=== PATIENT | female | born 1940 | race Caucasian/White ===

== ENCOUNTER → 2016-06-30 | Outpatient (CLI) | payer BC ==
[~2016-06-30] MED LIST: ACET-1256 PO; ASPEC81 PO; ATOR-22 PO; ATV5 PO; BROM0.07 OPL; BSP5 PO; CALCTAB13 PO; CARV6.25 PO; FURO20TA PO; HYDR100T12 PO; ISR10 PO; MULT-614 PO; PLN25 PO; PRED1SUS3 OPL; [UNRECOGNIZED DRUG - CODE] PO
[2016-06-30 13:53] LABS: BLOOD UREA NITROGEN 21 mg/dl (7-18); BUN/CREATININE RATIO 17.3 (10-20); CALCIUM 9.2 mg/dl (8.5-10.1); CARBON DIOXIDE 28 mmol/L (21-32); CHLORIDE 103 mmol/L (98-107); GLUCOSE 82 mg/dl (70-99); POTASSIUM 3.7 mmol/L (3.5-5.1); SODIUM 140 mmol/L (136-145)
== END | disposition home or self-care (01) ==
LOC: C.LABBC 10:42
PROVIDERS: ATTEND Internal Medicine Geriatric Medicine
DX: N18.9 Chronic kidney disease, unspecified (principal)

== ENCOUNTER → 2016-07-05 | Outpatient (CLI) | payer BC ==
--- NOTE | 2016-07-05 14:57 | DIAGNOSTIC IMAGING REPORT ---
LUMBAR SPINE 5 VIEWS HISTORY: Pain COMPARISON: 12/01/2011 FINDINGS: There is no fracture. Mild scoliosis. Vertebral body stature is normal. Degenerative disc changes throughout. IMPRESSION: Degenerative change. Scoliosis. No acute compression deformity. Electronically signed by: Moncho Noriega M.D. 07/05/2016 2:56 PM Dictated Date/Time: 07/05/2016 2:55 PM
== END | disposition home or self-care (01) ==
LOC: C.RADBC 14:13
PROVIDERS: ATTEND Internal Medicine Geriatric Medicine
DX: M54.9 Dorsalgia, unspecified (principal); M51.36 Other intervertebral disc degeneration, lumbar region; M41.9 Scoliosis, unspecified

== ENCOUNTER → 2016-10-25 | Outpatient (CLI) | payer BC ==
[2016-10-25 17:06] LABS: BLOOD UREA NITROGEN 22 mg/dl (7-18); BUN/CREATININE RATIO 15.6 (10-20); CALCIUM 9.7 mg/dl (8.5-10.1); CARBON DIOXIDE 32 mmol/L (21-32); CHLORIDE 102 mmol/L (98-107); GLUCOSE 98 mg/dl (70-99); POTASSIUM 3.8 mmol/L (3.5-5.1); SODIUM 141 mmol/L (136-145)
== END | disposition home or self-care (01) ==
LOC: C.LABBC 15:10
PROVIDERS: ATTEND Internal Medicine Geriatric Medicine
DX: I42.0 Dilated cardiomyopathy (principal)

== ENCOUNTER → 2016-10-26 | Outpatient (CLI) | payer BC ==
[2016-10-26 17:07] LABS: URINE APPEARANCE CLEAR (CLEAR); URINE BILIRUBIN NEG (NEG); URINE COLOR YELLOW; URINE EPITHELIAL CELL AUTO 20-30 /lpf (0-5); URINE NITRITE NEG (NEG); URINE PH 6.5 (4.5-7.5); URINE SPECIFIC GRAVITY 1.011 (1.000-1.030); UROBILINOGEN NEG (NEG); ZZUR CULT IF INDIC CLEAN CATCH NO
[2016-10-26 17:10] LABS: MANUAL MICROSCOPIC REQUIRED? NO; REVIEW REQ? NO
[2016-10-26 17:20] LABS: ALT/SGPT 22 U/L (12-78); AST/SGOT 22 U/L (15-37); BLOOD UREA NITROGEN 18 mg/dl (7-18); BUN/CREATININE RATIO 16.1 (10-20); CALCIUM 9.6 mg/dl (8.5-10.1); CARBON DIOXIDE 29 mmol/L (21-32); CHLORIDE 100 mmol/L (98-107); GLUCOSE 82 mg/dl (70-99); POTASSIUM 3.8 mmol/L (3.5-5.1); SODIUM 137 mmol/L (136-145)
[2016-10-26 17:31] LABS: ALB/GLOB RATIO 1.1 (0.9-2); ALKALINE PHOSPHATASE 74 U/L (45-117); CHOLESTEROL 182 mg/dl (0-200); CHOLESTEROL/HDL RATIO 3.7; HDL CHOLESTEROL 49 mg/dl; LDL CHOLESTEROL CALCULATED 103 mg/dl; TRIGLYCERIDES 151 mg/dl (0-150); VERY LOW DENSITY LIPOPROT CALC 30 mg/dl
[2016-10-26 18:22] LABS: HEMATOCRIT 40.4 % (37-47); MEAN CELL VOLUME 87.3 fL (80-100); MEAN CORPUSCULAR HEMOGLOBIN 28.7 pg (25-34); MEAN CORPUSCULAR HGB CONC 32.9 g/dl (32-36); PLATELET COUNT 113 K/uL (130-400); RED BLOOD COUNT 4.63 M/uL (4.2-5.4); WHITE BLOOD COUNT 6.14 K/uL (4.8-10.8)
[2016-10-26 18:23] LABS: BASO ABS # 0.11 K/uL (0-0.2); BASOPHIL % 1.8 %; COMPLETE YES; EOSINOPHIL % 5.4 %; LYMPH ABS # 0.93 K/uL (1.2-3.4); LYMPHOCYTE % 15.2 %; NEUTROPHILS % 53.5 %; PLT ESTIMATE DECREASED; VARIANT LYM ABS # 0.99 K/uL; VARIANT LYMPHOCYTE % 16.1 %
== END | disposition home or self-care (01) ==
LOC: C.LABBC 14:32
PROVIDERS: ATTEND Internal Medicine Geriatric Medicine
DX: M54.9 Dorsalgia, unspecified (principal); I12.9 Hypertensive chronic kidney disease with stage 1 through stage 4 chronic kidney disease, or unspecified chronic kidney disease; N18.9 Chronic kidney disease, unspecified; G47.33 Obstructive sleep apnea (adult) (pediatric); I42.0 Dilated cardiomyopathy; Z86.79 Personal history of other diseases of the circulatory system; E78.5 Hyperlipidemia, unspecified; R53.83 Other fatigue

== ENCOUNTER → 2016-11-24 | Outpatient (CLI) | payer BC ==
[2016-11-24 13:38] LABS: BASO % 0.5 %; BASO ABS # 0.03 K/uL (0-0.2); COMPLETE YES; EOS % 1.9 %; HEMATOCRIT 40.3 % (37-47); IG% 0.2 %; LYMPH % 19.4 %; LYMPH ABS # 1.15 K/uL (1.2-3.4); MEAN CORPUSCULAR HEMOGLOBIN 29.3 pg (25-34); MEAN CORPUSCULAR HGB CONC 33.3 g/dl (32-36); MEAN PLATELET VOLUME 11.4 fL (7.4-10.4); MONO % 8.6 %; NEUT % 69.4 %; PLATELET COUNT 158 K/uL (130-400); RED BLOOD COUNT 4.58 M/uL (4.2-5.4); WHITE BLOOD COUNT 5.93 K/uL (4.8-10.8)
== END | disposition home or self-care (01) ==
LOC: C.LABBC 10:59
PROVIDERS: ATTEND Internal Medicine Geriatric Medicine
DX: D69.6 Thrombocytopenia, unspecified (principal)

== ENCOUNTER → 2017-04-30 | Outpatient (CLI) | payer BC ==
--- NOTE | 2017-05-01 14:26 | MAMMOGRAPHY REPORT ---
BILATERAL DIGITAL SCREENING MAMMOGRAM TOMOSYNTHESIS WITH CAD: 04/30/2017 CLINICAL HISTORY: Routine screening. Patient has no complaints. TECHNIQUE: Breast tomosynthesis in addition to standard 2D mammography was performed. Current study was also evaluated with a Computer Aided Detection (CAD) system. COMPARISON: Comparison is made to exams dated: 04/27/2016 mammogram, 04/21/2015 mammogram, 04/20/2014 mammogram, 04/18/2013 mammogram, 04/24/2012 mammogram, and 04/17/2012 mammogram - [facility]. BREAST COMPOSITION: There are scattered areas of fibroglandular density in both breasts. FINDINGS: The exam is suboptimal due to inability of the patient to adequately position for the MLO v iews, particularly the left MLO views given her pacemaker in place. Within the limitations of the ex am, obvious mass, architectural distortion or cluster of microcalcifications is seen. There are mild vascular calcifications in the breasts. IMPRESSION: ACR BI-RADS CATEGORY 1: NEGATIVE There is no mammographic evidence of malignancy, within the limitations of the exam. A 1 year screeni ng mammogram is recommended. The patient will receive written notification of the results. Approximately 10% of breast cancers are not detected with mammography. A negative mammographic report should not delay biopsy if a clinically suggestive mass is present. Misty Hodges M.D. ay/:04/30/2017 15:29:38 Machine Operator Assistant: Lakshmi CHINCHILLA(Grace)(Shey)([place]), [facility] letter sent: Normal 1/2 BI-RADS Code: ACR BI-RADS Category 1: Negative
== END | disposition home or self-care (01) ==
LOC: C.MAMM 10:25
PROVIDERS: ATTEND Internal Medicine Geriatric Medicine
DX: Z12.31 Encounter for screening mammogram for malignant neoplasm of breast (principal)

== ENCOUNTER → 2017-06-27 | Outpatient (CLI) | payer BC ==
[2017-06-27 17:17] LABS: ALBUMIN 3.5 gm/dl (3.4-5.0); ALT/SGPT 19 U/L (12-78); BLOOD UREA NITROGEN 18 mg/dl (7-18); CALCIUM 10.1 mg/dl (8.5-10.1); CARBON DIOXIDE 32 mmol/L (21-32); GLUCOSE 84 mg/dl (70-99); POTASSIUM 3.7 mmol/L (3.5-5.1); SODIUM 136 mmol/L (136-145)
[2017-06-27 17:20] LABS: ALKALINE PHOSPHATASE 92 U/L (45-117); AST/SGOT 17 U/L (15-37); CHOLESTEROL 136 mg/dl (0-200); LDL CHOLESTEROL CALCULATED 63 mg/dl; TOTAL PROTEIN 7.4 gm/dl (6.4-8.2)
[2017-06-27 17:21] LABS: BASO % 0.7 %; BASO ABS # 0.05 K/uL (0-0.2); EOS % 5.6 %; HEMATOCRIT 40.7 % (37-47); HEMOGLOBIN 13.5 g/dL (12.0-16.0); IG# 0.01 K/uL (0.00-0.02); LYMPH % 21.8 %; LYMPH ABS # 1.56 K/uL (1.2-3.4); MEAN CELL VOLUME 89.6 fL (80-100); MEAN CORPUSCULAR HEMOGLOBIN 29.7 pg (25-34); MEAN CORPUSCULAR HGB CONC 33.2 g/dl (32-36); MEAN PLATELET VOLUME 11.7 fL (7.4-10.4); MONO % 7.1 %; MONO ABS # 0.51 K/uL (0.11-0.59); NEUT % 64.7 %; NEUT ABS # 4.64 K/uL (1.4-6.5); PLATELET COUNT 164 K/uL (130-400); RED CELL DISTRIBUTION WIDTH CV 14.9 % (11.5-14.5); RED CELL DISTRIBUTION WIDTH SD 48.5 fL (36.4-46.3); WHITE BLOOD COUNT 7.17 K/uL (4.8-10.8)
== END | disposition home or self-care (01) ==
LOC: C.LABBC 12:34
PROVIDERS: ATTEND Physician Assistant Medical
DX: N18.9 Chronic kidney disease, unspecified (principal)

== ENCOUNTER 2017-08-30 17:16 | Emergency (ER) | payer BC ==
[~2017-08-30] VITALS: Ht 139.7 cm; Wt 71.4 kg
[2017-08-30 17:25] VITALS: TEMP 36.5; Ht 139.7 cm; Wt 71.4 kg
[2017-08-30] MEDS ORDERED: SODIUM CHLORIDE 0.9% 1000ML 1,000 ML IV STA (17:47)
[2017-08-30 18:23] LABS: BASO % 0.4 %; BASO ABS # 0.03 K/uL (0-0.2); EOS % 3.1 %; EOS ABS # 0.22 K/uL (0-0.5); HEMATOCRIT 38.5 % (37-47); HEMOGLOBIN 13.3 g/dL (12.0-16.0); IG# 0.01 K/uL (0.00-0.02); LYMPH % 24.5 %; LYMPH ABS # 1.72 K/uL (1.2-3.4); MEAN CELL VOLUME 87.7 fL (80-100); MEAN CORPUSCULAR HEMOGLOBIN 30.3 pg (25-34); MEAN CORPUSCULAR HGB CONC 34.5 g/dl (32-36); MEAN PLATELET VOLUME 10.8 fL (7.4-10.4); MONO % 9.1 %; MONO ABS # 0.64 K/uL (0.11-0.59); NEUT % 62.8 %; NEUT ABS # 4.41 K/uL (1.4-6.5); PLATELET COUNT 164 K/uL (130-400); RED CELL DISTRIBUTION WIDTH CV 14.2 % (11.5-14.5); RED CELL DISTRIBUTION WIDTH SD 45.9 fL (36.4-46.3); WHITE BLOOD COUNT 7.03 K/uL (4.8-10.8)
[2017-08-30 18:25] LABS: PTT PATIENT 39.7 SECONDS (21.0-31.0)
--- NOTE | 2017-08-30 18:45 | DIAGNOSTIC IMAGING REPORT ---
CHEST ONE VIEW PORTABLE CLINICAL HISTORY: 76 years-old Female presenting with CHEST PAIN. TECHNIQUE: Portable upright AP view of the chest was obtained. COMPARISON: 08/14/2013. FINDINGS: Left subclavian implanted cardiac defibrillator with leads to the right atrium, right ventricular apex, and coronary sinus. Atherosclerosis of the aortic arch. Cardiac silhouette moderately enlarged, unchanged. Mild hyperinflation of the lungs. Ulnar vascular prominence. No focal opacity. No large effusion or pneumothorax. Degenerative changes of the thoracic spine. Osteopenia may be present. IMPRESSION: 1. Cardiomegaly with suspected volume overload. No lalit pulmonary edema. 2. Hyperinflation without focal infiltrate. Electronically signed by: Eris Roberson M.D. 08/30/2017 6:43 PM Dictated Date/Time: 08/30/2017 6:42 PM
[2017-08-30 18:49] LABS: ALBUMIN 3.5 gm/dl (3.4-5.0); CALCIUM 9.8 mg/dl (8.5-10.1); CREATININE 1.22 mg/dl (0.60-1.20); POTASSIUM 3.4 mmol/L (3.5-5.1)
[2017-08-30 18:52] LABS: TOTAL PROTEIN 7.2 gm/dl (6.4-8.2)
[2017-08-30] MEDS ORDERED: OPTIRAY 320 IV PRN ×2 (19:30)
[2017-08-30] MEDS ORDERED: ACETAMINOPHEN IV 650 MG in EMPTY BAG 0 ML IV ONE (19:30)
[2017-08-30] MEDS ORDERED: SIME1CAP PO (20:05)
[2017-08-30] MEDS ORDERED: POTA20TA13 PO (20:05)
[2017-08-30] MEDS ORDERED: [UNRECOGNIZED DRUG - REMARK] OPB (20:05)
[2017-08-30] MEDS ORDERED: VALS-10 PO (20:05)
[2017-08-30] MEDS ORDERED: CALC-437 PO (20:05)
[2017-08-30] MEDS ORDERED: HYDR100T3 PO (20:05)
[2017-08-30] MEDS ORDERED: ASPI81TA21 PO (20:05)
[2017-08-30] MEDS ORDERED: BSP/10 PO (20:05)
[2017-08-30] MEDS ORDERED: ISS/10 PO (20:05)
[2017-08-30] MEDS ORDERED: JUICE PLUS PO (20:05)
[2017-08-30] MEDS ORDERED: CRG25 PO (20:05)
--- NOTE | 2017-08-30 20:12 | DIAGNOSTIC IMAGING REPORT ---
(CHEST FOR PE) ANGIO WITH CLINICAL HISTORY: 76 years-old Female presenting with ^leg swelling, PÉREZ, elevated ddimer, hx dvt. TECHNIQUE: Multidetector CT angiography of the chest was performed after administration of intravenous contrast. 3-D volumetric and/or maximum intensity projection (MIP) images were subsequently reconstructed for review. IV contrast: 87 mL of Optiray 320. A dose lowering technique was used consistent with the principles of ALARA (as low as reasonably achievable). COMPARISON: Chest x-ray performed earlier the same day. CT DOSE (mGy.cm): The estimated cumulative dose is 309.08 mGy.cm. FINDINGS: Scale And Skip Car Operator topogram: Left subclavian implanted cardiac defibrillator with leads to the right atrium, right ventricular apex, and coronary sinus. Cholecystectomy clips noted. Pulmonary vasculature: The study is adequate for assessment of the pulmonary vascular tree. No filling defect within the pulmonary arteries to suggest embolus. Main pulmonary artery significantly enlarged measuring 4 cm in transverse dimension. No flattening of the interventricular septum. No intracardiac filling defect. No reflux of contrast into the hepatic veins. Remaining chest: On soft tissue windows, subcentimeter nodule noted in the right lobe of the thyroid. No axillary, supraclavicular, hilar, or mediastinal lymphadenopathy. Atherosclerosis of the aorta. Multichamber enlargement of the heart. A prominent pericardial recess likely accounts for apparent abnormal density in the subcarinal region. Prominent pericardial recesses noted elsewhere. Leads to the right atrium, right ventricular apex, and coronary sinus noted. Coronary artery calcification. Small pericardial effusion. No pleural effusion. Upper abdomen normal. On lung windows, bandlike opacities at the lung bases likely atelectasis. Mild bronchial wall thickening may be present predominantly in the lower lobes. Pulmonary arterial size is slightly larger than the adjacent bronchi. However, no significant groundglass opacity or interlobular septal thickening. Central airways patent. On bone windows, degenerative changes of the spine. IMPRESSION: 1. No evidence of pulmonary embolus. No acute intrathoracic pathology. 2. Findings suggest pulmonary hypertension or volume overload. No lalit pulmonary edema. 3. Cardiomegaly. 4. Small pericardial effusion. Electronically signed by: Eris Roberson M.D. 08/30/2017 8:10 PM Dictated Date/Time: 08/30/2017 8:03 PM
--- NOTE | 2017-08-30 20:24 | DIAGNOSTIC IMAGING REPORT ---
L VENOUS DOPP LOWER EXT UNILAT CLINICAL HISTORY: 76 years-old Female presenting with L leg swelling; hx DVT. TECHNIQUE: Real-time grayscale and color and spectral Doppler ultrasound imaging of the veins of the left lower extremity was performed. Compression and augmentation were also utilized. COMPARISON: None. FINDINGS: Left: Common femoral vein: Patent. Exaggerated phasicity with triphasic waveforms could suggest right heart failure or tricuspid regurgitation. Greater saphenous vein: Patent. Deep femoral vein: Patent. Femoral vein: Patent. Popliteal vein: Patent. Calf veins: Limited visualization. Other: None. IMPRESSION: No evidence of deep venous thrombosis. Electronically signed by: Eris Roberson M.D. 08/30/2017 8:23 PM Dictated Date/Time: 08/30/2017 8:20 PM
--- NOTE | 2017-08-30 20:59 | EMERGENCY ROOM VISIT NOTE ---
ED Visit Note First contact with patient: 17:56 This Patient was discussed with the physician school psychologist assistant, Gelacio Robison PA-C. The pertinent historical and physical exam findings were confirmed. I agree with the studies ordered and with the interpretations of these studies. I agree with the disposition and care plan.
[2017-08-30 21:01] VITALS: BP 182/75; PULSE 78; O2SAT 95
--- NOTE | 2017-08-30 21:35 | EMERGENCY ROOM VISIT NOTE ---
ED Visit Note First contact with patient: 17:30 Chief Complaint: Left leg pain and swelling. History of Present Illness: Ms. Quinteros is a 76-year-old white female who ambulates into the ED accompanied by a male friend complaining of left lower leg pain and swelling. Historically patient reports she has a left upper extremity DVT in 2011 after surgery. She is no longer on anti-thrombolytic medication. Patient reports she has been having ongoing left lower leg pain for an unknown amount of time. She reports she was seen by a visiting nurse today who measured the diameter of her lower legs and noted that her left leg was 1 inch larger than the right. It was recommended that she come to the emergency department for evaluation of DVT. Currently patient reports that she has been having waxing and waning right lower quadrant pain for an unknown amount of time. She thinks it has been over at least 2 weeks but is unsure. She describes her pain as an achy sensation. She rates her discomfort 8/10. Her pain starts approximately 5-6 cm inferior to her hip and extends down to the lower leg to just above the lateral malleolus. Intermittently she reports it does radiate down into her foot. Her pain worsens with ambulation and palpation. She reports her pain slightly improves when she is sitting upright on a hard chair. She reports she took 500 mg of acetaminophen prior to arrival at the hospital without relief of her discomfort. While performing a review of systems she reports she is having mild exertional dyspnea. She denies fevers, chills, sweats, skin eruptions, skin color changes, upper respiratory tract symptoms, cough, wheezing, shortness of breath, palpitations, chest pain/discomfort, orthopnea, claudication, cramping, recent surgery/ inactivity/extended travel, abdominal pain, nausea, vomiting, back pain, lower extremity weakness/numbness/tingling Review of Systems: As noted above in history of present illness. All body systems were reviewed and found to be negative as noted above. Past Medical History: As previously noted, left bundle branch block, primary idiopathic dilated cardiac myopathy, systolic heart failure, status post pacemaker/defibrillator implantation. Current Medications: Medications Dose Route/Sig Max Daily Dose Days Date Category Dose Instructions Diovan Hct 320MG/12.5MG (HCTZ/Valsartan) 1 Tab Tab 1 Tab PO DAILY 08/30/17 Reported [Juice Plus] 2 Tab PO BID 08/30/17 Reported [Bausch & Lombs] 1 Drop OPB TID 08/30/17 Reported Potassium Chloride Er (Potassium Chloride Microencaps) 20 Meq Tab 20 Meq PO DAILY 08/30/17 Reported Isordil (Isosorbide Dinitrate) 10 Mg Tab 10 Mg PO TID 08/30/17 Reported PT STATES SHE ONLY TAKES IT BID Hydralazine HCl 100 Mg Tab 100 Mg PO BID 08/30/17 Reported Gas-X Extra Strength (Simethicone) 125 Mg Cap 1 Cap PO PRN 08/30/17 Reported Carvedilol 25 Mg Tab 25 Mg PO BID 08/30/17 Reported Buspirone HCl 10 Mg Tab 10 Mg PO TID 08/30/17 Reported Calcium Carbonate (Calcium Carbonate (Antacid)) 648 Mg Tab 1 Tab PO BID 08/30/17 Reported Ecotrin Or Generic (Aspirin) 81 Mg Tab 81 Mg PO DAILY 08/30/17 Reported Lasix (Furosemide) 20 Mg Tab 20 Mg PO DAILY PRN 04/20/15 Reported Centrum Silver Ultra Wome (Multiple Vitamins W/ Minerals) 1 Tab Tab 1 Tab PO NOON 04/20/15 Reported Felodipine ER (Felodipine) 2.5 Mg Tabcr 2.5 Mg PO QAM 04/20/15 Reported Tylenol (Acetaminophen) 500 Mg Tab 500 Mg PO Q4-6HR PRN 03/13/11 Reported Lipitor (Atorvastatin Calcium) 20 Mg Tab 20 Mg PO HS 03/13/11 Reported Allergies to Medications: Azithromycin, cephalosporins, ciprofloxacin, erythromycin, penicillin, tramadol. Social History: Patient is currently retired; she feels safe in her home environment; she denies tobacco and alcohol use. Physical Examination: Vital Signs: Date Time Temp Pulse Resp B/P (MAP) Pulse Ox O2 Delivery O2 Flow Rate FiO2 08/30/17 19:14 73 20 176/74 96 Room Air 08/30/17 18:09 64 08/30/17 17:25 36.5 66 20 155/74 94 Room Air GENERAL: 76-year-old female in mild distress due to pain, nontoxic-appearing, afebrile and hemodynamically stable. NEUROLOGICAL: Awake, alert and oriented to person, place and time. Answering questions appropriately and following commands. Good hand eye coordination. No focal motor or sensory deficits. SKIN: Warm, dry and pink. No soft tissue eruptions or trauma noted. HEENT: Atraumatic and normocephalic. PERRLA. Sclera white and conjunctiva pink. Oral cavity moist and pink. Airway is patent. Pharynx is nonerythematous or edematous. Speech normal. Trachea midline. No jugular venous distention. BACK: No tenderness over the bony spine. No CVA tenderness. THORAX: Lungs sounds are clear to auscultation and equal bilaterally with symmetrical chest wall. No wheezing, rales or rhonchi. No crepitus, tenderness , subcutaneous air or deformities noted. No increased respiratory effort or rate. HEART: Regular rate and rhythm. No gallops, rubs or murmurs are appreciated. ABDOMEN: Flat, soft and nontender. Positive bowel sounds in all quadrants. No guarding, rigidity or organomegaly. LEFT LOWER EXTREMITY: No gross bony deformity. No shortening or malrotation. No tenderness over the hip, knee, ankle or foot. Mild to moderate tenderness over the lateral aspect of the lower leg and thigh with mild swelling but no erythema, edema or ecchymosis. No dependent edema. No calf tenderness or cords. Full range of motion of the knee, ankle and toes against resistance. Throughout the foot the skin was warm and pink and capillary refill is brisk. She is able to distinguish light sensations to all dermatomes of the foot. ED Course: Patient is assessed as noted above. Patient's medication list was reviewed. Laboratory Testing: Test 08/30/17 18:00 08/30/17 18:11 Range/Units White Blood Count 7.03 4.8-10.8 K/uL Red Blood Count 4.39 4.2-5.4 M/uL Hemoglobin 13.3 12.0-16.0 g/dL Hematocrit 38.5 37-47 % Mean Corpuscular Volume 87.7 80-100 fL Mean Corpuscular Hemoglobin 30.3 25-34 pg Mean Corpuscular Hemoglobin Concent 34.5 32-36 g/dl Platelet Count 164 130-400 K/uL Mean Platelet Volume 10.8 7.4-10.4 fL Neutrophils (%) (Auto) 62.8 % Lymphocytes (%) (Auto) 24.5 % Monocytes (%) (Auto) 9.1 % Eosinophils (%) (Auto) 3.1 % Basophils (%) (Auto) 0.4 % Neutrophils # (Auto) 4.41 1.4-6.5 K/uL Lymphocytes # (Auto) 1.72 1.2-3.4 K/uL Monocytes # (Auto) 0.64 0.11-0.59 K/uL Eosinophils # (Auto) 0.22 0-0.5 K/uL Basophils # (Auto) 0.03 0-0.2 K/uL RDW Standard Deviation 45.9 36.4-46.3 fL RDW Coefficient of Variation 14.2 11.5-14.5 % Immature Granulocyte % (Auto) 0.1 % Immature Granulocyte # (Auto) 0.01 0.00-0.02 K/uL Prothrombin Time 10.0 9.0-12.0 SECONDS Prothromb Time International Ratio 1.0 0.9-1.1 Activated Partial Thromboplast Time 39.7 21.0-31.0 SECONDS Partial Thromboplastin Ratio 1.5 Sodium Level 138 136-145 mmol/L Potassium Level 3.4 3.5-5.1 mmol/L Chloride Level 103 98-107 mmol/L Carbon Dioxide Level 31 21-32 mmol/L Anion Gap 4.0 3-11 mmol/L Blood Urea Nitrogen 25 7-18 mg/dl Creatinine 1.22 0.60-1.20 mg/dl Est Creatinine Clear Calc Drug Dose 29.4 ml/min Estimated GFR () 49.1 Estimated GFR (Non- 42.4 BUN/Creatinine Ratio 20.8 10-20 Random Glucose 99 70-99 mg/dl Calcium Level 9.8 8.5-10.1 mg/dl Total Bilirubin 0.5 0.2-1 mg/dl Direct Bilirubin 0.1 0-0.2 mg/dl Aspartate Amino Transf (AST/SGOT) 18 15-37 U/L Alanine Aminotransferase (ALT/SGPT) 20 12-78 U/L Alkaline Phosphatase 100 45-117 U/L Total Protein 7.2 6.4-8.2 gm/dl Albumin 3.5 3.4-5.0 gm/dl Lipase 241 73-393 U/L Bedside D-Dimer > 450 0-450 ng/mlFEU Bedside Troponin I < 0.030 0-0.045 ng/ml Chest X-Rays: Were read by myself and the radiologist showing no acute infiltrates, effusions or pneumothorax. Place maker/defibrillator was noted with the leads leading to the right atrium and right ventricle and coronary sinus. Arthrosclerosis is noted in the aortic arch. Heart silhouette is moderately enlarged which is unchanged. Vascular prominences were noted with suspected volume overload. Hyperinflation without focal infiltrate. Left Lower Leg Venous Doppler Ultrasound: Was reviewed by myself and read by the radiologist and showed no evidence of deep vein thrombus. Chest CTA: Was reviewed by myself and read by the radiologist showing no evidence of pulmonary embolism or acute intrathoracic pathology. Finding suggests pulmonary hypertension or fluid overload without lalit pulmonary edema. Cardiomegaly. Small pericardial effusion. Patient was hydrated with normal saline and received 650 mg of acetaminophen IV for pain. Patient was reassessed multiple times during her stay in the emergency department. Patient's case was reviewed with Dr. Loya; we agreed on diagnostic approach, treatment, disposition and plan. Patient was educated about today's findings and instructed on her treatment plan ; she verbalized understanding and agreement with this plan. Clinical Impression: Pain and swelling of the left lower leg. Decision-Making: Initially my differential diagnosis I considered deep vein thrombus, pulmonary embolism, pulmonary edema, lower leg contusion and other causes. Disposition: Patient discharged home in stable condition accompanied by her ; prior to departure she was reassessed and subjectively reported she was feeling much better and rated her discomfort 3/10. Plan: Patient was encouraged to continue her current medications as prescribed. Patient was encouraged to use acetaminophen every 6 hours as needed for pain. Patient was encouraged to keep her left leg elevated while at rest. Patient was encouraged to contact her PCP tomorrow morning and request follow- up care and treatment. Patient was encouraged return the ED for worsening pain, worsening swelling, leg weakness/numbness/tingling or any new/concerning symptoms.
== END 2017-08-30 21:08 | disposition home or self-care (01) ==
LOC: C.EDB 17:17 → C.EDD 21:08
DX: M79.662 Pain in left lower leg (principal); R22.42 Localized swelling, mass and lump, left lower limb; Z86.718 Personal history of other venous thrombosis and embolism; R10.31 Right lower quadrant pain; I44.7 Left bundle-branch block, unspecified; I42.0 Dilated cardiomyopathy; I50.20 Unspecified systolic (congestive) heart failure; Z95.810 Presence of automatic (implantable) cardiac defibrillator; Z79.82 Long term (current) use of aspirin; Z79.899 Other long term (current) drug therapy; Z88.0 Allergy status to penicillin; Z88.8 Allergy status to other drugs, medicaments and biological substances

== ENCOUNTER 2022-01-04 01:19 | Inpatient (IN) ==
[2022-01-04] MEDS ORDERED: LIDOCAINE/EPINEPH/TETRACAINE 1 EA SYR EXT STA (02:38)
[2022-01-04] MEDS ORDERED: DIPHTHERIA/TETANUS/PERTUSSIS 0.5 ML SYR/VIAL IM ONE (02:38)
[2022-01-04 03:08] LABS: Basophils # (auto) 0.04 K/uL (0-0.2); Basophils % (auto) 0.4 %; Eosinophils # (auto) 0.19 K/uL (0-0.50); Hemoglobin 10.6 g/dl (12.0-16.0); Immature Granulocytes # (auto) 0.04 K/uL (0.00-0.02); Immature Granulocytes % (auto) 0.4 %; Lymphocytes # (auto) 0.48 K/uL (1.2-3.4); Mean Corpuscular Hemoglobin 30.1 pg (25.0-34.0); Mean Corpuscular Hgb Conc 33.1 g/dL (32.0-36.0); Mean Corpuscular Volume 90.9 fL (80.0-100.0); Mean Platelet Volume 11.6 fL (9.4-12.3); Monocytes # (auto) 0.71 K/uL (0.24-0.82); Monocytes % (auto) 7.4 %; Neutrophils # (auto) 8.08 K/uL (1.4-6.5); Neutrophils % (auto) 84.8 %; Platelet Count 141 K/uL (130-400); RDW Coefficient of Variation 14.7 % (11.5-14.5); RDW Standard Deviation 49.5 fL (36.4-46.3); Red Blood Count 3.52 M/uL (3.93-5.22); White Blood Count 9.54 K/ul (4.8-10.8)
[2022-01-04 03:34] LABS: Partial Thromboplastin Ratio 1.4; Partial Thromboplastin Time 37.2 Seconds (21.0-31.0); Troponin I High Sensitivity 42.8 pg/ml (0-14)
[2022-01-04 03:41] LABS: Albumin Globulin Ratio 1.5 (0.9-2); Albumin Level 3.5 gm/dl (3.4-5.0); BUN Creatinine Ratio 18.2 (10-20); Bilirubin,Total 0.7 mg/dl (0.2-1.0); Calcium 9.2 mg/dl (8.5-10.1); Creatinine Clr Calc Pharmacy 21.3 ml/min; Est GFR (African American) 43.1 ml/min; Est GFR (Non-African American) 37.2 ml/min; Globulin 2.4 gm/dl (2.5-4.0); Potassium 3.7 mmol/L (3.5-5.1); Total Protein 5.9 gm/dl (6.0-8.3)
[2022-01-04] MEDS ORDERED: OPTIRAY 320 125ml IV ONE (04:20)
[2022-01-04] MEDS ORDERED: XYLOCAINE 1%/SOD BICARB 20 ML VIAL INFIL ONE (04:57)
--- NOTE | 2022-01-04 06:36 | Emergency Department Note ---
History of Present Illness General Chief complaint: Fall Time Seen by Provider: 01/04/22 02:31 History of Present Illness Maximum Pain Intensity: 3 This is an 81-year-old female presenting to the emergency department for evaluation of head injury after falling few hours prior to arrival. The patient states that her went outside to take the garbage out this evening, and after an extended period of time he did not come back inside. The patient called outside for her , who stated that he fell. The patient went outside to assist her , and evidently both of them had subsequent falls outside in the gravel driveway. The patient did strike her head. Is unsure if she lost consciousness. She does have a history of nonsustained V. 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 The patient is primarily with pain of her head, that she rates a 3/10. She does have some bleeding to a laceration on top of the head. She feels like she is able to move her arms and legs without difficulty. She does not describe any chest pain, chest tightness, shortness of breath, or palpitations before or after the event. Home Medications Medication Instructions Recorded Confirmed Type multivit with 1 tab PO DAILY 11/04/18 11/14/21 History [id number]-[id number]-IV-lutein 8 mg iron-400 mcg-300 mcg tablet (Centrum Silver Women) calcium carbonate 600 mg-vitamin 1 cap PO BID 11/13/19 11/14/21 History D3 12.5 mcg (500 unit) capsule (Calcium 600 with Vitamin D3) peg 400-propylene glycol [Systane 1 drops ophthalmic (eye) .COMPLEX 12/19/19 11/14/21 History (propylene glycol)] methenamine-sodium salicylate 162 tab PO 11/08/20 11/14/21 History mg-162.5 mg tablet (AZO Urinary Tract Defense) felodipine 2.5 mg tablet,extended 2.5 mg PO DAILY #90 tabs 11/29/20 11/14/21 Rx release 24 hr hydralazine 100 mg tablet 100 mg PO DAILY #90 tabs 08/11/21 11/14/21 Rx sacubitril 97 mg-valsartan 103 mg 1 tab PO BID #180 tabs 08/15/21 11/14/21 Rx tablet (Entresto) isosorbide dinitrate 10 mg tablet 10 mg PO DAILY #90 tabs 09/02/21 11/14/21 Rx buspirone 5 mg tablet 2.5 mg PO TID PRN anxiety 09/07/21 11/14/21 History furosemide 40 mg tablet 40 mg PO DAILY PRN weight gain, 10/06/21 11/14/21 Rx swelling, dyspnea #60 tabs potassium chloride 20 mEq 20 meq PO DAILY PRN Take with 10/06/21 11/14/21 Rx tablet,extended release Lasix #90 tabs carvedilol 25 mg tablet 25 mg PO BID #180 tabs 11/24/21 Rx spironolactone 25 mg tablet 25 mg PO DAILY #30 tabs 12/12/21 Rx aspirin 81 mg tablet,delayed 81 mg PO DAILY 01/04/22 01/04/22 History release atorvastatin 20 mg tablet 20 mg PO DAILY #90 tabs 01/04/22 Rx Allergies Allergy/AdvReac Type Severity Reaction Status Date / Time cephalexin Allergy Severe ANAPHYLAXIS Verified 11/14/21 10:13 Penicillins Allergy Severe RASH AND Verified 11/14/21 10:13 SWELLING Cephalosporins Allergy Intermediate RASH AND Verified 11/14/21 10:13 SWELLING Cipro Allergy Unknown . Verified 11/19/17 23:19 ciprofloxacin Allergy Unknown . Verified 11/14/21 10:13 scallops Allergy Unknown ` Verified 11/14/21 10:13 tramadol Allergy Unknown . Verified 11/14/21 10:13 erythromycin base AdvReac Intermediate UPSET Verified 11/14/21 10:13 STOMACH amlodipine AdvReac Unknown Unknown Verified 11/14/21 10:13 azithromycin AdvReac Unknown UPSET Verified 11/14/21 10:13 STOMACH Past Med/Surg History Medical History Abdominal pain Carpal tunnel syndrome Chronic diarrhea Dependent edema Depression Diplopia Dyspnea on exertion Frequent PVCs History of shingles Lumbar radiculopathy Ocular migraine Surgical History H/O eye surgery STRABISMUS History of cholecystectomy Hx of cataract surgery BILATERAL Family History Father Coronary heart disease ASCVD (arteriosclerotic cardiovascular disease) Brother Myocardial infarction ASCVD (arteriosclerotic cardiovascular disease) Son Lung cancer ASCVD (arteriosclerotic cardiovascular disease) Aunt Breast cancer Grandmother Cerebral hemorrhage Mother Parkinsons disease Other Cerebral arterial aneurysm Cerebromeningeal hemorrhage Denies family history of Ovarian cancer Prostate cancer Colorectal cancer Social History Smoking Status: Never smoker Second Hand Exposure: No; Hx Alcohol Use: No Hx Substance Use: No Preferred Language: Faroese Communication Ability: Effective Visual Impairment: Limited Hearing Ability: Normal Math Tutor Required: No Beliefs That Will Affect Care: None marital status: Current Living Situation: Spouse current occupational status: retired How many Children do You have: 4 Feels Safe at Home: Yes Childhood Exposure to Second-Hand Smoke: Yes caffeine: Yes Dental Care, Regularly: Yes Physical Activity Frequency: Does not Exercise Seatbelt Use: always Sunscreen Use: No (does not sit in the sun) Review of Systems A total of 10 systems reviewed and were otherwise negative Physical Exam Vital Signs Vital Signs - 24 hr 01/04/22 01:30 01/04/22 03:17 01/04/22 03:17 Temperature 36.5 C Temperature Source Oral Pulse Rate 71 Pulse Rate [Apical] 78 Respiratory Rate 18 16 Respiratory Effort / Characteristics Non-Labored Spontaneous Respiratory Depth Normal Blood Pressure 171/78 H Blood Pressure [Right Arm] 172/88 H Blood Pressure Mean 109 Blood Pressure Mean [Right Arm] 116 Pulse Oximetry 94 92 92 Oxygen Delivery Method Room Air Room Air Oxygen Flow Rate Sepsis Recent Fever Within 48 Hours No Sepsis New/Unexplained Change in Mental Status No Sepsis Action Taken by Nursing No Action Required 01/04/22 05:30 Temperature Temperature Source Pulse Rate Pulse Rate [Apical] 86 Respiratory Rate 18 Respiratory Effort / Characteristics Respiratory Depth Blood Pressure Blood Pressure [Right Arm] 178/109 H Blood Pressure Mean Blood Pressure Mean [Right Arm] 132 Pulse Oximetry 95 Oxygen Delivery Method Nasal Cannula Oxygen Flow Rate 2 Sepsis Recent Fever Within 48 Hours Sepsis New/Unexplained Change in Mental Status Sepsis Action Taken by Nursing VITALS: Vitals are noted on the nurse's note and reviewed by myself. Vital signs stable. GENERAL: Pleasant elderly white female who is in no acute distress. HEAD: There is a roughly 5 x 4 cm hematoma of the superior forehead and right- sided scalp. There is a vertical 1 cm laceration with small amounts of active bleeding. This will require repair. No gallardo sign or raccoon eyes. EARS: External ear normal. External auditory canals clear, tympanic membranes pearly chavez without erythema or effusion bilaterally. NECK: Supple without nuchal rigidity. No lymphadenopathy. No thyromegaly. Cervical spine is nontender. HEART: Regular rate and rhythm with systolic murmur LUNGS: Clear to auscultation bilaterally without wheezes, rales or rhonchi. No retractions or accessory muscle use. MUSCULOSKELETAL: No muscle atrophy, erythema, or edema noted. Full range of motion in all extremities. No tenderness to palpation. Normal gait. Strength 5/5 throughout. NEURO: Patient was alert and oriented to person place and time. CN II through XII grossly intact. GCS 15. Procedures Free Text Procedures Laceration repair. Patient elects to have their laceration repaired. Verbal consent was obtained to perform the procedure. There is an abundance of materials available for the procedure. Patient is not allergic to latex. Using sterile technique the wound was cleaned with Betadine. The area was sterilely draped. 3 ml of 1% buffered lidocaine was used to anesthetize the scalp laceration. Once the patient was anesthetized, the wound was copiously irrigated under pressure with sterile saline. The wound was explored and there were no deep structures injured such as tendons, bone, or significant blood vessels. The laceration was repaired using 2 simple interrupted 4-0 nylon sutures with the wound edges being well approximated. Hemostasis was achieved. The area was cleaned with sterile saline and dressed with bacitracin ointment and bandage. The patient was given a tetanus booster. Patient tolerated the procedure well without complications. Blood loss was negligible. Course Administered Medications Albuterol (Albut/Ipratrop 3mg/0.5mg Neb 3 Ml Vial) 3 ml NEB QIDR [facility]; Protocol Stop: 02/03/22 18:59 Last Admin: 01/04/22 19:17 Dose: 3 ml Documented By: PAVAN Aspirin (Aspirin 81 Mg Ectab) 81 mg PO DAILY [facility] Stop: 02/03/22 08:59 Last Admin: 01/04/22 09:58 Dose: 81 mg Documented By: Buspirone HCl (Buspirone 5 Mg Tab) 2.5 mg PO TID PRN PRN Reason: anxiety Stop: 02/03/22 08:57 Last Admin: 01/04/22 09:59 Dose: 2.5 mg Documented By: GERARDO Carvedilol (Carvedilol 25 Mg Tab) 25 mg PO BID DEBO Stop: 02/03/22 08:59 Last Admin: 01/04/22 20:53 Dose: 25 mg Documented By: Admin: 01/04/22 10:00 Dose: 25 mg Documented By: GERARDO Doxycycline Hyclate (Doxycycline Hyclate 100 Mg Cap) 100 mg PO BID DEBO Stop: 01/11/22 20:59 Last Admin: 01/04/22 20:53 Dose: 100 mg Documented By: BETHANY Felodipine (Felodipine 2.5 Mg Tabcr) 2.5 mg PO DAILY DEBO Stop: 02/03/22 08:59 Last Admin: 01/04/22 09:59 Dose: 2.5 mg Documented By: GERARDO Hydralazine HCl (Hydralazine Tab 50 Mg Tab) 100 mg PO DAILY DEBO Stop: 02/03/22 08:59 Last Admin: 01/04/22 09:00 Dose: 100 mg Documented By: GERARDO Isosorbide Dinitrate (Isosorbide Dinitrate 10 Mg Tab) 10 mg PO DAILY DEBO Stop: 02/03/22 08:59 Last Admin: 01/04/22 09:59 Dose: 10 mg Documented By: GERARDO Sacubitril/Valsartan (Valsartan/Sacubitril 103/97mg Tab) 1 tab PO BID [facility] Stop: 02/03/22 08:59 Last Admin: 01/04/22 20:53 Dose: 1 tab Documented By: Admin: 01/04/22 09:59 Dose: 1 tab Documented By: GERARDO Spironolactone (Spironolactone 25 Mg Tab) 25 mg PO DAILY DEBO Stop: 02/03/22 08:59 Last Admin: 01/04/22 10:00 Dose: 25 mg Documented By: GERARDO Discontinued Medications Albuterol (Albut/Ipratrop 3mg/0.5mg Neb 3 Ml Vial) 3 ml NEB NOW STA; Protocol Stop: 01/04/22 09:50 Last Admin: 01/04/22 10:07 Dose: 3 ml Documented By: CONCEPCION Atorvastatin Calcium (Atorvastatin 20 Mg Tab) 20 mg PO DAILY DEBO Stop: 02/03/22 08:59 Last Admin: 01/04/22 10:00 Dose: 20 mg Documented By: Diphtheria/Pertussis/Tetanus Vacc (Diphtheria/Tetanus/Pertussis 0.5 Ml Syr/Vial) 0.5 ml IM .ONCE ONE Stop: 01/04/22 02:39 Last Admin: 01/04/22 02:55 Dose: 0.5 ml Documented By: GOKUL Ioversol (Optiray 320 125ml) 120 ml IV ONCE ONE Stop: 01/04/22 04:21 Last Admin: 01/04/22 04:20 Dose: 120 ml Documented By: MARGARET Lidocaine (Lidocaine/Epineph/Tetracaine 1 Ea Syr) 1 each EXT NOW STA Stop: 01/04/22 02:39 Last Admin: 01/04/22 02:56 Dose: 1 each Documented By: GOKUL Lidocaine HCl (Xylocaine 1%/Sod Bicarb 20 Ml Vial) Confirm Administered Dose 20 ml INFIL .STK-MED ONE Stop: 01/04/22 04:58 Last Admin: 01/04/22 05:10 Dose: 20 ml Documented By: GOKUL Medical Decision Making Differential Diagnosis Differential diagnosis: Etiologies such as scalp contusion/hematoma, concussion, cerebral contusion, skull fracture, subdural hematoma, epidural hematoma, intraparenchymal hemorrhage, SAH as well as other traumatic pathologies were entertained. Laboratory Data Result diagrams: 01/04/22 02:55 01/04/22 02:55 Lab Results 01/04/22 01/04/22 01/04/22 Range/Units 02:55 02:55 02:55 WBC 9.54 (4.8-10.8) K/ul RBC 3.52 L (3.93-5.22) M/uL Hgb 10.6 L (12.0-16.0) g/dl Hct 32.0 L (34.1-44.9) % MCV 90.9 (80.0-100.0) fL MCH 30.1 (25.0-34.0) pg MCHC 33.1 (32.0-36.0) g/dL RDW Std Deviation 49.5 H (36.4-46.3) fL RDW Coeff of Jaz 14.7 H (11.5-14.5) % Plt Count 141 (130-400) K/uL MPV 11.6 (9.4-12.3) fL Immature Gran % (Auto) 0.4 % Neut % (Auto) 84.8 % Lymph % (Auto) 5.0 % Rose[place] % (Auto) 7.4 % Eos % (Auto) 2.0 % Baso % (Auto) 0.4 % Neut # (Auto) 8.08 H (1.4-6.5) K/uL Lymph # (Auto) 0.48 L (1.2-3.4) K/uL [place] # (Auto) 0.71 (0.24-0.82) K/uL Eos # (Auto) 0.19 (0-0.50) K/uL Baso # (Auto) 0.04 (0-0.2) K/uL Immature Gran # (Auto) 0.04 H (0.00-0.02) K/uL PT 11.0 (9.0-12.0) Seconds INR 1.0 (0.9-1.1) APTT 37.2 H (21.0-31.0) Seconds PTT Ratio 1.4 Sodium 134 L (136-145) mmol/L Potassium 3.7 (3.5-5.1) mmol/L Chloride 102 (98-107) mmol/L Carbon Dioxide 24 (21-32) mmol/L Anion Gap 8 (3-11) BUN 24 H (6-23) mg/dl Creatinine 1.32 H (0.6-1.2) mg/dl Est Cr Clr Drug Dosing 21.3 ml/min Est GFR ( Amer) 43.1 ml/min Est GFR (Non-Af Amer) 37.2 ml/min BUN/Creatinine Ratio 18.2 (10-20) Glucose 114 H (70-99(Fasting)) mg/dl Calcium 9.2 (8.5-10.1) mg/dl Magnesium (1.7-2.4) mg/dl Total Bilirubin 0.7 (0.2-1.0) mg/dl AST 14 (13-39) U/L ALT 9 (7-52) U/L Alkaline Phosphatase 66 (34-104) U/L Troponin I High Sens 42.8 H (0-14) pg/ml Total Protein 5.9 L (6.0-8.3) gm/dl Albumin 3.5 (3.4-5.0) gm/dl Globulin 2.4 L (2.5-4.0) gm/dl Albumin/Globulin Ratio 1.5 (0.9-2) SARS-CoV-2, RNA, NAAT (NEGATIVE) Blood Type Antibody Screen 01/04/22 01/04/22 01/04/22 Range/Units 03:58 03:58 04:23 WBC (4.8-10.8) K/ul RBC (3.93-5.22) M/uL Hgb (12.0-16.0) g/dl Hct (34.1-44.9) % MCV (80.0-100.0) fL MCH (25.0-34.0) pg MCHC (32.0-36.0) g/dL RDW Std Deviation (36.4-46.3) fL RDW Coeff of Ajz (11.5-14.5) % Plt Count (130-400) K/uL MPV (9.4-12.3) fL Immature Gran % (Auto) % Neut % (Auto) % Lymph % (Auto) % [place] % (Auto) % Eos % (Auto) % Baso % (Auto) % Neut # (Auto) (1.4-6.5) K/uL Lymph # (Auto) (1.2-3.4) K/uL [place] # (Auto) (0.24-0.82) K/uL Eos # (Auto) (0-0.50) K/uL Baso # (Auto) (0-0.2) K/uL Immature Gran # (Auto) (0.00-0.02) K/uL PT (9.0-12.0) Seconds INR (0.9-1.1) APTT (21.0-31.0) Seconds PTT Ratio Sodium (136-145) mmol/L Potassium (3.5-5.1) mmol/L Chloride (98-107) mmol/L Carbon Dioxide (21-32) mmol/L Anion Gap (3-11) BUN (6-23) mg/dl Creatinine (0.6-1.2) mg/dl Est Cr Clr Drug Dosing ml/min Est GFR ( Amer) ml/min Est GFR (Non-Af Amer) ml/min BUN/Creatinine Ratio (10-20) Glucose (70-99(Fasting)) mg/dl Calcium (8.5-10.1) mg/dl Magnesium 1.8 (1.7-2.4) mg/dl Total Bilirubin (0.2-1.0) mg/dl AST (13-39) U/L ALT (7-52) U/L Alkaline Phosphatase (34-104) U/L Troponin I High Sens (0-14) pg/ml Total Protein (6.0-8.3) gm/dl Albumin (3.4-5.0) gm/dl Globulin (2.5-4.0) gm/dl Albumin/Globulin Ratio (0.9-2) SARS-CoV-2, RNA, NAAT NEGATIVE (NEGATIVE) Blood Type O Positive Antibody Screen NEGATIVE Imaging Data Radiologist's Impression: Preliminary Findings Only See Final Report For Complete Findings CT HEAD: Right-sided frontal scalp hematoma Focus of edema in the posterior left temporal region may reflect an acute infarct or less likely nonhemorrhagic contusion. Clinical correlation recommended to assess for a left-sided MCA or SPEECH AND LANGUAGE CLINICIAN territory infarct Radiologist:Todd Ritter:[phone] Preliminary Findings Only See Final Report For Complete Findings CTA HEAD: No evidence for significant large vessel stenosis or occlusion Slightly lobulated appearance of the superior cervical ICAs bilaterally may reflect fibromuscular dysplasia, incidentally noted. On the left what may reflect a short segmental dissection versus artifact related to tortuosity noted. 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 The distal cervical internal carotid arteries are slightly lobulated which may reflect fibromuscular dysplasia On the left what may reflect a short segmental dissection versus artifact related to tortuosity is noted, in the superior cervical segment Radiologist:Todd Ritter:[phone] MDM Narrative Physical exam and history were performed. Nursing notes, EMR, and Medication List were personally reviewed. Patient appears to have suffered fall with head injury as described above. The patient does have outward signs of trauma. She does have a history of cardiac disease. IV access was established and labs were obtained. Tetanus was updated. Patient was sent to CT scan for further imaging. An order was placed for continuous cardiac monitoring. The monitor shows a rate of 86 with normal sinus rhythm. The patient's blood work is as above and was reviewed. She does not have a significantly elevated white blood cell count. She is slightly anemic at 10.6. INR is 1.0. Troponin is slightly elevated at 42, and I do not have previous to compare with. Transaminases are not diagnostic. COVID is negative. Patient laceration was repaired as above. CT scan of the head was performed and reviewed by myself and radiology. [facility] concerned for left temporal edema, which may suggest stroke. Recommendation was for MRI, and I did contact MRI tonight by telephone. The patient does have a pacemaker that will need evaluated and set in MRI mode by [facility] before she can undergo MRI. This is not possible overnight. I did perform CT angiograms which are as above, and do not show any other new findings. Her stroke scale is currently 0 and she is without extremity deficit. Overall the patient does not appear well for discharge home. She did have a fall and there is concern for temporal edema, of unknown etiology. Case was discussed with the on-call hospitalist team who agreed to evaluate the patient here in the ER. Please see their dictation for further patient course, plan, disposition. The chart was completed utilizing [employer] Speech Voice Recognition Software. Grammatical errors, random word insertions, pronoun errors, and incomplete sentences are an occasional consequence of this system due to software limitations, ambient noise, and hardware issues. Any formal questions or concerns about the content, text, or information contained within the body of this dictation should be directly addressed to the provider for clarification. . Impression & Plan Fall, Closed head injury, Laceration of scalp, Abnormal CT of brain Discharge Plan Visit Data Chief Complaint: Fall ED Provider: Toyin Vidal ED Midlevel Provider: Rio Capellan Discharge Problem: Fall, Closed head injury, Laceration of scalp, Abnormal CT of brain Patient Disposition: Admitted As Inpatient Discharge Instructions Interventions: ED Discharge Assessment Last Done: 01/04/22 07:21
--- NOTE | 2022-01-04 06:53 | History & Physical Report ---
Date of Service January 04, 2022 Assessment & Plan (1) Concussion: Plan: [facility] read of head CT showed acute left temporal focus of edema; acute CVA vs. contusion. In my mind, contusion is more likely given hx. - MRI brain ordered; has ICD, so will need to coordinate. (2) Fall: Plan: Mechanical in nature. - PT/OT (3) Chronic systolic congestive heart failure: Plan: EF 30-35% on echo from 07/2021. Appears euvolemic. - Hold home Lasix; daughter reports she has not needed it for several weeks. - Continue home ASA, statin, beta-terence, isosorbide, Entresto, spironolactone (4) Hypertension: Plan: BP in ER is 180/110. - Above meds, plus her home hydralazine & felodipine - Monitor Believe patient requested to be full code, but not 100% sure. Daytime provider, please verify. History of Present Illness Primary Care Provider: Lisandra Ruiz PA-C 81yo F w/ hx of cardiomyopathy who presents after a fall at home. She was in her normal state of health when her took the trash out. He is quite weak, and cannot walk long distances. He was gone for quite some time, so she called out, and he called for her to come help him. She hurried out with his walker, but as she got there, he started to fall, and they both fell into a heap. She struck her head, but denies losing consciousness. She denies any prodrome symptoms prior to falling. However, for at least several days, she has had some mild vision loss that seems to come and go. She has not seen anyone about this. In the ER, she had some visual hallucinations of small children and Egyptians that she knows are not truly there. Allergies Allergy/AdvReac Type Severity Reaction Status Date / Time cephalexin Allergy Severe ANAPHYLAXIS Verified 11/14/21 10:13 Penicillins Allergy Severe RASH AND Verified 11/14/21 10:13 SWELLING Cephalosporins Allergy Intermediate RASH AND Verified 11/14/21 10:13 SWELLING Cipro Allergy Unknown . Verified 11/19/17 23:19 ciprofloxacin Allergy Unknown . Verified 11/14/21 10:13 scallops Allergy Unknown ` Verified 11/14/21 10:13 tramadol Allergy Unknown . Verified 11/14/21 10:13 erythromycin base AdvReac Intermediate UPSET Verified 11/14/21 10:13 STOMACH amlodipine AdvReac Unknown Unknown Verified 11/14/21 10:13 azithromycin AdvReac Unknown UPSET Verified 11/14/21 10:13 STOMACH Home Medications Medication Instructions Recorded Confirmed Type multivit with 1 tab PO DAILY 11/04/18 11/14/21 History ceujrcyo-kwox-QY-lutein 8 mg iron-400 mcg-300 mcg tablet (Centrum Silver Women) calcium carbonate 600 mg-vitamin 1 cap PO BID 11/13/19 11/14/21 History D3 12.5 mcg (500 unit) capsule (Calcium 600 with Vitamin D3) peg 400-propylene glycol [Systane 1 drops ophthalmic (eye) .COMPLEX 12/19/19 11/14/21 History (propylene glycol)] methenamine-sodium salicylate 162 tab PO 11/08/20 11/14/21 History mg-162.5 mg tablet (AZO Urinary Tract Defense) felodipine 2.5 mg tablet,extended 2.5 mg PO DAILY #90 tabs 11/29/20 11/14/21 Rx release 24 hr hydralazine 100 mg tablet 100 mg PO DAILY #90 tabs 08/11/21 11/14/21 Rx sacubitril 97 mg-valsartan 103 mg 1 tab PO BID #180 tabs 08/15/21 11/14/21 Rx tablet (Entresto) isosorbide dinitrate 10 mg tablet 10 mg PO DAILY #90 tabs 09/02/21 11/14/21 Rx buspirone 5 mg tablet 2.5 mg PO TID PRN anxiety 09/07/21 11/14/21 History furosemide 40 mg tablet 40 mg PO DAILY PRN weight gain, 10/06/21 11/14/21 Rx swelling, dyspnea #60 tabs potassium chloride 20 mEq 20 meq PO DAILY PRN Take with 10/06/21 11/14/21 Rx tablet,extended release Lasix #90 tabs carvedilol 25 mg tablet 25 mg PO BID #180 tabs 11/24/21 Rx spironolactone 25 mg tablet 25 mg PO DAILY #30 tabs 12/12/21 Rx atorvastatin 20 mg tablet 20 mg PO DAILY #90 tabs 01/03/22 Rx aspirin 81 mg tablet,delayed 81 mg PO DAILY 01/04/22 01/04/22 History release Past Med/Surg History Medical History Abdominal pain Carpal tunnel syndrome Chronic diarrhea Dependent edema Depression Diplopia Dyspnea on exertion Frequent PVCs History of shingles Lumbar radiculopathy Ocular migraine Surgical History H/O eye surgery STRABISMUS History of cholecystectomy Hx of cataract surgery BILATERAL Family History Father Coronary heart disease ASCVD (arteriosclerotic cardiovascular disease) Brother Myocardial infarction ASCVD (arteriosclerotic cardiovascular disease) Son Lung cancer ASCVD (arteriosclerotic cardiovascular disease) Aunt Breast cancer Grandmother Cerebral hemorrhage Mother Parkinsons disease Other Cerebral arterial aneurysm Cerebromeningeal hemorrhage Denies family history of Ovarian cancer Prostate cancer Colorectal cancer Social History Smoking Status: Never smoker Second Hand Exposure: No; Hx Alcohol Use: No Hx Substance Use: No Preferred Language: Gambian Communication Ability: Effective Visual Impairment: Limited Hearing Ability: Normal Cherry Pitter Required: No marital status: Current Living Situation: Spouse current occupational status: retired How many Children do You have: 4 Feels Safe at Home: Yes Childhood Exposure to Second-Hand Smoke: Yes caffeine: Yes Dental Care, Regularly: Yes Physical Activity Frequency: Does not Exercise Seatbelt Use: always Sunscreen Use: No (does not sit in the sun) Review of Systems Review of Systems: All systems reviewed & are unremarkable except as noted in HPI & below Physical Exam Constitutional: WD/WN, vitals as above Eyes: EOM intact bilaterally; no conjunctival abnormality Neck: trachea midline, no thyromegaly normal visual inspection Respiratory: normal respiratory effort, lungs clear to auscultation no respiratory distress Cardiovascular: RRR, no murmur, no edema Gastrointestinal (Abdomen): Inspection/Auscultation: abdomen normal to inspection; abdomen not distended Musculoskeletal: no cyanosis or clubbing, extremities motor strength 5/5 Head/Neck/Chest: + evidence of head trauma (Laceration, bruising) Skin: no rashes, warm and dry Neurologic: moves all extremities and awake Psychiatric: Orientation: alert, oriented to person and cooperative Results & Data Results & Data ([facility]) Vital Signs (Past 12 Hours) Vital Signs Temp Pulse Pulse Resp BP BP Pulse Ox 01/04/22 05:30 86 18 178/109 H 95 01/04/22 03:17 78 16 172/88 H 92 01/04/22 03:17 92 01/04/22 01:30 36.5 C 71 18 171/78 H 94 O2 Del Method O2 Flow Rate 01/04/22 05:30 Nasal Cannula 2 01/04/22 03:17 Room Air 01/04/22 03:17 01/04/22 01:30 Room Air Code Status & VTE Plan VTE Prophylaxis Plan VTE Prophylaxis will be ordered: Yes PG Care Time/CCT Total # of Minutes Spent Total Time Spent with Patient: Total time spent is greater than 50% in coordination of care (as documented) at patient's floor/unit and/or counseling patient: Coding Level of Care Code 26442 Initial Inpt Care Lvl 3 Diagnoses Concussion S06.0X9A Fall W19.XXXA Chronic systolic congestive heart failure I50.22 Hypertension I10 Hypertension type: primary hypertension (1) Hypertension Hypertension type: primary hypertension Qualified Code(s): I10 - Essential (primary) hypertension
--- NOTE | 2022-01-04 07:11 | CT Scan Report ---
CT head/brain wo con CLINICAL HISTORY: Fall. Scalp laceration Technique: Contiguous axial CT images of the head were acquired from the base of the skull to the stevo abelardo without intravenous contrast administration. Images were viewed in brain, [facility]. Automated dose lowering techniques and/or adjustment according to patient size were utilized for this exam. Comparison: Comparison is made to CT head 11/19/2017 Findings: Areas of decreased attenuation are present in the periventricular and subcortical white matter bilate rally consistent with small vessel ischemic disease. Generalized cerebral volume loss with commensura te enlargement of the ventricles, sulci, and cisterns is also present. There is a focus of hypodensit y in the left occipital region which is much less conspicuous in 2018. Imaged portions of the paranasal sinuses and mastoid air cells are clear. The orbits appear normal. There are no acute fractures of the calvaria. Soft tissue swelling is seen in the right frontal scal p. Impression: Focal hypodensity in the left occipital area may represent white matter disease, acute infarct, or no nhemorrhagic contusion. Short-term follow-up and/or MRI is recommended. ACT 112: Negative or not required by law. Electronically signed by: Manny Nichole M.D. 01/04/2022 7:10 AM
--- NOTE | 2022-01-04 07:24 | CT Scan Report ---
CT angio neck with con CLINICAL HISTORY: Likely Temporal stroke on CT head w/o contrast TECHNIQUE: CT angiography of the neck was performed following intravenous administration of iodinate d contrast. Coronal and sagittal MIPS were obtained from the axial data set and were submitted for re view. Automated dose lowering techniques and/or adjustment according to patient size were utilized f or this examination. All measurements were calculated based on NASCET criteria. CT DOSE: 367.63 mGy.cm Comparison: None available at the time of this dictation. FINDINGS: There is a unilateral left pleural effusion with associated atelectasis. Bronchial wall thickening is seen. CTA Neck: A 3 vessel aortic arch is shown. Mild atherosclerotic disease is seen. Tortuosity of the b ilateral internal carotid arteries is noted. No hemodynamically significant stenosis is seen. The stevo tebral arteries are codominant. IMPRESSION: 1. No occlusion, hemodynamically significant stenosis, or dissection in the major cervical arteries. 2. Unilateral left pleural effusion with associated atelectasis. Not previously evaluated, CTA chest can be performed. Assessment of stenosis of the internal carotid arteries is based on NASCET criteria. ACT 112: Negative or not required by law. Electronically signed by: Manny Nichole M.D. 01/04/2022 7:22 AM
--- NOTE | 2022-01-04 07:25 | CT Scan Report ---
CTA ANGIOGRAPHY OF THE HEAD CLINICAL HISTORY: Likely temporal stroke on CT head w/o contrast. Fall. COMPARISON STUDY: MRA of the head June 08, 2011. Head CT performed earlier today. TECHNIQUE: Helical axial images of the head were obtained following uneventful intravenous administr ation of 120 cc of Optiray. Sagittal and coronal reconstructions were viewed as well as maximal inten sity projections on an independent 3-D workstation. Automated exposure control was utilized for the study. A dose lowering technique was utilized adhering to the principles of ALARA. FINDINGS: The brain is better depicted on recent head CT. A right temporal scalp contusion and lacera tion is noted. There is no acute calvarial fracture. Mild polypoid sinus mucosal thickening is presen t. Fluid within the bilateral mastoid air cells is noted. No central vessel occlusion is noted on thi s examination. There is moderate plaque of the bilateral cavernous carotids without stenosis. Irregul arity of the distal bilateral cervical internal carotid arteries is noted. This is likely due to athe rosclerosis. The posterior circulation is intact. There is no intracranial aneurysm. There is no diss ection within the intracranial vessels. The distal right vertebral artery is fenestrated. IMPRESSION: 1. No central vessel occlusion. No intracranial aneurysm. 2. Irregularity of the distal bilateral cervical internal carotid arteries, likely due to atheroscler osis. Other etiologies such as fibromuscular dysplasia are within the differential but considered les s likely. 3. Right temporal scalp contusion and laceration. No calvarial fracture. ACT 112: Negative or not required by law. Electronically signed by: Ry Cazares M.D. 01/04/2022 7:24 AM
[2022-01-04] MEDS ORDERED: ACETAMINOPHEN 325 MG TAB PO PRN (08:58)
[2022-01-04] MEDS ORDERED: ONDANSETRON INJ 2 MG/ML 2 ML VIAL IV PRN (08:58)
[2022-01-04] MEDS ORDERED: busPIRone 5 MG TAB PO PRN (08:58)
[2022-01-04] MEDS ORDERED: ATORVASTATIN 20 MG TAB PO SCH (09:00)
[2022-01-04] MEDS: hydrALAZINE TAB 50 MG TAB PO SCH (09:00)
[2022-01-04] MEDS ORDERED: ALBUT/IPRATROP 3MG/0.5MG NEB 3 ML VIAL NEB STA (09:49)
[2022-01-04] MEDS: ASPIRIN 81 MG ECTAB PO SCH (09:58)
[2022-01-04] MEDS: ISOSORBIDE DINITRATE 10 MG TAB PO SCH (09:59)
[2022-01-04] MEDS: FELODIPINE 2.5 MG TABCR PO SCH (09:59)
[2022-01-04] MEDS: VALSARTAN/SACUBITRIL 103/97MG TAB PO SCH ×2 (09:59→20:53)
[2022-01-04] MEDS: carvediloL 25 MG TAB PO SCH ×2 (10:00→20:53)
[2022-01-04] MEDS: SPIRONOLACTONE 25 MG TAB PO SCH (10:00)
--- NOTE | 2022-01-04 10:57 | XRay Report ---
XR chest 1V portable CLINICAL HISTORY: cough, hypoxia TECHNIQUE: Single frontal radiograph of the chest was obtained. Comparison: Comparison is made to chest radiograph 11/19/2017 FINDINGS: Pacemaker defibrillator is seen. Cardiomegaly is noted. Multifocal airspace opacities are seen. No ev idence of pleural effusion or pneumothorax. IMPRESSION: Multifocal airspace opacities may represent atelectasis, pneumonia, and/or aspiration. Stable cardiom egaly. ACT 112: Negative or not required by law. Electronically signed by: Manny Nichole M.D. 01/04/2022 10:55 AM
--- NOTE | 2022-01-04 14:20 | Magnetic Resonance Report ---
MR brain wo con CLINICAL HISTORY: Fall, possible CVA vs concussion TECHNIQUE: Multiplanar and multisequence MR images of the brain were obtained without intravenous con trast. Comparison: Comparison is made to MRI brain 06/08/2011 and CTA head and neck 01/04/2022 FINDINGS: Restricted diffusion is seen in the left posterior temporal lobe. There is associated edema without s ignificant mass effect or midline shift. No hemorrhagic component is noted. The ventricular system is normal in appearance. No mass is seen. There is no mass effect or midline shift. There is no evidenc e of acute intraparenchymal hemorrhage. No extra axial fluid collections are seen. The corpus callosu m, pituitary gland, and cerebellar tonsils appear grossly unremarkable. Flow voids of the major intracranial arterial vessels are identified. The imaged portions of the para nasal sinuses, mastoid air cells, and orbits are unremarkable. IMPRESSION: Findings compatible with acute infarct in the left temporal lobe corresponding to findings of CT head . No hemorrhage is seen. ACT 112: Negative or not required by law. Electronically signed by: Manny Nichole M.D. 01/04/2022 2:19 PM
--- NOTE | 2022-01-04 16:47 | Hospitalist Progress Note ---
Date of Service January 04, 2022 Assessment & Plan (1) Cerebrovascular accident (CVA): Plan: - Pt sustained fall with head injury (laceration) requiring repair, CVA conf irmed by MRI brain obtained today d/t abnormal CT - Neck CTA w/o HD significant stenosis - Obtain Echo for completeness and neuro consult - PT/OT eval - Already on ASA 81mg, will add Plavix x 3 weeks - Permissive HTN (2) Acute respiratory failure with hypoxia: Plan: - Multifocal airspace opacities noted on CXR - ?pleural effusion w/ atelectasis incidentally seen on neck CTA but not - Continue supplemental O2, add scheduled Duoneb QID and q2h prn - Empiric abx, due to multiple allergies/GI intolerances, options limited, start Doxycycline 100mg BID - Obtain CT chest w/o contrast to further evaluate opacity in LLL and ?effusion (3) Fall: Plan: ? Secondary to CVA v Mechanical - PT/OT eval (4) Chronic systolic congestive heart failure: Plan: EF 30-35% on echo from 07/2021. Appears euvolemic. - Hold home Lasix; daughter reports she has not needed it for several weeks. - Continue home ASA, statin, beta-terence, isosorbide, Entresto, spironolactone (5) Hypertension: Plan: BP in ER is 180/110. - Above meds, plus her home hydralazine & felodipine - Permissive HTN in setting of acute CVA Plan As above. Follow up labs tomorrow AM. Appreciate neuro input. Case management for d/c planning. Will d/w Dr. Ugalde. Admission and Anticipated Discharge Date Admission Date: January 04, 2022 Subjective Patient seen on daily rounds today. She is resting in bed, reports that she suffered a fall while trying to help her up in the driveway when he went out to get the mail. She sustained a laceration and concussion. This AM, was notified by RN that pt was c/o feeling short of breath. Does carry a h/o CHF which has been compensated and has not required Lasix (takes it as needed). She is also with a cough. Denies fever/chills, headache, nausea/vomiting, or vision changes. Review of Systems Review of Systems: All systems reviewed and are unremarkable except as noted in HPI and below. Denies fever, chills, fatigue, headache, nasal congestion, sore throat, chest pain, palpitations, orthopnea, PND, abdominal pain, n/v/d, constipation, dysu tova, hematuria, frequency, back pain, joint pain or swelling, easy bruising or bleeding, skin lesions or rashes. Physical Exam Physical Exam: GENERAL: 81 yo Well-developed, well-nourished WF. NAD. LUNGS: Nonlabored. Bibasilar crackles with scattered rhonchi. CARDIOVASCULAR: Regular rate and rhythm. No M/G/R. No JVD. ABDOMEN: Soft, non-tender and non-distended. BS normoactive x 4 quad. EXTREMITIES: No edema. Non-tender. Peripheral pulses +2/4. NEUROLOGIC: A&O x3. Nonfocal. PSYCHIATRIC: Cooperative. Appropriate mood and affect. SKIN: Warm, dry, intact. No rashes or lesions. Results & Data Results & Data ([facility]) Vital Signs (Past 12 Hours) Vital Signs Temp Pulse Pulse Pulse Resp BP BP 01/04/22 16:01 36.9 C 68 18 122/58 L 01/04/22 16:06 01/04/22 11:32 36.5 C 73 18 161/79 H 01/04/22 10:08 89 20 01/04/22 08:58 69 01/04/22 08:58 01/04/22 08:58 36.8 C 73 18 180/92 H 01/04/22 08:30 85 18 01/04/22 08:30 182/90 H 01/04/22 08:20 78 20 01/04/22 08:10 77 22 01/04/22 08:00 75 23 01/04/22 08:00 174/86 H 01/04/22 07:50 74 23 01/04/22 07:21 78 18 172/83 H 01/04/22 05:30 86 18 178/109 H Pulse Ox O2 Del Method O2 Flow Rate 01/04/22 16:01 90 Nasal Cannula 2 01/04/22 16:06 Nasal Cannula 2 01/04/22 11:32 94 Nasal Cannula 2 01/04/22 10:08 88 L Nasal Cannula 2 01/04/22 08:58 01/04/22 08:58 Nasal Cannula 2 08/10/22 08:58 96 Nasal Cannula 2 01/04/22 08:30 95 01/04/22 08:30 01/04/22 08:20 96 01/04/22 08:10 96 01/04/22 08:00 96 01/04/22 08:00 01/04/22 07:50 96 01/04/22 07:21 94 Room Air 01/04/22 05:30 95 Nasal Cannula 2 Laboratory Results 01/04/22 02:55 01/04/22 02:[address] 01/04/22 02:38 CT head/brain wo con CLINICAL HISTORY: Fall. Scalp laceration Technique: Contiguous axial CT images of the head were acquired from the base of the skull to the vertex without intravenous contrast administration. Images were viewed in brain, subdural and bone windows. Automated dose lowering techniques and/or adjustment according to patient size were utilized for this exam. Comparison: Comparison is made to CT head 11/19/2017 Findings: Areas of decreased attenuation are present in the periventricular and subcortical white matter bilaterally consistent with small vessel ischemic di sease. Generalized cerebral volume loss with commensurate enlargement of the ventricles, sulci, and cisterns is also present. There is a focus of hypodensity in the left occipital region which is much less conspicuous in 2018. Imaged portions of the paranasal sinuses and mastoid air cells are clear. The orbits appear normal. There are no acute fractures of the calvaria. Soft tissue swelling is seen in the right frontal scalp. Impression: Focal hypodensity in the left occipital area may represent white matter disease, acute infarct, or nonhemorrhagic contusion. Short-term follow-up and/or MRI is recommended. ACT 112: Negative or not required by law. Electronically signed by: Manny Nichole M.D. 01/04/2022 7:10 AM Head CTA 01/04/22 03:47 CTA ANGIOGRAPHY OF THE HEAD CLINICAL HISTORY: Likely temporal stroke on CT head w/o contrast. Fall. COMPARISON STUDY: MRA of the head June 08, 2011. Head CT performed earlier today. TECHNIQUE: Helical axial images of the head were obtained following uneventful intravenous administration of 120 cc of Optiray. Sagittal and coronal reconstructions were viewed as well as maximal intensity projections on an independent 3-D workstation. Automated exposure control was utilized for the study. A dose lowering technique was utilized adhering to the principles of ALARA. FINDINGS: The brain is better depicted on recent head CT. A right temporal scalp contusion and laceration is noted. There is no acute calvarial fracture. Mild polypoid sinus mucosal thickening is present. Fluid within the bilateral mastoid air cells is noted. No central vessel occlusion is noted on this examination. There is moderate plaque of the bilateral cavernous carotids without stenosis. Irregularity of the distal bilateral cervical internal carotid arteries is noted. This is likely due to atherosclerosis. The posterior circulation is intact. There is no intracranial aneurysm. There is no dissection within the int racranial vessels. The distal right vertebral artery is fenestrated. IMPRESSION: 1. No central vessel occlusion. No intracranial aneurysm. 2. Irregularity of the distal bilateral cervical internal carotid arteries, likely due to atherosclerosis. Other etiologies such as fibromuscular dysplasia are within the differential but considered less likely. 3. Right temporal scalp contusion and laceration. No calvarial fracture. ACT 112: Negative or not required by law. Electronically signed by: Ry Cazares M.D. 01/04/2022 7:24 AM Neck CTA 01/04/22 03:47 CT angio neck with con CLINICAL HISTORY: Likely Temporal stroke on CT head w/o contrast TECHNIQUE: CT angiography of the neck was performed following intravenous administration of iodinated contrast. Coronal and sagittal MIPS were obtained from the axial data set and were submitted for review. Automated dose lowering techniques and/or adjustment according to patient size were utilized for this examination. All measurements were calculated based on NASCET criteria. CT DOSE: 367.63 mGy.cm Comparison: None available at the time of this dictation. FINDINGS: There is a unilateral left pleural effusion with associated atelectasis. Bronchial wall thickening is seen. CTA Neck: A 3 vessel aortic arch is shown. Mild atherosclerotic disease is seen. Tortuosity of the bilateral internal carotid arteries is noted. No hemodynamically significant stenosis is seen. The vertebral arteries are codominant. IMPRESSION: 1. No occlusion, hemodynamically significant stenosis, or dissection in the major cervical arteries. 2. Unilateral left pleural effusion with associated atelectasis. Not previously evaluated, CTA chest can be performed. Assessment of stenosis of the internal carotid arteries is based on NASCET criteria. ACT 112: Negative or not required by law. Electronically signed by: Manny Nichole M.D. 01/04/2022 7:22 AM Brain MRI 01/04/22 08:58 MR brain wo con CLINICAL HISTORY: Fall, possible CVA vs concussion TECHNIQUE: Multiplanar and multisequence MR images of the brain were obtained without intravenous contrast. Comparison: Comparison is made to MRI brain 06/08/2011 and CTA head and neck 01/04/2022 FINDINGS: Restricted diffusion is seen in the left posterior temporal lobe. There is associated edema without significant mass effect or midline shift. No hemorrhagic component is noted. The ventricular system is normal in appearance. No mass is seen. There is no mass effect or midline shift. There is no evidence of acute intraparenchymal hemorrhage. No extra axial fluid collections are seen. The corpus callosum, pituitary gland, and cerebellar tonsils appear grossly unremarkable. Flow voids of the major intracranial arterial vessels are identified. The imaged portions of the paranasal sinuses, mastoid air cells, and orbits are unremarkable. IMPRESSION: Findings compatible with acute infarct in the left temporal lobe corresponding to findings of CT head. No hemorrhage is seen. ACT 112: Negative or not required by law. Electronically signed by: Manny Nichole M.D. 01/04/2022 2:19 PM Chest X-Ray 01/04/22 09:50 XR chest 1V portable CLINICAL HISTORY: cough, hypoxia TECHNIQUE: Single frontal radiograph of the chest was obtained. Comparison: Comparison is made to chest radiograph 11/19/2017 FINDINGS: Pacemaker defibrillator is seen. Cardiomegaly is noted. Multifocal airspace opacities are seen. No evidence of pleural effusion or pneumothorax. IMPRESSION: Multifocal airspace opacities may represent atelectasis, pneumonia, and/or aspiration. Stable cardiomegaly. ACT 112: Negative or not required by law. Electronically signed by: Manny Nichole M.D. 01/04/2022 10:55 AM PG Care Time/CCT Total # of Minutes Spent Total Time Spent with Patient: Total time spent is greater than 50% in coordination of care (as documented) at patient's floor/unit and/or counseling patient: Coding Level of Care Code None Diagnoses Cerebrovascular accident (CVA) I63.9 Acute respiratory failure with hypoxia J96.01 Fall W19.XXXA Chronic systolic congestive heart failure I50.22 Hypertension I10 Hypertension type: primary hypertension (1) Hypertension Hypertension type: primary hypertension Qualified Code(s): I10 - Essential (primary) hypertension
[2022-01-04] MEDS: ALBUT/IPRATROP 3MG/0.5MG NEB 3 ML VIAL NEB SCH (19:17)
[2022-01-04] MEDS: DOXYCYCLINE HYCLATE 100 MG CAP PO SCH (20:53)
[2022-01-05] MEDS: ALBUT/IPRATROP 3MG/0.5MG NEB 3 ML VIAL NEB SCH ×2 (07:04→10:53)
[2022-01-05] MEDS: VALSARTAN/SACUBITRIL 103/97MG TAB PO SCH (07:26)
[2022-01-05] MEDS: carvediloL 25 MG TAB PO SCH ×2 (07:26→20:43)
[2022-01-05] MEDS: CLOPIDOGREL BISULFATE 75 MG TAB PO SCH (07:27)
[2022-01-05] MEDS: ASPIRIN 81 MG ECTAB PO SCH (07:27)
[2022-01-05] MEDS: ISOSORBIDE DINITRATE 10 MG TAB PO SCH (07:27)
[2022-01-05] MEDS: hydrALAZINE TAB 50 MG TAB PO SCH (07:27)
[2022-01-05] MEDS: SPIRONOLACTONE 25 MG TAB PO SCH (07:27)
[2022-01-05] MEDS: DOXYCYCLINE HYCLATE 100 MG CAP PO SCH ×2 (07:27→20:43)
[2022-01-05] MEDS: FELODIPINE 2.5 MG TABCR PO SCH (07:27)
[2022-01-05] MEDS: ATORVASTATIN 40 MG TAB PO SCH (07:28)
[2022-01-05 08:24] LABS: Hematocrit (blood only) 31.7 % (34.1-44.9); Hemoglobin 10.4 g/dl (12.0-16.0); Mean Corpuscular Hemoglobin 30.3 pg (25.0-34.0); Mean Corpuscular Hgb Conc 32.8 g/dL (32.0-36.0); Mean Corpuscular Volume 92.4 fL (80.0-100.0); Mean Platelet Volume 11.7 fL (9.4-12.3); Platelet Count 151 K/uL (130-400); RDW Coefficient of Variation 14.9 % (11.5-14.5); Red Blood Count 3.43 M/uL (3.93-5.22); White Blood Count 6.53 K/ul (4.8-10.8)
[2022-01-05 08:56] LABS: BUN Creatinine Ratio 14.8 (10-20); Chol HDL Ratio 3.3 (0-5); Creatinine Clr Calc Pharmacy 19.5 ml/min; Est GFR (African American) 39.5 ml/min; Est GFR (Non-African American) 34.1 ml/min; Magnesium 1.7 mg/dl (1.7-2.4); Potassium 3.9 mmol/L (3.5-5.1)
--- NOTE | 2022-01-05 09:00 | Neurology Consultation ---
Date of Consultation January 05, 2022 Assessment & Plan (1) Cerebrovascular accident (CVA): (2) Closed head injury: (3) Primary idiopathic dilated cardiomyopathy: (4) Paroxysmal atrial fibrillation: (5) Biventricular ICD (implantable cardioverter-defibrillator) in place: Plan 81-year-old female with a history of primary idiopathic dilated cardiomyopathy, paroxysmal atrial fibrillation, history of biventricular ICD placement, had fallen in her driveway attempting to assist her , striking her head resulting in a large laceration, requiring a few sutures in the emergency department. Found to have an acute infarct within the left occipital lobe, some extension to the posterior left temporal lobe. No significant vascular lesion identified on CT angiography of the head and neck. No evidence of dissection or occlusive lesion. Patient does not have an obvious or gross visual field deficit with confrontation testing this morning. She has been experiencing a visual distortion off to the right for at least the past few weeks, however. Patient is neurologically intact and denies significant concussive symptoms at this point in time. Because this patient has been complaining of some visual distortion off to the right for at least the past few weeks, it is possible that she has had a subacute infarct in the left occipital lobe that predates her fall on the driveway. Further, because there is no evidence of vascular dissection on CT angiography of the head and neck, I suspect her stroke is not directly related to the fall, and may have predated this event. She does have a history of paroxysmal atrial fibrillation, PVCs and nonsustained ventricular tachycardia occurring in the context of idiopathic dilated cardiomyopathy for which she has been following with [facility] cardiology and has an implanted ICD. Would consider anticoagulating this patient given that she now has evidence of an ischemic infarct in the context of a history of paroxysmal atrial fibrillation. In light of her recent head injury and acute appearing infarct on MRI, would recommend delaying starting anticoagulation by 1 to 2 weeks. Would recommend checking a follow-up CT of the head in 2 to 3 days to assess for any interval bleeding. Would also touch base with cardiology regarding anticoagulating this patient. Otherwise, continue with dual antiplatelet therapy, low-dose aspirin and Plavix for the next 3 weeks, followed by transition back to monotherapy. The patient going to start an anticoagulant would likely choose aspirin, if not, then would choose clopidogrel 75 mg/day. Continue with atorvastatin, dosage increased to 40 mg/day. Continue medical management of blood pressure per stroke protocol. Consultations with PT/OT Patient will need an outpatient ophthalmology evaluation in light of the acute left occipital temporal stroke, visual field evaluation. No further immediate recommendations. May follow-up with me or one of our SHAHEEN's in neurology clinic in 3 to 4 weeks after discharge. History of Present Illness Reason for Consultation: stroke Requesting Physician: Bibi Negron PA-C Attending Physician: Roderick Ugalde MD History of Present Illness The patient is an 81-year-old female who had fallen in her driveway, striking her head, while attempting to assist her who had been taking out the garbage. She sustained a laceration to the right frontal area near the vertex which was treated in the emergency department. The patient does not think she had an associated loss of consciousness. She does not recall feeling dizzy or vertiginous prior to the fall. She does remark that she has been having some difficulty with her vision off to the right for probably the past few weeks and indicates that she was going to see her eye doctor for this issue. She denies actual vision loss, however, and reports more of the vision distortion. She is unaware of any significant change in her vision this morning. She denies other associated neurologic symptoms such as change in speech, focal weakness, sensory loss, headache, or nausea. She does follow with [facility] cardiology and has a history of biventricular ICD, idiopathic dilated cardiomyopathy, PVCs, nonsustained ventricular tachycardia, and paroxysmal atrial fibrillation, has not required anticoagulation due to infrequency of her A. fib. A CT of the head did suggest a hypodensity in the left occipital region potentially consistent with a subacute infarct. A CTA of the head revealed some irregularity in the distal bilateral cervical internal carotid arteries likely due to atherosclerosis. A CTA of the neck was negative for occlusion, stenosis, or dissection. An MRI of the brain revealed an acute infarct within the left occipital lobe corresponding to the finding seen on the previous CT of the head. I did independently review these images. Again, the acute stroke is located within this patient's left occipital lobe with some extension into the posterior left temporal lobe. Allergies Allergy/AdvReac Type Severity Reaction Status Date / Time cephalexin Allergy Severe ANAPHYLAXIS Verified 11/14/21 10:13 Penicillins Allergy Severe RASH AND Verified 11/14/21 10:13 SWELLING Cephalosporins Allergy Intermediate RASH AND Verified 11/14/21 10:13 SWELLING Cipro Allergy Unknown . Verified 11/19/17 23:19 ciprofloxacin Allergy Unknown . Verified 11/14/21 10:13 scallops Allergy Unknown ` Verified 11/14/21 10:13 tramadol Allergy Unknown . Verified 11/14/21 10:13 erythromycin base AdvReac Intermediate UPSET Verified 11/14/21 10:13 STOMACH amlodipine AdvReac Unknown Unknown Verified 11/14/21 10:13 azithromycin AdvReac Unknown UPSET Verified 11/14/21 10:13 STOMACH Home Medications Medication Instructions Recorded Confirmed Type multivit with 1 tab PO DAILY 11/04/18 11/14/21 History eezlivaj-fqyk-DG-lutein 8 mg iron-400 mcg-300 mcg tablet (Centrum Silver Women) calcium carbonate 600 mg-vitamin 1 cap PO BID 11/13/19 11/14/21 History D3 12.5 mcg (500 unit) capsule (Calcium 600 with Vitamin D3) peg 400-propylene glycol [Systane 1 drops ophthalmic (eye) .COMPLEX 12/19/19 11/14/21 History (propylene glycol)] methenamine-sodium salicylate 162 tab PO 11/08/20 11/14/21 History mg-162.5 mg tablet (AZO Urinary Tract Defense) felodipine 2.5 mg tablet,extended 2.5 mg PO DAILY #90 tabs 11/29/20 11/14/21 Rx release 24 hr hydralazine 100 mg tablet 100 mg PO DAILY #90 tabs 08/11/21 11/14/21 Rx sacubitril 97 mg-valsartan 103 mg 1 tab PO BID #180 tabs 08/15/21 11/14/21 Rx tablet (Entresto) isosorbide dinitrate 10 mg tablet 10 mg PO DAILY #90 tabs 09/02/21 11/14/21 Rx buspirone 5 mg tablet 2.5 mg PO TID PRN anxiety 09/07/21 11/14/21 History furosemide 40 mg tablet 40 mg PO DAILY PRN weight gain, 10/06/21 11/14/21 Rx swelling, dyspnea #60 tabs potassium chloride 20 mEq 20 meq PO DAILY PRN Take with 10/06/21 11/14/21 Rx tablet,extended release Lasix #90 tabs carvedilol 25 mg tablet 25 mg PO BID #180 tabs 11/24/21 Rx spironolactone 25 mg tablet 25 mg PO DAILY #30 tabs 12/12/21 Rx aspirin 81 mg tablet,delayed 81 mg PO DAILY 01/04/22 01/04/22 History release atorvastatin 20 mg tablet 20 mg PO DAILY #90 tabs 01/04/22 Rx Patient History Medical History Abdominal pain Carpal tunnel syndrome Chronic diarrhea Dependent edema Depression Diplopia Dyspnea on exertion Frequent PVCs History of shingles Lumbar radiculopathy Ocular migraine Surgical History H/O eye surgery STRABISMUS History of cholecystectomy Hx of cataract surgery BILATERAL Family History Father Coronary heart disease ASCVD (arteriosclerotic cardiovascular disease) Brother Myocardial infarction ASCVD (arteriosclerotic cardiovascular disease) Son Lung cancer ASCVD (arteriosclerotic cardiovascular disease) Aunt Breast cancer Grandmother Cerebral hemorrhage Mother Parkinsons disease Other Cerebral arterial aneurysm Cerebromeningeal hemorrhage Denies family history of Ovarian cancer Prostate cancer Colorectal cancer Social History Smoking Status: Never smoker Second Hand Exposure: No; Hx Alcohol Use: No Hx Substance Use: No Preferred Language: Nicaraguan Communication Ability: Effective Visual Impairment: Limited Hearing Ability: Normal Specimen Preparation Assistant Required: No Beliefs That Will Affect Care: None marital status: Current Living Situation: Spouse current occupational status: retired How many Children do You have: 4 Feels Safe at Home: Yes Childhood Exposure to Second-Hand Smoke: Yes caffeine: Yes Dental Care, Regularly: Yes Physical Activity Frequency: Does not Exercise Seatbelt Use: always Sunscreen Use: No (does not sit in the sun) Review of Systems Constitutional: no fever Eyes: as per Subjective / HPI Ear, Nose, Mouth, Throat: no hearing loss Respiratory: no cough and no dyspnea Cardiovascular: no chest pain Gastrointestinal: no nausea and no vomiting Genitourinary: no dysuria Musculoskeletal: no back pain, no neck pain and no myalgia Integumentary: no rash Neurologic: as per Subjective / HPI; no localized weakness, no loss of sensation, no tremor(s), no headache(s) and no memory loss Psychiatric: no depression and no anxiety Hematologic / Lymphatic: no easy bleeding Exam (Neuro) Constitutional: well developed and well nourished; no acute distress Eyes: normal visual lopez by confrontation, PERRL, normal accommodation and EOM intact bilaterally; no fundoscopic abnormality, no nystagmus and no papilledema Cardiovascular: Vessels: normal carotid upstroke; no carotid bruit Neurologic: Oriented to:: Person, Place and Time Memory: Short Term Intact and Remote Intact Attention: Span Intact and Concentration Intact Language: Naming Objects and Repeating Phrases Speech Fluency: negative Dysarthria Speech Aphasia: negative Aphasia Fund of Knowledge: Current Events, Past History and Vocabulary Cranial Nerves: Normal II (Visual lopez full to confrontation, visual acuity normal), III, IV, (Pupils equal round re active to light and accommodation, eye movements normal), V (Facial sensation intact), VII (There is no facial droop or weakness), VIII (Hearing intact), IX, X (Palate elevates to midline), XI (Shoulder shrug intact) and XII (Tongue protrudes to midline) Motor Strength: Normal Lower Extremities and Normal Upper Extremities; negative Pronator Drift Motor Tone: Normal Lower Extremities and Normal Upper Extremities Muscle Bulk/Involuntary Movements: No Involuntary Movements; negative Muscle Atrophy Sensation: Light Touch Intact, Pain/Temperature Intact, Vibration Intact and Proprioception Intact Coordination: Normal; negative Limited Balance, Dysdiadochokinesia, Finger-Nose Abnormal or Heel-Navarro Abnormal Deep Tendon Reflexes: Rt Triceps: 2+, Lt Triceps: 2+, Rt Biceps: 2+, Lt Biceps: 2+, Rt Brachioradialis: 2+, Lt Brachioradialis: 2+, Rt Patellar: 2+, Lt Patellar: 2+, Rt Ankle: 2+ and Lt Ankle: 2+ Special Tests: negative Babinski Present Gait: Normal Station and Gait Details: No gross visual field deficit with confrontation testing Results & Data ([facility]) Vital Signs (Past 12 Hours) Vital Signs Temp Pulse Pulse Resp BP Pulse Ox O2 Del Method 01/05/22 07:30 Nasal Cannula 01/05/22 07:30 87 L Room Air 01/05/22 07:34 36.6 C 72 16 139/68 90 Nasal Cannula 01/05/22 07:05 84 16 96 Nasal Cannula 01/05/22 03:38 36.9 C 70 18 145/63 H 94 Nasal Cannula 01/05/22 03:28 Nasal Cannula 01/05/22 02:08 69 01/04/22 23:02 36.6 C 66 18 113/68 96 Nasal Cannula O2 Flow Rate 01/05/22 07:30 2 01/05/22 07:30 01/05/22 07:34 2 01/05/22 07:05 2 01/05/22 03:38 2 01/05/22 03:28 2 01/05/22 02:08 01/04/22 23:02 2 Laboratory Results WBC 6.53, hemoglobin 10.4, hematocrit 31.7, MCV 92.4, platelet count 151, sodium 134, potassium 3.7, BUN 24, creatinine 1.32, glucose 114, calcium 9.2, magnesium 1.8, AST 14, ALT 9, high-sensitivity troponin 42.8, lipid panel pending Diagnostic Findings CT of the head including CT angiography of the head and neck, and brain MRI are as described in the history of present illness. I did independently review these images, see HPI for further details. Electrocardiogram revealed an atrial sensed ventricular paced rhythm with occasional AV dual paced complexes, 67 bpm. Coding Level of Care Code 23663 Initial Inpt Care Lvl 3 Diagnoses Cerebrovascular accident (CVA) I63.9 Closed head injury S09.90XA Primary idiopathic dilated cardiomyopathy I42.0 Paroxysmal atrial fibrillation I48.0 Biventricular ICD (implantable cardioverter-defibrillator) in place Z95.810
--- NOTE | 2022-01-05 09:16 | CT Scan Report ---
CT chest diagnostic wo con CT DOSE: 201.04 mGy.cm CLINICAL HISTORY: 81 years-old Female with hypoxia, cough, LLL effusion. Acute hypoxia with cough TECHNIQUE: Multiaxial CT images of the chest were performed without contrast. A dose lowering techni que was utilized adhering to the principles of ALARA. COMPARISON: Chest radiograph 01/04/2022, CTA chest 08/30/2017 FINDINGS: No dominant thyroid nodule. Nonspecific mediastinal adenopathy includes precarinal 1.3 cm a nd subcarinal 1.2 cm lymph nodes which are similar to prior. Marked cardiomegaly with moderate sized pericardial effusion. Extensive coronary artery calcifications. Left subclavian pacer. Extensive athe rosclerosis of the aorta with aneurysmal dilation measuring 2.1 x 2.1 cm at the origin of the innomin ate artery. This appears stable from prior. Fusiform dilation of the descending thoracic aorta measur es up to 3.8 cm and is stable from prior with suggestion of a chronic dissection. Partially imaged di lation of the upper abdominal aorta. Dilated pulmonary arteries suggestive of pulmonary artery hypert ension. Small right with small to moderate left pleural effusions. No pneumothorax. Intralobular septal thick ening with intermixed groundglass densities. Left greater than right bibasilar consolidation. There a re no suspicious pulmonary nodules or masses identified. Central airways are patent. Nonspecific wall thickening of the distal esophagus. No acute process of the imaged upper abdomen. Mi ld generalized body wall edema. Sigmoidal thoracolumbar scoliosis. Degenerative changes of the should ers and spine. IMPRESSION: 1. Cardiomegaly with interstitial pulmonary edema, moderate sized pericardial effusion with small rig ht and [id number] left pleural effusions. 2. Left greater than right bibasilar consolidation favors atelectasis. Pneumonia could appear similar ly. 3. Mild nonspecific mediastinal lymphadenopathy, similar to prior. 4. Findings suggestive of pulmonary arterial hypertension. 5. 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 There is par tially imaged aneurysmal dilation of the upper abdominal aorta. ACT 112: Negative or not required by law. Electronically signed by: Sunil Tanner M.D. 01/05/2022 9:14 AM
--- NOTE | 2022-01-05 11:14 | Hospitalist Progress Note ---
Date of Service January 05, 2022 Assessment & Plan (1) Unresponsive episode: Plan: - Etiology ? - EKG no acute changes - HS trop 38.7 (reported as 42.8 on 01/04), f/u scheduled at 1500 - Echo read pending - Hold BP meds - Interrogate pacemaker (2) Cerebrovascular accident (CVA): Plan: - CVA confirmed by MRI brain on 01/04 with pt reporting vision distortion to the R x few weeks ?subacute - Neck CTA w/o HD significant stenosis - Echo ordered, final read pending - PT/OT eval ordered - Already on ASA 81mg, added Plavix x 3 weeks, increased Atorvastatin to 40mg - Neuro consulted, appreciate assistance (3) Acute respiratory failure with hypoxia: Plan: - Multifocal airspace opacities noted on CXR - Continue supplemental O2, and scheduled Duoneb QID/q2h prn - Empiric abx, due to multiple allergies/GI intolerances, options limited, started Doxycycline 100mg BID on 01/04 (will also provide anti-inflammatory benefits), less suspicious of PNA - CT chest (impression above) suggests more CHF rather than PNA - BP will not tolerate Lasix, monitor for now, check BNP (4) Fall: Plan: Mechanical resulting in closed head injury - PT/OT eval (5) Chronic systolic congestive heart failure: Plan: EF 30-35% on echo from 07/2021. Appears euvolemic. - Hold home Lasix; daughter reports she has not needed it for several weeks. - Continue home ASA, statin, beta-terence, isosorbide, Entresto, spironolactone (6) Hypertension: Plan: BP in ER initially accelerated at 180/110. - Following event this AM, now hypotensive - Hold BP meds for systolic BP <100 - Adjust Hydralazine to 50mg (from 100mg), and Entresto to 51/49mg BID (from 103/97mg), hold Felodipine - Continue Spironolactone, Isosorbide, Coreg (w/o dose change) Plan Monitor closely. Serial BP checks. Hold off on initiating IVF bolus given concern for decompensated systolic CHF. Again, PT/OT assessments are needed to determine appropriate dispo for this pt - feel that she would likely benefit from rehab. APAP as needed for neck pain and can use warm compress/kpad as needed. Reached out to Dr. Stearns (pt's established showcase trimmer) given multitude of issues going on, formal consult placed appreciate assistance. Plan has been d/w Dr. Ugalde. Admission and Anticipated Discharge Date Admission Date: January 04, 2022 Subjective Patient seen urgently this morning after being made a code purple for an unresponsive episode after arriving back to her room from CT. She was assisted by echo and doctor of radiology as well other staff. By the time code ole was called and people began arriving to her room, pt was awake and alert, answering questions appropriately. She was amnestic to the event. She remains hospitalized after sustaining a mechanical ground level fall in her driveway while assisting her resulting in a head injury (laceration) requiring suture repair. She was also incidentally found to have a L occipital infarct with some extension into the temporal lobe via MRI on 01/04 for which she was started on Plavix (in addition to Aspirin 81mg which she takes everyday). Presently, pt reports no symptoms other than some neck pain which she feels has increased since her fall. Yesterday, pt was c/o increasing shortness of breath and cough. CXR demonstrated multifocal airspace opacities and she was started empirically on Doxycycline. Presently, pt feels that her breathing has improved and she does not have a cough. She is afebrile and denies chest pain. She denies n/v/d. She remains on 2L of supplemental O2 which she does not use at home. Following this morning's episode, her BP has been in the 80-90s systolic. She did receive all of her BP medications this morning. Review of Systems Review of Systems: All systems reviewed and are unremarkable except as noted in HPI and below. +neck pain Denies fever, chills, fatigue, headache, nasal congestion, sore throat, chest pain, palpitations, orthopnea, PND, abdominal pain, n/v/d, constipation, dysuria, hematuria, frequency, back pain, joint pain or swelling, easy bruising or bleeding. Physical Exam Physical Exam: GENERAL: 81 yo Well-developed, well-nourished WF. NAD. LUNGS: Nonlabored, no JVD. Bibasilar crackles. No wheezes or rhonchi noted. CARDIOVASCULAR: Regular rate and rhythm. No M/G/R. No JVD. ABDOMEN: Soft, non-tender and non-distended. BS normoactive x 4 quad. EXTREMITIES: No edema. Non-tender. Peripheral pulses +2/4. NEUROLOGIC: A&O x3. Nonfocal. PSYCHIATRIC: Cooperative. Appropriate mood and affect. SKIN: Warm, dry, intact. Ecchymosis noted over forehead and laceration repaired w/ sutures. Results & Data Results & Data ([facility]) Vital Signs (Past 12 Hours) Vital Signs Temp Pulse Pulse Resp BP Pulse Ox O2 Del Method 01/05/22 09:30 62 87/42 L 01/05/22 07:30 Nasal Cannula 01/05/22 07:30 87 L Room Air 01/05/22 07:34 36.6 C 72 16 139/68 90 Nasal Cannula 01/05/22 07:05 84 16 96 Nasal Cannula 01/05/22 03:38 36.9 C 70 18 145/63 H 94 Nasal Cannula 01/05/22 03:28 Nasal Cannula 01/05/22 02:08 69 01/04/22 23:02 36.6 C 66 18 113/68 96 Nasal Cannula O2 Flow Rate 01/05/22 09:30 01/05/22 07:30 2 01/05/22 07:30 01/05/22 07:34 2 01/05/22 07:05 2 01/05/22 03:38 2 01/05/22 03:28 2 01/05/22 02:08 01/04/22 23:02 2 Laboratory Results 01/05/22 07:55 01/05/22 07:55 Diagnostic Findings Brain MRI 01/04/22 08:58 MR brain wo con CLINICAL HISTORY: Fall, possible CVA vs concussion TECHNIQUE: Multiplanar and multisequence MR images of the brain were obtained without intravenous contrast. Comparison: Comparison is made to MRI brain 06/08/2011 and CTA head and neck 01/04/2022 FINDINGS: Restricted diffusion is seen in the left posterior temporal lobe. There is associated edema without significant mass effect or midline shift. No hemorrhagic component is noted. The ventricular system is normal in appearance. No mass is seen. There is no mass effect or midline shift. There is no evidence of acute intraparenchymal hemorrhage. No extra axial fluid collections are seen. The corpus callosum, pituitary gland, and cerebellar tonsils appear grossly unremarkable. Flow voids of the major intracranial arterial vessels are identified. The imaged portions of the paranasal sinuses, mastoid air cells, and orbits are unremarkable. IMPRESSION: Findings compatible with acute infarct in the left temporal lobe corresponding to findings of CT head. No hemorrhage is seen. ACT 112: Negative or not required by law. Electronically signed by: Manny Nichole M.D. 01/04/2022 2:[address] 01/05/22 08:00 CT chest diagnostic wo con CT DOSE: 201.04 mGy.cm CLINICAL HISTORY: 81 years-old Female with hypoxia, cough, LLL effusion. Acute hypoxia with cough TECHNIQUE: Multiaxial CT images of the chest were performed without contrast. A dose lowering technique was utilized adhering to the principles of ALARA. COMPARISON: Chest radiograph 01/04/2022, CTA chest 08/30/2017 FINDINGS: No dominant thyroid nodule. Nonspecific mediastinal adenopathy includes precarinal 1.3 cm and subcarinal 1.2 cm lymph nodes which are similar to prior. Marked cardiomegaly with moderate sized pericardial effusion. Extensive coronary artery calcifications. Left subclavian pacer. Extensive atherosclerosis of the aorta with aneurysmal dilation measuring 2.1 x 2.1 cm at the origin of the innominate artery. This appears stable from prior. Fusiform dilation of the descending thoracic aorta measures up to 3.8 cm and is stable from prior with suggestion of a chronic dissection. Partially imaged dilation of the upper abdominal aorta. Dilated pulmonary arteries suggestive of pulmonary artery hypertension. Small right with small to moderate left pleural effusions. No pneumothorax. Intralobular septal thickening with intermixed groundglass densities. Left greater than right bibasilar consolidation. There are no suspicious pulmonary nodules or masses identified. Central airways are patent. Nonspecific wall thickening of the distal esophagus. No acute process of the imaged upper abdomen. Mild generalized body wall edema. Sigmoidal thoracolumbar scoliosis. Degenerative changes of the shoulders and spine. IMPRESSION: 1. Cardiomegaly with interstitial pulmonary edema, moderate sized pericardial effusion with small right and [id number] left pleural effusions. 2. Left greater than right bibasilar consolidation favors atelectasis. Pneumonia could appear similarly. 3. Mild nonspecific mediastinal lymphadenopathy, similar to prior. 4. Findings suggestive of pulmonary arterial hypertension. 5. 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 There is partially imaged aneurysmal dilation of the upper abdominal aorta. ACT 112: Negative or not required by law. Electronically signed by: Sunil Tanner M.D. 01/05/2022 9:14 AM PG Care Time/CCT Total # of Minutes Spent Total Time Spent with Patient: Total time spent is greater than 50% in coordination of care (as documented) at patient's floor/unit and/or counseling patient: Coding Level of Care Code 31785 Subseq Hosp Care Lvl 3 Diagnoses Unresponsive episode R41.89 Cerebrovascular accident (CVA) I63.9 Acute respiratory failure with hypoxia J96.01 Fall W19.XXXA Chronic systolic congestive heart failure I50.22 Hypertension I10 Hypertension type: primary hypertension (1) Hypertension Hypertension type: primary hypertension Qualified Code(s): I10 - Essential (primary) hypertension
[2022-01-05] MEDS ORDERED: ALBUT/IPRATROP 3MG/0.5MG NEB 3 ML VIAL NEB PRN (13:23)
--- NOTE | 2022-01-05 17:43 | Cardiology Consultation ---
Date of Consultation January 05, 2022 Assessment & Plan (1) NSVT (nonsustained ventricular tachycardia): (2) Chronic systolic congestive heart failure: (3) Unresponsive episode: (4) Paroxysmal atrial fibrillation: (5) Nonischemic cardiomyopathy: (6) Biventricular ICD (implantable cardioverter-defibrillator) in place: (7) Pericardial effusion: Plan ASSESSMENT/PLAN: 1. Nonsustained ventricular tachycardia: She carries a history of this and no sustained arrhythmia noted. She has an ICD in place. Continue beta-terence. 2. Chronic systolic CHF/heart failure with improved EF: She appears euvolemic on examination. She denies any symptoms of heart failure and has p.r.n. Lasix at home if necessary. No aggressive diuresis appears necessary at this time. Low-sodium diet. Daily weights. Follows in the Heart failure program. 3. Unresponsive episode: She was hypotensive afterwards. Perhaps related to her head injury/stroke. Some of her antihypertensive agents have been held by the primary hospitalist service. Her blood pressure when last evaluated was normal. Continue heart failure medications as tolerated. No significant arrhythmia to explain the event per ICD interrogation report. 4. Paroxysmal atrial fibrillation: Apparently has had short runs of atrial fibrillation in the past. Would consider anticoagulation therapy as noted by Neurology however neurology would like to hold off for 1-2 weeks. 5. Nonischemic cardiomyopathy: Continue medical therapy as tolerated. 6. Biventricular ICD: Followed by Dr. Stearns, her primary head neck surgeon. 7. Pericardial effusion: Small and without evidence of hemodynamic compromise. Stable findings compared to previous echo. Can monitor over time. 8. Stroke: Per Neurology. 9. Disposition: Cardiology will sign off at this time. Please call with any other questions or concerns. Recommend follow-up with Dr. Stearns to help coordinate anticoagulation therapy as outlined by Neurology. Patient care communicated with Bibi Negron, other primary hospitalist service. Thank you for allowing me to participate in the care of your patient. Please call for any other questions or concerns. Sincerely, Jag Bone M.D. History of Present Illness Reason for Consultation: CHF, V-tach, hypotension Requesting Physician: Bibi Negron Attending Physician: Roderick Ugalde MD History of Present Illness Mrs. Quinteros is a very pleasant 81-year-old female with a history significant for nonischemic cardiomyopathy, LBBB, biventricular ICD, paroxysmal atrial fibrillation, nonsustained ventricular tachycardia, frequent PVCs, and heart failure with reduced EF. She also has sleep apnea on CPAP. She was admitted on 01/04/2022, after presenting to the emergency department with a fall. In the middle of the night, her fell and she ambulated with her walker to help assist him. Unfortunately, she also had a mechanical fall while assisting him and suffered a laceration to her scalp. She denies any loss of consciousness at that time and had no symptoms prior to falling, such as chest pain, shortness of breath, lightheadedness, or palpitations. She did report however some visual changes intermittently over the past few days. Apparently in the emergency department she had visual hallucinations according to the admitting record. She underwent brain MRI which reported acute infarct involving the left temporal lobe. Neck CTA reported left pleural effusion but no hemodynamically significant stenosis involving the major cervical arteries. Neurology consultation was performed. When returning from radiology department from imaging, she was seated in a wheelchair and lost consciousness. The event was witnessed by nursing staff and plasma processing technician. The patient herself recalls no details of the event and denies any symptoms leading up to the event. According to plasma processing technician, her eyes remained open but she was unresponsive to verbal stimuli. She was moved into the bed by staff. She was off of monitor at that time. When she awakened, she was quite conversive and apparently reported no symptoms at that time. Then she once again became somnolent and complained of neck pain. She then reported lightheadedness and worsening neck pain. There was apparently short runs of ventricular tachycardia consisting of 6 beats duration noted by plasma processing technician during the study. Her ICD was interrogated after her loss of consciousness. According to nursing records, when patient's nurse responded to the code purple event, patient was lethargic but responsive and had a blood pressure of 93/53 with a heart rate of 74. Patient denies any recent chest pain, shortness of breath, palpitations. She has intermittent edema. She denies orthopnea, PND, or bleeding such as melena, hematochezia, or hematuria. She has visual complaints involving her right eye. She has p.r.n. Lasix at home but has not required Lasix for quite some time. Review of systems: As above. Review of systems otherwise negative/unremark able. Family history: Father and brother had CAD. Social history: She denies tobacco, alcohol, or drug abuse. She lives with her . Her daughter, Kiersten, lives next door. Kiersten was present at the bedside. Allergies Allergy/AdvReac Type Severity Reaction Status Date / Time cephalexin Allergy Severe ANAPHYLAXIS Verified 11/14/21 10:13 Penicillins Allergy Severe RASH AND Verified 11/14/21 10:13 SWELLING Cephalosporins Allergy Intermediate RASH AND Verified 11/14/21 10:13 SWELLING Cipro Allergy Unknown . Verified 11/19/17 23:19 ciprofloxacin Allergy Unknown . Verified 11/14/21 10:13 scallops Allergy Unknown ` Verified 11/14/21 10:13 tramadol Allergy Unknown . Verified 11/14/21 10:13 erythromycin base AdvReac Intermediate UPSET Verified 11/14/21 10:13 STOMACH amlodipine AdvReac Unknown Unknown Verified 11/14/21 10:13 azithromycin AdvReac Unknown UPSET Verified 11/14/21 10:13 STOMACH Home Medications Medication Instructions Recorded Confirmed Type multivit with 1 tab PO DAILY 11/04/18 11/14/21 History [id number]-lutein 8 mg iron-400 mcg-300 mcg tablet (Centrum Silver Women) calcium carbonate 600 mg-vitamin 1 cap PO BID 11/13/19 11/14/21 History D3 12.5 mcg (500 unit) capsule (Calcium 600 with Vitamin D3) peg 400-propylene glycol [Systane 1 drops ophthalmic (eye) .COMPLEX 12/19/19 11/14/21 History (propylene glycol)] methenamine-sodium salicylate 162 tab PO 11/08/20 11/14/21 History mg-162.5 mg tablet (AZO Urinary Tract Defense) felodipine 2.5 mg tablet,extended 2.5 mg PO DAILY #90 tabs 11/29/20 11/14/21 Rx release 24 hr hydralazine 100 mg tablet 100 mg PO DAILY #90 tabs 08/11/21 11/14/21 Rx sacubitril 97 mg-valsartan 103 mg 1 tab PO BID #180 tabs 08/15/21 11/14/21 Rx tablet (Entresto) isosorbide dinitrate 10 mg tablet 10 mg PO DAILY #90 tabs 09/02/21 11/14/21 Rx buspirone 5 mg tablet 2.5 mg PO TID PRN anxiety 09/07/21 11/14/21 History furosemide 40 mg tablet 40 mg PO DAILY PRN weight gain, 10/06/21 11/14/21 Rx swelling, dyspnea #60 tabs potassium chloride 20 mEq 20 meq PO DAILY PRN Take with 10/06/21 11/14/21 Rx tablet,extended release Lasix #90 tabs carvedilol 25 mg tablet 25 mg PO BID #180 tabs 11/24/21 Rx spironolactone 25 mg tablet 25 mg PO DAILY #30 tabs 12/12/21 Rx aspirin 81 mg tablet,delayed 81 mg PO DAILY 01/04/22 01/04/22 History release atorvastatin 20 mg tablet 20 mg PO DAILY #90 tabs 01/04/22 Rx Patient History Medical History Abdominal pain Biventricular ICD (implantable cardioverter-defibrillator) in place Carpal tunnel syndrome Chronic diarrhea Chronic systolic congestive heart failure Dependent edema Depression Diplopia Dyspnea on exertion Frequent PVCs History of shingles LBBB (left bundle branch block) Lumbar radiculopathy Nonischemic cardiomyopathy NSVT (nonsustained ventricular tachycardia) Obstructive sleep apnea Ocular migraine Paroxysmal atrial fibrillation Surgical History H/O eye surgery STRABISMUS History of cholecystectomy Hx of cataract surgery BILATERAL Family History Father Coronary heart disease ASCVD (arteriosclerotic cardiovascular disease) Brother Myocardial infarction ASCVD (arteriosclerotic cardiovascular disease) Son Lung cancer ASCVD (arteriosclerotic cardiovascular disease) Aunt Breast cancer Grandmother Cerebral hemorrhage Mother Parkinsons disease Other Cerebral arterial aneurysm Cerebromeningeal hemorrhage Denies family history of Ovarian cancer Prostate cancer Colorectal cancer Social History Smoking Status: Never smoker Second Hand Exposure: No; Hx Alcohol Use: No Hx Substance Use: No Preferred Language: Somali Communication Ability: Effective Visual Impairment: Limited Hearing Ability: Normal Modeling Agent Required: No Beliefs That Will Affect Care: None marital status: Current Living Situation: Spouse current occupational status: retired How many Children do You have: 4 Feels Safe at Home: Yes Childhood Exposure to Second-Hand Smoke: Yes caffeine: Yes Dental Care, Regularly: Yes Physical Activity Frequency: Does not Exercise Seatbelt Use: always Sunscreen Use: No (does not sit in the sun) Assistive Devices: CPAP Physical Exam Physical Exam: Gen.: No acute distress. Alert and oriented. HEENT: Anicteric sclera. Neck: No JVD. No hepatic jugular reflux. Bilateral carotid bruit versus radiation of cardiac murmur, R > L. Normal carotid upstrokes bilaterally. Cardiac: No ventricular heave. Regular. Normal S1-S2. 2/6 systolic murmur. No rubs or gallops. Pulmonary: Clear to auscultation bilaterally without wheezes, rales, or rhonchi. Abdomen: Soft, nontender, nondistended, with normoactive bowel sounds. No bruits noted. Extremities: 2+ radial pulses bilaterally. 2+ posterior tibialis pulses bilaterally. No significant pitting edema. No cyanosis. Psychiatric: Affect appears appropriate. Results & Data ([facility]) Vital Signs (Past 12 Hours) Vital Signs Temp Pulse Pulse Resp BP Pulse Ox O2 Del Method 01/05/22 16:38 36.4 C L 73 16 121/68 95 Nasal Cannula 01/05/22 14:30 70 01/05/22 11:50 36.3 C L 65 16 93/50 L 93 Nasal Cannula 01/05/22 13:02 62 14 88/43 L 95 Nasal Cannula 01/05/22 07:00 64 01/05/22 11:23 61 14 92/49 L 94 Nasal Cannula 01/05/22 10:15 66 14 91/47 L 94 Nasal Cannula 01/05/22 09:05 66 14 84/43 L 94 Nasal Cannula 01/05/22 09:00 66 14 83/44 L 93 Nasal Cannula 01/05/22 08:55 71 14 96/53 L 92 Nasal Cannula 01/05/22 08:50 36.3 C L 74 14 93/53 L 92 Nasal Cannula 01/05/22 10:56 71 18 93 Nasal Cannula 01/05/22 09:30 62 87/42 L 01/05/22 07:30 Nasal Cannula 01/05/22 07:30 87 L Room Air 01/05/22 07:34 36.6 C 72 16 139/68 90 Nasal Cannula 01/05/22 07:05 84 16 96 Nasal Cannula O2 Flow Rate 01/05/22 16:38 2 01/05/22 14:30 01/05/22 11:50 2 01/05/22 13:02 2 01/05/22 07:00 01/05/22 11:23 2 01/05/22 10:15 2 01/05/22 09:05 2 01/05/22 09:00 2 01/05/22 08:55 2 01/05/22 08:50 2 01/05/22 10:56 2 01/05/22 09:30 01/05/22 07:30 2 01/05/22 07:30 01/05/22 07:34 2 01/05/22 07:05 2 Laboratory Results Laboratory Results - last 24 hr 01/05/22 01/05/22 01/05/22 07:55 07:55 08:53 WBC 6.53 RBC 3.43 L Hgb 10.4 L Hct 31.7 L MCV 92.4 MCH 30.3 MCHC 32.8 RDW Std Deviation 50.0 H RDW Coeff of Jaz 14.9 H Plt Count 151 MPV 11.7 Sodium 136 Potassium 3.9 Chloride 102 Carbon Dioxide 29 Anion Gap 5 BUN 21 Creatinine 1.42 H Est Cr Clr Drug Dosing 19.5 Est GFR ( Amer) 39.5 Est GFR (Non-Af Amer) 34.1 BUN/Creatinine Ratio 14.8 Glucose 91 POC Glucose 139 H Calcium 9.0 Magnesium 1.7 Troponin I High Sens B-Natriuretic Peptide Triglycerides 63 Cholesterol 131 LDL Cholesterol, Calc 78 VLDL Cholesterol, Calc 13 HDL Cholesterol 40 Cholesterol/HDL Ratio 3.3 01/05/22 01/05/22 01/05/22 09:27 10:43 11:28 WBC RBC Hgb Hct MCV MCH MCHC RDW Std Deviation RDW Coeff of Jaz Plt Count MPV Sodium Potassium Chloride Carbon Dioxide Anion Gap BUN Creatinine Est Cr Clr Drug Dosing Est GFR ( Amer) Est GFR (Non-Af Amer) BUN/Creatinine Ratio Glucose POC Glucose Calcium Magnesium Troponin I High Sens 38.7 H B-Natriuretic Peptide Cancelled 2272 H Triglycerides Cholesterol LDL Cholesterol, Calc VLDL Cholesterol, Calc HDL Cholesterol Cholesterol/HDL Ratio 01/05/22 15:03 WBC RBC Hgb Hct MCV MCH MCHC RDW Std Deviation RDW Coeff of Jaz Plt Count MPV Sodium Potassium Chloride Carbon Dioxide Anion Gap BUN Creatinine Est Cr Clr Drug Dosing Est GFR ( Amer) Est GFR (Non-Af Amer) BUN/Creatinine Ratio Glucose POC Glucose Calcium Magnesium Troponin I High Sens 34.6 H B-Natriuretic Peptide Triglycerides Cholesterol LDL Cholesterol, Calc VLDL Cholesterol, Calc HDL Cholesterol Cholesterol/HDL Ratio Diagnostic Findings Telemetry personally reviewed: Ventricular paced. No significant arrhythmia noted. ICD interrogation was reportedly unremarkable following today's event. ECG personally reviewed 01/04/2022 at 2:53 a.m.: Atrial sensed ventricular paced 67 beats per minute. Echo 01/05/2022 preliminary review: Probable mildly reduced LV systolic function. Small pericardial effusion, stable compared to previous echo on 08/23/2021. Formal review to follow. Chart reviewed. Radiology reports reviewed as noted above in HPI. Medications Administered Current Inpatient Medications Acetaminophen (Acetaminophen 325 Mg Tab) 650 mg PO Q4H PRN PRN Reason: pain/fever Stop: 02/03/22 08:57 Last Admin: 01/05/22 11:51 Dose: 650 mg Albuterol (Albut/Ipratrop 3mg/0.5mg Neb 3 Ml Vial) 3 ml NEB Q2R PRN; Protocol PRN Reason: Shortness Of Breath Or Wheezing Stop: 02/04/22 14:59 Aspirin (Aspirin 81 Mg Ectab) 81 mg PO DAILY [facility] Stop: 02/03/22 08:59 Last Admin: 01/05/22 07:27 Dose: 81 mg Atorvastatin Calcium (Atorvastatin 40 Mg Tab) 40 mg PO DAILY [facility] Stop: 02/04/22 08:59 Last Admin: 01/05/22 07:28 Dose: 40 mg Buspirone HCl (Buspirone 5 Mg Tab) 2.5 mg PO TID PRN PRN Reason: anxiety Stop: 02/03/22 08:57 Last Admin: 01/04/22 09:59 Dose: 2.5 mg Carvedilol (Carvedilol 25 Mg Tab) 25 mg PO BID [facility] Stop: 02/03/22 08:59 Last Admin: 01/05/22 07:26 Dose: 25 mg Clopidogrel Bisulfate (Clopidogrel Bisulfate 75 Mg Tab) 75 mg PO QAM [facility] Stop: 02/04/22 08:59 Last Admin: 01/05/22 07:27 Dose: 75 mg Doxycycline Hyclate (Doxycycline Hyclate 100 Mg Cap) 100 mg PO BID DEBO Stop: 01/11/22 20:59 Last Admin: 01/05/22 07:27 Dose: 100 mg Felodipine (Felodipine 2.5 Mg Tabcr) 2.5 mg PO DAILY DEBO Stop: 02/03/22 08:59 Last Admin: 01/05/22 07:27 Dose: 2.5 mg Hydralazine HCl (Hydralazine Tab 50 Mg Tab) 50 mg PO DAILY DEBO Stop: 02/05/22 08:59 Isosorbide Dinitrate (Isosorbide Dinitrate 10 Mg Tab) 10 mg PO DAILY DEBO Stop: 02/03/22 08:59 Last Admin: 01/05/22 07:27 Dose: 10 mg Ondansetron HCl (Ondansetron Inj 2 Mg/Ml 2 Ml Vial) 4 mg IV Q4H PRN PRN Reason: Nausea Stop: 02/03/22 08:57 Sacubitril/Valsartan (Valsartan/Sacubitril 51/49 Mg Tab) 1 tab PO BID [facility] Stop: 02/04/22 20:59 Spironolactone (Spironolactone 25 Mg Tab) 25 mg PO DAILY [facility] Stop: 02/03/22 08:59 Last Admin: 01/05/22 07:27 Dose: 25 mg PG Care Time/CCT Total # of Minutes Spent Total Time Spent with Patient: Total time spent is greater than 50% in coordination of care (as documented) at patient's floor/unit and/or counseling patient: Coding Level of Care Code 91857 Initial Inpt Care Lvl 3 Diagnoses NSVT (nonsustained ventricular tachycardia) I47.2 Chronic systolic congestive heart failure I50.22 Unresponsive episode R41.89 Paroxysmal atrial fibrillation I48.0 Nonischemic cardiomyopathy I42.8 Biventricular ICD (implantable cardioverter-defibrillator) in place Z95.810 Pericardial effusion I31.3
--- NOTE | 2022-01-05 20:06 | XCELERA ---
[id number] \\[id number]___[id number]
[2022-01-05] MEDS ORDERED: VALSARTAN/SACUBITRIL 51/49 MG TAB PO SCH (21:00)
--- NOTE | 2022-01-05 23:41 | Electrocardiogram Report ---
Test Reason : Blood Pressure : / mmHG Vent. Rate : 067 BPM Atrial Rate : 067 BPM P-R Int : 178 ms QRS Dur : 146 ms QT Int : 486 ms P-R-T Axes : 077 076 213 degrees QTc Int : 513 ms Atrial-sensed ventricular-paced rhythm with occasional AV dual-paced complexes Abnormal ECG When compared with ECG of 20-NOV-2017 00:15, Vent. rate has increased BY 3 BPM Confirmed by Sage Bone ([id number]) on 01/05/2022 11:40:57 PM Referred By: REFERRED SELF Confirmed By:Sage Bone
[2022-01-06] MEDS: DOXYCYCLINE HYCLATE 100 MG CAP PO SCH ×2 (08:45→20:24)
[2022-01-06] MEDS: SPIRONOLACTONE 25 MG TAB PO SCH (08:45)
[2022-01-06] MEDS: CLOPIDOGREL BISULFATE 75 MG TAB PO SCH (08:45)
[2022-01-06] MEDS: ASPIRIN 81 MG ECTAB PO SCH (08:45)
[2022-01-06] MEDS: ATORVASTATIN 40 MG TAB PO SCH (08:46)
[2022-01-06] MEDS: carvediloL 25 MG TAB PO SCH ×2 (08:46→20:23)
[2022-01-06] MEDS ORDERED: hydrALAZINE TAB 50 MG TAB PO SCH (09:00)
[2022-01-06 09:41] LABS: BUN Creatinine Ratio 14.7 (10-20); Calcium 8.9 mg/dl (8.5-10.1); Est GFR (African American) 33.4 ml/min; Est GFR (Non-African American) 28.8 ml/min; Potassium 3.9 mmol/L (3.5-5.1)
--- NOTE | 2022-01-06 17:01 | Hospitalist Progress Note ---
Date of Service January 06, 2022 Assessment & Plan (1) Unresponsive episode: Plan: - Etiology ? - EKG no acute changes - HS trop 38.7 (reported as 42.8 on 01/04), f/u scheduled at 1500 - Echo read as improved LV EF of 45-50%, mild global hypokinesis. No LVH. Severe left atrial dilation. Sclerotic aortic valve w/ trace regurg. Small pericardial effusion w/o evidence of tamponade physiology. Top normal RVSP. - BP meds held on 01/05 with slow re-introduction today (01/06) - Interrogation of pacemaker ordered but not done as it had been done on 01/04 - No further episodes since yesterday (2) Cerebrovascular accident (CVA): Plan: - CVA confirmed by MRI brain on 01/04 with pt reporting vision distortion to the R x few weeks ?subacute - Neck CTA w/o HD significant stenosis - Echo ordered, final read pending - PT/OT eval ordered - Already on ASA 81mg and Atorvastatin (which was increased to 40mg) - Neuro consulted, appreciate assistance - Will start on Eliquis 2.5mg BID d/t h/o PAF and now with stroke (3) Acute respiratory failure with hypoxia: Plan: - Multifocal airspace opacities noted on CXR - Continue supplemental O2, and scheduled Duoneb QID/q2h prn - Empiric abx, due to multiple allergies/GI intolerances, options limited, started Doxycycline 100mg BID on 01/04 (will also provide anti-inflammatory benefits), less suspicious of PNA - CT chest (impression above) suggests more CHF rather than PNA - BP will not tolerate Lasix, monitor for now, BNP up at 2200 but clinically seems compensated - Has been successfully weaned off O2 - now on room air - Can complete course of Doxy for possible pna (4) Fall: Plan: Mechanical resulting in closed head injury - PT/OT eval-advise home with home health (5) Chronic systolic congestive heart failure: Plan: EF 30-35% on echo from 07/2021. Appears euvolemic. - Hold home Lasix; daughter reports she has not needed it for several weeks. - Continue home ASA, statin, beta-terence, isosorbide, Entresto, spironolactone (6) Hypertension: Plan: BP in ER initially accelerated at 180/110. - Following event this AM, now hypotensive - Hold BP meds for systolic BP <100 - Adjust Hydralazine to 50mg (from 100mg), and Entresto to 51/49mg BID (from 103/97mg), hold Felodipine - This morning, given just Coreg and Spironolactone which her BP has tolerated. Will add back low dose entresto to restart this evening. Stop Hydralazine, Isosorbide and Felodipine. Plan As above. Anticipate d/c home tomorrow. Plan has been d/w Dr. Ugalde. Admission and Anticipated Discharge Date Admission Date: January 04, 2022 Subjective Patient seen on daily rounds this morning. No issues overnight. No complaints of shortness of breath. Slight cough, no fever. Denies chest pain, dizziness/lightheadedness, n/v/d. She ambulated with PT/OT this morning. Review of Systems Review of Systems: All systems reviewed and are unremarkable except as noted in HPI and below. Denies fever, chills, fatigue, headache, nasal congestion, sore throat, chest pain, palpitations, orthopnea, PND, abdominal pain, n/v/d, constipation, dys uria, hematuria, frequency, back pain, joint pain or swelling, easy bruising or bleeding. Physical Exam Physical Exam: GENERAL: 81 yo Well-developed, well-nourished WF. NAD. LUNGS: Nonlabored, no JVD. CTAB. CARDIOVASCULAR: Regular rate and rhythm. No M/G/R. No JVD. ABDOMEN: Soft, non-tender and non-distended. BS normoactive x 4 quad. EXTREMITIES: No edema. Non-tender. Peripheral pulses +2/4. NEUROLOGIC: A&O x3. Nonfocal. PSYCHIATRIC: Cooperative. Appropriate mood and affect. SKIN: Warm, dry, intact. Ecchymosis noted over forehead and laceration repaired w/ sutures. Results & Data Results & Data ([facility]) Vital Signs (Past 12 Hours) Vital Signs Temp Pulse Pulse Resp BP Pulse Ox O2 Del Method 01/06/22 15:30 36.8 C 75 16 145/75 H 96 Room Air 01/06/22 14:55 76 01/06/22 11:57 36.6 C 72 16 115/67 92 Room Air 01/06/22 11:23 97 08/12/22 11:01 74 116/69 98 Room Air 01/06/22 08:00 Nasal Cannula 01/06/22 08:14 36.3 C L 82 16 149/69 H 95 Nasal Cannula 01/06/22 08:22 81 149/69 H 01/06/22 07:16 75 O2 Flow Rate 01/06/22 15:30 01/06/22 14:55 01/06/22 11:57 01/06/22 11:23 01/06/22 11:01 01/06/22 08:00 2 01/06/22 08:14 2 01/06/22 08:22 01/06/22 07:16 Laboratory Results 01/05/22 07:55 01/06/22 08:44 PG Care Time/CCT Total # of Minutes Spent Total Time Spent with Patient: Total time spent is greater than 50% in coordination of care (as documented) at patient's floor/unit and/or counseling patient: Coding Level of Care Code 40079 Subseq Hosp Care Lvl 2 Diagnoses Unresponsive episode R41.89 Cerebrovascular accident (CVA) I63.9 Acute respiratory failure with hypoxia J96.01 Fall W19.XXXA Chronic systolic congestive heart failure I50.22 Hypertension I10 Hypertension type: primary hypertension (1) Hypertension Hypertension type: primary hypertension Qualified Code(s): I10 - Essential (primary) hypertension
[2022-01-06] MEDS: VALSARTAN/SACUBITRIL 26/24MG TAB PO SCH (20:24)
[2022-01-06] MEDS ORDERED: APIXABAN 2.5 MG TAB PO SCH (21:00)
[2022-01-07] MEDS: VALSARTAN/SACUBITRIL 26/24MG TAB PO SCH (08:25)
[2022-01-07] MEDS: ATORVASTATIN 40 MG TAB PO SCH (08:26)
[2022-01-07] MEDS: SPIRONOLACTONE 25 MG TAB PO SCH (08:26)
[2022-01-07] MEDS: ASPIRIN 81 MG ECTAB PO SCH (08:26)
[2022-01-07] MEDS: DOXYCYCLINE HYCLATE 100 MG CAP PO SCH (08:27)
[2022-01-07] MEDS: carvediloL 25 MG TAB PO SCH (08:27)
--- NOTE | 2022-01-07 11:00 | CT Scan Report ---
CT head/brain wo con CLINICAL HISTORY: f/u from closed head injury Technique: Contiguous axial CT images of the head were acquired from the base of the skull to the stevo abelardo without intravenous contrast administration. Images were viewed in brain, subd[facility] and [facility]. Automated dose lowering techniques and/or adjustment according to patient size were utilized for this exam. Comparison: Comparison is made to CT head 01/04/2022 and MRI brain 01/04/2022 Findings: Areas of decreased attenuation are present in the periventricular and subcortical white matter bilate rally consistent with small vessel ischemic disease. Generalized cerebral volume loss with commensura te enlargement of the ventricles, sulci, and cisterns is also present. Redemonstration of hypodensity in loss of chavez-white differentiation in the left occipital cortex. No evidence of hemorrhagic conve rsion. Imaged portions of the paranasal sinuses and mastoid air cells are clear. The orbits appear normal. There are no acute fractures of the calvaria or scalp swelling. Impression: No evidence of hemorrhagic conversion. Redemonstration of findings of left temporal infarct. ACT 112: Negative or not required by law. Electronically signed by: Manny Nichole M.D. 01/07/2022 10:58 AM
--- NOTE | 2022-01-07 13:29 | Discharge Summary ---
Date of Service January 07, 2022 Admission HPI Per Admitting Provider 81yo F w/ hx of cardiomyopathy who presents after a fall at home. She was in her normal state of health when her took the trash out. He is quite weak, and cannot walk long distances. He was gone for quite some time, so she called out, and he called for her to come help him. She hurried out with his walker, but as she got there, he started to fall, and they both fell into a heap. She struck her head, but denies losing consciousness. She denies any prodrome symptoms prior to falling. However, for at least several days, she has had some mild vision loss that seems to come and go. She has not seen anyone about this. In the ER, she had some visual hallucinations of small children and Egyptians that she knows are not truly there. Principal Diagnosis 1. Fall with closed head injury 2. Subacute CVA 3. Acute respiratory failure w/ hypoxia-resolved 4. Pneumonia 5. Hypotension d/t medications Discharge Exam GENERAL: 81 yo Well-developed, well-nourished WF. NAD. LUNGS: Nonlabored, no JVD. Diminished in LLL but otherwise CTA. CARDIOVASCULAR: Regular rate and rhythm. No M/G/R. No JVD. ABDOMEN: Soft, non-tender and non-distended. BS normoactive x 4 quad. EXTREMITIES: No edema. Non-tender. Peripheral pulses +2/4. NEUROLOGIC: A&O x3. Nonfocal. PSYCHIATRIC: Cooperative. Appropriate mood and affect. SKIN: Warm, dry, intact. Ecchymosis noted over forehead and laceration repaired w/ sutures. Discharge Data Allergies Allergy/AdvReac Type Severity Reaction Status Date / Time cephalexin Allergy Severe ANAPHYLAXIS Verified 11/14/21 10:13 Penicillins Allergy Severe RASH AND Verified 11/14/21 10:13 SWELLING Cephalosporins Allergy Intermediate RASH AND Verified 11/14/21 10:13 SWELLING Cipro Allergy Unknown . Verified 11/19/17 23:19 ciprofloxacin Allergy Unknown . Verified 11/14/21 10:13 scallops Allergy Unknown ` Verified 11/14/21 10:13 tramadol Allergy Unknown . Verified 11/14/21 10:13 erythromycin base AdvReac Intermediate UPSET Verified 11/14/21 10:13 STOMACH amlodipine AdvReac Unknown Unknown Verified 11/14/21 10:13 azithromycin AdvReac Unknown UPSET Verified 11/14/21 10:13 STOMACH Consultations 01/04/22 05:20 ED Decision to Admit Stat 01/04/22 17:07 Consult Neurology Routine 01/05/22 13:03 Consult Cardiology Routine Ordered Studies Head CT 01/04/22 02:38 CT head/brain wo con CLINICAL HISTORY: Fall. Scalp laceration Technique: Contiguous axial CT images of the head were acquired from the base of the skull to the vertex without intravenous contrast administration. Images were viewed in brain, subdural and bone windows. Automated dose lowering techniques and/or adjustment according to patient size were utilized for this exam. Comparison: Comparison is made to CT head 11/19/2017 Findings: Areas of decreased attenuation are present in the periventricular and subcortical white matter bilaterally consistent with small vessel ischemic disease. Generalized cerebral volume loss with commensurate enlargement of the ventricles, sulci, and cisterns is also present. There is a focus of hypodensity in the left occipital region which is much less conspicuous in 2018. Imaged portions of the paranasal sinuses and mastoid air cells are clear. The orbits appear normal. There are no acute fractures of the calvaria. Soft tissue swelling is seen in the right frontal scalp. Impression: Focal hypodensity in the left occipital area may represent white matter disease, acute infarct, or nonhemorrhagic contusion. Short-term follow-up and/or MRI is recommended. ACT 112: Negative or not required by law. Electronically signed by: Manny Nichole M.D. 01/04/2022 7:10 AM Head CTA 01/04/22 03:47 CTA ANGIOGRAPHY OF THE HEAD CLINICAL HISTORY: Likely temporal stroke on CT head w/o contrast. Fall. COMPARISON STUDY: MRA of the head June 08, 2011. Head CT performed earlier today. TECHNIQUE: Helical axial images of the head were obtained following uneventful intravenous administration of 120 cc of Optiray. Sagittal and coronal reconstruc tions were viewed as well as maximal intensity projections on an independent 3-D workstation. Automated exposure control was utilized for the study. A dose lowering technique was utilized adhering to the principles of ALARA. FINDINGS: The brain is better depicted on recent head CT. A right temporal scalp contusion and laceration is noted. There is no acute calvarial fracture. Mild polypoid sinus mucosal thickening is present. Fluid within the bilateral mastoid air cells is noted. No central vessel occlusion is noted on this examination. There is moderate plaque of the bilateral cavernous carotids without stenosis. Irregularity of the distal bilateral cervical internal carotid arteries is noted. This is likely due to atherosclerosis. The posterior circulation is intact. There is no intracranial aneurysm. There is no dissection within the intracranial vessels. The distal right vertebral artery is fenestrated. IMPRESSION: 1. No central vessel occlusion. No intracranial aneurysm. 2. Irregularity of the distal bilateral cervical internal carotid arteries, likely due to atherosclerosis. Other etiologies such as fibromuscular dysplasia are within the differential but considered less likely. 3. Right temporal scalp contusion and laceration. No calvarial fracture. ACT 112: Negative or not required by law. Electronically signed by: Ry Cazares M.D. 01/04/2022 7:24 AM Neck CTA 01/04/22 03:47 CT angio neck with con CLINICAL HISTORY: Likely Temporal stroke on CT head w/o contrast TECHNIQUE: CT angiography of the neck was performed following intravenous administration of iodinated contrast. Coronal and sagittal MIPS were obtained from the axial data set and were submitted for review. Automated dose lowering techniques and/or adjustment according to patient size were utilized for this examination. All measurements were calculated based on NASCET criteria. CT DOSE: 367.63 mGy.cm Comparison: None available at the time of this dictation. FINDINGS: There is a unilateral left pleural effusion with associated atelectasis. Bronchial wall thickening is seen. CTA Neck: A 3 vessel aortic arch is shown. Mild atherosclerotic disease is seen. Tortuosity of the bilateral internal carotid arteries is noted. No hemodynamically significant stenosis is seen. The vertebral arteries are codominant. IMPRESSION: 1. No occlusion, hemodynamically significant stenosis, or dissection in the major cervical arteries. 2. Unilateral left pleural effusion with associated atelectasis. Not previously evaluated, CTA chest can be performed. Assessment of stenosis of the internal carotid arteries is based on NASCET criteria. ACT 112: Negative or not required by law. Electronically signed by: Manny Nichole M.D. 01/04/2022 7:22 AM Brain MRI 01/04/22 08:58 MR brain wo con CLINICAL HISTORY: Fall, possible CVA vs concussion TECHNIQUE: Multiplanar and multisequence MR images of the brain were obtained without intravenous contrast. Comparison: Comparison is made to MRI brain 06/08/2011 and CTA head and neck 01/04/2022 FINDINGS: Restricted diffusion is seen in the left posterior temporal lobe. There is associated edema without significant mass effect or midline shift. No hemorrhagic component is noted. The ventricular system is normal in appearance. No mass is seen. There is no mass effect or midline shift. There is no evidence of acute intraparenchymal hemorrhage. No extra axial fluid collections are seen. The corpus callosum, pituitary gland, and cerebellar tonsils appear grossly unremarkable. Flow voids of the major intracranial arterial vessels are identified. The imaged portions of the paranasal sinuses, mastoid air cells, and orbits are unremark able. IMPRESSION: Findings compatible with acute infarct in the left temporal lobe corresponding to findings of CT head. No hemorrhage is seen. ACT 112: Negative or not required by law. Electronically signed by: Manny Nichole M.D. 01/04/2022 2:19 PM Chest X-Ray 01/04/22 09:50 XR chest 1V portable CLINICAL HISTORY: cough, hypoxia TECHNIQUE: Single frontal radiograph of the chest was obtained. Comparison: Comparison is made to chest radiograph 11/19/2017 FINDINGS: Pacemaker defibrillator is seen. Cardiomegaly is noted. Multifocal airspace opacities are seen. No evidence of pleural effusion or pneumothorax. IMPRESSION: Multifocal airspace opacities may represent atelectasis, pneumonia, and/or aspiration. Stable cardiomegaly. ACT 112: Negative or not required by law. Electronically signed by: Manny Nichole M.D. 01/04/2022 10:[address] 01/05/22 08:00 CT chest diagnostic wo con CT DOSE: 201.04 mGy.cm CLINICAL HISTORY: 81 years-old Female with hypoxia, cough, LLL effusion. Acute hypoxia with cough TECHNIQUE: Multiaxial CT images of the chest were performed without contrast. A dose lowering technique was utilized adhering to the principles of ALARA. COMPARISON: Chest radiograph 01/04/2022, CTA chest 08/30/2017 FINDINGS: No dominant thyroid nodule. Nonspecific mediastinal adenopathy inc ludes precarinal 1.3 cm and subcarinal 1.2 cm lymph nodes which are similar to prior. Marked cardiomegaly with moderate sized pericardial effusion. Extensive coronary artery calcifications. Left subclavian pacer. Extensive atherosclerosis of the aorta with aneurysmal dilation measuring 2.1 x 2.1 cm at the origin of the innominate artery. This appears stable from prior. Fusiform dilation of the descending thoracic aorta measures up to 3.8 cm and is stable from prior with suggestion of a chronic dissection. Partially imaged dilation of the upper abdominal aorta. Dilated pulmonary arteries suggestive of pulmonary artery hypertension. Small right with small to moderate left pleural effusions. No pneumothorax. Intralobular septal thickening with intermixed groundglass densities. Left greater than right bibasilar consolidation. There are no suspicious pulmonary nodules or masses identified. Central airways are patent. Nonspecific wall thickening of the distal esophagus. No acute process of the imaged upper abdomen. Mild generalized body wall edema. Sigmoidal thoracolumbar scoliosis. Degenerative changes of the shoulders and spine. IMPRESSION: 1. Cardiomegaly with interstitial pulmonary edema, moderate sized pericardial effusion with small right and [id number] left pleural effusions. 2. Left greater than right bibasilar consolidation favors atelectasis. Pneumonia could appear similarly. 3. Mild nonspecific mediastinal lymphadenopathy, similar to prior. 4. Findings suggestive of pulmonary arterial hypertension. 5. 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 There is partially imaged aneurysmal dilation of the upper abdominal aorta. ACT 112: Negative or not required by law. Electronically signed by: Sunil Tanner M.D. 01/05/2022 9:[address] 01/07/22 08:00 CT head/brain wo con CLINICAL HISTORY: f/u from closed head injury Technique: Contiguous axial CT images of the head were acquired from the base of the skull to the vertex without intravenous contrast administration. Images were viewed in brain, subdural and bone windows. Automated dose lowering techniques and/or adjustment according to patient size were utilized for this exam. Comparison: Comparison is made to CT head 01/04/2022 and MRI brain 01/04/2022 Findings: Areas of decreased attenuation are present in the periventricular and subcortical white matter bilaterally consistent with small vessel ischemic disease. Generalized cerebral volume loss with commensurate enlargement of the ventricles, sulci, and cisterns is also present. Redemonstration of hypodensity in loss of chavez-white differentiation in the left occipital cortex. No evidence of hemorrhagic conversion. Imaged portions of the paranasal sinuses and mastoid air cells are clear. The orbits appear normal. There are no acute fractures of the calvaria or scalp swelling. Impression: No evidence of hemorrhagic conversion. Redemonstration of findings of left temporal infarct. ACT 112: Negative or not required by law. Electronically signed by: Manny Nichole M.D. 01/07/2022 10:58 AM Hospital Course (1) Fall: Mechanical resulting in closed head injury - PT/OT eval-advise home with home health, which has been arranged by case management - Repeat head CT performed this AM, no evidence of bleed - Laceration with sutures can be removed by pcp this coming week (2) Cerebrovascular accident (CVA): - CVA confirmed by MRI brain on 01/04 with pt reporting vision distortion to the R x few weeks ?subacute - Neck CTA w/o HD significant stenosis - Echo completed-EF improved to 45-50%, mild global hypokinesis. No LVH. Severe left atrial dilation. Sclerotic aortic valve w/ trace regurgitation. Small pericardial effusion w/o evidence of tamponade physiology. Top normal estimated RVSP. - PT/OT eval--recommended home with home health - Already on ASA 81mg and Atorvastatin (which was increased to 40mg) - Neuro consulted, appreciate assistance - Would consider starting on Eliquis 2.5mg BID as outpatient within 1-2 weeks of discharge d/t underlying h/o PAFib (3) Unresponsive episode: - Etiology ? - EKG no acute changes - HS trop 38.7 (reported as 42.8 on 01/04), f/u scheduled at 1500 - Echo read as improved LV EF of 45-50%, mild global hypokinesis. No LVH. Severe left atrial dilation. Sclerotic aortic valve w/ trace regurg. Small pericardial effusion w/o evidence of tamponade physiology. Top normal RVSP. - BP meds held on 01/05 with slow re-introduction today (01/06) - Interrogation of pacemaker ordered but not done as it had been done on 01/04 - No further episodes x 48 hrs (4) Acute respiratory failure with hypoxia: - Multifocal airspace opacities noted on CXR - Continue supplemental O2, and scheduled Duoneb QID/q2h prn - Empiric abx, due to multiple allergies/GI intolerances, options limited, started Doxycycline 100mg BID on 01/04 (will also provide anti-inflammatory benefits), less suspicious of PNA - CT chest (impression above) suggests more CHF rather than PNA - BP will not tolerate Lasix, monitor for now, BNP up at 2200 but clinically seems compensated - Has been successfully weaned off O2 - now on room air - Complete course of Doxy for possible pna as outpatient (5) Chronic systolic congestive heart failure: EF 30-35% on echo from 07/2021. Appears euvolemic. - Hold home Lasix; daughter reports she has not needed it for several weeks. - Continue home ASA, statin, beta-terence, isosorbide, Entresto, spironolactone (6) Hypertension: BP in ER initially accelerated at 180/110. - Following event this AM, now hypotensive - Hold BP meds for systolic BP <100 - Adjust Hydralazine to 50mg (from 100mg), and Entresto to 51/49mg BID (from 103/97mg), hold Felodipine - This morning, given just Coreg and Spironolactone which her BP has tolerated. Added entresto back yesterday evening which she is tolerating. - Stopped Hydralazine, Isosorbide and Felodipine. Plan Patient is medically and hemodynamically stable for discharge. Follow up with Dr. Stearns within 1-2 weeks. Advise pcp follow this coming week. Complete course of Doxycycline. Plan has been d/w Dr. Ugalde who is in agreement. Total Time Total Time Spent Total Time Spent (In Minutes): >30 minutes Discharge Plan Discharge Items Patient Disposition: Home - Home Health Services Reason For Visit: FALL, POSSIBLE CVA VS CONCUSSION Discharge Diagnosis: Fall with closed head injury Stroke Activity: Resume your previous activity Non-emergency contact: Primary Care Provider and Accounting Administrative Assistant Call non-emergency contact if: you have any medication questions and your symptoms worsen Follow-up/Referrals: Lisandra Ruiz PA-C [Primary Care Provider] - Karlo Stearns MD [Physician] - (1 week-Need to start on anticoagulation for PAF) Diet: Heart Healthy Addtl Attending Provider Instructions: You were hospitalized due to sustaining a fall and striking your head. Your injury resulted in a cut which was repaired with sutures. In addition, your work up revealed that you had a stroke on the left side at some point. It is unclear when this stroke occurred. It is not believed that your fall was a result of the stroke. It is important to note that because you have an occasional irregular heart rhythm, it is possible that at some point you developed a clot that traveled to your brain. It is recommended that you start on a blood thinner to help prevent your risk of stroke in the future. This will be discussed more at your next cardiology appointment. Ideally, you should be started on a blood thinner within 1 week of dischargewe recommend calling Dr. Stearns's office on Sunday to schedule a follow-up. You are also being treated for possible pneumonia with Doxycycline. Please continue to take this until it is gone. Your next dose is due on 01/07/22 this evening. Please take this at least one hour prior to laying down to go to bed and DO NOT take with MILK or calcium products. It is also recommended that you follow-up with an eye doctor due to your vision changes in your right eye. It is possible that this is related to your stroke and the vision may never completely normalize. Physical and Occupational Therapy worked with you during your stay here in the hospital. They advised that you could return home with support of your family as well as home health services. This has been arranged and visiting nurses, physical and occupational therapist will see you upon your return home. Lastly, you were found to have substantially low blood pressure during your stay. As a result, changes have been made to your home medications and you have been taken off of some of your blood pressure medications. Please take all medications as outlined below. It is advised that you follow-up with your family doctor within 5 to 7 days of discharge. Your primary care provider can remove your sutures at that visit. If you have any questions following your discharge, you can contact the nonemergency number listed on your paperwork. In the event of a medical emergency, call 911. Pending Studies at Discharge: No Stand-Alone Forms: My [employer], Smoking Cessation Medications and DC Order Prescriptions: New atorvastatin 40 mg Tablet 40 mg PO DAILY Qty: 30 0RF doxycycline hyclate 100 mg Capsule 100 mg PO BID Qty: 8 0RF Entresto 49-51 mg tablet 1 tab PO BID Qty: 60 0RF Continued carvedilol 25 mg tablet 25 mg PO BID Qty: 180 3RF spironolactone 25 mg tablet 25 mg PO DAILY Qty: 30 2RF atorvastatin 20 mg tablet 20 mg PO DAILY Qty: 90 3RF buspirone 5 mg tablet 2.5 mg PO TID PRN (Reason: anxiety) peg 400-propylene glycol 1 drops OP .COMPLEX Rx Instructions: 1 drp ophthalmic (eye) in both eyes; Centrum Silver Women 8 mg iron-400 mcg-300 mcg tablet 1 tab PO DAILY calcium carbonate-vitamin D3 [Calcium 600 with Vitamin D3] 600 mg(1,500mg) - 500 unit capsule 1 cap PO BID AZO Urinary Tract Defense 162-162.5 mg tablet PO furosemide 40 mg tablet 40 mg PO DAILY PRN (Reason: weight gain, swelling, dyspnea) Qty: 60 2RF aspirin 81 mg Tablet,Delayed Release (Dr/Ec) 81 mg PO DAILY Discontinued felodipine 2.5 mg tablet extended release 24 hr 2.5 mg PO DAILY Qty: 90 3RF hydralazine 100 mg tablet 100 mg PO DAILY Qty: 90 3RF isosorbide dinitrate 10 mg tablet 10 mg PO DAILY Qty: 90 3RF Entresto 97-103 mg tablet 1 tab PO BID Qty: 180 3RF potassium chloride 20 mEq tablet extended release 20 meq PO DAILY PRN (Reason: Take with Lasix) Qty: 90 3RF Discharge Orders: Discharge Order (Routine); Ordered 01/07/22 Ordered By: Bibi Negron Admission Data Admit Date/Time: 01/04/22 06:38 Attending Provider: Roderick Ugalde Admit Provider: Johny Dugan Primary Care Provider: Lisandra Ruiz Other Providers: Johny Dugan ; Micheal Ham ; Sai Rodrigues ; Shelia Salgado ; Lilo Mao John E ; Schaefer, Kathleen ; Sonny Bach ; Delisa Bruce ; Basil Huynh ; Whit Guevara ; Shannon Vargas ; Krissy Ponce ; Karlo Stearns Other Interventions: Discharge Summary Assessment (RN) Last Done: 01/07/22 15:07 Coding Level of Care Code D/C DAY MANAGEMENT >30 MINS Diagnoses Fall W19.XXXA Cerebrovascular accident (CVA) I63.9 Unresponsive episode R41.89 Acute respiratory failure with hypoxia J96.01 Chronic systolic congestive heart failure I50.22 Hypertension I10 Hypertension type: primary hypertension
== END 2022-01-07 15:55 | disposition home health service (06) | DRG 64 ==
LOC: ED 01:19 → 2W 06:38 → SUATTDRO 06:38 → 2W 07:21

== ENCOUNTER 2022-06-02 12:47 | Inpatient (IN) ==
--- NOTE | 2022-06-02 13:58 | XRay Report ---
TWO VIEW CHEST CLINICAL HISTORY: Atypical chest pain.. FINDINGS: PA and lateral chest radiographs are compared to study dated 01/04/2022 and correlated with chest CT dated 01/05/2022. A 3-lead cardiac AICD is unchanged in position and partially obscures the l eft mid chest. The heart is enlarged noting atherosclerotic calcification of the thoracic aorta. The pulmonary vasculature is not congested. Chronic interstitial thickening is similar to previous. There is a left pleural effusion with left basilar consolidation. The right lung appears clear. There is n o pneumothorax. The skeletal structures are osteopenic. The bony thorax appears intact. Surgical clip s are noted in the upper abdomen. IMPRESSION: 1. Cardiomegaly and AICD without radiographic evidence of congestive failure. 2. Small left pleural effusion and left basilar consolidation. This was also seen on the December 2021 examinations and may be chronic. ACT 112: Negative or not required by law. Electronically signed by: Salvador Pina M.D. 06/02/2022 1:57 PM
[2022-06-02 14:42] LABS: Basophils # (auto) 0.04 K/uL (0-0.2); Basophils % (auto) 0.8 %; Eosinophils # (auto) 0.19 K/uL (0-0.50); Eosinophils % (auto) 3.8 %; Hematocrit (blood only) 28.1 % (34.1-44.9); Hemoglobin 9.8 g/dl (12.0-16.0); Immature Granulocytes # (auto) 0.01 K/uL (0.00-0.02); Immature Granulocytes % (auto) 0.2 %; Lymphocytes # (auto) 0.95 K/uL (1.2-3.4); Lymphocytes % (auto) 19.1 %; Mean Corpuscular Hemoglobin 30.8 pg (25.0-34.0); Mean Corpuscular Hgb Conc 34.9 g/dL (32.0-36.0); Mean Corpuscular Volume 88.4 fL (80.0-100.0); Mean Platelet Volume 11.2 fL (9.4-12.3); Monocytes # (auto) 0.44 K/uL (0.24-0.82); Monocytes % (auto) 8.9 %; Neutrophils # (auto) 3.34 K/uL (1.4-6.5); Neutrophils % (auto) 67.2 %; Platelet Count 144 K/uL (130-400); RDW Coefficient of Variation 14.6 % (11.5-14.5); RDW Standard Deviation 47.8 fL (36.4-46.3); Red Blood Count 3.18 M/uL (3.93-5.22); White Blood Count 4.97 K/ul (4.8-10.8)
[2022-06-02 14:57] LABS: INR 1.1 (0.9-1.1); Partial Thromboplastin Ratio 1.4; Partial Thromboplastin Time 38.7 Seconds (21.0-31.0); Prothrombin Time 11.2 Seconds (9.0-12.0)
[2022-06-02 16:03] LABS: Calcium 12.1 mg/dl (8.5-10.1)
[2022-06-02 16:04] LABS: Albumin Globulin Ratio 1.2 (0.9-2); Albumin Level 3.6 gm/dl (3.4-5.0); BUN Creatinine Ratio 13.7 (10-20); Bilirubin,Total 0.8 mg/dl (0.2-1.0); Est GFR (African American) 21.7 ml/min; Est GFR (Non-African American) 18.7 ml/min; Globulin 2.9 gm/dl (2.5-4.0); Potassium 4.6 mmol/L (3.5-5.1); Total Protein 6.5 gm/dl (6.0-8.3); Troponin I High Sensitivity 32.1 pg/ml (0-14)
[2022-06-02] MEDS ORDERED: SODIUM CHLORIDE 0.9% 1000ML 1,000 ML IV ONE (16:14)
--- NOTE | 2022-06-02 16:14 | Electrocardiogram Report ---
Test Reason : Blood Pressure : / mmHG Vent. Rate : 065 BPM Atrial Rate : 065 BPM P-R Int : 176 ms QRS Dur : 160 ms QT Int : 476 ms P-R-T Axes : 094 077 -78 degrees QTc Int : 495 ms Atrial-sensed ventricular-paced rhythm with occasional Premature ventricular complexes Abnormal ECG When compared with ECG of 05-JAN-2022 08:57, (unconfirmed) No significant change was found Confirmed by Cory Mcguire ([id number]) on 06/02/2022 4:13:37 PM Referred By: Confirmed By:Cory Mcguire
--- NOTE | 2022-06-02 16:18 | Emergency Department Note ---
Impression & Plan REJI (acute kidney injury), Hypercalcemia, Acute hyponatremia, Elevated troponin ED Provider Note NAME: ZACHARY GARY AGE: 81 SEX: F : 1940 ARRIVES VIA: Walk-In INFORMANT: Patient, daughter ED PROVIDER(S): Giancarlo Black DO CHIEF COMPLAINT:weakness HPI: Patient is a 81-year-old female with past medical history of depression, dyslipidemia, hypertension, V. tach who presents to the ER for abnormal blood work. She had blood work done as an outpatient was referred in by her PCP as it showed an elevated creatinine and calcium. She has not been eating and drinking as much. She denies any headache or change in vision. No chest pain or shortness of breath. No nausea, vomiting, or diarrhea. She was recently treated for UTI and finished up antibiotics within the past midweek. No other exacerbating or remitting factors. Daughter notes was present at bedside that she has been a little bit more confused and has been having trouble walking. PAST MEDICAL HISTORY:See Below PAST SURGICAL HISTORY:See Below FAMILY HISTORY:See Below SOCIAL HISTORY:See Below HOME MEDICATIONS:See Below ALLERGIES:See Below VITALS:See Below PHYSICAL EXAMINATION: GENERAL: Sitting up in bed, alert, well appearing, well nourished, no distress, non-toxic EYE EXAM: normal conjunctiva. OROPHARYNX: no exudate, no erythema, lips, buccal mucosa, and tongue normal and mucous membranes are moist NECK: supple, no nuchal rigidity, no adenopathy, non-tender LUNGS: Clear to auscultation. Normal chest wall mechanics HEART: no murmurs, S1 normal and S2 normal ABDOMEN: abdomen soft, non-tender, normo-active bowel sounds, no masses, no rebound or guarding. UPPER EXTREMITIES: upper extremities are grossly normal. LOWER EXTREMITIES: No pitting edema. NEURO EXAM: Normal sensorium, cranial nerves II-XII grossly intact, normal speech, no gross weakness of arms, no gross weakness of legs. MEDICAL DECISION MAKING: Patient is a 81-year-old female referred in by PCP for weakness elevated creatinine and elevated calcium. External records were reviewed. IV was established blood work was obtained. Labs show mild anemia at 9.8 consistent with her baseline which appears to be 10-11. INR unremarkable. BMP with mild hyponatremia 131. Creatinine elevated 2.3 which I favor secondary to dehydration. Calcium was elevated at 12 as well. Patient was given IV fluids. No transaminitis. Bilirubin was unremarkable. Troponin mildly elevated at 32 which appears to be the patient's baseline. COVID was negative. Patient was updated bedside. Discussed with the daughter at bedside. External records were reviewed. Patient was admitted for further work-up and discussion with the hospitalist. Discussed presentation, history, work-up and treatment with Dr. Gonsalez. Triage Nursing notes reviewed. Limited review of prior medical records performed Vital Signs: reviewed and remarkable for no significant abnormalities Differential diagnosis: Differential diagnoses includes but is not limited to gastritis, peptic ulcer disease, GERD, gallbladder disease, pancreatitis, small bowel obstruction, acute coronary syndrome, pericarditis, ischemic bowel, irritable bowel disease, irritable bowel syndrome, appendicitis, diverticulitis, malignancy, hernia, urinary tract infection, torsion, [/ectopic (if female)], perforation, trauma, infectious. ER treatment provided: See below Diagnostics interpreted by me include EKG and cardiac monitoring as listed below: -Cardiac Monitoring: An order was placed for continuous cardiac monitoring. The monitor shows a rate of 70 with sinus rhythm. -ECG: none -Laboratory studies:Interpreted by me as stated above in MDM and shown below. Imaging studies: Xrays: As interpreted by me: Portable AP upright 1 view chest unremarkable CTs show: none Consultation(s): Discussed with Dr. Calderon as described above in regards to the work-up and treatment. Procedures:none Critical Care: [None] Past Med/Surg History Medical History Abdominal pain Biventricular ICD (implantable cardioverter-defibrillator) in place Carpal tunnel syndrome Chronic diarrhea Chronic systolic congestive heart failure Dependent edema Depression Diplopia Dyspnea on exertion Frequent PVCs History of shingles LBBB (left bundle branch block) Lumbar radiculopathy Nonischemic cardiomyopathy NSVT (nonsustained ventricular tachycardia) Obstructive sleep apnea Ocular migraine Paroxysmal atrial fibrillation Surgical History H/O eye surgery History of cholecystectomy Hx of cataract surgery Family History Father Coronary heart disease ASCVD (arteriosclerotic cardiovascular disease) Brother Myocardial infarction ASCVD (arteriosclerotic cardiovascular disease) Son Lung cancer ASCVD (arteriosclerotic cardiovascular disease) Aunt Breast cancer Grandmother Cerebral hemorrhage Mother Parkinsons disease Other Cerebral arterial aneurysm Cerebromeningeal hemorrhage Denies family history of Ovarian cancer Prostate cancer Colorectal cancer Social History Smoking Status: Never smoker Second Hand Exposure: No; Hx Alcohol Use: No Hx Substance Use: No Preferred Language: Latvian Communication Ability: Effective Visual Impairment: Limited Hearing Ability: Normal Web Ui Designer Required: No Beliefs That Will Affect Care: None marital status: Current Living Situation: Spouse current occupational status: retired How many Children do You have: 4 Feels Safe at Home: Yes Childhood Exposure to Second-Hand Smoke: Yes caffeine: Yes Dental Care, Regularly: Yes Physical Activity Frequency: Does not Exercise Seatbelt Use: always Sunscreen Use: No (does not sit in the sun) Assistive Devices: CPAP Allergies Allergies Allergy/AdvReac Type Severity Reaction Status Date / Time cephalexin Allergy Severe ANAPHYLAXIS Verified 06/02/22 17:01 Penicillins Allergy Severe RASH AND Verified 06/02/22 17:01 SWELLING Cephalosporins Allergy Intermediate RASH AND Verified 06/02/22 17:01 SWELLING ciprofloxacin Allergy Unknown CAN'T Verified 06/02/22 17:01 REMEMBER scallops Allergy Unknown CAN'T Verified 06/02/22 17:01 REMEMBER tramadol Allergy Unknown CAN'T Verified 06/02/22 17:01 REMEMBER erythromycin base AdvReac Intermediate UPSET Verified 06/02/22 17:01 STOMACH amlodipine AdvReac Unknown Unknown Verified 06/02/22 17:01 azithromycin AdvReac Unknown UPSET Verified 06/02/22 17:01 STOMACH Home Meds Home Medications Medication Instructions Recorded Confirmed multivit with 1 tab PO DAILY 11/04/18 06/02/22 mjpvdujk-ewhp-HT-lutein 8 mg iron-400 mcg-300 mcg tablet (Centrum Silver Women) calcium carbonate 600 mg-vitamin 1 cap PO BID 11/13/19 06/02/22 D3 12.5 mcg (500 unit) capsule (Calcium 600 with Vitamin D3) methenamine-sodium salicylate 162 1 tab PO DAILY 11/08/20 06/02/22 mg-162.5 mg tablet (AZO Urinary Tract Defense) buspirone 5 mg tablet 2.5 mg PO TID PRN anxiety 09/07/21 06/02/22 aspirin 81 mg tablet,delayed 81 mg PO DAILY 01/04/22 06/02/22 release sacubitril 97 mg-valsartan 103 mg 1 tab PO BID 05/26/22 06/02/22 tablet (Entresto) cranberry extract 500 mg capsule 500 mg PO BID 06/02/22 06/02/22 (Cranberry Concentrate) donepezil 5 mg tablet 5 mg PO QPM 06/02/22 06/02/22 peg 400-propylene glycol 0.4 %-0.3 1 drp OPB DAILY PRN Dry Eyes 06/02/22 06/02/22 % eye drops (Systane (propylene glycol)) Previous Rx's Medication Instructions Recorded furosemide 40 mg tablet 40 mg PO DAILY PRN weight gain, 10/06/21 swelling, dyspnea #60 tabs carvedilol 25 mg tablet 25 mg PO BID #180 tabs 11/24/21 apixaban 2.5 mg tablet (Eliquis) 2.5 mg PO BID #180 tabs 05/15/22 atorvastatin 40 mg tablet 40 mg PO DAILY #90 tabs 05/15/22 spironolactone 25 mg tablet 25 mg PO DAILY #90 tabs 05/15/22 Results & Data (ED) Vital Signs Vital Signs - 24 hr 06/02/22 13:01 06/02/22 17:04 06/02/22 17:04 Temperature 36.5 C Temperature Source Temporal Artery Scan Pulse Rate 86 61 Pulse Rate [Apical] 60 Pulse Rhythm Regular Pulse Strength Normal Respiratory Rate 20 16 16 Respiratory Effort / Characteristics Non-Labored Spontaneous Respiratory Depth Normal Respiratory Pattern Regular Blood Pressure 134/74 Blood Pressure [Right Arm] 161/77 H Blood Pressure Mean 94 Blood Pressure Mean [Right Arm] 105 Blood Pressure Position Sitting Pulse Oximetry 93 96 96 Oxygen Delivery Method Room Air Room Air Room Air Sepsis Recent Fever Within 48 Hours No Sepsis New/Unexplained Change in Mental Status N/A Sepsis Action Taken by Nursing No Action Required 06/02/22 19:00 Temperature Temperature Source Pulse Rate Pulse Rate [Apical] 67 Pulse Rhythm Pulse Strength Respiratory Rate 18 Respiratory Effort / Characteristics Non-Labored Respiratory Depth Normal Respiratory Pattern Blood Pressure Blood Pressure [Right Arm] 159/76 H Blood Pressure Mean Blood Pressure Mean [Right Arm] 103 Blood Pressure Position Pulse Oximetry 98 Oxygen Delivery Method Room Air Sepsis Recent Fever Within 48 Hours Sepsis New/Unexplained Change in Mental Status Sepsis Action Taken by Nursing Laboratory Data 06/02/22 14:25 06/02/22 14:25 Lab Results 06/02/22 06/02/22 06/02/22 Range/Units 14:25 14:25 14:25 WBC 4.97 (4.8-10.8) K/ul RBC 3.18 L (3.93-5.22) M/uL Hgb 9.8 L (12.0-16.0) g/dl Hct 28.1 L (34.1-44.9) % MCV 88.4 (80.0-100.0) fL MCH 30.8 (25.0-34.0) pg MCHC 34.9 (32.0-36.0) g/dL RDW Std Deviation 47.8 H (36.4-46.3) fL RDW Coeff of Jaz 14.6 H (11.5-14.5) % Plt Count 144 (130-400) K/uL MPV 11.2 (9.4-12.3) fL Immature Gran % (Auto) 0.2 % Neut % (Auto) 67.2 % Lymph % (Auto) 19.1 % [place] % (Auto) 8.9 % Eos % (Auto) 3.8 % Baso % (Auto) 0.8 % Neut # (Auto) 3.34 (1.4-6.5) K/uL Lymph # (Auto) 0.95 L (1.2-3.4) K/uL [place] # (Auto) 0.44 (0.24-0.82) K/uL Eos # (Auto) 0.19 (0-0.50) K/uL Baso # (Auto) 0.04 (0-0.2) K/uL Immature Gran # (Auto) 0.01 (0.00-0.02) K/uL PT 11.2 (9.0-12.0) Seconds INR 1.1 (0.9-1.1) APTT 38.7 H (21.0-31.0) Seconds PTT Ratio 1.4 Sodium 131 L (136-145) mmol/L Potassium 4.6 (3.5-5.1) mmol/L Chloride 97 L (98-107) mmol/L Carbon Dioxide 31 (21-32) mmol/L Anion Gap 3 (3-11) BUN 32 H (6-23) mg/dl Creatinine 2.33 H (0.6-1.2) mg/dl Est Cr Clr Drug Dosing 11.0 ml/min Est GFR ( Amer) 21.7 ml/min Est GFR (Non-Af Amer) 18.7 ml/min BUN/Creatinine Ratio 13.7 (10-20) Glucose 100 H (70-99(Fasting)) mg/dl Calcium 12.1 H* (8.5-10.1) mg/dl Total Bilirubin 0.8 (0.2-1.0) mg/dl AST 18 (13-39) U/L ALT 11 (7-52) U/L Alkaline Phosphatase 59 (34-104) U/L Troponin I High Sens 32.1 H (0-14) pg/ml Total Protein 6.5 (6.0-8.3) gm/dl Albumin 3.6 (3.4-5.0) gm/dl Globulin 2.9 (2.5-4.0) gm/dl Albumin/Globulin Ratio 1.2 (0.9-2) SARS-CoV-2, RNA, NAAT (NEGATIVE) 06/02/22 06/02/22 Range/Units 18:19 Unknown WBC (4.8-10.8) K/ul RBC (3.93-5.22) M/uL Hgb (12.0-16.0) g/dl Hct (34.1-44.9) % MCV (80.0-100.0) fL MCH (25.0-34.0) pg MCHC (32.0-36.0) g/dL RDW Std Deviation (36.4-46.3) fL RDW Coeff of Jaz (11.5-14.5) % Plt Count (130-400) K/uL MPV (9.4-12.3) fL Immature Gran % (Auto) % Neut % (Auto) % Lymph % (Auto) % [place] % (Auto) % Eos % (Auto) % Baso % (Auto) % Neut # (Auto) (1.4-6.5) K/uL Lymph # (Auto) (1.2-3.4) K/uL [place] # (Auto) (0.24-0.82) K/uL Eos # (Auto) (0-0.50) K/uL Baso # (Auto) (0-0.2) K/uL Immature Gran # (Auto) (0.00-0.02) K/uL PT (9.0-12.0) Seconds INR (0.9-1.1) APTT (21.0-31.0) Seconds PTT Ratio Sodium (136-145) mmol/L Potassium (3.5-5.1) mmol/L Chloride (98-107) mmol/L Carbon Dioxide (21-32) mmol/L Anion Gap (3-11) BUN (6-23) mg/dl Creatinine (0.6-1.2) mg/dl Est Cr Clr Drug Dosing ml/min Est GFR ( Amer) ml/min Est GFR (Non-Af Amer) ml/min BUN/Creatinine Ratio (10-20) Glucose (70-99(Fasting)) mg/dl Calcium (8.5-10.1) mg/dl Total Bilirubin (0.2-1.0) mg/dl AST (13-39) U/L ALT (7-52) U/L Alkaline Phosphatase (34-104) U/L Troponin I High Sens 32.0 H (0-14) pg/ml Total Protein (6.0-8.3) gm/dl Albumin (3.4-5.0) gm/dl Globulin (2.5-4.0) gm/dl Albumin/Globulin Ratio (0.9-2) SARS-CoV-2, RNA, NAAT NEGATIVE (NEGATIVE) Administered Medications Discontinued Medications Sodium Chloride (Nss 1000ml) 1,000 mls @ 999 mls/hr IV .Q1H1M ONE Stop: 06/02/22 17:14 Last Infusion: 06/02/22 18:30 Dose: 0 mls/hr Documented By: JOSE ANTONIO Admin: 06/02/22 17:03 Dose: 999 mls/hr Documented By: JOSE ANTONIO Imaging Data Radiologist's Impression: Chest X-Ray 06/02/22 13:06 TWO VIEW CHEST CLINICAL HISTORY: Atypical chest pain.. FINDINGS: PA and lateral chest radiographs are compared to study dated 01/04/2022 and correlated with chest CT dated 01/05/2022. A 3-lead cardiac AICD is unchanged in position and partially obscures the left mid chest. The heart is enlarged noting atherosclerotic calcification of the thoracic aorta. The pulmonary vasculature is not congested. Chronic interstitial thickening is similar to previous. There is a left pleural effusion with left basilar consolidation. The right lung appears clear. There is no pneumothorax. The skeletal structures are osteopenic. The bony thorax appears intact. Surgical clips are noted in the uppe r abdomen. IMPRESSION: 1. Cardiomegaly and AICD without radiographic evidence of congestive failure. 2. Small left pleural effusion and left basilar consolidation. This was also seen on the December 2021 examinations and may be chronic. ACT 112: Negative or not required by law. Electronically signed by: Salvador Pina M.D. 06/02/2022 1:57 PM Discharge Plan Visit Data Chief Complaint: Abnormal Labs/Diagnostic Testing Stated Complaint: Abnormal Labs, Dr Ref ED Provider: Giancarlo Black Discharge Problem: REJI (acute kidney injury), Hypercalcemia, Acute hyponatremia, Elevated troponin Discharge Instructions Interventions: ED Discharge Assessment Last Done: 06/02/22 21:09 Forms Stand Alone Forms: My [facility] [employer] Prescriptions Prescriptions: No Action carvedilol 25 mg tablet 25 mg PO BID Qty: 180 3RF Eliquis 2.5 mg tablet 2.5 mg PO BID Qty: 180 3RF atorvastatin 40 mg tablet 40 mg PO DAILY Qty: 90 3RF spironolactone 25 mg tablet 25 mg PO DAILY Qty: 90 2RF buspirone 5 mg tablet 2.5 mg PO TID PRN (Reason: anxiety) Entresto 97-103 mg tablet 1 tab PO BID Centrum Silver Women 8 mg iron-400 mcg-300 mcg tablet 1 tab PO DAILY calcium carbonate-vitamin D3 [Calcium 600 with Vitamin D3] 600 mg(1,500mg) - 500 unit capsule 1 cap PO BID AZO Urinary Tract Defense 162-162.5 mg tablet 1 tab PO DAILY furosemide 40 mg tablet 40 mg PO DAILY PRN (Reason: weight gain, swelling, dyspnea) Qty: 60 2RF aspirin 81 mg Tablet,Delayed Release (Dr/Ec) 81 mg PO DAILY Systane (propylene glycol) 0.4-0.3 % Drops 1 drp OPB DAILY PRN (Reason: Dry Eyes) cranberry extract [Cranberry Concentrate] 500 mg Capsule 500 mg PO BID Rx Instructions: administer with meals donepezil 5 mg tablet 5 mg PO QPM Rx Instructions: PER PT'S DAUGHTER "HAS NOT STARTED YET". Referrals Referrals: Micheal Wong DO [Primary Care Provider] -
--- NOTE | 2022-06-02 17:01 | History & Physical Report ---
Date of Service June 02, 2022 Assessment & Plan (1) REJI (acute kidney injury): Plan: Hypercalcemia 12.1 on admission Slightly elevated levels in the past? In the setting of renal failure. No known underlying malignancy PTH pending, VD pending - Calcitoninn 4u/kg - ZA contraindicated due to CrCl 11 w/ REJI Gentle fluids, to 250 cc bolus given. No acute overt volume overload and lungs are without edema, but caution due to history of CHF and diuretic re quirement. Patient was taking calcium and vitamin D supplements as outpatient, hold these at this time REJI Baseline creatinine approximately 1.31.6 Admitting creatinine 2.33, 2.47 yesterday in the setting of Bactrim use Patient is non-anuric Cautious fluids as above, Lasix temporarily held, nephrology consulted. ? Fluids plus Lasix to help facilitate calcium excretion if persistently high Recent UTI Speciated for Klebsiella, Bactrim sensitive. Completed 5 days of treatment with resolution of symptoms and improvement of confusion. No additional treatment warranted at this time. Chronic systolic heart failure with nonischemic cardiomyopathy NYHA class IIIII Lasix and spironolactone held in the setting of REJI Dry weight 115 pounds No chest pain in any point, troponins mildly elevated 32.1 which is consistent with prior measurements, 2-hour trended. No shortness of breath EKG paced rhythm Paroxysmal A. fib Rate controlled with carvedilol Continue Eliquis Hypertension Labile in the past Continue carvedilol, hold Entresto/spironolactone. Adequate BP control on admission Anxiety Continue buspirone as needed Sleep apnea Continue CPAP nightly Hyperlipidemia Atorvastatin daily Cognitive impairment Gradual decline in the past, acutely worse in the setting of UTI now improving and nearly back to baseline. Delirium precautions Patient was going to start donepezil, but had not yet done this at home. We will hold for now. DVT prophylaxis: Anticoagulated Disposition: Medical/telemetry for REJI with electrolyte derangement CODE STATUS: DNR/DNI Diet: Heart healthy (2) Chronic kidney disease, stage III (moderate): (3) Chronic systolic congestive heart failure: (4) Edema of both legs: (5) Obstructive sleep apnea: History of Present Illness Primary Care Provider: Micheal Wong DO Elina is an 81-year-old female the past medical history of depression, dyslipidemia, hypertension, past V. tach who was seen as an outpatient and found to have elevated creatinine and calcium with poor p.o. intake. Recently treated for UTI with bactrim this past week. Increased confusion. UTI last week. Very confused, gradually actually improving in the last week since being on bactrim. Normal some progressive chronic cognitive decline, but oriented to month/year. Inermittently to day of week. Worse last week, found to have UTI. Improving and near not quite back to cognitive baseline but overall doing very well and per patient if they were not told that labs are abnormal they would not of known anything was wrong. UC speciate Klebsiella which was Bactrim sensitive. Patient does not have any history of hypercalcemia to their knowledge, does not have history of multiple myeloma, and does not have any other history of cancer. Has had some background cognitive decline and was to start donepezil in the future, but has not yet done this. Does have a history of heart failure, overall feels fluid status has been okay and has not had any orthopnea, chest pain, chest pressure, difficulty breathing, or new/worsened leg swelling. Weight has actually gone down slightly recently with UTI and poor p.o. intake. 105 from baseline 115 pounds. Patient endorses IBS alternating, but no persistent constipation, cramps. 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 Patient is tangential during HPI, but appropriate. Medical History: Reviewed Medications: Reviewed Surgical History: Reviewed Allergies: Reviewed. Multiple allergies. Social History: no tobacco/etoh. Code Status: DNR/DNI Allergies Allergy/AdvReac Type Severity Reaction Status Date / Time cephalexin Allergy Severe ANAPHYLAXIS Verified 06/02/22 17:01 Penicillins Allergy Severe RASH AND Verified 06/02/22 17:01 SWELLING Cephalosporins Allergy Intermediate RASH AND Verified 06/02/22 17:01 SWELLING ciprofloxacin Allergy Unknown CAN'T Verified 06/02/22 17:01 REMEMBER scallops Allergy Unknown CAN'T Verified 06/02/22 17:01 REMEMBER tramadol Allergy Unknown CAN'T Verified 06/02/22 17:01 REMEMBER erythromycin base AdvReac Intermediate UPSET Verified 06/02/22 17:01 STOMACH amlodipine AdvReac Unknown Unknown Verified 06/02/22 17:01 azithromycin AdvReac Unknown UPSET Verified 06/02/22 17:01 STOMACH Home Medications Medication Instructions Recorded Confirmed Type multivit with 1 tab PO DAILY 11/04/18 05/26/22 History ldzuione-amnn-KU-lutein 8 mg iron-400 mcg-300 mcg tablet (Centrum Silver Women) calcium carbonate 600 mg-vitamin 1 cap PO BID 11/13/19 05/26/22 History D3 12.5 mcg (500 unit) capsule (Calcium 600 with Vitamin D3) methenamine-sodium salicylate 162 tab PO 11/08/20 05/26/22 History mg-162.5 mg tablet (AZO Urinary Tract Defense) buspirone 5 mg tablet 2.5 mg PO TID PRN anxiety 09/07/21 05/26/22 History furosemide 40 mg tablet 40 mg PO DAILY PRN weight gain, 10/06/21 05/26/22 Rx swelling, dyspnea #60 tabs carvedilol 25 mg tablet 25 mg PO BID #180 tabs 11/24/21 05/26/22 Rx aspirin 81 mg tablet,delayed 81 mg PO DAILY 01/04/22 05/26/22 History release apixaban 2.5 mg tablet (Eliquis) 2.5 mg PO BID #180 tabs 05/15/22 05/26/22 Rx atorvastatin 40 mg tablet 40 mg PO DAILY #90 tabs 05/15/22 05/26/22 Rx spironolactone 25 mg tablet 25 mg PO DAILY #90 tabs 05/15/22 05/26/22 Rx sacubitril 97 mg-valsartan 103 mg 2 tab PO BID 05/26/22 05/26/22 History tablet (Entresto) cranberry extract 500 mg capsule 500 mg PO BID 06/02/22 06/02/22 History (Cranberry Concentrate) donepezil 5 mg tablet 5 mg PO QPM 06/02/22 06/02/22 History peg 400-propylene glycol 0.4 %-0.3 1 drp OPB DAILY PRN Dry Eyes 06/02/22 06/02/22 History % eye drops (Systane (propylene glycol)) Past Med/Surg History Medical History Abdominal pain Biventricular ICD (implantable cardioverter-defibrillator) in place Carpal tunnel syndrome Chronic diarrhea Chronic systolic congestive heart failure Dependent edema Depression Diplopia Dyspnea on exertion Frequent PVCs History of shingles LBBB (left bundle branch block) Lumbar radiculopathy Nonischemic cardiomyopathy NSVT (nonsustained ventricular tachycardia) Obstructive sleep apnea Ocular migraine Paroxysmal atrial fibrillation Surgical History H/O eye surgery History of cholecystectomy Hx of cataract surgery Family History Father Coronary heart disease ASCVD (arteriosclerotic cardiovascular disease) Brother Myocardial infarction ASCVD (arteriosclerotic cardiovascular disease) Son Lung cancer ASCVD (arteriosclerotic cardiovascular disease) Aunt Breast cancer Grandmother Cerebral hemorrhage Mother Parkinsons disease Other Cerebral arterial aneurysm Cerebromeningeal hemorrhage Denies family history of Ovarian cancer Prostate cancer Colorectal cancer Social History Smoking Status: Never smoker Second Hand Exposure: No; Hx Alcohol Use: No Hx Substance Use: No Preferred Language: Cook Islander Communication Ability: Effective Visual Impairment: Limited Hearing Ability: Normal Brand Analyst Required: No Beliefs That Will Affect Care: None marital status: Current Living Situation: Spouse current occupational status: retired How many Children do You have: 4 Feels Safe at Home: Yes Childhood Exposure to Second-Hand Smoke: Yes caffeine: Yes Dental Care, Regularly: Yes Physical Activity Frequency: Does not Exercise Seatbelt Use: always Sunscreen Use: No (does not sit in the sun) Assistive Devices: CPAP Review of Systems Review of Systems: All systems reviewed & are unremarkable except as noted in HPI & below Physical Exam Physical Exam: General: Alert and oriented to name and place, not to date. Thought process tangential. HEENT: Atraumatic, normocephalic. Vision/hearing intact Pulm: CTAB A&P. -wheezes, -rales, -rhonchi. Symmetrical chest rise. No increased work of breathing. No respiratory distress. Cardiac: ir, -mrg. Radial pulses intact and symmetrical. Abdominal: Nontender, nondistended, soft. BS present. Extremities: 2+ pitting edema of lower extremities bilaterally, baseline per patient without acute worsening. Sensation soft touch intact in hands and feet. Moves upper and lower extremities equally. Results & Data Results & Data ([facility]) Vital Signs (Past 12 Hours) Vital Signs Temp Pulse Resp BP Pulse Ox O2 Del Method 06/02/22 13:01 36.5 C 86 20 134/74 93 Room Air PG Care Time/CCT Total # of Minutes Spent Total Time Spent with Patient: Total time spent is greater than 50% in coordination of care (as documented) at patient's floor/unit and/or counseling patient: Coding Level of Care Code 85158 INT INP/OBS CARE 3/75MIN Diagnoses REJI (acute kidney injury) N17.9 Chronic kidney disease, stage III (moderate) N18.3 Chronic systolic congestive heart failure I50.22 Edema of both legs R60.0 Obstructive sleep apnea G47.33
[2022-06-02] MEDS ORDERED: LACTATED RINGER'S 1,000 ML IV SCH (21:47)
[2022-06-02] MEDS: APIXABAN 2.5 MG TAB PO SCH (22:28)
[2022-06-02] MEDS: carvediloL 25 MG TAB PO SCH (22:28)
[2022-06-02] MEDS: CALCITONIN SALMON 400 UNITS/2 ML SQ SCH (22:28)
[2022-06-03 08:04] LABS: Hematocrit (blood only) 25.1 % (34.1-44.9); Hemoglobin 8.7 g/dl (12.0-16.0); Mean Corpuscular Hemoglobin 30.6 pg (25.0-34.0); Mean Corpuscular Hgb Conc 34.7 g/dL (32.0-36.0); Mean Corpuscular Volume 88.4 fL (80.0-100.0); Mean Platelet Volume 11.6 fL (9.4-12.3); Platelet Count 120 K/uL (130-400); RDW Coefficient of Variation 14.6 % (11.5-14.5); RDW Standard Deviation 46.9 fL (36.4-46.3); Red Blood Count 2.84 M/uL (3.93-5.22); White Blood Count 5.04 K/ul (4.8-10.8)
[2022-06-03 08:12] LABS: Basophils # (auto) 0.05 K/uL (0-0.2); Eosinophils # (auto) 0.23 K/uL (0-0.50); Eosinophils % (auto) 4.6 %; Immature Granulocytes # (auto) 0.01 K/uL (0.00-0.02); Immature Granulocytes % (auto) 0.2 %; Lymphocytes # (auto) 0.82 K/uL (1.2-3.4); Lymphocytes % (auto) 16.3 %; Monocytes # (auto) 0.34 K/uL (0.24-0.82); Monocytes % (auto) 6.7 %; Neutrophils # (auto) 3.59 K/uL (1.4-6.5); Neutrophils % (auto) 71.2 %
[2022-06-03] MEDS: carvediloL 25 MG TAB PO SCH ×2 (08:12→20:24)
[2022-06-03] MEDS: ASPIRIN 81 MG ECTAB PO SCH (08:12)
[2022-06-03] MEDS: busPIRone 5 MG TAB PO PRN (08:12)
[2022-06-03] MEDS: APIXABAN 2.5 MG TAB PO SCH ×2 (08:12→20:23)
[2022-06-03 08:24] LABS: BUN Creatinine Ratio 14.6 (10-20); Calcium 9.9 mg/dl (8.5-10.1); Creatinine Clr Calc Pharmacy 14.1 ml/min; Est GFR (African American) 28.7 ml/min; Est GFR (Non-African American) 24.7 ml/min; Potassium 3.8 mmol/L (3.5-5.1)
--- NOTE | 2022-06-03 08:40 | Nephrology Consultation ---
Date of Consultation June 03, 2022 Assessment & Plan (1) Hypercalcemia: * Non-PTH medicated hypercalcemia * Vitamin D within normal limits. PTHrp is pending * Clinically suspect hypercalcemia related to calcium/vitamin D supplementation in the setting of dehydration * Stop CaCO3/vitamin D supplement * Ca is trending down following IV hydration, SQ calcitonin (2) Dehydration: * Continue 0.9 NS at 80 cc/hr (3) Zycso-xh-fuhqlhb kidney injury: * REJI improved following IV hydration. Continue current management. * Will order urinalysis w/ microscopy * Consider renal US only if renal recovery stalls * Baseline Cr 1.3 - 1.6 dating back to 2018 in EMR History of Present Illness Reason for Consultation: hypercalcemia, REJI/CKD Attending Physician: Chad Constantino MD History of Present Illness Ms. Quinteros is an 81 year old white female who is seen at the request of the hospitalist service for evaluation of hypercalcemia and REJI/CKD. Medical records in the EMR were reviewed today and are summarized as follows: Ms. Quinteros has CKD w/ baseline Cr 1.3 - 1.6 dating back to 2017 in EMR. Her medical history is significant for ICM s/p AICD, NSVT, atrial fibrillation, HTN, and depression. As an outpatient she has been taking 1200 mg CaCO3 and 25 mcg vitamin D3 daily. Ms. Quinteros was treated for a UTI last week by her PCP. She was admitted to the hospital yesterday when follow up laboratory studies revealed Ca 12.1, albumin 3.6, Cr 2.47. Allergies Allergy/AdvReac Type Severity Reaction Status Date / Time cephalexin Allergy Severe ANAPHYLAXIS Verified 06/02/22 17:01 Penicillins Allergy Severe RASH AND Verified 06/02/22 17:01 SWELLING Cephalosporins Allergy Intermediate RASH AND Verified 06/02/22 17:01 SWELLING ciprofloxacin Allergy Unknown CAN'T Verified 06/02/22 17:01 REMEMBER scallops Allergy Unknown CAN'T Verified 06/02/22 17:01 REMEMBER tramadol Allergy Unknown CAN'T Verified 06/02/22 17:01 REMEMBER erythromycin base AdvReac Intermediate UPSET Verified 06/02/22 17:01 STOMACH amlodipine AdvReac Unknown Unknown Verified 06/02/22 17:01 azithromycin AdvReac Unknown UPSET Verified 06/02/22 17:01 STOMACH Home Medications Medication Instructions Recorded Confirmed Type multivit with 1 tab PO DAILY 11/04/18 06/02/22 History utampjth-abgj-ID-lutein 8 mg iron-400 mcg-300 mcg tablet (Centrum Silver Women) calcium carbonate 600 mg-vitamin 1 cap PO BID 11/13/19 06/02/22 History D3 12.5 mcg (500 unit) capsule (Calcium 600 with Vitamin D3) methenamine-sodium salicylate 162 1 tab PO DAILY 11/08/20 06/02/22 History mg-162.5 mg tablet (AZO Urinary Tract Defense) buspirone 5 mg tablet 2.5 mg PO TID PRN anxiety 09/07/21 06/02/22 History furosemide 40 mg tablet 40 mg PO DAILY PRN weight gain, 10/06/21 06/02/22 Rx swelling, dyspnea #60 tabs carvedilol 25 mg tablet 25 mg PO BID #180 tabs 11/24/21 06/02/22 Rx aspirin 81 mg tablet,delayed 81 mg PO DAILY 01/04/22 06/02/22 History release apixaban 2.5 mg tablet (Eliquis) 2.5 mg PO BID #180 tabs 05/15/22 06/02/22 Rx atorvastatin 40 mg tablet 40 mg PO DAILY #90 tabs 05/15/22 06/02/22 Rx spironolactone 25 mg tablet 25 mg PO DAILY #90 tabs 05/15/22 06/02/22 Rx sacubitril 97 mg-valsartan 103 mg 1 tab PO BID 05/26/22 06/02/22 History tablet (Entresto) cranberry extract 500 mg capsule 500 mg PO BID 06/02/22 06/02/22 History (Cranberry Concentrate) donepezil 5 mg tablet 5 mg PO QPM 06/02/22 06/02/22 History peg 400-propylene glycol 0.4 %-0.3 1 drp OPB DAILY PRN Dry Eyes 06/02/22 06/02/22 History % eye drops (Systane (propylene glycol)) Patient History Medical History Abdominal pain Biventricular ICD (implantable cardioverter-defibrillator) in place Carpal tunnel syndrome Chronic diarrhea Chronic systolic congestive heart failure Dependent edema Depression Diplopia Dyspnea on exertion Frequent PVCs History of shingles LBBB (left bundle branch block) Lumbar radiculopathy Nonischemic cardiomyopathy NSVT (nonsustained ventricular tachycardia) Obstructive sleep apnea Ocular migraine Paroxysmal atrial fibrillation Surgical History H/O eye surgery STRABISMUS History of cholecystectomy Hx of cataract surgery BILATERAL Family History Father Coronary heart disease ASCVD (arteriosclerotic cardiovascular disease) Brother Myocardial infarction ASCVD (arteriosclerotic cardiovascular disease) Son Lung cancer ASCVD (arteriosclerotic cardiovascular disease) Aunt Breast cancer Grandmother Cerebral hemorrhage Mother Parkinsons disease Other Cerebral arterial aneurysm Cerebromeningeal hemorrhage Denies family history of Ovarian cancer Prostate cancer Colorectal cancer Social History Smoking Status: Never smoker Second Hand Exposure: No; Hx Alcohol Use: No Hx Substance Use: No Preferred Language: Portuguese Communication Ability: Effective Visual Impairment: Limited Hearing Ability: Normal 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: No Beliefs That Will Affect Care: None marital status: Current Living Situation: Spouse current occupational status: retired How many Children do You have: 4 Other Information That Helps Us Care for You: No Feels Safe at Home: Yes Safety Concerns: Feels Safe At This Time Childhood Exposure to Second-Hand Smoke: Yes caffeine: Yes Dental Care, Regularly: Yes Physical Activity Frequency: Does not Exercise Seatbelt Use: always Sunscreen Use: No (does not sit in the sun) Assistive Devices: Cane and CPAP Review of Systems Constitutional: no fever Eyes: no problem reported Ear, Nose, Mouth, Throat: no problem reported Respiratory: no cough and no dyspnea Cardiovascular: no chest pain Gastrointestinal: no abdominal pain, no vomiting and no diarrhea/loose stools Genitourinary: no dysuria Neurologic: + confusion Physical Exam Constitutional: + frail appearing; not in distress Eyes: PERRL, conjunctivae normal, anicteric sclerae ENMT: Mouth: + dry oral mucous membranes Neck: trachea midline, no thyromegaly Respiratory: normal respiratory effort, lungs clear to auscultation Cardiovascular: RRR, no murmur, no edema Gastrointestinal (Abdomen): normal bowel sounds, soft, nontender, no hepatosplenomegaly Skin: + turgor decreased Neurologic: awake and + confused Results & Data ([facility]) Vital Signs (Past 12 Hours) Vital Signs Temp Pulse Resp BP Pulse Ox O2 Del Method 06/03/22 08:32 36.6 C 75 18 160/70 H 95 Room Air 06/03/22 04:53 36.3 C L 61 18 168/72 H 89 L Room Air 06/02/22 21:30 Room Air 06/02/22 21:30 36.4 C L 64 18 165/75 H 93 Room Air Laboratory Results Laboratory Tests 06/02/22 06/02/22 06/02/22 14:25 22:43 22:43 WBC Hgb Hct Plt Count Sodium Potassium Chloride Carbon Dioxide BUN Creatinine Calcium Total Bilirubin 0.8 AST 18 ALT 11 Alkaline Phosphatase 59 Albumin 3.6 25-OH Vitamin D Total 48.9 PTH Intact 22.5 PTH Related Protein 06/02/22 06/03/22 06/03/22 22:43 07:06 07:06 WBC 5.04 Hgb 8.7 L Hct 25.1 L Plt Count 120 L Sodium 134 L Potassium 3.8 Chloride 103 Carbon Dioxide 27 BUN 27 H Creatinine 1.85 H D Calcium 9.9 D Total Bilirubin AST ALT Alkaline Phosphatase Albumin 25-OH Vitamin D Total PTH Intact PTH Related Protein Pending PG Care Time/CCT Total # of Minutes Spent Total Time Spent with Patient: Total time spent is greater than 50% in coordination of care (as documented) at patient's floor/unit and/or counseling patient: Coding Level of Care Code INP/OBS CONSULT LVL 5, 80 MIN Diagnoses Hypercalcemia E83.52 Dehydration E86.0 Pjhbt-ah-swegqjc kidney injury N17.9; N18.9
[2022-06-03] MEDS: CALCITONIN SALMON 400 UNITS/2 ML SQ SCH ×2 (09:12→20:23)
--- NOTE | 2022-06-03 12:08 | Hospitalist Progress Note ---
Date of Service June 03, 2022 Assessment & Plan (1) REJI (acute kidney injury): Plan: REJI Baseline creatinine approximately 1.31.6 Admitting creatinine 2.33, 2.47 yesterday in the setting of Bactrim use for UTI Patient is non-anuric Cautious fluids as above, Lasix temporarily held, nephrology consulted. ? Fluids plus Lasix to help facilitate calcium excretion if persistently high (2) Hypercalcemia: Plan: Hypercalcemia on admission Unclear etiology, likely In the setting of renal failure. No known underlying malignancy -Serum Calcium now wnl after calcitonin, Fluids PTH wnl, PTHrp pending Patient was taking calcium and vitamin D supplements as outpatient, hold these at this time -Appreciate nephrology recs (3) Paroxysmal atrial fibrillation: Plan: Paroxysmal A. fib Rate controlled with carvedilol Continue Eliquis (4) Chronic systolic congestive heart failure: Plan: Chronic systolic heart failure with nonischemic cardiomyopathy NYHA class IIIII Lasix and spironolactone held in the setting of REJI Dry weight 115 pounds No chest pain in any point, troponins mildly elevated 32.1 which is consistent with prior measurements, 2-hour trended. No shortness of breath EKG paced rhythm (5) Cognitive decline: Plan: Cognitive impairment Gradual decline in the past, acutely worse in the setting of UTI now improving and nearly back to baseline. Delirium precautions Patient was going to start donepezil, but had not yet done this at home. We will hold for now. (6) Edema of both legs: (7) Obstructive sleep apnea: (8) Chronic kidney disease, stage III (moderate): Plan DVT prophylaxis: Anticoagulated Disposition: Medical/telemetry for REJI with electrolyte derangement CODE STATUS: DNR/DNI Diet: Heart healthy Admission and Anticipated Discharge Date Admission Date: June 02, 2022 Subjective patient seen and examined, feels better, no new complaints Review of Systems Review of Systems: All systems reviewed are negative, apart from the ones contained in the history. Physical Exam Physical Exam: The patient is awake, alert and oriented 3, well developed and well nourished, normocephalic and atraumatic, lying in bed and in no acute distress. HEENT--PERRL, EOMI, mucous membranes and oropharynx mildly dry Neck--supple. No JVD. No bruits. Thyroid normal, trachea midline, no adenopathy. Heart--normal S1 and S2. No murmurs, rubs or gallops. Lungs--clear bilaterally, no respiratory distress, no accessory muscle use. Abdomen--normal bowel sounds and soft. Mild epigastric and left sided abdominal pain Extremities--no cyanosis or clubbing. No edema. Dermatologic--normal skin turgor, normal color, no abnormal lymph nodes, no rash. Neurologic--cranial nerves II through XII grossly intact. Rheumatologic--normal range of motion. Psychiatric--normal affect. Results & Data Results & Data ([facility]) Vital Signs (Past 12 Hours) Vital Signs Temp Pulse Pulse Resp BP Pulse Ox O2 Del Method 06/03/22 12:03 97.9 F 67 16 169/68 H 93 Nasal Cannula 06/03/22 08:00 79 06/03/22 08:32 97.9 F 75 18 160/70 H 95 Room Air 06/03/22 04:53 97.3 F L 61 18 168/72 H 89 L Room Air PG Care Time/CCT Total # of Minutes Spent Total Time Spent with Patient: Total time spent is greater than 50% in coordination of care (as documented) at patient's floor/unit and/or counseling patient: Coding Level of Care Code 53869 SUB INP/OBS CARE 2/35MIN Diagnoses REJI (acute kidney injury) N17.9 Hypercalcemia E83.52 Paroxysmal atrial fibrillation I48.0 Chronic systolic congestive heart failure I50.22 Cognitive decline R41.89 Edema of both legs R60.0 Obstructive sleep apnea G47.33 Chronic kidney disease, stage III (moderate) N18.3 Time Spent (min) 35
[2022-06-03] MEDS ORDERED: SODIUM CHLORIDE 0.9% 1000ML 1,000 ML IV SCH (13:45)
[2022-06-03 22:18] LABS: Appearance Urine Clear (Clear); Bacteria Urine Automated Negative (Negative); Bilirubin Urine Negative (Negative); Blood Urine Negative (Negative); Color Urine Yellow; Epithelial Cell Urine Auto >30 /lpf (0-5); Glucose Urine UA Negative (Negative); Ketones Urine Negative (Negative); Leukocyte Esterase Urine Trace (Negative); Nitrite Urine Negative (Negative); Protein Urine 2+ (Negative); RBC Urine Automated 0-4 /hpf (0-4); Specific Gravity Urine 1.013 (1.000-1.030); Urobilinogen Urine Negative (Negative); pH Urine 6.5 (4.5-7.5)
[2022-06-04 07:11] LABS: Hemoglobin 8.7 g/dl (12.0-16.0); Mean Corpuscular Hemoglobin 31.2 pg (25.0-34.0); Mean Corpuscular Hgb Conc 34.8 g/dL (32.0-36.0); Mean Corpuscular Volume 89.6 fL (80.0-100.0); Mean Platelet Volume 11.5 fL (9.4-12.3); Platelet Count 128 K/uL (130-400); RDW Coefficient of Variation 14.5 % (11.5-14.5); RDW Standard Deviation 47.7 fL (36.4-46.3); Red Blood Count 2.79 M/uL (3.93-5.22); White Blood Count 7.27 K/ul (4.8-10.8)
[2022-06-04 07:35] LABS: BUN Creatinine Ratio 13.6 (10-20); Calcium 8.8 mg/dl (8.5-10.1); Creatinine Clr Calc Pharmacy 17.3 ml/min; Est GFR (African American) 35.8 ml/min; Est GFR (Non-African American) 30.9 ml/min; Potassium 3.7 mmol/L (3.5-5.1)
[2022-06-04] MEDS: busPIRone 5 MG TAB PO PRN (08:23)
[2022-06-04] MEDS: carvediloL 25 MG TAB PO SCH (08:23)
[2022-06-04] MEDS: ASPIRIN 81 MG ECTAB PO SCH (08:23)
[2022-06-04] MEDS: APIXABAN 2.5 MG TAB PO SCH (08:23)
[2022-06-04] MEDS: CALCITONIN SALMON 400 UNITS/2 ML SQ SCH (08:24)
--- NOTE | 2022-06-04 09:31 | Nephrology Progress Note ---
Date of Service June 04, 2022 Assessment & Plan (1) Hypercalcemia: Plan: * Non-PTH medicated hypercalcemia * Vitamin D within normal limits. PTHrp is pending * Clinically suspect hypercalcemia related to calcium/vitamin D supplementation in the setting of dehydration * Stop CaCO3/vitamin D supplement * Ca has corrected. Kidney function is at baseline. No further Nephrology evaluation indicated at this time. Will sign off. Please call if further ass istance is needed (2) Dehydration: Plan: * Continue 0.9 NS at 80 cc/hr (3) Dlcgu-ij-xmpuvnm kidney injury: Plan: * REJI resolved following IV hydration * Urinalysis negative for cellular casts * Baseline Cr 1.3 - 1.6 dating back to 2018 in EMR * Outpatient follow up per PCP Admission and Anticipated Discharge Date Admission Date: June 02, 2022 Subjective Ms. Quinteros was evaluated in her hospital room this morning. She voiced no new medical concerns Review of Systems Constitutional: no fever Eyes: no problem reported Ear, Nose, Mouth, Throat: no problem reported Respiratory: no cough and no dyspnea Cardiovascular: no chest pain Gastrointestinal: no abdominal pain, no vomiting and no diarrhea/loose stools Genitourinary: no dysuria Neurologic: + confusion Physical Exam Constitutional: + frail appearing; not in distress Eyes: PERRL, conjunctivae normal, anicteric sclerae ENMT: Mouth: + dry oral mucous membranes Neck: trachea midline, no thyromegaly Respiratory: normal respiratory effort, lungs clear to auscultation Cardiovascular: RRR, no murmur, no edema Gastrointestinal (Abdomen): normal bowel sounds, soft, nontender, no hepatosplenomegaly Skin: + turgor decreased Neurologic: awake and + confused Results & Data ([facility]) Vital Signs (Past 12 Hours) Vital Signs Temp Pulse Pulse Resp BP Pulse Ox O2 Del Method 06/04/22 07:48 36.9 C 79 16 159/76 H 92 Nasal Cannula 06/04/22 07:24 69 06/04/22 02:30 37.0 C 72 16 161/83 H 90 Room Air 06/03/22 22:51 36.7 C 68 16 169/72 H 93 Room Air O2 Flow Rate 06/04/22 07:48 2 06/04/22 07:24 06/04/22 02:30 06/03/22 22:51 Laboratory Results Laboratory Tests 06/04/22 06/04/22 06:14 06:14 WBC 7.27 Hgb 8.7 L Hct 25.0 L Plt Count 128 L Sodium 133 L Potassium 3.7 Chloride 102 Carbon Dioxide 25 BUN 21 Creatinine 1.54 H D Glucose 96 Laboratory Tests 06/02/22 06/02/22 06/02/22 14:25 22:43 22:43 Calcium 12.1 H* Albumin 3.6 25-OH Vitamin D Total 48.9 PTH Intact 22.5 PTH Related Protein 06/02/22 06/03/22 06/04/22 22:43 07:06 06:14 Calcium 9.9 D 8.8 Albumin 25-OH Vitamin D Total PTH Intact PTH Related Protein Pending Laboratory Tests 06/03/22 21:30 Urine Color Yellow Urine Appearance Clear Urine pH 6.5 Ur Specific [place] 1.013 Urine Protein 2+ H Urine Blood Negative Urine RBC (Auto) 0-4 PG Care Time/CCT Total # of Minutes Spent Total Time Spent with Patient: Total time spent is greater than 50% in coordination of care (as documented) at patient's floor/unit and/or counseling patient: Coding Level of Care Code 35486 SUB INP/OBS CARE 3/50MIN Diagnoses Hypercalcemia E83.52 Dehydration E86.0 Dviis-ju-fikakkg kidney injury N17.9; N18.9
--- NOTE | 2022-06-04 12:18 | Discharge Summary ---
Date of Service June 04, 2022 Admission HPI Per Admitting Provider Elina is an 81-year-old female the past medical history of depression, dyslipidemia, hypertension, past V. tach who was seen as an outpatient and found to have elevated creatinine and calcium with poor p.o. intake. Recently treated for UTI with bactrim this past week. Increased confusion. UTI last week. Very confused, gradually actually improving in the last week since being on bactrim. Normal some progressive chronic cognitive decline, but oriented to month/year. Inermittently to day of week. Worse last week, found to have UTI. Improving and near not quite back to cognitive baseline but overall doing very well and per patient if they were not told that labs are abnormal they would not of known anything was wrong. UC speciate Klebsiella which was Bactrim sensitive. Patient does not have any history of hypercalcemia to their knowledge, does not have history of multiple myeloma, and does not have any other history of cancer. Has had some background cognitive decline and was to start donepezil in the future, but has not yet done this. Does have a history of heart failure, overall feels fluid status has been okay and has not had any orthopnea, chest pain, chest pressure, difficulty breathing, or new/worsened leg swelling. Weight has actually gone down slightly recently with UTI and poor p.o. intake. 105 from baseline 115 pounds. Patient endorses IBS alternating, but no persistent constipation, cramps. Acute on chronic confusion during the day which was improving as noted. Patient is tangential during HPI, but appropriate. Medical History: Reviewed Medications: Reviewed Surgical History: Reviewed Allergies: Reviewed. Multiple allergies. Social History: no tobacco/etoh. Code Status: DNR/DNI Principal Diagnosis Hypercalcemia, REJI on CKD Discharge Exam The patient is awake, alert and oriented 3, well developed and well nourished, normocephalic and atraumatic, lying in bed and in no acute distress. HEENT--PERRL, EOMI, mucous membranes and oropharynx mildly dry Neck--supple. No JVD. No bruits. Thyroid normal, trachea midline, no adenopathy. Heart--normal S1 and S2. No murmurs, rubs or gallops. Lungs--clear bilaterally, no respiratory distress, no accessory muscle use. Abdomen--normal bowel sounds and soft. Mild epigastric and left sided abdominal pain Extremities--no cyanosis or clubbing. No edema. Dermatologic--normal skin turgor, normal color, no abnormal lymph nodes, no rash. Neurologic--cranial nerves II through XII grossly intact. Rheumatologic--normal range of motion. Psychiatric--normal affect. Discharge Data Allergies Allergy/AdvReac Type Severity Reaction Status Date / Time cephalexin Allergy Severe ANAPHYLAXIS Verified 06/02/22 17:01 Penicillins Allergy Severe RASH AND Verified 06/02/22 17:01 SWELLING Cephalosporins Allergy Intermediate RASH AND Verified 06/02/22 17:01 SWELLING ciprofloxacin Allergy Unknown CAN'T Verified 06/02/22 17:01 REMEMBER scallops Allergy Unknown CAN'T Verified 06/02/22 17:01 REMEMBER tramadol Allergy Unknown CAN'T Verified 06/02/22 17:01 REMEMBER erythromycin base AdvReac Intermediate UPSET Verified 06/02/22 17:01 STOMACH amlodipine AdvReac Unknown Unknown Verified 06/02/22 17:01 azithromycin AdvReac Unknown UPSET Verified 06/02/22 17:01 STOMACH Consultations 06/02/22 16:14 ED Decision to Admit Stat 06/02/22 21:47 Consult Nephrology Routine Hospital Course (1) REJI (acute kidney injury): Kidney function now back to near baseline (2) Hypercalcemia: Hypercalcemia on admission Unclear etiology, likely In the setting of renal failure. No known underlying malignancy -Serum Calcium now wnl after calcitonin, Fluids PTH wnl, PTHrp pending Patient was taking calcium and vitamin D supplements as outpatient, hold these at this time -Appreciate nephrology recs (3) Paroxysmal atrial fibrillation: Paroxysmal A. fib Rate controlled with carvedilol Continue Eliquis (4) Chronic systolic congestive heart failure: Chronic systolic heart failure with nonischemic cardiomyopathy NYHA class IIIII Lasix and spironolactone held in the setting of REJI Dry weight 115 pounds No chest pain in any point, troponins mildly elevated 32.1 which is consistent with prior measurements, 2-hour trended. No shortness of breath EKG paced rhythm (5) Cognitive decline: Cognitive impairment Gradual decline in the past, acutely worse in the setting of UTI now improving and nearly back to baseline. Delirium precautions Patient was going to start donepezil, but had not yet done this at home. We will hold for now. (6) Edema of both legs: (7) Obstructive sleep apnea: (8) Chronic kidney disease, stage III (moderate): Plan DVT prophylaxis: Anticoagulated Disposition: Medical/telemetry for REJI with electrolyte derangement CODE STATUS: DNR/DNI Diet: Heart healthy Total Time Total Time Spent Total Time Spent (In Minutes): 35 Discharge Plan Discharge Items Patient Disposition: Home - Self-Care Reason For Visit: REJI, HYPERCALCEMIA Discharge Diagnosis: REJI, Hypercalcemia-Resolved Activity: Resume your previous activity Non-emergency contact: Primary Care Provider Call non-emergency contact if: you have any medication questions Follow-up/Referrals: Micheal Wong DO [Primary Care Provider] - Diet: Regular Addtl Attending Provider Instructions: please make appointment to follow up with your PCP Pending Studies at Discharge: No Stand-Alone Forms: [employer], Smoking Cessation Medications and DC Order Prescriptions: Continued carvedilol 25 mg tablet 25 mg PO BID Qty: 180 3RF Eliquis 2.5 mg tablet 2.5 mg PO BID Qty: 180 3RF atorvastatin 40 mg tablet 40 mg PO DAILY Qty: 90 3RF spironolactone 25 mg tablet 25 mg PO DAILY Qty: 90 2RF buspirone 5 mg tablet 2.5 mg PO TID PRN (Reason: anxiety) Entresto 97-103 mg tablet 1 tab PO BID Centrum Silver Women 8 mg iron-400 mcg-300 mcg tablet 1 tab PO DAILY AZO Urinary Tract Defense 162-162.5 mg tablet 1 tab PO DAILY furosemide 40 mg tablet 40 mg PO DAILY PRN (Reason: weight gain, swelling, dyspnea) Qty: 60 2RF aspirin 81 mg Tablet,Delayed Release (Dr/Ec) 81 mg PO DAILY Systane (propylene glycol) 0.4-0.3 % Drops 1 drp OPB DAILY PRN (Reason: Dry Eyes) cranberry extract [Cranberry Concentrate] 500 mg Capsule 500 mg PO BID Rx Instructions: administer with meals donepezil 5 mg tablet 5 mg PO QPM Rx Instructions: PER PT'S DAUGHTER "HAS NOT STARTED YET". Discontinued calcium carbonate-vitamin D3 [Calcium 600 with Vitamin D3] 600 mg(1,500mg) - 500 unit capsule 1 cap PO BID Discharge Orders: Discharge Order (Routine); Ordered 06/04/22 Ordered By: Chad Constantino Admission Data Admit Date/Time: 06/02/22 19:29 Attending Provider: Chad Constantino Admit Provider: Eris Hardin Primary Care Provider: Micheal Wong Other Providers: Eris Hardin ; Wilbert Sharp Coding Level of Care Code HOSP INP/OBS DISCH >30 MIN Diagnoses REJI (acute kidney injury) N17.9 Hypercalcemia E83.52 Paroxysmal atrial fibrillation I48.0 Chronic systolic congestive heart failure I50.22 Cognitive decline R41.89 Edema of both legs R60.0 Obstructive sleep apnea G47.33 Chronic kidney disease, stage III (moderate) N18.3 Time Spent (min) 35
== END 2022-06-04 13:54 | disposition home or self-care (01) | DRG 683 ==
LOC: ED 12:47 → SUATTDRO 19:29 → 2S 19:29
DX: Z79.82 Long term (current) use of aspirin; Z88.0 Allergy status to penicillin; Z95.810 Presence of automatic (implantable) cardiac defibrillator; F41.9 Anxiety disorder, unspecified; E86.0 Dehydration; E83.52 Hypercalcemia; N17.9 Acute kidney failure, unspecified; Z88.1 Allergy status to other antibiotic agents; N18.30 Chronic kidney disease, stage 3 unspecified; I13.0 Hypertensive heart and chronic kidney disease with heart failure and stage 1 through stage 4 chronic kidney disease, or unspecified chronic kidney disease; E87.1 Hypo-osmolality and hyponatremia; I42.8 Other cardiomyopathies; I48.0 Paroxysmal atrial fibrillation; R74.8 Abnormal levels of other serum enzymes; I50.22 Chronic systolic (congestive) heart failure; Z66 Do not resuscitate

== ENCOUNTER 2022-11-14 16:21 | Inpatient (IN) ==
[2022-11-14 17:22] LABS: Hematocrit (blood only) 34.5 % (37.0-47.0); Mean Corpuscular Hemoglobin 31.3 pg (25.0-34.0); Mean Corpuscular Hgb Conc 34.8 g/dL (32.0-36.0); Mean Corpuscular Volume 90.1 fL (80.0-100.0); Platelet Count 173 K/uL (130-400); RDW Coefficient of Variation 14.9 % (11.5-14.5); Red Blood Count 3.83 M/uL (4.20-5.40); White Blood Count 5.69 K/ul (4.8-10.8)
--- NOTE | 2022-11-14 17:25 | Emergency Department Note ---
History of Present Illness General Chief complaint: GI Bleed Stated complaint: BOWEL PROBLEM Time Seen by Provider: 11/14/22 17:11 Source: patient, RN notes reviewed and old records reviewed Mode of arrival: ambulatory Limitations: no limitations History of Present Illness This patient is a 81-year-old female comes in with having bright red blood per rectum last night. She had multiple episodes last night but last day. She has no history of GI bleed. She is on apixaban for history of A-fib. Her stool has started darkish but now is more bright red. No dysuria hematuria no trauma or injury . no history of GI bleed. no abdominal pain. no lightheadedness or dizziness she has some chronic shortness of breath. Home Medications Medication Instructions Recorded Confirmed Type multivit with 1 tab PO DAILY 11/04/18 11/14/22 History gwddtskg-wcat-LK-lutein 8 mg iron-400 mcg-300 mcg tablet (Centrum Silver Women) methenamine-sodium salicylate 162 1 tab PO BID 11/08/20 11/14/22 History mg-162.5 mg tablet (AZO Urinary Tract Defense) aspirin 81 mg tablet,delayed 81 mg PO DAILY 01/04/22 11/14/22 History release apixaban 2.5 mg tablet (Eliquis) 2.5 mg PO BID #180 tabs 05/15/22 11/14/22 Rx atorvastatin 40 mg tablet 40 mg PO DAILY #90 tabs 05/15/22 11/14/22 Rx spironolactone 25 mg tablet 25 mg PO DAILY #90 tabs 05/15/22 11/14/22 Rx peg 400-propylene glycol 0.4 %-0.3 1 drp OPB DAILY PRN Dry Eyes 06/02/22 11/14/22 History % eye drops (Systane (propylene glycol)) carvedilol 25 mg tablet 12.5 mg PO BID 07/20/22 11/14/22 History buspirone 5 mg tablet 2.5 mg PO TID PRN anxiety #90 tabs 10/09/22 11/14/22 Rx amiodarone 200 mg tablet 200 mg PO DAILY #60 tabs 10/25/22 11/14/22 Rx donepezil 5 mg tablet 2.5 mg PO DAILY 10/25/22 11/14/22 History furosemide 40 mg tablet See Rx Instructions PO DAILY PRN 10/30/22 11/14/22 History weight gain, swelling, dyspnea potassium chloride 20 mEq 10 meq PO DAILY PRN Take with 10/30/22 11/14/22 Rx tablet,extended release Lasix #90 tabs sacubitril 49 mg-valsartan 51 mg 1 tab PO BID 10/30/22 11/14/22 History tablet Allergies Allergy/AdvReac Type Severity Reaction Status Date / Time cephalexin Allergy Severe ANAPHYLAXIS Verified 10/30/22 13:09 Penicillins Allergy Severe RASH AND Verified 10/30/22 13:09 SWELLING Cephalosporins Allergy Intermediate RASH AND Verified 10/30/22 13:09 SWELLING ciprofloxacin Allergy Unknown CAN'T Verified 10/30/22 13:09 REMEMBER scallops Allergy Unknown CAN'T Verified 10/30/22 13:09 REMEMBER tramadol Allergy Unknown CAN'T Verified 10/30/22 13:09 REMEMBER erythromycin base AdvReac Intermediate UPSET Verified 10/30/22 13:09 STOMACH amlodipine AdvReac Unknown Unknown Verified 10/30/22 13:09 azithromycin AdvReac Unknown UPSET Verified 10/30/22 13:09 STOMACH Past Med/Surg History Medical History Biventricular ICD (implantable cardioverter-defibrillator) in place Carpal tunnel syndrome Chronic diarrhea Chronic systolic congestive heart failure CKD (chronic kidney disease) stage 4, GFR 15-29 ml/min Depression Diplopia Frequent PVCs History of CVA (cerebrovascular accident) (~12/2021) Left temporal infarct History of shingles LBBB (left bundle branch block) Lumbar radiculopathy Nonischemic cardiomyopathy NSVT (nonsustained ventricular tachycardia) Obstructive sleep apnea Ocular migraine Paroxysmal atrial fibrillation Surgical History H/O eye surgery STRABISMUS History of cholecystectomy Hx of cataract surgery BILATERAL Family History Father Coronary heart disease ASCVD (arteriosclerotic cardiovascular disease) Brother Myocardial infarction ASCVD (arteriosclerotic cardiovascular disease) Son Lung cancer ASCVD (arteriosclerotic cardiovascular disease) Aunt Breast cancer Grandmother Cerebral hemorrhage Mother Parkinsons disease Other Cerebral arterial aneurysm Cerebromeningeal hemorrhage Denies family history of Ovarian cancer Prostate cancer Colorectal cancer Social History Smoking Status: Never smoker Second Hand Exposure: No; Do You Dip or Chew Tobacco: No; Hx Alcohol Use: No Hx Substance Use: No Preferred Language: Bengali Communication Ability: Effective Visual Impairment: Limited Hearing Ability: Normal 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 Beliefs That Will Affect Care: None marital status: Current Living Situation: Spouse current occupational status: retired How many Children do You have: 4 Other Information That Helps Us Care for You: No Feels Safe at Home: Yes Safety Concerns: Feels Safe At This Time Childhood Exposure to Second-Hand Smoke: Yes caffeine: Yes Dental Care, Regularly: Yes Physical Activity Frequency: Does not Exercise Seatbelt Use: always Sunscreen Use: No (does not sit in the sun) Assistive Devices: Cane and CPAP Review of Systems A total of 10 systems reviewed and were otherwise negative Physical Exam Vital Signs Vital Signs - 24 hr 11/14/22 16:23 11/14/22 17:49 11/14/22 17:22 Temperature 37.1 C Temperature Source Temporal Artery Scan Pulse Rate 77 64 Pulse Rate [Apical] Respiratory Rate 18 Respiratory Effort / Characteristics Non-Labored Respiratory Depth Normal Blood Pressure 166/94 H Blood Pressure [Left Arm] Blood Pressure Mean 118 Blood Pressure Mean [Left Arm] Pulse Oximetry 97 97 Oxygen Delivery Method Room Air Room Air Sepsis Recent Fever Within 48 Hours No Sepsis New/Unexplained Change in Mental Status No Sepsis Action Taken by Nursing No Action Required 11/14/22 17:57 11/14/22 19:00 11/14/22 20:00 Temperature Temperature Source Pulse Rate 65 61 Pulse Rate [Apical] 60 Respiratory Rate 18 16 18 Respiratory Effort / Characteristics Respiratory Depth Blood Pressure 159/84 H 160/80 H Blood Pressure [Left Arm] 150/85 H Blood Pressure Mean 109 106 Blood Pressure Mean [Left Arm] 106 Pulse Oximetry 99 97 98 Oxygen Delivery Method Room Air Sepsis Recent Fever Within 48 Hours Sepsis New/Unexplained Change in Mental Status Sepsis Action Taken by Nursing General: Well developed well nourished non-ill appearing older female in no acute distress, breathing comfortably on room air. Normal speech HEENT: Normal cephalic atraumatic. Pupils are equal round and reactive to light. Extraocular movements are intact. Oropharynx is pink with moist mucous membranes. No swelling of the mouth lips or tongue. Neck: Supple with a midline trachea. No meningeal signs or stiffness, no JVD or bruits. No Stridor. Chest: Clear to auscultation bilaterally. No wheezes or rhonchi. No increased work of breathing. Heart: Regular rate and rhythm without murmurs or gallops. Abdomen: Soft nontender, nondistended without rebound guarding or rigidity. Rectal (performed in the presence of female nurse contract coordinator): She does have small amount of stool which is red with some dark color. It was guaiac positive. Extremities: No cyanosis clubbing or edema. No calf tenderness or assymetry Spine/Back. Non tender to palpation. No CVA tenderness Skin: Good turgor without rashes. Neurologic exam: Cranial nerves two through 12 are intact. Motor and sensation are intact and symmetrical throughout. Course Administered Medications Carvedilol (Carvedilol 12.5 Mg Tab) 12.5 mg PO BID DEBO Stop: 12/14/22 22:17 Last Admin: 11/14/22 22:42 Dose: 12.5 mg Documented By: SANTY Pantoprazole Sodium 40 mg/ (Dextrose) 100 mls @ 20 mls/hr IV Q5H DEBO Stop: 12/14/22 22:17 Last Admin: 11/14/22 23:01 Dose: 8 mg/hr, 20 mls/hr Documented By: SANTY Sacubitril/Valsartan (Valsartan/Sacubitril 51/49 Mg Tab) 1 tab PO BID DEBO Stop: 12/14/22 22:17 Last Admin: 11/14/22 22:42 Dose: 1 tab Documented By: SANTY Discontinued Medications Pantoprazole Sodium 80 mg/ (Dextrose) 120 mls @ 400 mls/hr IV 2230 ONE Stop: 11/14/22 22:47 Last Infusion: 11/14/22 23:00 Dose: 0 mls/hr Documented By: Admin: 11/14/22 22:43 Dose: 400 mls/hr Documented By: SANTY Medical Decision Making Differential Diagnosis GI bleed, anemia, CHF, electrolyte or metabolic abnormality, colitis, infection Medical Records Attestation: I reviewed the patient's medical records. Home Medications Current Medication List: was personally reviewed by me Laboratory Data Attestation: I reviewed the patient's lab results. 11/14/22 17:06 11/14/22 17:06 Lab Results 11/14/22 11/14/22 11/14/22 Range/Units 17:05 17:06 17:06 WBC 5.69 (4.8-10.8) K/ul RBC 3.83 L (4.20-5.40) M/uL Hgb 12.0 (12.0-16.0) g/dl Hct 34.5 L (37.0-47.0) % MCV 90.1 (80.0-100.0) fL MCH 31.3 (25.0-34.0) pg MCHC 34.8 (32.0-36.0) g/dL RDW Std Deviation 49.0 H (36.4-46.3) fL RDW Coeff of Jaz 14.9 H (11.5-14.5) % Plt Count 173 (130-400) K/uL MPV 11.0 (9.4-12.4) fL PT 11.1 (9.0-12.0) Seconds INR 1.0 (0.9-1.1) APTT 45.7 H* (21.0-31.0) Seconds PTT Ratio 1.6 Sodium (136-145) mmol/L Potassium (3.5-5.1) mmol/L Chloride (98-107) mmol/L Carbon Dioxide (21-32) mmol/L Anion Gap (3-11) BUN (6-23) mg/dl Creatinine (0.6-1.2) mg/dl Est Cr Clr Drug Dosing ml/min Est GFR ( Amer) ml/min Est GFR (Non-Af Amer) ml/min BUN/Creatinine Ratio (10-20) Glucose (70-99(Fasting)) mg/dl Calcium (8.6-10.3) mg/dl Total Bilirubin (0.2-1.0) mg/dl AST (13-39) U/L ALT (7-52) U/L Alkaline Phosphatase (34-104) U/L Troponin I High Sens (0-14) pg/ml Total Protein (6.0-8.3) gm/dl Albumin (3.4-5.0) gm/dl Globulin (2.5-4.0) gm/dl Albumin/Globulin Ratio (0.9-2) POC Stool Occult Blood (Negative) SARS-CoV-2, RNA, NAAT (NEGATIVE) Blood Type O Positive Antibody Screen NEGATIVE 11/14/22 11/14/22 11/14/22 Range/Units 17:06 18:11 18:20 WBC (4.8-10.8) K/ul RBC (4.20-5.40) M/uL Hgb (12.0-16.0) g/dl Hct (37.0-47.0) % MCV (80.0-100.0) fL MCH (25.0-34.0) pg MCHC (32.0-36.0) g/dL RDW Std Deviation (36.4-46.3) fL RDW Coeff of Jaz (11.5-14.5) % Plt Count (130-400) K/uL MPV (9.4-12.4) fL PT (9.0-12.0) Seconds INR (0.9-1.1) APTT (21.0-31.0) Seconds PTT Ratio Sodium 133 L (136-145) mmol/L Potassium 5.7 H (3.5-5.1) mmol/L Chloride 101 (98-107) mmol/L Carbon Dioxide 28 (21-32) mmol/L Anion Gap 4 (3-11) BUN 60 H (6-23) mg/dl Creatinine 2.55 H (0.6-1.2) mg/dl Est Cr Clr Drug Dosing 9.5 ml/min Est GFR ( Amer) 19.5 ml/min Est GFR (Non-Af Amer) 16.8 ml/min BUN/Creatinine Ratio 23.5 H (10-20) Glucose 71 (70-99(Fasting)) mg/dl Calcium 10.3 (8.6-10.3) mg/dl Total Bilirubin 0.9 (0.2-1.0) mg/dl AST 20 (13-39) U/L ALT 12 (7-52) U/L Alkaline Phosphatase 69 (34-104) U/L Troponin I High Sens 20.6 H (0-14) pg/ml Total Protein 6.9 (6.0-8.3) gm/dl Albumin 4.0 (3.4-5.0) gm/dl Globulin 2.9 (2.5-4.0) gm/dl Albumin/Globulin Ratio 1.4 (0.9-2) POC Stool Occult Blood Positive A (Negative) SARS-CoV-2, RNA, NAAT NEGATIVE (NEGATIVE) Blood Type Antibody Screen Imaging Data Attestation: I personally reviewed and interpreted this imaging study as follows: My Impression: Chest x-raycardiomegaly but no acute infiltrate, failure, pneumothorax seen. Radiologist's Impression: Chest X-Ray 11/14/22 17:18 XR chest 1V portable HISTORY: 81 years-old Female sob acute shortness of breath COMPARISON: 06/23/2022 TECHNIQUE: AP view of the chest FINDINGS: Cardiac silhouette is enlarged. Left subclavian pacer/AICD. And small pleural ef fusions, decreased in size on the left from prior. Mild persistent left basilar opacities. No pneumothorax or overt pulmonary edema. Degenerative changes of the shoulders and spine. IMPRESSION: 1. Cardiomegaly without overt pulmonary edema. 2. Small pleural effusions with stable left basilar opacities favoring atelectasis. ACT 112: Negative or not required by law. The above report was generated using voice recognition software. It may contain grammatical, syntax or spelling errors. Electronically signed by: Sunil Tanner M.D. 11/14/2022 5:57 PM ECG Data Attestation: I personally reviewed and interpreted this ECG as follows: Indication: + weakness Rate (beats per minute): 63 Rhythm: + other (Ventricular paced rhythm) ECG Intervals/blocks: + IVCD ECG [place]: + Normal ECG ST segments: + Normal ST segments ECG Findings: no PACs or no PVCs Comparison ECG Date: from (06/02/2022) Change: no significant change MDM Narrative This patient comes in described above. I saw her in triage as we were backed up to help expedite her care. She looks well stable vital signs were concerned she has had a history of a GI recent GI bleed and is on apixaban. Blood work was o btained IV access established. She has no abdominal pain. Her hemoglobin is stable. She is guaiac positive however and she is on apixaban so I do think will need to be admitted/observed. She has been typed and screened. She has renal insufficiency which is slightly worse than her baseline. Her baseline. COVID testing was negative. I do think she needs to be admitted/observed for her GI bleed and I have consulted the [facility] to see in ER for these measures. Continuous cardiac monitoring: Orders placed in EMR for continuous cardiac monitoring: On my evaluation she was noted to be a paced rhythm at a rate of 60 Impression & Plan Acute GI bleeding, Chronic systolic congestive heart failure, Biventricular ICD (implantable cardioverter-defibrillator) in place, Current use of usp anticoagulation, Lab test negative for COVID-19 virus, Renal insufficiency Discharge Plan Visit Data Chief Complaint: GI Bleed Stated Complaint: BOWEL PROBLEM ED Provider: Micheal Perez Discharge Problem: Acute GI bleeding, Chronic systolic congestive heart failure, Biventricular ICD (implantable cardioverter-defibrillator) in place, 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
[2022-11-14 17:36] LABS: Albumin Globulin Ratio 1.4 (0.9-2); BUN Creatinine Ratio 23.5 (10-20); Bilirubin,Total 0.9 mg/dl (0.2-1.0); Calcium 10.3 mg/dl (8.6-10.3); Creatinine Clr Calc Pharmacy 9.5 ml/min; Est GFR (African American) 19.5 ml/min; Est GFR (Non-African American) 16.8 ml/min; Globulin 2.9 gm/dl (2.5-4.0); Potassium 5.7 mmol/L (3.5-5.1); Total Protein 6.9 gm/dl (6.0-8.3)
[2022-11-14 17:42] LABS: Troponin I High Sensitivity 20.6 pg/ml (0-14)
--- NOTE | 2022-11-14 17:58 | XRay Report ---
XR chest 1V portable HISTORY: 81 years-old Female sob acute shortness of breath COMPARISON: 06/23/2022 TECHNIQUE: AP view of the chest FINDINGS: Cardiac silhouette is enlarged. Left subclavian pacer/AICD. And small pleural effusions, decreased in size on the left from prior. Mild persistent left basilar opacities. No pneumothorax or overt pulmon tarsha edema. Degenerative changes of the shoulders and spine. IMPRESSION: 1. Cardiomegaly without overt pulmonary edema. 2. Small pleural effusions with stable left basilar opacities favoring atelectasis. ACT 112: Negative or not required by law. The above report was generated using voice recognition software. It may contain grammatical, syntax o r spelling errors. Electronically signed by: Sunil Tanner M.D. 11/14/2022 5:57 PM
[2022-11-14 18:04] LABS: Partial Thromboplastin Ratio 1.6; Prothrombin Time 11.1 Seconds (9.0-12.0)
[2022-11-14 18:17] LABS: Partial Thromboplastin Time 45.7 Seconds (21.0-31.0)
--- NOTE | 2022-11-14 20:44 | History & Physical Report ---
Date of Service November 14, 2022 Assessment & Plan (1) GI bleed: Plan: 81 yo female with PMHx NSVT s/p biventricular ICD, afib, HLD, CVA, IBS, anxiety/depression, HTN, HFrEF, nonischemic cardiomyopathy, memory issues, recurrent UTI, and CKD stage 4 presents with GI bleed. #GI bleed -1 day dark and bright red blood with BMs, denies pain. Hgb 12. Pos stool occult. Unclear whether upper or lower bleed. Deferred CT A/P at this time since abdominal exam findings mild. Low suspicion for diverticulitis, no leukocytosis. -hold Eliquis and aspirin -NPO, NSS @ 80, protonix drip, zofran prn -GI consulted, will likely need colonoscopy/EGD -monitor Hgb #Hyperkalemia -5.7 on admission. Likely due to GI bleed. EKG without peaked T waves. Monitor. #REJI on CKD, stage 4 -Cr 2.4 on admission. Baseline ~1.5 -cont. spironolactone and entresto -likely component of dehydration, maintenance NSS @ 80, to be cautious for fluid overload #NSVT s/o biventricular ICD #HTN #HFrEF #Nonischemic cardiomyopathy -cont. amioderone, entresto, coreg -hold aspirin #Afib, chronic -hold eliquis -cont. coreg #Memory Issues -cont. home donepezil #HLD -resume home statin when able #recurrent UTI -resume when methenamine when able DVT ppx: SCDs; chemical held due to GI bleed FEN/GI: NPO, NSS @ 80 Code Status: DNI/DNR Dispo: PCU (2) History of CVA (cerebrovascular accident): (3) CKD (chronic kidney disease) stage 4, GFR 15-29 ml/min: (4) Anemia: (5) Nonischemic cardiomyopathy: (6) Paroxysmal atrial fibrillation: (7) NSVT (nonsustained ventricular tachycardia): (8) Biventricular ICD (implantable cardioverter-defibrillator) in place: (9) Chronic systolic congestive heart failure: (10) Depression: (11) Dyslipidemia: (12) Gastroesophageal reflux disease: (13) Hypertension: (14) Irritable bowel syndrome: (15) Progressive cognitive dysfunction: History of Present Illness Chief Complaint: GI bleed Primary Care Provider: Helen Steele MD 81 yo female with PMHx NSVT s/p biventricular ICD, afib, HLD, CVA, IBS, anxiety/depression, HTN, HFrEF, nonischemic cardiomyopathy, memory issues, recurrent UTI, and CKD stage 4 presents with GI bleed. Last night patient noticed a mix of dark and bright red blood with her bowel movement which was without pain. She continued to have the bleeding with her bowel movements throughout today. Denies history of GI bleeding. No new medications. Some associated abdominal discomfort and diarrhea. Chronically on Eliquis and aspirin. Denies NSAID use. Denies headache, cough, fatigue, chest pain, shortness of breath, constipation, dysuria, nausea, vomiting. Denies alcohol use. She is a non-smoker. Has not had colonoscopy in many years. Allergies Allergy/AdvReac Type Severity Reaction Status Date / Time cephalexin Allergy Severe ANAPHYLAXIS Verified 10/30/22 13:09 Penicillins Allergy Severe RASH AND Verified 10/30/22 13:09 SWELLING Cephalosporins Allergy Intermediate RASH AND Verified 10/30/22 13:09 SWELLING ciprofloxacin Allergy Unknown CAN'T Verified 10/30/22 13:09 REMEMBER scallops Allergy Unknown CAN'T Verified 10/30/22 13:09 REMEMBER tramadol Allergy Unknown CAN'T Verified 10/30/22 13:09 REMEMBER erythromycin base AdvReac Intermediate UPSET Verified 10/30/22 13:09 STOMACH amlodipine AdvReac Unknown Unknown Verified 10/30/22 13:09 azithromycin AdvReac Unknown UPSET Verified 10/30/22 13:09 STOMACH Home Medications Medication Instructions Recorded Confirmed Type multivit with 1 tab PO DAILY 11/04/18 11/14/22 History bxwrcqiy-umtq-BX-lutein 8 mg iron-400 mcg-300 mcg tablet (Centrum Silver Women) methenamine-sodium salicylate 162 1 tab PO BID 11/08/20 11/14/22 History mg-162.5 mg tablet (AZO Urinary Tract Defense) aspirin 81 mg tablet,delayed 81 mg PO DAILY 01/04/22 11/14/22 History release apixaban 2.5 mg tablet (Eliquis) 2.5 mg PO BID #180 tabs 05/15/22 11/14/22 Rx atorvastatin 40 mg tablet 40 mg PO DAILY #90 tabs 05/15/22 11/14/22 Rx spironolactone 25 mg tablet 25 mg PO DAILY #90 tabs 05/15/22 11/14/22 Rx peg 400-propylene glycol 0.4 %-0.3 1 drp OPB DAILY PRN Dry Eyes 06/02/22 11/14/22 History % eye drops (Systane (propylene glycol)) carvedilol 25 mg tablet 12.5 mg PO BID 07/20/22 11/14/22 History buspirone 5 mg tablet 2.5 mg PO TID PRN anxiety #90 tabs 10/09/22 11/14/22 Rx amiodarone 200 mg tablet 200 mg PO DAILY #60 tabs 10/25/22 11/14/22 Rx donepezil 5 mg tablet 2.5 mg PO DAILY 10/25/22 11/14/22 History furosemide 40 mg tablet See Rx Instructions PO DAILY PRN 10/30/22 11/14/22 History weight gain, swelling, dyspnea potassium chloride 20 mEq 10 meq PO DAILY PRN Take with 10/30/22 11/14/22 Rx tablet,extended release Lasix #90 tabs sacubitril 49 mg-valsartan 51 mg 1 tab PO BID 10/30/22 11/14/22 History tablet Past Med/Surg History Medical History Biventricular ICD (implantable cardioverter-defibrillator) in place Carpal tunnel syndrome Chronic diarrhea Chronic systolic congestive heart failure CKD (chronic kidney disease) stage 4, GFR 15-29 ml/min Depression Diplopia Frequent PVCs History of CVA (cerebrovascular accident) (~12/2021) Left temporal infarct History of shingles LBBB (left bundle branch block) Lumbar radiculopathy Nonischemic cardiomyopathy NSVT (nonsustained ventricular tachycardia) Obstructive sleep apnea Ocular migraine Paroxysmal atrial fibrillation Surgical History H/O eye surgery STRABISMUS History of cholecystectomy Hx of cataract surgery BILATERAL Family History Father Coronary heart disease ASCVD (arteriosclerotic cardiovascular disease) Brother Myocardial infarction ASCVD (arteriosclerotic cardiovascular disease) Son Lung cancer ASCVD (arteriosclerotic cardiovascular disease) Aunt Breast cancer Grandmother Cerebral hemorrhage Mother Parkinsons disease Other Cerebral arterial aneurysm Cerebromeningeal hemorrhage Denies family history of Ovarian cancer Prostate cancer Colorectal cancer Social History Smoking Status: Never smoker Second Hand Exposure: No; Do You Dip or Chew Tobacco: No; Hx Alcohol Use: No Hx Substance Use: No Preferred Language: Belarusian Communication Ability: Effective Visual Impairment: Limited Hearing Ability: Normal [employer] Required: No Beliefs That Will Affect Care: None marital status: Current Living Situation: Spouse current occupational status: retired How many Children do You have: 4 Other Information That Helps Us Care for You: No Feels Safe at Home: Yes Safety Concerns: Feels Safe At This Time Childhood Exposure to Second-Hand Smoke: Yes caffeine: Yes Dental Care, Regularly: Yes Physical Activity Frequency: Does not Exercise Seatbelt Use: always Sunscreen Use: No (does not sit in the sun) Assistive Devices: Cane and CPAP Review of Systems Review of Systems: All systems reviewed & are unremarkable except as noted in HPI & below Physical Exam Physical Exam: Constitutional: in no acute distress, pleasant. AOx3. Vitals as above. HEENT: No scleral injection or discharge.Moist mucous membranes. Clear oropharynx. Neck: Supple without lymphadenopathy or thyromegaly. Trachea midline. Lungs: Clear to auscultation bilaterally with good effort. Cardiac: Regular rate and rhythm.No murmurs.No extremity edema. 2+ distal peripheral pulses. Abdomen: Bowel sounds present. Soft and nondistended. Mild tenderness left quadrants and epigastric region.No guarding or rebound tenderness. No hepatosplenomegaly. MSK: No cyanosis or clubbing. Extremities motor strength 5/5. Skin: No rashes, warm, dry. Neurologic: no focal deficits Results & Data Results & Data Vital Signs (Past 12 Hours) Vital Signs Temp Pulse Pulse Resp BP BP Pulse Ox 11/14/22 20:00 61 18 160/80 H 98 11/14/22 19:00 65 16 159/84 H 97 11/14/22 17:57 60 18 150/85 H 99 11/14/22 17:22 97 11/14/22 17:49 64 11/14/22 16:23 37.1 C 77 18 166/94 H 97 O2 Del Method 11/14/22 20:00 11/14/22 19:00 11/14/22 17:57 Room Air 11/14/22 17:22 Room Air 11/14/22 17:49 11/14/22 16:23 Room Air Laboratory Results Laboratory Results WBC 5.69 K/ul (4.8-10.8) 11/14/22 17:06 RBC 3.83 M/uL (4.20-5.40) L 11/14/22 17:06 Hgb 12.0 g/dl (12.0-16.0) 11/14/22 17:06 Hct 34.5 % (37.0-47.0) L 11/14/22 17:06 MCV 90.1 fL (80.0-100.0) 11/14/22 17:06 MCH 31.3 pg (25.0-34.0) 11/14/22 17:06 MCHC 34.8 g/dL (32.0-36.0) 11/14/22 17:06 RDW Std Deviation 49.0 fL (36.4-46.3) H 11/14/22 17:06 RDW Coeff of Jaz 14.9 % (11.5-14.5) H 11/14/22 17:06 Plt Count 173 K/uL (130-400) 11/14/22 17:06 MPV 11.0 fL (9.4-12.4) 11/14/22 17:06 PT 11.1 Seconds (9.0-12.0) 11/14/22 17:05 INR 1.0 (0.9-1.1) 11/14/22 17:05 APTT 45.7 Seconds (21.0-31.0) H* 11/14/22 17:05 PTT Ratio 1.6 11/14/22 17:05 Sodium 133 mmol/L (136-145) L 11/14/22 17:06 Potassium 5.7 mmol/L (3.5-5.1) H 11/14/22 17:06 Chloride 101 mmol/L (98-107) 11/14/22 17:06 Carbon Dioxide 28 mmol/L (21-32) 11/14/22 17:06 Anion Gap 4 (3-11) 11/14/22 17:06 BUN 60 mg/dl (6-23) H 11/14/22 17:06 Creatinine 2.55 mg/dl (0.6-1.2) H 11/14/22 17:06 Est Cr Clr Drug Dosing 9.5 ml/min 11/14/22 17:06 Est GFR ( Amer) 19.5 ml/min 11/14/22 17:06 Est GFR (Non-Af Amer) 16.8 ml/min 11/14/22 17:06 BUN/Creatinine Ratio 23.5 (10-20) H 11/14/22 17:06 Glucose 71 mg/dl (70-99(Fasting)) 11/14/22 17:06 Calcium 10.3 mg/dl (8.6-10.3) 11/14/22 17:06 Total Bilirubin 0.9 mg/dl (0.2-1.0) 11/14/22 17:06 AST 20 U/L (13-39) 11/14/22 17:06 ALT 12 U/L (7-52) 11/14/22 17:06 Alkaline Phosphatase 69 U/L (34-104) 11/14/22 17:06 Troponin I High Sens 20.6 pg/ml (0-14) H 11/14/22 17:06 Total Protein 6.9 gm/dl (6.0-8.3) 11/14/22 17:06 Albumin 4.0 gm/dl (3.4-5.0) 11/14/22 17:06 Globulin 2.9 gm/dl (2.5-4.0) 11/14/22 17:06 Albumin/Globulin Ratio 1.4 (0.9-2) 11/14/22 17:06 POC Stool Occult Blood Positive (Negative) A 11/14/22 18:11 SARS-CoV-2, RNA, NAAT NEGATIVE (NEGATIVE) 11/14/22 18:20 Blood Type O Positive 11/14/22 17:06 Antibody Screen NEGATIVE 11/14/22 17:06 Impressions Chest X-Ray 11/14/22 17:18 XR chest 1V portable HISTORY: 81 years-old Female sob acute shortness of breath COMPARISON: 06/23/2022 TECHNIQUE: AP view of the chest FINDINGS: Cardiac silhouette is enlarged. Left subclavian pacer/AICD. And small pleural effusions, decreased in size on the left from prior. Mild persistent left basilar opacities. No pneumothorax or overt pulmonary edema. Degenerative changes of the shoulders and spine. IMPRESSION: 1. Cardiomegaly without overt pulmonary edema. 2. Small pleural effusions with stable left basilar opacities favoring atelectasis. ACT 112: Negative or not required by law. The above report was generated using voice recognition software. It may contain grammatical, syntax or spelling errors. Electronically signed by: Sunil Tanner M.D. 11/14/2022 5:57 PM Code Status & VTE Plan VTE Prophylaxis Plan VTE Prophylaxis will be ordered: Yes Supervising Physician Co-Signing Physician Notes Attending addendum: I have physically seen this patient, have supervised the medical residents activities, and agree with the H&P unless as otherwise noted. Assessment and Plan: GI bleed- Hemoglobin preserved 12.0 Hemoccult positive Holding Eliquis and aspirin N.p.o. NSS at 80 mils per hour Protonix IV as noted Zofran 4 mg IV every 6 hours as needed H&H every 6 hours Consult gastroenterology Acute kidney injury on CKD/hyperkalemia- Creatinine 2.55, with base 1.42 Potassium 5.7, normal EKG and monitor Hold spironolactone and Entresto Gentle rehydration with IV fluids as noted Follow laboratory serially NSVT/biventricular ICD/hypertension/HFrEF/nonischemic cardiomyopathy- Continue amiodarone and Coreg Holding aspirin, Eliquis, spironolactone and Entresto as noted above Remaining orders and notations as noted Resident Activity Tracking Resident Involvement: Resident Care Provided Care Provided: Adult Hospital Medicine (13) Hypertension Hypertension type: primary hypertension Qualified Code(s): I10 - Essential (primary) hypertension
[2022-11-14] MEDS ORDERED: ONDANSETRON INJ 2 MG/ML 2 ML VIAL IV PRN (22:18)
[2022-11-14] MEDS ORDERED: PANTOPRAZOLE BOLUS/DRIP 1 EACH IV STA (22:18)
[2022-11-14] MEDS ORDERED: PANTOprazole 80 MG in DEXTROSE 5% 100 ML IV ONE (22:30)
[2022-11-14] MEDS: VALSARTAN/SACUBITRIL 51/49 MG TAB PO SCH (22:42)
[2022-11-14] MEDS: carvediloL 12.5 MG TAB PO SCH (22:42)
[2022-11-14] MEDS: PANTOprazole 40 MG in DEXTROSE 5% 100 ML IV SCH (23:01)
[2022-11-14] MEDS: SODIUM CHLORIDE 0.9% 1000ML 1,000 ML IV SCH (23:30)
[2022-11-15] MEDS: PANTOprazole 40 MG in DEXTROSE 5% 100 ML IV SCH ×2 (03:42→08:00)
[2022-11-15 06:42] LABS: Basophils # (auto) 0.07 K/uL (0-0.2); Basophils % (auto) 1.5 %; Eosinophils # (auto) 0.28 K/uL (0-0.50); Eosinophils % (auto) 5.9 %; Hematocrit (blood only) 29.7 % (37.0-47.0); Hemoglobin 10.1 g/dl (12.0-16.0); Immature Granulocytes # (auto) 0.02 K/uL (0.01-0.20); Immature Granulocytes % (auto) 0.4 %; Lymphocytes # (auto) 1.07 K/uL (1.2-3.4); Lymphocytes % (auto) 22.6 %; Mean Corpuscular Hemoglobin 30.3 pg (25.0-34.0); Mean Corpuscular Volume 89.2 fL (80.0-100.0); Mean Platelet Volume 11.2 fL (9.4-12.4); Monocytes # (auto) 0.47 K/uL (0.11-0.59); Monocytes % (auto) 9.9 %; Neutrophils # (auto) 2.83 K/uL (1.40-6.50); Neutrophils % (auto) 59.7 %; Platelet Count 148 K/uL (130-400); RDW Standard Deviation 49.3 fL (36.4-46.3); Red Blood Count 3.33 M/uL (4.20-5.40); White Blood Count 4.74 K/ul (4.8-10.8)
[2022-11-15 06:49] LABS: Albumin Globulin Ratio 1.5 (0.9-2); Albumin Level 3.2 gm/dl (3.4-5.0); BUN Creatinine Ratio 22.9 (10-20); Bilirubin,Total 0.9 mg/dl (0.2-1.0); Calcium 9.6 mg/dl (8.6-10.3); Creatinine Clr Calc Pharmacy 10.5 ml/min; Est GFR (African American) 22.4 ml/min; Est GFR (Non-African American) 19.3 ml/min; Globulin 2.2 gm/dl (2.5-4.0); Potassium 4.3 mmol/L (3.5-5.1); Total Protein 5.4 gm/dl (6.0-8.3)
[2022-11-15 07:06] LABS: Troponin I High Sensitivity 22.2 pg/ml (0-14)
[2022-11-15 07:21] LABS: Partial Thromboplastin Ratio 1.4; Partial Thromboplastin Time 38.7 Seconds (21.0-31.0); Prothrombin Time 11.2 Seconds (9.0-12.0)
[2022-11-15] MEDS: DONEPEZIL HCL 5 MG TAB PO SCH (08:00)
[2022-11-15] MEDS: VALSARTAN/SACUBITRIL 51/49 MG TAB PO SCH ×2 (08:00→20:31)
[2022-11-15] MEDS: carvediloL 12.5 MG TAB PO SCH ×2 (08:00→20:30)
[2022-11-15] MEDS: SPIRONOLACTONE 25 MG TAB PO SCH (08:00)
[2022-11-15] MEDS: AMIODARONE 200 MG TAB PO SCH (08:00)
--- NOTE | 2022-11-15 09:57 | Gastrointestinal Consultation ---
Date of Consultation November 15, 2022 Assessment & Plan (1) Acute GI bleeding: Patient is a 81 years old female who presented with symptoms of bloody bowel movements in the setting of Eliquis and aspirin uses. + FOBT She is anemic but is this seems to be chronic, has CKD. Blood count currently at baseline. Last bowel movement overnight with stool brown in color and a small amount. No information available on prior colonoscopy results. DDX: inflammatory/ischemic/infectious colitis, proctitis, outlet bleeding from hemorrhoids - DC PPI gtt, changed to Protonix IV bid - Monitor blood ct and transfuse prn - Monitor for further gross s/s of GI bleeding - If abd pain worsen, would obtain CT abd/pelvis - Check stool cx and Cdiff - Discussed utility of EGD and colonoscopy evaluations to identify source of GI bleeding. Pt is ambivalent about these procedures. She would like to me to discuss with her daughter (Kiersten). I tried contacting Kiersten with the phone number on file, it seems to be an office phone number. No message left, will attempt to reach her at another time. ADDENDUM: At afternoon rounds, pt said she would like to defer endoscopies. Supervising Physician Co-Signing Physician Notes Attg add: I interviewed and examined pt, reviewed chart and labs. Pt with rectal bleeding, but does not want colonoscopy. R/b/I of colonscopy explained in great detail, risk of missing an occult malignancy d/w pt; she persists in her refusal of this test. Recs as above. History of Present Illness Reason for Consultation: GI bleed Requesting Physician: Dr. Luis Fernando Carolina Attending Physician: Dr. Sam Dos Santos History of Present Illness Patient is a 81 years old female with past medical history is including an SVT status post biventricular ICD, atrial fibrillation, currently on Eliquis and aspirin, hyperlipidemia, CVA, hypertension, nonischemic cardiomyopathy, IBS, anxiety and depression, recurrent UTI and CKD stage IV who presented last night with bloody bowel movement. Patient first noticed bright red blood in her pads about 2 days ago. States that over the course of yesterday she has had multiple bouts of soft stools with dark red blood mixed. She denies any associated fevers, chills, chest pain or shortness of breath. She denies nausea or vomiting but has some abdominal discomfort across the lower quadrants area. Denies any travels, sick contact or recent antibiotic uses. Upon evaluation, her labs initially showed hemoglobin of 12, her baseline is closer to between 9- 10. Today blood count is more reflective of her baseline. Platelet normal, no leukocytosis. No coagulopathy. Renal function at baseline. Stool did test positive for occult blood. Chest x-ray reviewed that shows small pleural effusions, atelectasis, cardiomegaly without overt pulmonary edema. Patient recalls that she has had colonoscopies few years ago but unable to remember the results. Last bowel movement charted was last night around 10 PM which was brown smear. Allergies Allergy/AdvReac Type Severity Reaction Status Date / Time cephalexin Allergy Severe ANAPHYLAXIS Verified 10/30/22 13:09 Penicillins Allergy Severe RASH AND Verified 10/30/22 13:09 SWELLING Cephalosporins Allergy Intermediate RASH AND Verified 10/30/22 13:09 SWELLING ciprofloxacin Allergy Unknown CAN'T Verified 10/30/22 13:09 REMEMBER scallops Allergy Unknown CAN'T Verified 10/30/22 13:09 REMEMBER tramadol Allergy Unknown CAN'T Verified 10/30/22 13:09 REMEMBER erythromycin base AdvReac Intermediate UPSET Verified 10/30/22 13:09 STOMACH amlodipine AdvReac Unknown Unknown Verified 10/30/22 13:09 azithromycin AdvReac Unknown UPSET Verified 10/30/22 13:09 STOMACH Home Medications Medication Instructions Recorded Confirmed Type multivit with 1 tab PO DAILY 11/04/18 11/14/22 History pourmozd-sfhq-TU-lutein 8 mg iron-400 mcg-300 mcg tablet (Centrum Silver Women) methenamine-sodium salicylate 162 1 tab PO BID 11/08/20 11/14/22 History mg-162.5 mg tablet (AZO Urinary Tract Defense) aspirin 81 mg tablet,delayed 81 mg PO DAILY 01/04/22 11/14/22 History release apixaban 2.5 mg tablet (Eliquis) 2.5 mg PO BID #180 tabs 05/15/22 11/14/22 Rx atorvastatin 40 mg tablet 40 mg PO DAILY #90 tabs 05/15/22 11/14/22 Rx spironolactone 25 mg tablet 25 mg PO DAILY #90 tabs 05/15/22 11/14/22 Rx peg 400-propylene glycol 0.4 %-0.3 1 drp OPB DAILY PRN Dry Eyes 06/02/22 11/14/22 History % eye drops (Systane (propylene glycol)) carvedilol 25 mg tablet 12.5 mg PO BID 07/20/22 11/14/22 History buspirone 5 mg tablet 2.5 mg PO TID PRN anxiety #90 tabs 10/09/22 11/14/22 Rx amiodarone 200 mg tablet 200 mg PO DAILY #60 tabs 10/25/22 11/14/22 Rx donepezil 5 mg tablet 2.5 mg PO DAILY 10/25/22 11/14/22 History furosemide 40 mg tablet See Rx Instructions PO DAILY PRN 10/30/22 11/14/22 History weight gain, swelling, dyspnea potassium chloride 20 mEq 10 meq PO DAILY PRN Take with 10/30/22 11/14/22 Rx tablet,extended release Lasix #90 tabs sacubitril 49 mg-valsartan 51 mg 1 tab PO BID 10/30/22 11/14/22 History tablet Patient History Medical History Biventricular ICD (implantable cardioverter-defibrillator) in place Carpal tunnel syndrome Chronic diarrhea Chronic systolic congestive heart failure CKD (chronic kidney disease) stage 4, GFR 15-29 ml/min Depression Diplopia Frequent PVCs History of CVA (cerebrovascular accident) (~12/2021) Left temporal infarct History of shingles LBBB (left bundle branch block) Lumbar radiculopathy Nonischemic cardiomyopathy NSVT (nonsustained ventricular tachycardia) Obstructive sleep apnea Ocular migraine Paroxysmal atrial fibrillation Surgical History H/O eye surgery STRABISMUS History of cholecystectomy Hx of cataract surgery BILATERAL Family History Father Coronary heart disease ASCVD (arteriosclerotic cardiovascular disease) Brother Myocardial infarction ASCVD (arteriosclerotic cardiovascular disease) Son Lung cancer ASCVD (arteriosclerotic cardiovascular disease) Aunt Breast cancer Grandmother Cerebral hemorrhage Mother Parkinsons disease Other Cerebral arterial aneurysm Cerebromeningeal hemorrhage Denies family history of Ovarian cancer Prostate cancer Colorectal cancer Social History Smoking Status: Never smoker Second Hand Exposure: No; Do You Dip or Chew Tobacco: No; Hx Alcohol Use: No Hx Substance Use: No Preferred Language: Nauruan Communication Ability: Effective Visual Impairment: Limited Hearing Ability: Normal [employer] Required: No Beliefs That Will Affect Care: None marital status: Current Living Situation: Spouse current occupational status: retired How many Children do You have: 4 Other Information That Helps Us Care for You: No Feels Safe at Home: Yes Safety Concerns: Feels Safe At This Time Childhood Exposure to Second-Hand Smoke: Yes caffeine: Yes Dental Care, Regularly: Yes Physical Activity Frequency: Does not Exercise Seatbelt Use: always Sunscreen Use: No (does not sit in the sun) Assistive Devices: Cane and CPAP Review of Systems Review of Systems: All systems reviewed & are unremarkable except as noted in HPI & below Physical Exam Constitutional: WD/WN, vitals as above well groomed, cooperative and comfortable Eyes: PERRL, conjunctivae normal, anicteric sclerae ENMT: external ear and nose normal, oropharynx normal Respiratory: normal respiratory effort, lungs clear to auscultation Cardiovascular: RRR, no murmur, no edema Gastrointestinal (Abdomen): Soft, mild tenderness across lower quadrants, bowel sounds present. Prefers to defer rectal exam as it was done in ED overnight. Skin: no rashes, warm and dry no jaundice Psychiatric: A+Ox3, euthymic affect Lymphatic: no lymphedema Results & Data Vital Signs (Past 12 Hours) Vital Signs Temp Pulse Pulse Resp BP Pulse Ox O2 Del Method 11/15/22 07:45 64 11/15/22 07:45 Room Air 11/15/22 07:16 36.8 C 62 17 137/94 97 Room Air 11/15/22 03:00 36.7 C 60 20 129/62 95 Room Air 11/14/22 23:00 66 11/14/22 22:00 Room Air 11/14/22 22:00 36.8 C 60 17 162/86 H 96 Room Air
[2022-11-15] MEDS: SODIUM CHLORIDE 0.9% 1000ML 1,000 ML IV SCH (12:56)
--- NOTE | 2022-11-15 15:35 | Electrocardiogram Report ---
Test Reason : Blood Pressure : / mmHG Vent. Rate : 063 BPM Atrial Rate : 288 BPM P-R Int : 000 ms QRS Dur : 146 ms QT Int : 466 ms P-R-T Axes : 000 188 128 degrees QTc Int : 476 ms Ventricular-paced rhythm Biventricular pacemaker detected Abnormal ECG When compared with ECG of 02-JUN-2022 14:30, Premature ventricular complexes are no longer Present Vent. rate has decreased BY 2 BPM Confirmed by Cory Mcguire ([id number]) on 11/15/2022 3:34:57 PM Referred By: Helen Steele Confirmed By:Cory Mcguire
[2022-11-15 17:29] LABS: Hematocrit (blood only) 32.6 % (37.0-47.0); Hemoglobin 10.9 g/dl (12.0-16.0)
[2022-11-15] MEDS: PANTOprazole 40 MG in SYRINGE 0 ML IV SCH (20:30)
--- NOTE | 2022-11-15 21:55 | Billing Data ---
Date of Service November 15, 2022 Coding Level of Care Code 95827 INT INP/OBS CARE
--- NOTE | 2022-11-15 22:36 | Hospitalist Progress Note ---
Date of Service November 15, 2022 Assessment & Plan (1) GI bleed: Plan: 81 yo female with PMHx NSVT s/p biventricular ICD, afib, HLD, CVA, IBS, anxiety/depression, HTN, HFrEF, nonischemic cardiomyopathy, memory issues, recurrent UTI, and CKD stage 4 presents with GI bleed. #GI bleed -1 day dark and bright red blood with BMs, denies pain. Hgb 12. Pos stool occult. Unclear whether upper or lower bleed. Deferred CT A/P at this time since abdominal exam findings mild. Low suspicion for diverticulitis, no leukocytosis. -hold Eliquis and aspirin -NPO, NSS @ 80, protonix drip, zofran prn -GI consulted, patient refused for the time being a colonoscopy/EGD -monitor Hgb -resumed diet -Scopes may help may determination of resuming eliquis as an outpatient. #Hyperkalemia -5.7 on admission. Likely due to GI bleed. EKG without peaked T waves. Monitor. #REJI on CKD, stage 4 -Cr 2.4 on admission. Baseline ~1.5 -cont. spironolactone and entresto -likely component of dehydration, maintenance NSS @ 80, to be cautious for fluid overload #NSVT s/o biventricular ICD #HTN #HFrEF #Nonischemic cardiomyopathy -cont. amioderone, entresto, coreg -hold aspirin #Afib, chronic -hold eliquis -cont. coreg #Memory Issues -cont. home donepezil #HLD -resume home statin when able #recurrent UTI -resume when methenamine when able DVT ppx: SCDs; chemical held due to GI bleed Code Status: DNI/DNR Dispo: PCU (2) History of CVA (cerebrovascular accident): (3) CKD (chronic kidney disease) stage 4, GFR 15-29 ml/min: (4) Anemia: (5) Nonischemic cardiomyopathy: (6) Paroxysmal atrial fibrillation: (7) NSVT (nonsustained ventricular tachycardia): (8) Biventricular ICD (implantable cardioverter-defibrillator) in place: (9) Chronic systolic congestive heart failure: (10) Depression: (11) Dyslipidemia: (12) Gastroesophageal reflux disease: (13) Hypertension: (14) Irritable bowel syndrome: (15) Progressive cognitive dysfunction: Admission and Anticipated Discharge Date Admission Date: November 14, 2022 Subjective Patient reports she has not passed a BM. Patient reports she has is tolerating her diet. Patient is not interested in having scopes completed at this time. Review of Systems Review of Systems: All systems reviewed & are unremarkable except as noted in HPI & below Physical Exam Physical Exam: Constitutional: in no acute distress, pleasant. AOx3. Vitals as above. HEENT: No scleral injection or discharge. Moist mucous membranes. Clear oropharynx. Neck: Supple without lymphadenopathy or thyromegaly. Trachea midline. Lungs: Clear to auscultation bilaterally with good effort. Cardiac: Regular rate and rhythm. No murmurs. No extremity edema. 2+ distal peripheral pulses. Abdomen: Bowel sounds present. Soft and nondistended. NT. No guarding or rebound tenderness. No hepatosplenomegaly. MSK: No cyanosis or clubbing. Extremities motor strength 5/5. Skin: No rashes, warm, dry. Neurologic: no focal deficits Results & Data Results & Data Vital Signs (Past 12 Hours) Vital Signs Temp Pulse Pulse Pulse Resp BP Pulse Ox 11/15/22 19:12 36.8 C 60 16 120/53 L 96 11/15/22 15:29 60 11/15/22 15:04 36.7 C 64 16 117/57 L 96 11/15/22 11:08 36.7 C 60 18 133/64 97 O2 Del Method 11/15/22 19:12 Room Air 11/15/22 15:29 11/15/22 15:04 Room Air 11/15/22 11:08 Room Air PG Care Time/CCT Total # of Minutes Spent Total Time Spent with Patient: Total time spent is greater than 50% in coordination of care (as documented) at patient's floor/unit and/or counseling patient: Coding Level of Care Code 52123 SUB INP/OBS CARE 2/35MIN Diagnoses GI bleed K92.2 History of CVA (cerebrovascular accident) Z86.73 CKD (chronic kidney disease) stage 4, GFR 15-29 ml/min N18.4 Anemia D64.9 Nonischemic cardiomyopathy I42.8 Paroxysmal atrial fibrillation I48.0 NSVT (nonsustained ventricular tachycardia) I47.2 Biventricular ICD (implantable cardioverter-defibrillator) in place Z95.810 Chronic systolic congestive heart failure I50.22 Depression F32.9 Dyslipidemia E78.5 Gastroesophageal reflux disease K21.9 Hypertension I10 Hypertension type: primary hypertension Irritable bowel syndrome K58.9 Progressive cognitive dysfunction F09 (13) Hypertension Hypertension type: primary hypertension Qualified Code(s): I10 - Essential (primary) hypertension
[2022-11-16 07:46] LABS: Hemoglobin 10.5 g/dl (12.0-16.0); Mean Corpuscular Hemoglobin 30.7 pg (25.0-34.0); Mean Corpuscular Hgb Conc 33.9 g/dL (32.0-36.0); Mean Corpuscular Volume 90.6 fL (80.0-100.0); Mean Platelet Volume 10.9 fL (9.4-12.4); Platelet Count 148 K/uL (130-400); RDW Standard Deviation 49.7 fL (36.4-46.3); Red Blood Count 3.42 M/uL (4.20-5.40)
[2022-11-16 08:04] LABS: BUN Creatinine Ratio 18.2 (10-20); Calcium 9.5 mg/dl (8.6-10.3); Creatinine Clr Calc Pharmacy 10.9 ml/min; Est GFR (African American) 22.6 ml/min; Est GFR (Non-African American) 19.5 ml/min; Potassium 4.8 mmol/L (3.5-5.1)
[2022-11-16] MEDS: SPIRONOLACTONE 25 MG TAB PO SCH (08:10)
[2022-11-16] MEDS: DONEPEZIL HCL 5 MG TAB PO SCH (08:10)
[2022-11-16] MEDS: PANTOprazole 40 MG in SYRINGE 0 ML IV SCH (08:10)
[2022-11-16] MEDS: carvediloL 12.5 MG TAB PO SCH ×2 (08:10→20:36)
[2022-11-16] MEDS: AMIODARONE 200 MG TAB PO SCH (08:10)
[2022-11-16] MEDS: VALSARTAN/SACUBITRIL 51/49 MG TAB PO SCH ×2 (08:11→20:35)
--- NOTE | 2022-11-16 08:57 | Gastroenterology Progress Note ---
Date of Service November 16, 2022 Assessment & Plan (1) Acute GI bleeding: Plan: Patient is a 81 years old female who presented with symptoms of bloody bowel movements in the setting of Eliquis and aspirin uses. + FOBT She is anemic but is this seems to be chronic, has CKD. Blood count currently at baseline. Last bowel movement overnight with stool brown in color and a small amount. No information available on prior colonoscopy results. DDX: inflammatory/ischemi c/infectious colitis, proctitis, outlet bleeding from hemorrhoids - DC PPI IV - Monitor blood ct and transfuse prn - Monitor for further gross s/s of GI bleeding - If abd pain worsen, would obtain CT abd/pelvis - Check stool cx and Cdiff if diarrhea/rectal bleeding - Pt would like to defer endoscopies - GI to sign off; pls recall prn Admission and Anticipated Discharge Date Admission Date: November 14, 2022 Supervising Physician Co-Signing Physician Notes Attg add: I interviewed and examined pt, reviewed chart and labs. Pt with stable hgb, does not want cscopy. Please call with questions. Subjective Pt denies CP, SOB, abd pain, n/v. Tolerated regular diet. Last BM yesterday evening - brown liquid. Blood ct stable. Review of Systems Review of Systems: All systems reviewed & are unremarkable except as noted in HPI & below Physical Exam Constitutional: WD/WN, vitals as above well groomed, cooperative and comfortable Eyes: PERRL, conjunctivae normal, anicteric sclerae ENMT: external ear and nose normal, oropharynx normal Respiratory: normal respiratory effort, lungs clear to auscultation Cardiovascular: RRR, no murmur, no edema Gastrointestinal (Abdomen): normal bowel sounds, soft, nontender, no hepatosplenomegaly Skin: no rashes, warm and dry no jaundice Psychiatric: A+Ox3, euthymic affect Lymphatic: no lymphedema Results & Data Vital Signs (Past 12 Hours) Vital Signs Temp Pulse Pulse Resp BP Pulse Ox O2 Del Method 11/16/22 08:09 151/76 H 11/16/22 07:52 60 11/16/22 02:57 37.0 C 65 18 128/68 97 Room Air 11/15/22 23:27 61 11/15/22 22:48 37.0 C 59 L 15 131/70 96 Room Air
--- NOTE | 2022-11-16 13:27 | Hospitalist Progress Note ---
Date of Service November 16, 2022 Assessment & Plan (1) GI bleed: Plan: 81 yo female with PMHx NSVT s/p biventricular ICD, afib, HLD, CVA, IBS, anxiety/depression, HTN, HFrEF, nonischemic cardiomyopathy, memory issues, recurrent UTI, and CKD stage 4 presents with GI bleed. Acute GI bleed - on admission had 1 day dark and bright red blood with BMs, denies pain. Hgb 12. Pos stool occult. Unclear whether upper or lower bleed. Deferred CT A/P at this time since abdominal exam findings mild. Low suspicion for diverticulitis, no leukocytosis. -Aspirin and Eliquis held on admission, patient was kept n.p.o. and placed on Protonix drip which was subsequently converted to PPI twice daily -GI consulted, patient refused for the time being a colonoscopy/EGD -Hemoglobin is uptrending 11/16, patient denies further bleeding. Creatinine still remains significantly elevated, but beginning to downtrend Discussed various options including scope, withholding anticoagulation indefinitely, and timed resumption of apixaban. Discussed risk of cardioembolic stroke due to her A-fib while off apixaban versus the risk of continued bleeding. On risks/benefits discussion patient agreeable to resuming DOAC after 1 week if counts are remaining stable and monitoring for bleeding. If she rebleeds following this, will reconsider the risk/benefits of performing endoscopy at that time. Will have a follow-up appoint with PCP in about 1 week for blood work prior to resuming this. She understands that while her blood thinner is held she is at risk for cardioembolic stroke #Hyperkalemia -5.7 on admission. Likely due to GI bleed. No acute EKG changes on admission Potassium normalized, 4.8 on #REJI on CKD, stage 4 -Cr 2.4 on admission. Baseline ~1.5 -Entresto was continued for cardiac protection, spironolactone was also continued. Creatinine is now beginning to downtrend. Will follow for stability, as long as this continues to downtrend and she has no further rebleeding can progress to discharge with outpatient follow-up. #NSVT s/o biventricular ICD Continue amiodarone, beta-terence No chest pain, no syncopal symptoms, no dysrhythmia noted #HTN Continue carvedilol, Entresto, spironolactone. Hold spironolactone if creatinine uptrend #HFrEF -cont. amioderone, entresto, coreg -hold aspirin, anticipate resuming on discharge if no rebleeding and then resuming Eliquis subsequently if continuing to do well has no #Afib, chronic -hold eliquis -cont. coreg #Memory Issues -cont. home donepezil #HLD -resume home statin when able #recurrent UTI -resume when methenamine on discharge DVT ppx: SCDs; chemical held due to GI bleed Code Status: DNI/DNR Dispo: PCU (2) History of CVA (cerebrovascular accident): (3) CKD (chronic kidney disease) stage 4, GFR 15-29 ml/min: (4) Anemia: (5) Nonischemic cardiomyopathy: (6) Paroxysmal atrial fibrillation: (7) NSVT (nonsustained ventricular tachycardia): (8) Biventricular ICD (implantable cardioverter-defibrillator) in place: (9) Chronic systolic congestive heart failure: (10) Depression: (11) Dyslipidemia: (12) Gastroesophageal reflux disease: (13) Hypertension: (14) Irritable bowel syndrome: (15) Progressive cognitive dysfunction: Admission and Anticipated Discharge Date Admission Date: November 14, 2022 Subjective Seen at the bedside. No further episodes of bleeding. Small loose bowel movement this morning, not sure what color this was. No fever, chills, sweats. No lightheadedness or dizziness. Seen with her sister at bedside. No palpitations, chest pain, chest pressure. Discussed resuming Eliquis as noted below, continues to want to defer scopes if possible. Reasonable at this point. Hemoglobin is up trending, patient Review of Systems Review of Systems: All systems reviewed & are unremarkable except as noted in HPI & below Physical Exam Physical Exam: General: A&Ox3. NAD. Cooperative. HEENT: Atraumatic, normocephalic. Vision/hearing intact Pulm: CTAB A&P. -wheezes, -rales, -rhonchi. Symmetrical chest rise. No increased work of breathing. No respiratory distress. Cardiac: RRR, -mrg. Radial pulses intact and symmetrical. Abdominal: Nontender, nondistended, soft. BS present. Extremities: Warm, dry. Moving all extremities Results & Data Results & Data Vital Signs (Past 12 Hours) Vital Signs Temp Pulse Pulse Resp BP Pulse Ox O2 Del Method 11/16/22 12:02 36.7 C 60 16 145/71 H 98 Room Air 11/16/22 08:09 151/76 H 11/16/22 07:52 60 11/16/22 02:57 37.0 C 65 18 128/68 97 Room Air PG Care Time/CCT Total # of Minutes Spent Total Time Spent with Patient: Total time spent is greater than 50% in coordination of care (as documented) at patient's floor/unit and/or counseling patient: Coding Level of Care Code 23736 SUB INP/OBS CARE 2/35MIN Diagnoses GI bleed K92.2 History of CVA (cerebrovascular accident) Z86.73 CKD (chronic kidney disease) stage 4, GFR 15-29 ml/min N18.4 Anemia D64.9 Nonischemic cardiomyopathy I42.8 Paroxysmal atrial fibrillation I48.0 NSVT (nonsustained ventricular tachycardia) I47.2 Biventricular ICD (implantable cardioverter-defibrillator) in place Z95.810 Chronic systolic congestive heart failure I50.22 Depression F32.9 Dyslipidemia E78.5 Gastroesophageal reflux disease K21.9 Hypertension I10 Hypertension type: primary hypertension Irritable bowel syndrome K58.9 Progressive cognitive dysfunction F09 (13) Hypertension Hypertension type: primary hypertension Qualified Code(s): I10 - Essential (primary) hypertension
[2022-11-16 15:13] LABS: Adenovirus F 40/41 PCR Not Detected (NotDetected); Astrovirus PCR Not Detected (NotDetected); Campylobacter PCR Not Detected (NotDetected); Cryptosporidium PCR Not Detected (NotDetected); Cyclospora cayetanensis PCR Not Detected (NotDetected); Entamoeba histolytica PCR Not Detected (NotDetected); Enteroaggregative E.coli(EAEC) Not Detected (NotDetected); Enteropathogenic E.coli (EPEC) Not Detected (NotDetected); Enterotoxigenic E.coli (ETEC) Not Detected (NotDetected); Giardia lamblia PCR Not Detected (NotDetected); Norovirus GI/GII PCR Not Detected (NotDetected); Plesiomonas shigelloides PCR Not Detected (NotDetected); Rotavirus A PCR Not Detected (NotDetected); Salmonella PCR Not Detected (NotDetected); Sapovirus PCR Not Detected (NotDetected); Shiga-like Toxin E.coli (STEC) Not Detected (NotDetected); Shigella/Enteroinvasive E.coli Not Detected (NotDetected); Vibrio cholerae PCR Not Detected (NotDetected); Vibrio species PCR Not Detected (NotDetected); Yersinia enterocolitica PCR Not Detected (NotDetected)
[2022-11-17 05:56] LABS: Basophils # (auto) 0.04 K/uL (0-0.2); Basophils % (auto) 0.8 %; Eosinophils # (auto) 0.33 K/uL (0-0.50); Eosinophils % (auto) 6.3 %; Hematocrit (blood only) 31.6 % (37.0-47.0); Hemoglobin 10.7 g/dl (12.0-16.0); Immature Granulocytes # (auto) 0.01 K/uL (0.01-0.20); Immature Granulocytes % (auto) 0.2 %; Lymphocytes # (auto) 0.79 K/uL (1.2-3.4); Lymphocytes % (auto) 15.2 %; Mean Corpuscular Hemoglobin 31.1 pg (25.0-34.0); Mean Corpuscular Hgb Conc 33.9 g/dL (32.0-36.0); Mean Corpuscular Volume 91.9 fL (80.0-100.0); Mean Platelet Volume 10.8 fL (9.4-12.4); Monocytes # (auto) 0.42 K/uL (0.11-0.59); Monocytes % (auto) 8.1 %; Neutrophils # (auto) 3.61 K/uL (1.40-6.50); Neutrophils % (auto) 69.4 %; Platelet Count 147 K/uL (130-400); RDW Coefficient of Variation 14.8 % (11.5-14.5); RDW Standard Deviation 50.3 fL (36.4-46.3); Red Blood Count 3.44 M/uL (4.20-5.40)
[2022-11-17 06:14] LABS: BUN Creatinine Ratio 16.7 (10-20); Calcium 9.4 mg/dl (8.6-10.3); Creatinine Clr Calc Pharmacy 10.4 ml/min; Est GFR (Non-African American) 18.2 ml/min; Potassium 4.9 mmol/L (3.5-5.1)
[2022-11-17] MEDS ORDERED: PLASMA-LYTE A 500 ML IV ONE (08:00)
[2022-11-17] MEDS: AMIODARONE 200 MG TAB PO SCH (08:09)
[2022-11-17] MEDS: VALSARTAN/SACUBITRIL 51/49 MG TAB PO SCH ×2 (08:10→20:28)
[2022-11-17] MEDS: carvediloL 12.5 MG TAB PO SCH ×2 (08:10→20:28)
[2022-11-17] MEDS: DONEPEZIL HCL 5 MG TAB PO SCH (08:10)
--- NOTE | 2022-11-17 14:14 | Hospitalist Progress Note ---
Date of Service November 17, 2022 Assessment & Plan (1) GI bleed: Plan: 81 yo female with PMHx NSVT s/p biventricular ICD, afib, HLD, CVA, IBS, anxiety/depression, HTN, HFrEF, nonischemic cardiomyopathy, memory issues, recurrent UTI, and CKD stage 4 presents with GI bleed. Acute GI bleed, improved without recurrent bleeding - on admission had 1 day dark and bright red blood with BMs, denies pain. Hgb 12. Pos stool occult. Unclear whether upper or lower bleed. Deferred CT A/P at this time since abdominal exam findings mild. Low suspicion for diverticulitis, no leukocytosis. -Aspirin and Eliquis held on admission, patient was kept n.p.o. and placed on Protonix drip which was subsequently converted to PPI twice daily -GI consulted, patient refused for the time being a colonoscopy/EGD -Hemoglobin is uptrending 11/16, patient denies further bleeding. Creatinine s till remains significantly elevated, but beginning to downtrend Discussed various options including scope, withholding anticoagulation indefinitely, and timed resumption of apixaban. Discussed risk of cardioembolic stroke due to her A-fib while off apixaban versus the risk of continued bleeding. On risks/benefits discussion patient agreeable to resuming DOAC after 1 week if counts are remaining stable and monitoring for bleeding. If she rebleeds following this, will reconsider the risk/benefits of performing endoscopy at that time. Will have a follow-up appoint with PCP in about 1 week for blood work prior to resuming this. She understands that while her blood thinner is held she is at risk for cardioembolic stroke #Hyperkalemia -5.7 on admission. Likely due to GI bleed. No acute EKG changes on admission Potassium normalized, 4.8 on REJI on CKD, stage 4 -Cr 2.4 on admission. Baseline ~1.5 -Entresto was continued for cardiac protection, spironolactone was also continued and creatinine had down trended 11/17 creatinine did uptrend patient was clinically slightly dry. Given a small bolus of fluid, spironolactone was held. Would defer holding Entresto if possible for cardiac benefit. Anticipate progression to discharge once creatinine is downtrending. hold spirolactone until creatinine returns completely to baseline #NSVT s/o biventricular ICD Continue amiodarone, beta-terence No chest pain, no syncopal symptoms, no dysrhythmia noted #HTN Continue carvedilol, Entresto. Delio held. #HFrEF -cont. amioderone, entresto, coreg -hold aspirin, anticipate resuming on discharge if no rebleeding and then resuming Eliquis subsequently if continuing to do well has no #Afib, chronic - Resume eliquis on dc -cont. coreg #Memory Issues -cont. home donepezil #HLD -resume home statin on dc #recurrent UTI -resume when methenamine on discharge DVT ppx: SCDs; chemical held due to GI bleed Code Status: DNI/DNR Dispo: PCU (2) History of CVA (cerebrovascular accident): (3) CKD (chronic kidney disease) stage 4, GFR 15-29 ml/min: (4) Anemia: (5) Nonischemic cardiomyopathy: (6) Paroxysmal atrial fibrillation: (7) NSVT (nonsustained ventricular tachycardia): (8) Biventricular ICD (implantable cardioverter-defibrillator) in place: (9) Chronic systolic congestive heart failure: (10) Depression: (11) Dyslipidemia: (12) Gastroesophageal reflux disease: (13) Hypertension: (14) Irritable bowel syndrome: (15) Progressive cognitive dysfunction: Admission and Anticipated Discharge Date Admission Date: November 14, 2022 Subjective Woman seen at the bedside. She reports she feels well, and continues to be regularly. No flank pain or stomach pain. No nausea/vomiting. No fever/chills/sweats. She has not had any recurrent bleeding. Review of Systems Review of Systems: All systems reviewed & are unremarkable except as noted in Subjective Physical Exam Physical Exam: General: A&Ox3. NAD. Cooperative. HEENT: Atraumatic, normocephalic. Vision/hearing intact Pulm: CTAB A&P. -wheezes, -rales, -rhonchi. Symmetrical chest rise. No increased work of breathing. No respiratory distress. Cardiac: RRR, -mrg. Radial pulses intact and symmetrical. Abdominal: Nontender, nondistended, soft. BS present. Extremities: Warm, dry. Moving all extremities Results & Data Results & Data Vital Signs (Past 12 Hours) Vital Signs Temp Pulse Pulse Resp BP BP Pulse Ox 11/17/22 07:19 63 11/17/22 11:32 36.5 C 65 18 144/76 H 97 11/17/22 07:42 36.5 C 63 18 157/78 H 97 11/17/22 03:00 36.8 C 60 16 133/61 97 O2 Del Method 11/17/22 07:19 11/17/22 11:32 Room Air 11/17/22 07:42 Room Air 11/17/22 03:00 Room Air PG Care Time/CCT Total # of Minutes Spent Total Time Spent with Patient: Total time spent is greater than 50% in coordination of care (as documented) at patient's floor/unit and/or counseling patient: Coding Level of Care Code 52417 SUB INP/OBS CARE 2/35MIN Diagnoses GI bleed K92.2 History of CVA (cerebrovascular accident) Z86.73 CKD (chronic kidney disease) stage 4, GFR 15-29 ml/min N18.4 Anemia D64.9 Nonischemic cardiomyopathy I42.8 Paroxysmal atrial fibrillation I48.0 NSVT (nonsustained ventricular tachycardia) I47.2 Biventricular ICD (implantable cardioverter-defibrillator) in place Z95.810 Chronic systolic congestive heart failure I50.22 Depression F32.9 Dyslipidemia E78.5 Gastroesophageal reflux disease K21.9 Hypertension I10 Hypertension type: primary hypertension Irritable bowel syndrome K58.9 Progressive cognitive dysfunction F09 (13) Hypertension Hypertension type: primary hypertension Qualified Code(s): I10 - Essential (primary) hypertension
[2022-11-18 06:51] LABS: Basophils # (auto) 0.07 K/uL (0-0.2); Basophils % (auto) 1.3 %; Eosinophils # (auto) 0.33 K/uL (0-0.50); Eosinophils % (auto) 6.3 %; Hematocrit (blood only) 30.4 % (37.0-47.0); Hemoglobin 10.5 g/dl (12.0-16.0); Immature Granulocytes # (auto) 0.01 K/uL (0.01-0.20); Immature Granulocytes % (auto) 0.2 %; Lymphocytes # (auto) 1.16 K/uL (1.2-3.4); Lymphocytes % (auto) 22.1 %; Mean Corpuscular Hemoglobin 31.3 pg (25.0-34.0); Mean Corpuscular Hgb Conc 34.5 g/dL (32.0-36.0); Mean Corpuscular Volume 90.7 fL (80.0-100.0); Monocytes # (auto) 0.45 K/uL (0.11-0.59); Monocytes % (auto) 8.6 %; Neutrophils # (auto) 3.23 K/uL (1.40-6.50); Neutrophils % (auto) 61.5 %; Platelet Count 144 K/uL (130-400); RDW Coefficient of Variation 14.8 % (11.5-14.5); RDW Standard Deviation 49.5 fL (36.4-46.3); Red Blood Count 3.35 M/uL (4.20-5.40); White Blood Count 5.25 K/ul (4.8-10.8)
[2022-11-18 07:21] LABS: BUN Creatinine Ratio 19.3 (10-20); Calcium 9.2 mg/dl (8.6-10.3); Creatinine Clr Calc Pharmacy 12.6 ml/min; Est GFR (African American) 26.6 ml/min; Est GFR (Non-African American) 22.9 ml/min; Potassium 4.5 mmol/L (3.5-5.1)
--- NOTE | 2022-11-18 08:10 | Hospitalist Progress Note ---
Date of Service November 18, 2022 Assessment & Plan (1) GI bleed: Plan: 81 yo female with PMHx NSVT s/p biventricular ICD, afib, HLD, CVA, IBS, anxiety/depression, HTN, HFrEF, nonischemic cardiomyopathy, memory issues, recurrent UTI, and CKD stage 4 presents with GI bleed. Acute GI bleed, improved without suspicion of recurrent bleeding - on admission hgb 12 now to 10 -Aspirin and Eliquis held, protonix BID -GI consulted, patient refused colonoscopy/EGD patient agreeable to resuming DOAC after 1 week if counts are remaining stable and monitoring for bleeding. REJI on CKD, stage 4, Cr remains higher than baseline acute Hyperkalemia, now resolved HFrEF, chronic and stable, non ischemic cardiomyopathy, AICD in place -cont. amiodarone, Entresto, Coreg -hold aspirin, anticipate resuming on discharge if no rebleeding and then resuming Eliquis subsequently if continuing to do well has no pt with history of NSVT PAF, chronic, stable and rate controlled, previous physician discussed risks of being off Eliquis, - Resume eliquis on dc -cont. coreg Memory Issues -cont. home donepezil hostory of Recurrent UTI -resume when methenamine on discharge Code Status: DNI/DNR (2) History of CVA (cerebrovascular accident): (3) Depression: (4) Progressive cognitive dysfunction: Admission and Anticipated Discharge Date Admission Date: November 14, 2022 Results & Data Results & Data Vital Signs (Past 12 Hours) Vital Signs Temp Pulse Pulse Resp BP Pulse Ox O2 Del Method 11/18/22 07:12 98.4 F 60 18 140/69 96 Room Air 11/17/22 22:00 60 11/18/22 02:47 97.9 F 60 20 118/61 96 Room Air 11/17/22 23:00 98.1 F 68 16 140/76 96 Room Air 11/17/22 20:29 62 PG Care Time/CCT Total # of Minutes Spent Total Time Spent with Patient: Total time spent is greater than 50% in coordination of care (as documented) at patient's floor/unit and/or counseling patient: Coding Diagnoses GI bleed K92.2 History of CVA (cerebrovascular accident) Z86.73 Depression F32.9 Progressive cognitive dysfunction F09
[2022-11-18] MEDS: carvediloL 12.5 MG TAB PO SCH (08:38)
[2022-11-18] MEDS: VALSARTAN/SACUBITRIL 51/49 MG TAB PO SCH (08:39)
[2022-11-18] MEDS: DONEPEZIL HCL 5 MG TAB PO SCH (08:39)
[2022-11-18] MEDS: AMIODARONE 200 MG TAB PO SCH (08:39)
--- NOTE | 2022-11-18 14:57 | Discharge Summary ---
Date of Service November 18, 2022 Admission HPI Per Admitting Provider 81 yo female with PMHx NSVT s/p biventricular ICD, afib, HLD, CVA, IBS, anxiety/depression, HTN, HFrEF, nonischemic cardiomyopathy, memory issues, recurrent UTI, and CKD stage 4 presents with GI bleed. Last night patient noticed a mix of dark and bright red blood with her bowel movement which was without pain. She continued to have the bleeding with her bowel movements throughout today. Denies history of GI bleeding. No new medications. Some associated abdominal discomfort and diarrhea. Chronically on Eliquis and aspirin. Denies NSAID use. Denies headache, cough, fatigue, chest pain, shortness of breath, constipation, dysuria, nausea, vomiting. Denies alcohol use. She is a non-smoker. Has not had colonoscopy in many years. Principal Diagnosis Lower gi bleed, stable without interventions temporary stopping of apixaban temporary stopping of spironolactone Discharge Exam Pt is without discomfort, has no further bleeding abdomen is with nabs, and soft Discharge Data Allergies Allergy/AdvReac Type Severity Reaction Status Date / Time cephalexin Allergy Severe ANAPHYLAXIS Verified 10/30/22 13:09 Penicillins Allergy Severe RASH AND Verified 10/30/22 13:09 SWELLING Cephalosporins Allergy Intermediate RASH AND Verified 10/30/22 13:09 SWELLING ciprofloxacin Allergy Unknown CAN'T Verified 10/30/22 13:09 REMEMBER scallops Allergy Unknown CAN'T Verified 10/30/22 13:09 REMEMBER tramadol Allergy Unknown CAN'T Verified 10/30/22 13:09 REMEMBER erythromycin base AdvReac Intermediate UPSET Verified 10/30/22 13:09 STOMACH amlodipine AdvReac Unknown Unknown Verified 10/30/22 13:09 azithromycin AdvReac Unknown UPSET Verified 10/30/22 13:09 STOMACH Consultations 11/14/22 18:20 ED Decision to Admit Stat 11/15/22 06:00 Consult Gastroenterology Routine Hospital Course (1) GI bleed: 81 yo female with PMHx NSVT s/p biventricular ICD, afib, HLD, CVA, IBS, anxiety/depression, HTN, HFrEF, nonischemic cardiomyopathy, memory issues, recurrent UTI, and CKD stage 4 presents with GI bleed. Acute GI bleed, improved without suspicion of recurrent bleeding - on admission hgb 12 now to 10 -Aspirin and Eliquis held for one week, concern for Lower GI bleed, will not continue Protonix -GI consulted, patient refused colonoscopy/EGD patient agreeable to resuming DOAC/ Aspirin after 1 week if counts are remaining stable and monitoring for bleeding. REJI on CKD, stage 4, Cr trending to baseline, hold spironolactone until re eval as out follow body weight and check labs acute Hyperkalemia, now resolved HFrEF, chronic and stable, non ischemic cardiomyopathy, AICD in place -cont. amiodarone, Entresto, Coreg -hold aspirin/Eliquis , anticipate resuming one week after discharge if no rebleeding pt with history of NSVT PAF, chronic, stable and rate controlled, previous physician discussed risks of being off Eliquis, - Resume eliquis as dirested -cont. coreg Memory Issues -cont. home donepezil history of Recurrent UTI, none suspected at present -resume when methenamine on discharge Code Status: DNI/DNR (2) History of CVA (cerebrovascular accident): (3) Depression: (4) Progressive cognitive dysfunction: Total Time Total Time Spent Total Time Spent (In Minutes): It required greater than 30 minutes to prepare this patient for discharge Discharge Plan Discharge Items Patient Disposition: Home - Self-Care Reason For Visit: GI BLEED Discharge Diagnosis: GI bleed on anticoagulation Activity: Resume your previous activity Non-emergency contact: Primary Care Provider Call non-emergency contact if: your symptoms worsen Follow-up/Referrals: Helen Steele MD [Primary Care Provider] - (Patient family member will make PCP follow up appoitment on Sunday to fit their schedule.) Diet: Low Sodium (2gm) Ambulatory Orders: Basic Metabolic Panel (Routine) Timeframe: 3 Days Location: Determined by Patient Ordered By: Roderick Ugalde Complete Blood Count no Diff (Routine) Timeframe: 3 Days Location: Determined by Patient Ordered By: Roderick Ugalde Addtl Attending Provider Instructions: we have elected to hold your anticoagulation, Apixaban and aspirin , for one week, restarting on 11/22/22. If you notice that you have additional bleeding in your bowel do not restart and contact Dr Steele or return to the ER. Please do not restart your spironolactone, keep track of your body weight for fluid retention, and discuss this medication at your follow up with Dr Fidencio otero. You should have a follow up appointment in one week. Please have outpt blood work on Sunday11/21/22 Pending Studies at Discharge: No Stand-Alone Forms: [facility], Smoking Cessation Medications and DC Order Prescriptions: Continued atorvastatin 40 mg tablet 40 mg PO DAILY Qty: 90 3RF buspirone 5 mg tablet 2.5 mg PO TID PRN (Reason: anxiety) Qty: 90 1RF carvedilol 25 mg tablet 12.5 mg PO BID donepezil 5 mg tablet 2.5 mg PO DAILY amiodarone 200 mg tablet 200 mg PO DAILY Qty: 60 3RF furosemide 40 mg tablet See Rx Instructions PO DAILY PRN (Reason: weight gain, swelling, dyspnea) Rx Instructions: Alternate 40mg and 20mg orally daily PRN; Centrum Silver Women 8 mg iron-400 mcg-300 mcg tablet 1 tab PO DAILY AZO Urinary Tract Defense 162-162.5 mg tablet 1 tab PO BID sacubitril-valsartan 49-51 mg tablet 1 tab PO BID potassium chloride 20 mEq tablet extended release 10 meq PO DAILY PRN (Reason: Take with Lasix) Qty: 90 3RF Systane (propylene glycol) 0.4-0.3 % Drops 1 drp OPB DAILY PRN (Reason: Dry Eyes) Held Eliquis 2.5 mg tablet 2.5 mg PO BID Qty: 180 3RF Hold Instructions: Resume on 11/22/22. spironolactone 25 mg tablet 25 mg PO DAILY Qty: 90 2RF Hold Instructions: Resume on 11/24/22. aspirin 81 mg Tablet,Delayed Release (Dr/Ec) 81 mg PO DAILY Hold Instructions: Resume on 11/22/22. Discharge Orders: Discharge Order (Routine); Ordered 11/18/22 Ordered By: Roderick Ugalde Admission Data Admit Date/Time: 11/14/22 20:24 Attending Provider: Roderick Ugalde Admit Provider: Darius Gamboa Primary Care Provider: Helen Steele Other Providers: Jeancarlos Sandhu ; Samir Goldberg Other Interventions: Discharge Summary Assessment (RN) Last Done: 11/18/22 14:51 Coding Level of Care Code 12779 INP/OBS DISCH >30 MIN Diagnoses GI bleed K92.2 History of CVA (cerebrovascular accident) Z86.73 Depression F32.9 Progressive cognitive dysfunction F09
== END 2022-11-18 15:34 | disposition home or self-care (01) | DRG 378 ==
LOC: ED 16:21 → 2E 20:24 → SUATTDRO 20:24 → 2E 21:15

== ENCOUNTER 2023-08-27 23:15 | Inpatient (IN) ==
--- NOTE | 2023-08-27 23:54 | Emergency Department Note ---
Impression & Plan Acute hypoxic respiratory failure, CHF (congestive heart failure), Pleural effusion ED Provider Note NAME: ZACHARY GARY AGE: 82 SEX: F : 1940 ARRIVES VIA: Walk-In INFORMANT: Patient ED PROVIDER(S): Giancarlo Black DO CHIEF COMPLAINT: shortness of breath HPI: Patient is an 82-year-old female with a past medical history nonsustained VT, PVCs, dilated cardiomyopathy, hypertension, GI bleed who presents to the ER for shortness of breath which has been present for the past 10 days. Patient has had a 10 pound weight gain over the same course. Patient denies any headache or change in vision. No chest pain but admits to shortness of breath. No dysuria, urgency, or frequency. No other exacerbating or remitting factors. ADDITIONAL HISTORY OBTAINED: Per HPI Chronic Medical/Social Conditions Affecting Care: Per HPI PAST MEDICAL HISTORY:See Below PAST SURGICAL HISTORY:See Below FAMILY HISTORY:See Below SOCIAL HISTORY:See Below HOME MEDICATIONS:See Below ALLERGIES:See Below VITALS:See Below PHYSICAL EXAMINATION: GENERAL: Sitting up in bed, alert, well appearing, well nourished, no distress, non-toxic EYE EXAM: normal conjunctiva. OROPHARYNX: mucous membranes are moist NECK: supple, no nuchal rigidity, no adenopathy, non-tender LUNGS: Clear to auscultation. Normal chest wall mechanics HEART: no murmurs, S1 normal and S2 normal ABDOMEN: abdomen soft, non-tender, normo-active bowel sounds, no masses, no rebound or guarding. UPPER EXTREMITIES: upper extremities are grossly normal. LOWER EXTREMITIES: + pitting edema B/L NEURO EXAM: Normal sensorium, cranial nerves II-XII grossly intact, normal speech, no gross weakness of arms, no gross weakness of legs. MEDICAL DECISION MAKING: Patient is an 82-year-old female who presents ER for shortness of breath. IV was established blood work was obtained. Patient was found to be hypoxic at 84% on room air. She is placed on 2 to 3 L nasal cannula. She remained on nasal cannula throughout her stay in the ER. Considered PE but patient is on apixaban and out in light of the chest x-ray which supports a pleural effusion. Patient was given Tylenol as well as IV Lasix. She was updated bedside. Discussed case with the hospitalist as well as the family for further evaluation management treatment. She remained stable on 3 L nasal cannula throughout his stay in the ER. Discussed with Pt concerning signs and symptoms to watch out for. Pt was instructed to follow up with their PCP and discussed with the patient their option to return to the ED at anytime for persistent or worsening symptoms. The appropriate anticipatory guidance and out-patient management, including indications for return to the emergency department, were explained at length to the patient and understood. Consults/Care Managements Discussions: Per MDM Triage Nursing notes reviewed. Limited review of prior medical records performed Vital Signs: reviewed and remarkable for hypoxic Differential diagnosis: Differential diagnoses includes but is not limited to pneumonia, bronchitis, COPD/Asthma exacerbation, pneumothorax, pulmonary embolism, congestive heart failure, acute coronary syndrome ER treatment provided: See below Diagnostics interpreted by me include EKG and cardiac monitoring as listed below: -Cardiac Monitoring: An order was placed for continuous cardiac monitoring. The monitor shows a rate of 60 with paced rhythm. -ECG: Atrial sensed ventricular paced rate of 60 Left axis No PVCs QTc 514 -Laboratory studies:Interpreted by me as stated above in MDM and shown below. Imaging studies: Xrays: As interpreted by me: Portable AP upright 1 view of the chest shows large left pleural effusion and patchy infiltrates in the right lower lobe CTs show: none Procedures:none Critical Care: I have personally spent 35 minutes of critical care time in the direct management of this patient. This includes bedside care, interpretation of diagnostic studies, and testing, discussion with consultants, patient, and family members, and other required patient management activities. This 35 minutes is in excess of all separately billable procedures. Past Med/Surg History Medical History Chronic anemia GI bleed History of CVA (cerebrovascular accident) CKD (chronic kidney disease) stage 4, GFR 15-29 ml/min LBBB (left bundle branch block) Nonischemic cardiomyopathy Ocular migraine Paroxysmal atrial fibrillation Depression History of shingles Biventricular ICD (implantable cardioverter-defibrillator) in place Chronic diarrhea Chronic systolic congestive heart failure Dyslipidemia Gastroesophageal reflux disease Hypertension Lumbar radiculopathy Obstructive sleep apnea Osteopenia Surgical History Hx of cardiac catheterization S/P cardiac pacemaker procedure Hx of basal cell carcinoma excision H/O eye surgery History of cholecystectomy Hx of cataract surgery Family History Father Coronary heart disease ASCVD (arteriosclerotic cardiovascular disease) Brother Myocardial infarction ASCVD (arteriosclerotic cardiovascular disease) Son Lung cancer ASCVD (arteriosclerotic cardiovascular disease) Aunt Breast cancer Grandmother Cerebral hemorrhage Mother Parkinsons disease Other Cerebral arterial aneurysm Cerebromeningeal hemorrhage Denies family history of Ovarian cancer Prostate cancer Colorectal cancer Social History Smoking Status: Never smoker Second Hand Exposure: No; Do You Dip or Chew Tobacco: No; Hx Alcohol Use: No Hx Substance Use: No Preferred Language: Tajik Communication Ability: Effective Visual Impairment: Limited Hearing Ability: Normal 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 Service Required: No Beliefs That Will Affect Care: None marital status: Current Living Situation: Alone current occupational status: retired How many Children do You have: 4 Feels Safe at Home: Yes Childhood Exposure to Second-Hand Smoke: Yes caffeine: Yes Dental Care, Regularly: Yes Physical Activity Frequency: Does not Exercise Seatbelt Use: always Sunscreen Use: No (does not sit in the sun) Assistive Devices: Cane, Glasses and Hearing Aid - Bilateral Allergies Allergies Allergy/AdvReac Type Severity Reaction Status Date / Time cephalexin Allergy Severe ANAPHYLAXIS Verified 08/28/23 00:16 Penicillins Allergy Severe RASH AND Verified 08/28/23 00:16 SWELLING Cephalosporins Allergy Intermediate RASH AND Verified 08/28/23 00:16 SWELLING ciprofloxacin Allergy Unknown CAN'T Verified 08/28/23 00:16 REMEMBER scallops Allergy Unknown CAN'T Verified 08/28/23 00:16 REMEMBER tramadol Allergy Unknown CAN'T Verified 08/28/23 00:16 REMEMBER azithromycin AdvReac Intermediate UPSET Verified 08/28/23 00:16 STOMACH erythromycin base AdvReac Intermediate UPSET Verified 08/28/23 00:16 STOMACH amlodipine AdvReac Unknown Unknown Verified 08/28/23 00:16 Home Meds Home Medications Medication Instructions Recorded Confirmed [id number] 8 mg-folic 400 1 tab PO HS 11/04/18 08/28/23 mcg-K 50 mcg-lutein 300 mcg tablet (Centrum Silver Women) methenamine-sodium salicylate 162 1 tab PO BID 11/08/20 08/28/23 mg-162.5 mg tablet (AZO Urinary Tract Defense) peg 400-propylene glycol 0.4 %-0.3 1 drp OPB DAILY PRN Dry Eyes 06/02/22 08/28/23 % eye drops (Systane (propylene glycol)) carvedilol 25 mg tablet 12.5 mg PO BID 07/20/22 08/28/23 ferrous sulfate 325 mg (65 mg 325 mg PO DAILY 08/09/23 08/28/23 iron) tablet (FeroSul) atorvastatin 40 mg tablet 40 mg PO DAILY 08/28/23 08/28/23 furosemide 40 mg tablet 40 mg PO DAILY 08/28/23 08/28/23 Previous Rx's Medication Instructions Recorded sacubitril 49 mg-valsartan 51 mg 1 tab PO BID #180 tabs 01/18/23 tablet memantine 5 mg tablet 5 mg PO DAILY #90 tabs 04/09/23 apixaban 2.5 mg tablet (Eliquis) 2.5 mg PO BID #180 tabs 06/04/23 amiodarone 200 mg tablet 200 mg PO DAILY #90 tabs 06/19/23 buspirone 5 mg tablet 5 mg PO DAILY anxiety #90 tabs 07/27/23 Results & Data (ED) Vital Signs Vital Signs - 24 hr 08/27/23 23:26 08/27/23 23:44 08/27/23 23:44 Temperature 36.6 C Temperature Source Temporal Artery Scan Pulse Rate Pulse Rate [Apical] Respiratory Rate 25 H Respiratory Effort / Characteristics Non-Labored Spontaneous Non-Labored Respiratory Depth Normal Normal Respiratory Pattern Regular Regular Blood Pressure 167/89 H Blood Pressure Mean 115 Pulse Oximetry 84 L 84 L Oxygen Delivery Method Room Air Nasal Cannula Room Air Oxygen Flow Rate 2 0 Sepsis Recent Fever Within 48 Hours No Sepsis New/Unexplained Change in Mental Status No Sepsis Action Taken by Nursing No Action Required Oxygen Flow Rate - Titration 2 Pulse Oximetry Post Tiitration 93 08/27/23 23:44 08/27/23 23:49 08/28/23 00:14 Temperature Temperature Source Pulse Rate 63 60 Pulse Rate [Apical] 61 Respiratory Rate 18 18 Respiratory Effort / Characteristics Non-Labored Respiratory Depth Normal Respiratory Pattern Regular Blood Pressure Blood Pressure Mean Pulse Oximetry 93 93 Oxygen Delivery Method Nasal Cannula Nasal Cannula Oxygen Flow Rate 2 2 Sepsis Recent Fever Within 48 Hours Sepsis New/Unexplained Change in Mental Status Sepsis Action Taken by Nursing Oxygen Flow Rate - Titration Pulse Oximetry Post Tiitration Laboratory Data 08/27/23 23:45 08/27/23 23:45 Lab Results 08/27/23 Range/Units 23:45 WBC 6.94 (4.8-10.8) K/ul RBC 3.10 L (4.20-5.40) M/uL Hgb 9.3 L (12.0-16.0) g/dl Hct 28.2 L (37.0-47.0) % MCV 91.0 (80.0-100.0) fL MCH 30.0 (25.0-34.0) pg MCHC 33.0 (32.0-36.0) g/dL RDW Std Deviation 51.6 H (36.4-46.3) fL RDW Coeff of Jaz 15.9 H (11.5-14.5) % Plt Count 264 (130-400) K/uL MPV 10.1 (9.4-12.4) fL Immature Gran % (Auto) 0.3 % Neut % (Auto) 82.4 % Lymph % (Auto) 9.4 % [place] % (Auto) 6.8 % Eos % (Auto) 0.7 % Baso % (Auto) 0.4 % Neut # (Auto) 5.72 (1.40-6.50) K/uL Lymph # (Auto) 0.65 L (1.20-3.40) K/uL [place] # (Auto) 0.47 (0.11-0.59) K/uL Eos # (Auto) 0.05 (0.00-0.50) K/uL Baso # (Auto) 0.03 (0.00-0.20) K/uL Immature Gran # (Auto) 0.02 (0.01-0.20) K/uL Sodium 129 L (136-145) mmol/L Potassium 3.8 (3.5-5.1) mmol/L Chloride 93 L (98-107) mmol/L Carbon Dioxide 26 (21-32) mmol/L Anion Gap 10 (3-11) BUN 37 H (6-23) mg/dl Creatinine 2.69 H (0.6-1.2) mg/dl Est Cr Clr Drug Dosing Not Reportable Est GFR ( Amer) 18.1 ml/min Est GFR (Non-Af Amer) 15.6 ml/min BUN/Creatinine Ratio 13.8 (10-20) Glucose 129 H (70-99(Fasting)) mg/dl Calcium 9.6 (8.6-10.3) mg/dl Total Bilirubin 0.6 (0.2-1.0) mg/dl AST 24 (13-39) U/L ALT 26 (7-52) U/L Alkaline Phosphatase 86 (34-104) U/L Troponin I High Sens 29.3 H (0-14) pg/ml Total Protein 6.6 (6.0-8.3) gm/dl Albumin 3.6 (3.4-5.0) gm/dl Globulin 3.0 (2.5-4.0) gm/dl Albumin/Globulin Ratio 1.2 (0.9-2) Lipase 42 (11-82) U/L Administered Medications Discontinued Medications Acetaminophen (Acetaminophen 325 Mg Tab) 650 mg PO NOW STA Stop: 08/28/23 01:05 Last Admin: 08/28/23 01:59 Dose: 650 mg Documented By: MARY Furosemide (Furosemide 40 Mg/4 Ml Vial) 40 mg IV NOW STA Stop: 08/28/23 00:50 Last Admin: 08/28/23 01:59 Dose: 40 mg Documented By: MARY Discharge Plan Visit Data Chief Complaint: Shortness of Breath/Dyspnea Stated Complaint: SOB,WEAKNESS,FLUID RET ED Provider: Giancarlo Black Discharge Problem: Acute hypoxic respiratory failure, CHF (congestive heart failure), Pleural effusion Discharge Instructions Interventions: ED Discharge Assessment Last Done: 08/28/23 02:27 Discharge Problem: CHF (congestive heart failure) Qualifiers: Heart failure type: unspecified Heart failure chronicity: acute Qualified Code(s): I50.9 - Heart failure, unspecified
[2023-08-28 00:14] LABS: Basophils # (auto) 0.03 K/uL (0.00-0.20); Basophils % (auto) 0.4 %; Eosinophils # (auto) 0.05 K/uL (0.00-0.50); Eosinophils % (auto) 0.7 %; Hematocrit (blood only) 28.2 % (37.0-47.0); Hemoglobin 9.3 g/dl (12.0-16.0); Immature Granulocytes # (auto) 0.02 K/uL (0.01-0.20); Immature Granulocytes % (auto) 0.3 %; Lymphocytes # (auto) 0.65 K/uL (1.20-3.40); Lymphocytes % (auto) 9.4 %; Mean Platelet Volume 10.1 fL (9.4-12.4); Monocytes # (auto) 0.47 K/uL (0.11-0.59); Monocytes % (auto) 6.8 %; Neutrophils # (auto) 5.72 K/uL (1.40-6.50); Neutrophils % (auto) 82.4 %; Platelet Count 264 K/uL (130-400); RDW Coefficient of Variation 15.9 % (11.5-14.5); RDW Standard Deviation 51.6 fL (36.4-46.3); White Blood Count 6.94 K/ul (4.8-10.8)
[2023-08-28 00:26] LABS: Alanine Aminotransferase 26 U/L (7-52); Albumin Globulin Ratio 1.2 (0.9-2); Albumin Level 3.6 gm/dl (3.4-5.0); Alkaline Phosphatase 86 U/L (34-104); Anion Gap 10 (3-11); Aspartate Aminotransferase 24 U/L (13-39); BUN Creatinine Ratio 13.8 (10-20); Bilirubin,Total 0.6 mg/dl (0.2-1.0); Blood Urea Nitrogen 37 mg/dl (6-23); Calcium 9.6 mg/dl (8.6-10.3); Carbon Dioxide 26 mmol/L (21-32); Chloride 93 mmol/L (98-107); Est GFR (African American) 18.1 ml/min; Est GFR (Non-African American) 15.6 ml/min; Glucose 129 mg/dl (70-99(Fasting)); Lipase 42 U/L (11-82); Potassium 3.8 mmol/L (3.5-5.1); Sodium 129 mmol/L (136-145); Total Protein 6.6 gm/dl (6.0-8.3)
[2023-08-28 00:33] LABS: Troponin I High Sensitivity 29.3 pg/ml (0-14)
[2023-08-28] MEDS: ACETAMINOPHEN 325 MG TAB PO STA (01:59)
[2023-08-28] MEDS: FUROSEMIDE 40 MG/4 ML VIAL IV STA (01:59)
[2023-08-28] MEDS ORDERED: ONDANSETRON INJ 2 MG/ML 2 ML VIAL IV PRN (02:26)
[2023-08-28] MEDS: LORazepam 0.5 MG TAB PO STA (04:31)
[2023-08-28] MEDS: LORazepam 0.5 MG in SYRINGE 0.25 ML IV ONE (04:43)
--- NOTE | 2023-08-28 05:02 | History & Physical Report ---
Date of Service August 28, 2023 Assessment & Plan (1) Acute hypoxic respiratory failure: (2) CHF (congestive heart failure): (3) Pleural effusion: (4) Primary idiopathic dilated cardiomyopathy: (5) Hypertension: (6) Renal insufficiency: Plan Acute respiratory failure with hypoxia/HFrEF exacerbation/dilated cardiomyopathy/pleural effusions/biventricular ICD/PAF- The patient will be admitted to telemetry for serial cardiac enzymes, serial EKG's, cardiac rhythm monitoring and a 2-D echocardiogram with Dopplers. Patient with 10 pound weight gain and progressive shortness of breath over the past 10 days with increasing lower extremity edema Given initial dose of Lasix 40 mg IV by the ED, will give an additional 40 mg IV Lasix 40 mg IV twice daily Initial troponin 29.3 Most recent echocardiogram on 10/17/2022 with ejection fraction 20-25% and moderate pericardial effusion Continue amiodarone, Eliquis 2.5 mg p.o. twice daily, carvedilol 12.5 mg p.o. twice daily, and Entresto 49-51, 1 p.o. twice daily Consult cardiology Anxiety/depression/mild cognitive impairment- Continue buspirone, memantine Hyperlipidemia- Continue atorvastatin Admission and Anticipated Discharge Date Admission Date: August 28, 2023 History of Present Illness Chief Complaint: The patient presents to the emergency department with worsening symptoms of shortness of breath over the past 10 days and a 10 pound weight gain Primary Care Provider: Helen Steele MD The patient is an 82-year-old female with a past medical history including primary idiopathic dilated cardiomyopathy, frequent PVCs, NSVT, pericardial effusion, SNHL bilaterally, progressive cognitive dysfunction, GERD, history of GI bleed, paroxysmal atrial fibrillation, CKD and history of CVA. She presents the emergency department with 10 days of progressively worsening shortness of breath and 10 pound weight gain and increasing lower extremity swelling. On she denies recent travels or sick exposures. Allergies Allergy/AdvReac Type Severity Reaction Status Date / Time cephalexin Allergy Severe ANAPHYLAXIS Verified 08/28/23 00:16 Penicillins Allergy Severe RASH AND Verified 08/28/23 00:16 SWELLING Cephalosporins Allergy Intermediate RASH AND Verified 08/28/23 00:16 SWELLING ciprofloxacin Allergy Unknown CAN'T Verified 08/28/23 00:16 REMEMBER scallops Allergy Unknown CAN'T Verified 08/28/23 00:16 REMEMBER tramadol Allergy Unknown CAN'T Verified 08/28/23 00:16 REMEMBER azithromycin AdvReac Intermediate UPSET Verified 08/28/23 00:16 STOMACH erythromycin base AdvReac Intermediate UPSET Verified 08/28/23 00:16 STOMACH amlodipine AdvReac Unknown Unknown Verified 08/28/23 00:16 Home Medications Medication Instructions Recorded Confirmed Type [id number]-[id number]-[id number] 8 mg-folic 400 1 tab PO HS 11/04/18 08/28/23 History mcg-K 50 mcg-lutein 300 mcg tablet (Centrum Silver Women) methenamine-sodium salicylate 162 1 tab PO BID 11/08/20 08/28/23 History mg-162.5 mg tablet (AZO Urinary Tract Defense) peg 400-propylene glycol 0.4 %-0.3 1 drp OPB DAILY PRN Dry Eyes 06/02/2207/21 History % eye drops (Systane (propylene glycol)) carvedilol 25 mg tablet 12.5 mg PO BID 07/20/22 08/28/23 History sacubitril 49 mg-valsartan 51 mg 1 tab PO BID #180 tabs 01/18/23 08/28/23 Rx tablet memantine 5 mg tablet 5 mg PO DAILY #90 tabs 04/09/23 08/28/23 Rx apixaban 2.5 mg tablet (Eliquis) 2.5 mg PO BID #180 tabs 06/04/23 08/28/23 Rx amiodarone 200 mg tablet 200 mg PO DAILY #90 tabs 06/19/23 08/28/23 Rx buspirone 5 mg tablet 5 mg PO DAILY anxiety #90 tabs 07/27/23 08/28/23 Rx ferrous sulfate 325 mg (65 mg 325 mg PO DAILY 08/09/23 08/28/23 History iron) tablet (FeroSul) atorvastatin 40 mg tablet 40 mg PO DAILY 08/28/23 08/28/23 History furosemide 40 mg tablet 40 mg PO DAILY 08/28/23 08/28/23 History Past Med/Surg History Medical History Chronic anemia GI bleed History of CVA (cerebrovascular accident) CKD (chronic kidney disease) stage 4, GFR 15-29 ml/min LBBB (left bundle branch block) Nonischemic cardiomyopathy Ocular migraine Paroxysmal atrial fibrillation Depression History of shingles Biventricular ICD (implantable cardioverter-defibrillator) in place Chronic diarrhea Chronic systolic congestive heart failure Dyslipidemia Gastroesophageal reflux disease Hypertension Lumbar radiculopathy Obstructive sleep apnea Osteopenia Surgical History Hx of cardiac catheterization S/P cardiac pacemaker procedure Hx of basal cell carcinoma excision H/O eye surgery History of cholecystectomy Hx of cataract surgery Family History Father Coronary heart disease ASCVD (arteriosclerotic cardiovascular disease) Brother Myocardial infarction ASCVD (arteriosclerotic cardiovascular disease) Son Lung cancer ASCVD (arteriosclerotic cardiovascular disease) Aunt Breast cancer Grandmother Cerebral hemorrhage Mother Parkinsons disease Other Cerebral arterial aneurysm Cerebromeningeal hemorrhage Denies family history of Ovarian cancer Prostate cancer Colorectal cancer Social History Smoking Status: Never smoker Second Hand Exposure: No; Do You Dip or Chew Tobacco: No; Hx Alcohol Use: No Hx Substance Use: No Preferred Language: Kazakh Communication Ability: Effective Visual Impairment: Limited Hearing Ability: Normal Culinary Artist Required: No Beliefs That Will Affect Care: None marital status: Current Living Situation: Spouse current occupational status: retired How many Children do You have: 4 Feels Safe at Home: Yes Safety Concerns: Feels Safe At This Time Childhood Exposure to Second-Hand Smoke: Yes caffeine: Yes Dental Care, Regularly: Yes Physical Activity Frequency: Does not Exercise Seatbelt Use: always Sunscreen Use: No (does not sit in the sun) Assistive Devices: Cane Review of Systems Review of Systems: The patient denies chest pain, palpitations, cough, sore throat, fevers, chills, sweats, nausea, vomiting, diarrhea , constipation, abdominal pain, pelvic pain, blood in urine or stool, dysuria, urinary frequency or urgency, lightheadedness, dizziness, loss of consciousness, rash, abnormal bruising or bleeding, imbalance, focal weakness, numbness or tingling in arms or legs, generalized arthralgias or myalgias, back or neck pain, or night sweats. The review of systems is otherwise negative other than for that already noted above, and at least 10 systems have been reviewed. Physical Exam Physical Exam: The patient is awake, alert and oriented 3, well developed and well nourished, normocephalic and atraumatic, lying in bed and in no acute distress. HEENT--PERRL, EOMI, mucous membranes and oropharynx dry. Neck--supple. No JVD. No bruits. Thyroid normal, trachea midline, no adenopathy. Heart--normal S1 and S2. No murmurs, rubs or gallops. Lungs--crackles at the bases to custodial up bilaterally. No respiratory distress, no accessory muscle use. Abdomen--normal bowel sounds and soft. Nontender. Nondistended. Extremities--2+ bilateral pretibial pitting edema. Dermatologic--normal skin turgor, normal color, no abnormal lymph nodes, no rash. Neurologic--cranial nerves II through XII grossly intact. Rheumatologic-Limited exam Psychiatric--normal affect. Results & Data Results & Data Vital Signs (Past 12 Hours) Vital Signs Temp Pulse Pulse Resp BP BP Pulse Ox 08/28/23 04:11 08/28/23 04:11 60 18 171/95 H 90 08/28/23 02:26 61 18 168/72 H 92 08/28/23 00:14 60 08/27/23 23:49 63 18 93 08/27/23 23:44 61 18 93 08/27/23 23:44 84 L 08/27/23 23:44 08/27/23 23:26 36.6 C 25 H 167/89 H 84 L O2 Del Method O2 Flow Rate 08/28/23 04:11 Nasal Cannula 4 08/28/23 04:11 Nasal Cannula 4 08/28/23 02:26 Nasal Cannula 4 08/28/23 00:14 08/27/23 23:49 Nasal Cannula 2 08/27/23 23:44 Nasal Cannula 2 08/27/23 23:44 Room Air 0 08/27/23 23:44 Nasal Cannula 2 08/27/23 23:26 Room Air Laboratory Results Laboratory Results WBC 6.94 K/ul (4.8-10.8) 08/27/23 23:45 RBC 3.10 M/uL (4.20-5.40) L 08/27/23 23:45 Hgb 9.3 g/dl (12.0-16.0) L 08/27/23 23:45 Hct 28.2 % (37.0-47.0) L 08/27/23 23:45 MCV 91.0 fL (80.0-100.0) 08/27/23 23:45 MCH 30.0 pg (25.0-34.0) 08/27/23 23:45 MCHC 33.0 g/dL (32.0-36.0) 08/27/23 23:45 RDW Std Deviation 51.6 fL (36.4-46.3) H 08/27/23 23:45 RDW Coeff of Jaz 15.9 % (11.5-14.5) H 08/27/23 23:45 Plt Count 264 K/uL (130-400) 08/27/23 23:45 MPV 10.1 fL (9.4-12.4) 08/27/23 23:45 Immature Gran % (Auto) 0.3 % 08/27/23 23:45 Neut % (Auto) 82.4 % 08/27/23 23:45 Lymph % (Auto) 9.4 % 08/27/23 23:45 [place]ot % (Auto) 6.8 % 08/27/23 23:45 Eos % (Auto) 0.7 % 08/27/23 23:45 Baso % (Auto) 0.4 % 08/27/23 23:45 Neut # (Auto) 5.72 K/uL (1.40-6.50) 08/27/23 23:45 Lymph # (Auto) 0.65 K/uL (1.20-3.40) L 08/27/23 23:45 [place]icot # (Auto) 0.47 K/uL (0.11-0.59) 08/27/23 23:45 Eos # (Auto) 0.05 K/uL (0.00-0.50) 08/27/23 23:45 Baso # (Auto) 0.03 K/uL (0.00-0.20) 08/27/23 23:45 Immature Gran # (Auto) 0.02 K/uL (0.01-0.20) 08/27/23 23:45 Sodium 129 mmol/L (136-145) L 08/27/23 23:45 Potassium 3.8 mmol/L (3.5-5.1) 08/27/23 23:45 Chloride 93 mmol/L (98-107) L 08/27/23 23:45 Carbon Dioxide 26 mmol/L (21-32) 08/27/23 23:45 Anion Gap 10 (3-11) 08/27/23 23:45 BUN 37 mg/dl (6-23) H 08/27/23 23:45 Creatinine 2.69 mg/dl (0.6-1.2) H 08/27/23 23:45 Est Cr Clr Drug Dosing Not Reportable 08/27/23 23:45 Est GFR ( Amer) 18.1 ml/min 08/27/23 23:45 Est GFR (Non-Af Amer) 15.6 ml/min 08/27/23 23:45 BUN/Creatinine Ratio 13.8 (10-20) 08/27/23 23:45 Glucose 129 mg/dl (70-99(Fasting)) H 08/27/23 23:45 Calcium 9.6 mg/dl (8.6-10.3) 08/27/23 23:45 Total Bilirubin 0.6 mg/dl (0.2-1.0) 08/27/23 23:45 AST 24 U/L (13-39) 08/27/23 23:45 ALT 26 U/L (7-52) 08/27/23 23:45 Alkaline Phosphatase 86 U/L (34-104) 08/27/23 23:45 Troponin I High Sens 30.2 pg/ml (0-14) H 08/28/23 02:26 Total Protein 6.6 gm/dl (6.0-8.3) 08/27/23 23:45 Albumin 3.6 gm/dl (3.4-5.0) 08/27/23 23:45 Globulin 3.0 gm/dl (2.5-4.0) 08/27/23 23:45 Albumin/Globulin Ratio 1.2 (0.9-2) 08/27/23 23:45 Lipase 42 U/L (11-82) 08/27/23 23:45 Code Status & VTE Plan Code Status Conditional code: Patient is DNR, but will except intubation VTE Prophylaxis Plan VTE Prophylaxis will be ordered: Yes PG Care Time/CCT Total # of Minutes Spent Total Time Spent with Patient: Total time spent is greater than 50% in coordination of care (as documented) at patient's floor/unit and/or counseling patient: Coding Level of Care Code 07881 INT INP/OBS CARE 3/75MIN Diagnoses Acute hypoxic respiratory failure J96.01 CHF (congestive heart failure) I50.9 Heart failure chronicity: acute Heart failure type: unspecified Pleural effusion J90 Primary idiopathic dilated cardiomyopathy I42.0 Primary hypertension I10 Hypertension type: primary hypertension Renal insufficiency N28.9 (2) CHF (congestive heart failure) Heart failure chronicity: acute Heart failure type: unspecified Qualified Code(s): I50.9 - Heart failure, unspecified (5) Hypertension Hypertension type: primary hypertension Qualified Code(s): I10 - Essential (primary) hypertension
[2023-08-28] MEDS: FUROSEMIDE 40 MG/4 ML VIAL IV ONE (05:14)
--- NOTE | 2023-08-28 07:06 | XRay Report ---
XR chest 1V portable CLINICAL HISTORY: Chest pain, nonspecific COMPARISON STUDY: Chest radiograph November 14, 2022. Chest CT March 13, 2023. FINDINGS: Left subclavian pacer/AICD is in place. Cardiomegaly is unchanged. Moderate left and small right pleural effusions with associated airspace opacities have developed. There is interstitial thic kening. IMPRESSION: Cardiomegaly. Interval development of pulmonary edema with moderate left and small right pleural effusions with associated airspace opacities. ACT 112: Negative or not required by law. Electronically signed by: Ry Cazares M.D. 08/28/2023 7:05 AM
[2023-08-28 07:10] LABS: Hematocrit (blood only) 27.9 % (37.0-47.0); Hemoglobin 8.9 g/dl (12.0-16.0); Lymphocytes % (auto) 6.6 %; Mean Corpuscular Hemoglobin 29.8 pg (25.0-34.0); Mean Corpuscular Hgb Conc 31.9 g/dL (32.0-36.0); Mean Corpuscular Volume 93.3 fL (80.0-100.0); Mean Platelet Volume 10.3 fL (9.4-12.4); Neutrophils % (auto) 88.4 %; Platelet Count 239 K/uL (130-400); RDW Coefficient of Variation 15.5 % (11.5-14.5); RDW Standard Deviation 52.2 fL (36.4-46.3); Red Blood Count 2.99 M/uL (4.20-5.40); White Blood Count 7.24 K/ul (4.8-10.8)
[2023-08-28 07:11] LABS: Basophils # (auto) 0.02 K/uL (0.00-0.20); Basophils % (auto) 0.3 %; Immature Granulocytes # (auto) 0.05 K/uL (0.01-0.20); Immature Granulocytes % (auto) 0.7 %; Lymphocytes # (auto) 0.48 K/uL (1.20-3.40); Monocytes # (auto) 0.29 K/uL (0.11-0.59); Nucleated RBC # (auto) 0.02 K/uL (0.00-0.12); Nucleated RBC % (auto) 0.3 %
[2023-08-28 07:21] LABS: Albumin Level 3.4 gm/dl (3.4-5.0); Calcium 9.3 mg/dl (8.6-10.3); Magnesium 2.1 mg/dl (1.7-2.4); Potassium 3.6 mmol/L (3.5-5.1)
[2023-08-28 07:26] LABS: BUN Creatinine Ratio 13.8 (10-20); Creatinine Clr Calc Pharmacy 9.8 ml/min; Est GFR (African American) 17.6 ml/min; Est GFR (Non-African American) 15.1 ml/min; Phosphorus 4.1 mg/dl (2.5-4.9)
[2023-08-28] MEDS: FUROSEMIDE 40 MG/4 ML VIAL IV SCH ×2 (08:26→16:18)
[2023-08-28] MEDS: AMIODARONE 200 MG TAB PO SCH (08:52)
[2023-08-28] MEDS: busPIRone 5 MG TAB PO SCH (08:54)
[2023-08-28] MEDS: APIXABAN 2.5 MG TAB PO SCH (08:54)
[2023-08-28] MEDS: ATORVASTATIN 40 MG TAB PO SCH (08:54)
[2023-08-28] MEDS: FERROUS SULFATE 325 MG TAB PO SCH (08:55)
[2023-08-28] MEDS: MEMANTINE HCL 5 MG TAB PO SCH (08:55)
[2023-08-28] MEDS: VALSARTAN/SACUBITRIL 51/49 MG TAB PO SCH (08:55)
[2023-08-28] MEDS: carvediloL 12.5 MG TAB PO SCH (08:55)
--- NOTE | 2023-08-28 09:03 | Hospitalist Progress Note ---
Date of Service August 28, 2023 Assessment & Plan (1) CHF (congestive heart failure): Plan: Acute respiratory failure with hypoxia/HFrEF exacerbation/dilated cardiomyopathy/pleural effusions/biventricular ICD/PAF- The patient will be admitted to telemetry for serial cardiac enzymes, serial EKG's, cardiac rhythm monitoring and a 2-D echocardiogram with Dopplers. Biofire negative Initial troponin 29.3-> 30.2 --> trend/monitor on telemetry. Suspect demand ischemia in setting of EXACERBATION OF CHF -- ACUTE ON CHRONIC HEART FAILURE WITH REDUCED EF Patient with 10 pound weight gain and progressive shortness of breath over the past 10 days with increasing lower extremity edema. CXR w/ Cardiomegaly. Interval development of pulmonary edema with moderate left and small right pleural effusions with associated airspace opacities. Dry Wt appears ~95lb per CHF clinic notes (~43.1kg) - was 45kg off her spironolactone for a week at PCP visit, presented with weight up to 54.3kg (actually ~20lb weight gain) Given initial dose of Lasix 40 mg IV by the ED, repeated 40mg IV x 1 (on 40mg/20mg alternating PO daily at home HOWEVER patient had her SPIRONOLACTONE DISCONTINUED/HELD along with her aspirin and PO Kcl on August 01 per daughter due to elevated kidney function and suspect contributing to recent weight gain and this was also held during a suspected viral illness) Continue lasix 40mg IV BID for now Mcmahon order placed Monitor weights, I&Os Prior ECHO September 2022 w/ EF 20-25% w/ moderate pericardial effusion -Repeat ECHO w/o significant change compared to prior. * Severely reduced EF (EF 20-25%), multiple wall motion abnormalities, RV appears normal with normal function. * Severe LAE by LAV index. Mild MIMI. At least moderate TR. Moderate eccentric MR . Mild AI and PI * Small to medium size posterior pericardial effusion. There is no diastolic compression of the right ventricle to suggest cardiac tamponade. Continue amiodarone, Eliquis 2.5 mg p.o. twice daily, carvedilol 12.5 mg p.o. twice daily, and Entresto 49-51, 1 p.o. twice daily Consult cardiology, appreciate recs/assistance -- not yet seen Speech consulted given issues/concerns for aspiration. aspiration precautions ordered, NPO at present time - seen, minced/moist, aspiration precautions. pills in applesauce in meantime - repeat CXR w/ opacity, monitor for development of aspiration pneumonia. Afebrile/WBC wnl on check and will monitor for now Supplemental O2 to maintain sats Repeating labs this afternoon to monitor renal function/increase lasix dosing based on output --> Cr essentially unchanged. Increasing lasix to 60mg IV BID for this evening and will monitor Check UA for completeness to ensure no other issue contributing Monitor labs/CXR on repeat (2) Acute hypoxic respiratory failure: Plan: suspected 2nd to CHF exacerbation. No cough/sputum production or fevers reported WBC wnl/afebrile but will monitor given choking w/ pills this morning speech consulted, aspiration precautions and minced/moist diet in meantime pulmonary toilet, diuretics as outlined f/u CXR in AM supplemental O2 to maintain sats (3) Pleural effusion: Plan: as noted above, 2nd to chf exacerbation and diuretics as outlined (4) Primary idiopathic dilated cardiomyopathy: Plan: see above, cards consult appreciated. Appears has been taken OFF her aspirin in July -- consideration to resume however had progressive anemia and was held at last PCP visit however no gross/lalit bleeding reported continue statin, BB as above, entresto for CHF (5) Hypertension: Plan: as above, remains on Entresto, Coreg lasix as outlined ?resumption of spironolactone -- defer to cards BP stable 167/82 at present and will monitor (6) Renal insufficiency: Plan: acute on chronic, recent hyperkalemia and worsened REJI and spironolactone ST OPPED/held as above Renal function stable compared to prior w/ increased diuretics Has been seen by Dr Domingo in the past, endorsed would NOT want HD Check UA for eval any underlying issue sirena given recent worsening renal function Renal dose meds/avoid nephrotoxins Monitor BMP in AM Anxiety/depression/mild cognitive impairment- mood stable, alert to person/place/year/month at present time. family at bedside Continue buspirone, memantine Plan Dispo: DVT proph: Eliquis continued (noting did not get AM dose given difficulty swallowing, diet now to minced/moist and monitor) PT evals added to ensure safe to return to current living situation Appreciate cards consult/input/recommendations Updated daughter//family at bedside 08/27 in ER-- confirmed NO CPR/intubation, would NOT want feeding tube or HD if it came to that, but ok w/ medications/antibiotics Admission and Anticipated Discharge Date Admission Date: August 28, 2023 Supervising Physician Co-Signing Physician Notes The patient was not seen by me. The chart was reviewed. Case discussed with BERNABE Allred. Agree with assessment and plan Subjective BRIDGE NOTE: ADMITTED AFTER MIDNIGHT Evaluated this morning, family at bedside, additional information from daughter and in room. Patient usually good about taking her medications. Had reported worsened shortness of breath and ongoing weight gain, up about 10lb. Had purewick in place earlier but issues with leaking, was slightly cloudy. Mcmahon in place, urine clear yellow in color. Repeat labs pending to see about adjustment to her diuretics. Breathing stable on 4L NC. Reports does NOT want CPR or intubation or heroic measures but ok w/ medications/antibiotics. Has living will/[facility], daughter asked to bring in to make copy if able. Discussed cardiology consult, does not believe anyone in to see her yet. Prior EF ~20-25%. Does have S3 on exam, echo done this morning but not read but appears possibly will be further reduced based on symptoms. Denied palpitations. Of note, daughter reports her renal function had been increasing in july and that her aspirin/spironolactone and 1/2 potassium tablet were discontinued on August 01. Suspect weight gain off this contribtuing to current clinical picture. Followed by Renetta Renteria from [facility], has been seen by Dr Domingo from Nephrology if needed. Currently reports breathing ok on supplemental O2. Did have some choking w/ pills this morning/issues with swallowing. she would NOT want any kind of feeding tube. Seen by speech this morning, ordered minced/moist diet, will give pills with applesauce and monitor. Physical Exam Physical Exam: 82yo female sitting up in bed, reporting needing to urinate, NAD, family at bedside HEENT: head atraumatic, normocephalic, mmm, trachea midline Resp: even/unlabored, RR 20, coarse breath sounds throughout, expiratory wheezing, on 4L NC CV: regular rate/rhythm paced on telemetry,quet heart sounds but +S3 gallop, b/l LE 2-3+ pitting edema to the thighs, calves nontender GI: +BS, soft/NT : mcmahon draining clear yellow urine MSK/Neuro: moves all extremities, generalized weakness, no slurred speech/facial droop Psych: alert to person/place/year 2023, month august, cooperative with exam Results & Data Results & Data Vital Signs (Past 12 Hours) Vital Signs Temp Pulse Pulse Resp BP BP Pulse Ox 08/28/23 07:53 61 08/28/23 06:40 60 25 H 93 08/28/23 06:30 60 20 95 08/28/23 06:20 62 20 94 08/28/23 06:10 61 18 94 08/28/23 06:00 165/92 H 08/28/23 06:00 61 18 96 08/28/23 06:00 60 18 165/92 H 94 08/28/23 05:50 60 17 98 08/28/23 05:40 60 18 99 08/28/23 05:30 60 16 98 08/28/23 05:20 64 17 97 08/28/23 05:10 60 17 97 08/28/23 05:05 167/86 H 08/28/23 05:05 60 18 96 08/28/23 05:00 60 19 95 08/28/23 04:50 60 21 93 08/28/23 04:40 60 24 93 08/28/23 04:30 62 27 H 89 L 08/28/23 04:20 60 23 93 08/28/23 04:11 08/28/23 04:11 60 18 171/95 H 90 08/28/23 04:10 61 28 H 90 08/28/23 04:00 171/95 H 08/28/23 04:00 60 26 H 91 08/28/23 03:50 61 27 H 92 08/28/23 03:40 60 25 H 93 08/28/23 03:30 60 23 93 08/28/23 03:20 60 14 93 08/28/23 03:10 60 15 93 08/28/23 03:00 60 22 93 08/28/23 02:50 60 25 H 94 08/28/23 02:40 60 21 95 08/28/23 02:30 61 27 H 92 08/28/23 02:27 168/72 H 08/28/23 02:27 61 31 H 92 08/28/23 02:26 61 18 168/72 H 92 08/28/23 02:20 61 27 H 91 08/28/23 02:17 90 08/28/23 02:00 62 21 90 08/28/23 01:50 62 27 H 92 08/28/23 01:40 62 23 91 08/28/23 01:30 62 26 H 90 08/28/23 01:20 62 31 H 91 08/28/23 01:10 62 33 H 92 08/28/23 01:00 61 16 93 08/28/23 00:50 61 27 H 94 08/28/23 00:40 62 30 H 90 08/28/23 00:30 61 31 H 92 08/28/23 00:20 60 28 H 91 08/28/23 00:15 60 24 92 08/28/23 00:14 60 08/27/23 23:49 63 18 93 08/27/23 23:44 61 18 93 08/27/23 23:44 84 L 08/27/23 23:44 08/27/23 23:26 36.6 C 25 H 167/89 H 84 L O2 Del Method O2 Flow Rate 08/28/23 07:53 08/28/23 06:40 08/28/23 06:30 08/28/23 06:20 08/28/23 06:10 08/28/23 06:00 08/28/23 06:00 08/28/23 06:00 Nasal Cannula 4 08/28/23 05:50 08/28/23 05:40 08/28/23 05:30 08/28/23 05:20 08/28/23 05:10 08/28/23 05:05 08/28/23 05:05 08/28/23 05:00 08/28/23 04:50 08/28/23 04:40 08/28/23 04:30 08/28/23 04:20 08/28/23 04:11 Nasal Cannula 4 08/28/23 04:11 Nasal Cannula 4 08/28/23 04:10 08/28/23 04:00 08/28/23 04:00 08/28/23 03:50 08/28/23 03:40 08/28/23 03:30 08/28/23 03:20 08/28/23 03:10 08/28/23 03:00 08/28/23 02:50 08/28/23 02:40 08/28/23 02:30 08/28/23 02:27 08/28/23 02:27 08/28/23 02:26 Nasal Cannula 4 08/28/23 02:20 08/28/23 02:17 08/28/23 02:00 08/28/23 01:50 08/28/23 01:40 08/28/23 01:30 08/28/23 01:20 08/28/23 01:10 08/28/23 01:00 08/28/23 00:50 08/28/23 00:40 08/28/23 00:30 08/28/23 00:20 08/28/23 00:15 08/28/23 00:14 08/27/23 23:49 Nasal Cannula 2 08/27/23 23:44 Nasal Cannula 2 08/27/23 23:44 Room Air 0 08/27/23 23:44 Nasal Cannula 2 08/27/23 23:26 Room Air Laboratory Results 08/28/23 08/28/23 08/28/23 Range/Units Unknown 12:55 11:04 WBC (4.8-10.8) K/ul RBC (4.20-5.40) M/uL Hgb (12.0-16.0) g/dl Hct (37.0-47.0) % MCV (80.0-100.0) fL MCH (25.0-34.0) pg MCHC (32.0-36.0) g/dL RDW Std Deviation (36.4-46.3) fL RDW Coeff of Jaz (11.5-14.5) % Plt Count (130-400) K/uL MPV (9.4-12.4) fL Immature Gran % (Auto) % Neut % (Auto) % Lymph % (Auto) % Kings % (Auto) % Eos % (Auto) % Baso % (Auto) % Neut # (Auto) (1.40-6.50) K/uL Lymph # (Auto) (1.20-3.40) K/uL Kings # (Auto) (0.11-0.59) K/uL Eos # (Auto) (0.00-0.50) K/uL Baso # (Auto) (0.00-0.20) K/uL Immature Gran # (Auto) (0.01-0.20) K/uL Absolute Nucleated RBC (0.00-0.12) K/uL Nucleated RBC % (auto) % Sodium Pending (136-145) mmol/L Potassium Pending (3.5-5.1) mmol/L Chloride Pending (98-107) mmol/L Carbon Dioxide Pending (21-32) mmol/L Anion Gap Pending (3-11) BUN Pending (6-23) mg/dl Creatinine Pending (0.6-1.2) mg/dl Est Cr Clr Drug Dosing Pending Est GFR ( Amer) Pending ml/min Est GFR (Non-Af Amer) Pending ml/min BUN/Creatinine Ratio Pending (10-20) Glucose Pending (70-99(Fasting)) mg/dl Calcium Pending (8.6-10.3) mg/dl Phosphorus (2.5-4.9) mg/dl Magnesium (1.7-2.4) mg/dl Total Bilirubin (0.2-1.0) mg/dl AST (13-39) U/L ALT (7-52) U/L Alkaline Phosphatase (34-104) U/L Troponin I High Sens Pending (0-14) pg/ml B-Natriuretic Peptide Pending Total Protein (6.0-8.3) gm/dl Albumin (3.4-5.0) gm/dl Globulin (2.5-4.0) gm/dl Albumin/Globulin Ratio (0.9-2) Lipase (11-82) U/L Adenovirus (PCR) Not Detected (NotDetected) B. pertussis DNA (PCR) Not Detected (NotDetected) B.parapertussis DNA PCR Not Detected (NotDetected) Lyme Disease Screen Negative (Negative) C. pneumoniae DNA (PCR) Not Detected (NotDetected) Coronavirus OC43 (PCR) Not Detected (NotDetected) Coronavirus HKU1 (PCR) Not Detected (NotDetected) Coronavirus 229E (PCR) Not Detected (NotDetected) SARS-CoV-2 (PCR) Not Detected (NotDetected) Coronavirus NL63 (PCR) Not Detected (NotDetected) Human Metapneumovir PCR Not Detected (NotDetected) Influenza Type A (PCR) Not Detected (NotDetected) Influenza Type B (PCR) Not Detected (NotDetected) M. pneumoniae (PCR) Not Detected (NotDetected) Parainfluenza 1 (PCR) Not Detected (NotDetected) Parainfluenza 2 (PCR) Not Detected (NotDetected) Parainfluenza 3 (PCR) Not Detected (NotDetected) Parainfluenza 4 (PCR) Not Detected (NotDetected) RSV (PCR) Not Detected (NotDetected) Entero/Rhino (PCR) Not Detected (NotDetected) 08/28/23 08/28/23 08/27/23 Range/Units 06:30 02:26 23:45 WBC 7.24 6.94 (4.8-10.8) K/ul RBC 2.99 L 3.10 L (4.20-5.40) M/uL Hgb 8.9 L 9.3 L (12.0-16.0) g/dl Hct 27.9 L 28.2 L (37.0-47.0) % MCV 93.3 91.0 (80.0-100.0) fL MCH 29.8 30.0 (25.0-34.0) pg MCHC 31.9 L 33.0 (32.0-36.0) g/dL RDW Std Deviation 52.2 H 51.6 H (36.4-46.3) fL RDW Coeff of Jaz 15.5 H 15.9 H (11.5-14.5) % Plt Count 239 264 (130-400) K/uL MPV 10.3 10.1 (9.4-12.4) fL Immature Gran % (Auto) 0.7 0.3 % Neut % (Auto) 88.4 82.4 % Lymph % (Auto) 6.6 9.4 % Kings % (Auto) 4.0 6.8 % Eos % (Auto) 0.0 0.7 % Baso % (Auto) 0.3 0.4 % Neut # (Auto) 6.40 5.72 (1.40-6.50) K/uL Lymph # (Auto) 0.48 L 0.65 L (1.20-3.40) K/uL Kings # (Auto) 0.29 0.47 (0.11-0.59) K/uL Eos # (Auto) 0.00 0.05 (0.00-0.50) K/uL Baso # (Auto) 0.02 0.03 (0.00-0.20) K/uL Immature Gran # (Auto) 0.05 0.02 (0.01-0.20) K/uL Absolute Nucleated RBC 0.02 (0.00-0.12) K/uL Nucleated RBC % (auto) 0.3 % Sodium 130 L 129 L (136-145) mmol/L Potassium 3.6 3.8 (3.5-5.1) mmol/L Chloride 96 L 93 L (98-107) mmol/L Carbon Dioxide 24 26 (21-32) mmol/L Anion Gap 10 10 (3-11) BUN 38 H 37 H (6-23) mg/dl Creatinine 2.76 H 2.69 H (0.6-1.2) mg/dl Est Cr Clr Drug Dosing 9.8 Not Reportable Est GFR ( Amer) 17.6 18.1 ml/min Est GFR (Non-Af Amer) 15.1 15.6 ml/min BUN/Creatinine Ratio 13.8 13.8 (10-20) Glucose 125 H 129 H (70-99(Fasting)) mg/dl Calcium 9.3 9.6 (8.6-10.3) mg/dl Phosphorus 4.1 (2.5-4.9) mg/dl Magnesium 2.1 (1.7-2.4) mg/dl Total Bilirubin 0.6 (0.2-1.0) mg/dl AST 24 (13-39) U/L ALT 26 (7-52) U/L Alkaline Phosphatase 86 (34-104) U/L Troponin I High Sens 30.2 H 29.3 H (0-14) pg/ml B-Natriuretic Peptide Total Protein 6.6 (6.0-8.3) gm/dl Albumin 3.4 3.6 (3.4-5.0) gm/dl Globulin 3.0 (2.5-4.0) gm/dl Albumin/Globulin Ratio 1.2 (0.9-2) Lipase 42 (11-82) U/L Adenovirus (PCR) (NotDetected) B. pertussis DNA (PCR) (NotDetected) B.parapertussis DNA PCR (NotDetected) Lyme Disease Screen (Negative) C. pneumoniae DNA (PCR) (NotDetected) Coronavirus OC43 (PCR) (NotDetected) Coronavirus HKU1 (PCR) (NotDetected) Coronavirus 229E (PCR) (NotDetected) SARS-CoV-2 (PCR) (NotDetected) Coronavirus NL63 (PCR) (NotDetected) Human Metapneumovir PCR (NotDetected) Influenza Type A (PCR) (NotDetected) Influenza Type B (PCR) (NotDetected) M. pneumoniae (PCR) (NotDetected) Parainfluenza 1 (PCR) (NotDetected) Parainfluenza 2 (PCR) (NotDetected) Parainfluenza 3 (PCR) (NotDetected) Parainfluenza 4 (PCR) (NotDetected) RSV (PCR) (NotDetected) Entero/Rhino (PCR) (NotDetected) Diagnostic Findings Chest X-Ray 08/27/23 23:31 XR chest 1V portable CLINICAL HISTORY: Chest pain, nonspecific COMPARISON STUDY: Chest radiograph November 14, 2022. Chest CT March 13, 2023. FINDINGS: Left subclavian pacer/AICD is in place. Cardiomegaly is unchanged. Moderate left and small right pleural effusions with associated airspace opacities have developed. There is interstitial thickening. IMPRESSION: Cardiomegaly. Interval development of pulmonary edema with moderate left and small right pleural effusions with associated airspace opacities. ACT 112: Negative or not required by law. Electronically signed by: Ry Cazares M.D. 08/28/2023 7:05 AM Chest X-Ray 08/28/23 08:58 XR chest 2V PA/lateral CLINICAL HISTORY: eval aspiration pneumonia TECHNIQUE: 2 views of the chest were obtained. Comparison: Comparison is made to chest radiograph 08/28/2023 FINDINGS: Pacemaker defibrillator is seen. Cardiomegaly is noted. The aortic arch is calcified. There is prominence and cephalization of the vasculature with Moses B lines seen. Left retrocardiac opacity is seen. Small left pleural effusion. IMPRESSION: 1. Left retrocardiac opacity likely represents layering effusion, superimposed aspiration/pneumonia cannot be excluded. 2. Cardiomegaly and moderate pulmonary edema. 3. Small left pleural effusion. ACT 112: Negative or not required by law. Electronically signed by: Manny Nichole M.D. 08/28/2023 10:59 AM ECHOCARDIOGRAM 08/28/2023 Compared to prior study, there is no significant change. Severely reduced EF (EF 20-25%), multiple wall motion abnormalities, RV appears normal with normal function. Severe LAE by LAV index Mild MIMI At least moderate TR Moderate eccentric MRMild AI and PI Small to medium size posterior pericardial effusion. There is no diastolic compression of the right ventricle to suggest cardiac tamponade. PG Care Time/CCT Total # of Minutes Spent Total Time Spent with Patient: Total time spent is greater than 50% in coordination of care (as documented) at patient's floor/unit and/or counseling patient: Coding Level of Care Code None Diagnoses CHF (congestive heart failure) I50.9 Heart failure chronicity: acute Heart failure type: unspecified Acute hypoxic respiratory failure J96.01 Pleural effusion J90 Primary idiopathic dilated cardiomyopathy I42.0 Primary hypertension I10 Hypertension type: primary hypertension Renal insufficiency N28.9 (1) CHF (congestive heart failure) Heart failure chronicity: acute Heart failure type: unspecified Qualified Code(s): I50.9 - Heart failure, unspecified (5) Hypertension Hypertension type: primary hypertension Qualified Code(s): I10 - Essential (primary) hypertension
--- NOTE | 2023-08-28 10:29 | Cardiology Consultation ---
Date of Consultation August 28, 2023 Assessment & Plan (1) CHF (congestive heart failure): (2) Primary idiopathic dilated cardiomyopathy: (3) Elevated troponin: (4) Unspecified atrial fibrillation: (5) Current use of superintendent container terminal anticoagulation: (6) Biventricular ICD (implantable cardioverter-defibrillator) in place: Plan 1. Congestive heart failure: She presents in congestive heart failure with her weight up about 9 kg over the 2 weeks prior to admission. Some of this may have been due to decreasing her diuretics. It seems that she does not follow a fluid restriction. I would treat her with diuresis as you are. She has severe left ventricular dysfunction which is of course contributing. 2. Cardiomyopathy: She has severe left ventricular dysfunction from a nonischemic cardiomyopathy. I do not think there is much more we can do in this regard, she has not been able to tolerate higher doses of medications and she remains on half goal doses of carvedilol and Entresto. I think restarting spironolactone might be a good idea but she did have hyperkalemia which makes that somewhat problematic. We could consider Jardiance and digoxin. I will discuss this with Heike Sheridan as she follows her closely. 3. Elevated troponin: She has mild but stable troponin elevation, I would not pursue evaluation of this. 4. Atrial fibrillation: She has not had much difficulty with atrial fibrillation lately and did not present in atrial fibrillation. She has re mained on amiodarone which appears to be effective. I do not think atrial fibrillation is related to her CHF exacerbation. 5. Anticoagulation: She is on reduced dose Eliquis which I would continue if possible. Since she has not had recent atrial fibrillation it could be held briefly if needed. 6. Biventricular ICD: This was evaluated July 30, 2023 and was working well, I do not think we need another evaluation at this time. History of Present Illness Reason for Consultation: Exacerbation of CHF Attending Physician: Zay Ken MD History of Present Illness This is an 82-year-old woman who has a history of nonischemic cardiomyopathy (catheterization 03/13/2011 with normal arteries) as well as congestive heart failure and left bundle branch block. With continued left ventricular dysfunction despite medical therapy she underwent biventricular ICD implantation on January 04, 2012. The procedure was somewhat complex due to difficulty in accessing a coronary sinus branch, eventually a anterolateral branch was chosen which appears to be adequate but not ideal location. Additionally she had a lot of bruising during surgery and some blood loss. She had an episode of loss of consciousness after the procedure which on extensive evaluation including echocardiography, etc. appeared to have been due to blood loss and possibly a vagal reaction. 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 She was started on Coumadin and has had resolution of her left arm swelling, Coumadin had subsequently been discontinued. She was having a lot of premature ventricular beats (which interfere with biventricular pacing) and her blood pressure was elevated prompting an increase in her carvedilol to 25 mg b.i.d. Her left ventricular function seemed to have stabilized at around 35% as of her echocardiogram January 14, 2016. A repeat echocardiogram done on January 02, 2020 showed global left ventricular dysfunction with ejection fraction of 30 to 35%, similar to 2016. Her ICD reached [facility] and was replaced on November 08, 2017 with a new device using the original leads. She then presented to the emergency room on January 04, 2022 following a fall, evidently her went out with the trash and fell so the patient went out to assist him and both of them fell on their gravel driveway and the patient did strike her head. It is not clear that she lost consciousness however there was evidence for an acute or subacute infarction within the left occipital lobe although no vascular lesion was identified on CT angiography of the head and neck. It was felt that the stroke was not directly related to the fall but possibly preceded the fall. The role of anticoagulation was uncertain based on her recent fall and it was recommended to start anticoagulation 1 or 2 weeks subsequently as long as there is not recurrent bleeding in the area. She did have a head CT scan on January 07, 2022 which did not show bleeding. An echocardiogram done January 05, 2022 showed normal left ventricular size with mild left ventricular dysfunction and ejection fraction of 45 to 50%. It was felt that her ejection fraction had improved compared to August 23, 2021. However an echocardiogram done October 17, 2022 shows severe left ventricular dysfunction with mild left ventricular dilatation. The ejection fraction is felt to be 20 to 25%. There was a moderate pericardial effusion of 1 to 2 cm without evidence of tamponade. She has been followed closely in the heart failure area. Her Entresto and carvedilol have been reduced due to symptoms of hypotension. She developed increased shortness of breath and leg edema since around July 2022. ICD monitoring demonstrated development of sustained atrial fibrillation on July 07, 2022. This coincides with her symptoms and may be part of the problem with her breathing. I therefore initiated amiodarone 200 mg twice a day with plans to convert the rhythm back to normal. Cardioversion was performed on December 15, 2022. Unfortunately she developed a GI bleed, likely lower GI, and was hospitalized from November 14, 2022 through November 18, 2022. During that admission she was in atrial fibrillation with a ventricular paced rhythm. Her anticoagulation was held for several days but was restarted on November 22, 2022. Cardioversion was performed using an internal sock on December 15, 2022. She remained predominantly out of atrial fibrillation as of her recent office visit on July 30, 2023 and seem to be doing well in general. She was maintained on Eliquis (reduced due to age, weight and kidney function) and she remains on amiodarone. She then presented to the emergency room on August 27, 2023 which shortness of breath felt to be an exacerbation of congestive heart failure. Her heart failure medications, amiodarone and Eliquis were continued. Her electrocardiogram showed sinus rhythm with atrial sensing and appropriate biventricular pacing with a reasonably good biventricular paced complex. An echocardiogram done August 28, 2023 shows severe left ventricular dysfunction with an ejection fraction of 20 to 25% with multiple wall motion abnormalities. Severe left atrial enlargement. Moderate TR and MR and a small to medium size posterior pericardial effusion with no evidence of tamponade. Similar to prior. Laboratory studies were notable for ongoing but worsened hemoglobin (9.3 on admission), and elevated creatinine although it has been in this range for several months, and an elevated troponin (110 the maximum so far) and elevated BNP of greater than 4700. Her albumin is low at 3.2. She does have protein in her urine. At the moment she is feeling comfortable and is sitting in a chair, when asked if she drinks a lot of fluid she says "oh yeah" and when asked why she tells me that she has been told to. She does not recall how much she has been drinking. Her breathing is improved since presentation. Allergies Allergy/AdvReac Type Severity Reaction Status Date / Time cephalexin Allergy Severe ANAPHYLAXIS Verified 08/28/23 00:16 Penicillins Allergy Severe RASH AND Verified 08/28/23 00:16 SWELLING Cephalosporins Allergy Intermediate RASH AND Verified 08/28/23 00:16 SWELLING ciprofloxacin Allergy Unknown CAN'T Verified 08/28/23 00:16 REMEMBER scallops Allergy Unknown CAN'T Verified 08/28/23 00:16 REMEMBER tramadol Allergy Unknown CAN'T Verified 08/28/23 00:16 REMEMBER azithromycin AdvReac Intermediate UPSET Verified 08/28/23 00:16 STOMACH erythromycin base AdvReac Intermediate UPSET Verified 08/28/23 00:16 STOMACH amlodipine AdvReac Unknown Unknown Verified 08/28/23 00:16 Home Medications Medication Instructions Recorded Confirmed Type [id number] 8 mg-folic 400 1 tab PO HS 11/04/18 08/28/23 History mcg-K 50 mcg-lutein 300 mcg tablet (Centrum Silver Women) methenamine-sodium salicylate 162 1 tab PO BID 11/08/20 08/28/23 History mg-162.5 mg tablet (AZO Urinary Tract Defense) peg 400-propylene glycol 0.4 %-0.3 1 drp OPB DAILY PRN Dry Eyes 06/02/22 08/28/23 History % eye drops (Systane (propylene glycol)) carvedilol 25 mg tablet 12.5 mg PO BID 07/20/22 08/28/23 History sacubitril 49 mg-valsartan 51 mg 1 tab PO BID #180 tabs 01/18/23 08/28/23 Rx tablet memantine 5 mg tablet 5 mg PO DAILY #90 tabs 04/09/23 08/28/23 Rx apixaban 2.5 mg tablet (Eliquis) 2.5 mg PO BID #180 tabs 06/04/23 08/28/23 Rx amiodarone 200 mg tablet 200 mg PO DAILY #90 tabs 06/19/23 08/28/23 Rx buspirone 5 mg tablet 5 mg PO DAILY anxiety #90 tabs 07/27/23 08/28/23 Rx ferrous sulfate 325 mg (65 mg 325 mg PO DAILY 08/09/23 08/28/23 History iron) tablet (FeroSul) atorvastatin 40 mg tablet 40 mg PO DAILY 08/28/23 08/28/23 History furosemide 40 mg tablet 40 mg PO DAILY 08/28/23 08/28/23 History Patient History Medical History Chronic anemia GI bleed Hx History of CVA (cerebrovascular accident) 12/2021 Left temporal infarct- mild memory issues CKD (chronic kidney disease) stage 4, GFR 15-29 ml/min LBBB (left bundle branch block) Nonischemic cardiomyopathy Ocular migraine Paroxysmal atrial fibrillation Depression History of shingles Biventricular ICD (implantable cardioverter-defibrillator) in place [employer], follows with Dr. Chávez Chronic diarrhea Chronic systolic congestive heart failure Dyslipidemia Gastroesophageal reflux disease Hypertension Lumbar radiculopathy Obstructive sleep apnea No device Osteopenia Surgical History Hx of cardiac catheterization 10+ years ago ago- no stents S/P cardiac pacemaker procedure ICD Hx of basal cell carcinoma excision Face H/O eye surgery R/t stabismus History of cholecystectomy Hx of cataract surgery R/L Family History Father Coronary heart disease ASCVD (arteriosclerotic cardiovascular disease) Brother Myocardial infarction ASCVD (arteriosclerotic cardiovascular disease) Son Lung cancer ASCVD (arteriosclerotic cardiovascular disease) Aunt Breast cancer Grandmother Cerebral hemorrhage Mother Parkinsons disease Other Cerebral arterial aneurysm Cerebromeningeal hemorrhage Denies family history of Ovarian cancer Prostate cancer Colorectal cancer Social History Smoking Status: Never smoker Second Hand Exposure: No; Do You Dip or Chew Tobacco: No; Hx Alcohol Use: No Hx Substance Use: No Preferred Language: Tunisian Communication Ability: Effective Visual Impairment: Limited Hearing Ability: Normal Paver Required: No Beliefs That Will Affect Care: None marital status: Current Living Situation: Spouse current occupational status: retired How many Children do You have: 4 Feels Safe at Home: Yes Childhood Exposure to Second-Hand Smoke: Yes caffeine: Yes Dental Care, Regularly: Yes Physical Activity Frequency: Does not Exercise Seatbelt Use: always Sunscreen Use: No (does not sit in the sun) Assistive Devices: Cane and CPAP Review of Systems Review of Systems: All systems reviewed & are unremarkable except as noted in HPI & below Physical Exam Physical Exam: Constitutional: Alert, cooperative and in no distress. HEENT: Unremarkable Neck: No jugular venous distention, carotid pulses are normal and equal bilaterally without bruits. Pulmonary: Clear to auscultation bilaterally. Cardiac: Regular rhythm with no murmur, gallop or rub. Abdomen: Soft, nontender with normal bowel sounds. Extremities: +2 bilateral pretibial edema. Distal pulses intact. Neurologic: No focal findings. She ambulates with a cane. Skin: The device site is well-healed without erythema, swelling or tenderness. No rash or petechiae, she does have small ecchymosis on her arms and hands. Results & Data Vital Signs (Past 12 Hours) Vital Signs Temp Pulse Pulse Resp BP BP Pulse Ox 08/28/23 09:10 62 23 92 08/28/23 09:00 60 28 H 93 08/28/23 08:50 61 22 93 08/28/23 08:40 62 26 H 92 08/28/23 08:30 62 27 H 93 08/28/23 08:20 61 21 93 08/28/23 08:10 60 24 90 08/28/23 08:00 173/88 H 08/28/23 08:00 61 28 H 92 08/28/23 07:53 61 08/28/23 07:50 60 32 H 93 08/28/23 07:40 61 25 H 94 08/28/23 07:30 60 20 93 08/28/23 07:20 60 25 H 91 08/28/23 07:10 60 26 H 92 08/28/23 07:00 60 25 H 93 08/28/23 06:50 60 23 93 08/28/23 06:40 60 25 H 93 08/28/23 06:30 60 20 95 08/28/23 06:20 62 20 94 08/28/23 06:10 61 18 94 08/28/23 06:00 165/92 H 08/28/23 06:00 61 18 96 08/28/23 06:00 60 18 165/92 H 94 08/28/23 05:50 60 17 98 08/28/23 05:40 60 18 99 08/28/23 05:30 60 16 98 08/28/23 05:20 64 17 97 08/28/23 05:10 60 17 97 08/28/23 05:05 167/86 H 08/28/23 05:05 60 18 96 08/28/23 05:00 60 19 95 08/28/23 04:50 60 21 93 08/28/23 04:40 60 24 93 08/28/23 04:30 62 27 H 89 L 08/28/23 04:20 60 23 93 08/28/23 04:11 08/28/23 04:11 60 18 171/95 H 90 08/28/23 04:10 61 28 H 90 08/28/23 04:00 171/95 H 08/28/23 04:00 60 26 H 91 08/28/23 03:50 61 27 H 92 08/28/23 03:40 60 25 H 93 08/28/23 03:30 60 23 93 08/28/23 03:20 60 14 93 08/28/23 03:10 60 15 93 08/28/23 03:00 60 22 93 08/28/23 02:50 60 25 H 94 08/28/23 02:40 60 21 95 08/28/23 02:30 61 27 H 92 08/28/23 02:27 168/72 H 08/28/23 02:27 61 31 H 92 08/28/23 02:26 61 18 168/72 H 92 08/28/23 02:20 61 27 H 91 08/28/23 02:17 90 08/28/23 02:00 62 21 90 08/28/23 01:50 62 27 H 92 08/28/23 01:40 62 23 91 08/28/23 01:30 62 26 H 90 08/28/23 01:20 62 31 H 91 08/28/23 01:10 62 33 H 92 08/28/23 01:00 61 16 93 08/28/23 00:50 61 27 H 94 08/28/23 00:40 62 30 H 90 08/28/23 00:30 61 31 H 92 08/28/23 00:20 60 28 H 91 08/28/23 00:15 60 24 92 08/28/23 00:14 60 08/27/23 23:49 63 18 93 08/27/23 23:44 61 18 93 08/27/23 23:44 84 L 08/27/23 23:44 04/01/24 23:26 36.6 C 25 H 167/89 H 84 L O2 Del Method O2 Flow Rate 08/28/23 09:10 08/28/23 09:00 08/28/23 08:50 08/28/23 08:40 08/28/23 08:30 08/28/23 08:20 08/28/23 08:10 08/28/23 08:00 08/28/23 08:00 08/28/23 07:53 08/28/23 07:50 08/28/23 07:40 08/28/23 07:30 08/28/23 07:20 08/28/23 07:10 08/28/23 07:00 08/28/23 06:50 08/28/23 06:40 08/28/23 06:30 08/28/23 06:20 08/28/23 06:10 08/28/23 06:00 08/28/23 06:00 08/28/23 06:00 Nasal Cannula 4 08/28/23 05:50 08/28/23 05:40 08/28/23 05:30 08/28/23 05:20 08/28/23 05:10 08/28/23 05:05 08/28/23 05:05 08/28/23 05:00 08/28/23 04:50 08/28/23 04:40 08/28/23 04:30 08/28/23 04:20 08/28/23 04:11 Nasal Cannula 4 08/28/23 04:11 Nasal Cannula 4 08/28/23 04:10 08/28/23 04:00 08/28/23 04:00 08/28/23 03:50 08/28/23 03:40 08/28/23 03:30 08/28/23 03:20 08/28/23 03:10 08/28/23 03:00 08/28/23 02:50 08/28/23 02:40 08/28/23 02:30 08/28/23 02:27 08/28/23 02:27 08/28/23 02:26 Nasal Cannula 4 08/28/23 02:20 08/28/23 02:17 08/28/23 02:00 08/28/23 01:50 08/28/23 01:40 08/28/23 01:30 08/28/23 01:20 08/28/23 01:10 08/28/23 01:00 08/28/23 00:50 08/28/23 00:40 08/28/23 00:30 08/28/23 00:20 08/28/23 00:15 08/28/23 00:14 08/27/23 23:49 Nasal Cannula 2 08/27/23 23:44 Nasal Cannula 2 08/27/23 23:44 Room Air 0 08/27/23 23:44 Nasal Cannula 2 08/27/23 23:26 Room Air Laboratory Results Cardiac Enzymes 08/27/23 08/28/23 Range/Units 23:45 02:26 AST 24 (13-39) U/L Troponin I High Sens 29.3 H 30.2 H (0-14) pg/ml CBC 08/27/23 08/28/23 Range/Units 23:45 06:30 WBC 6.94 7.24 (4.8-10.8) K/ul RBC 3.10 L 2.99 L (4.20-5.40) M/uL Hgb 9.3 L 8.9 L (12.0-16.0) g/dl Hct 28.2 L 27.9 L (37.0-47.0) % Plt Count 264 239 (130-400) K/uL Neut # (Auto) 5.72 6.40 (1.40-6.50) K/uL Lymph # (Auto) 0.65 L 0.48 L (1.20-3.40) K/uL Mayes # (Auto) 0.47 0.29 (0.11-0.59) K/uL Eos # (Auto) 0.05 0.00 (0.00-0.50) K/uL Baso # (Auto) 0.03 0.02 (0.00-0.20) K/uL Comprehensive Metabolic Panel 08/27/23 08/28/23 Range/Units 23:45 06:30 Sodium 129 L 130 L (136-145) mmol/L Potassium 3.8 3.6 (3.5-5.1) mmol/L Chloride 93 L 96 L (98-107) mmol/L Carbon Dioxide 26 24 (21-32) mmol/L BUN 37 H 38 H (6-23) mg/dl Creatinine 2.69 H 2.76 H (0.6-1.2) mg/dl Glucose 129 H 125 H (70-99(Fasting)) mg/dl Calcium 9.6 9.3 (8.6-10.3) mg/dl AST 24 (13-39) U/L ALT 26 (7-52) U/L Alkaline Phosphatase 86 (34-104) U/L Total Protein 6.6 (6.0-8.3) gm/dl Albumin 3.6 3.4 (3.4-5.0) gm/dl Intake and Output 08/27/23 08/28/23 08/28/23 22:59 06:59 14:59 Intake Total 0 / 0 Balance 0 / 0 Intake: Oral 0 / 0 Other: Weight 54.3 kg Weight Measurement Method Built in [facility] Diagnostic Findings Cardiac Enzymes 08/28/23 08/28/23 Range/Units 12:55 20:04 Troponin I High Sens 49.2 H D 110.1 H* D (0-14) pg/ml B-Natriuretic Peptide > 4700 H (0-100) pg/ml Coagulation 08/28/23 Range/Units 12:55 B-Natriuretic Peptide > 4700 H (0-100) pg/ml CBC 08/29/23 Range/Units 05:46 WBC 7.53 (4.8-10.8) K/ul RBC 2.86 L (4.20-5.40) M/uL Hgb 8.7 L (12.0-16.0) g/dl Hct 25.6 L (37.0-47.0) % Plt Count 229 (130-400) K/uL Neut # (Auto) 6.39 (1.40-6.50) K/uL Lymph # (Auto) 0.53 L (1.20-3.40) K/uL Mayes # (Auto) 0.54 (0.11-0.59) K/uL Eos # (Auto) 0.01 (0.00-0.50) K/uL Baso # (Auto) 0.02 (0.00-0.20) K/uL Comprehensive Metabolic Panel 08/28/23 08/29/23 Range/Units 12:55 05:46 Sodium 131 L 133 L (136-145) mmol/L Potassium 3.5 3.4 L (3.5-5.1) mmol/L Chloride 95 L 96 L (98-107) mmol/L Carbon Dioxide 24 25 (21-32) mmol/L BUN 39 H 42 H (6-23) mg/dl Creatinine 2.77 H 2.82 H (0.6-1.2) mg/dl Glucose 113 H 96 (70-99(Fasting)) mg/dl Calcium 9.6 9.5 (8.6-10.3) mg/dl Albumin 3.2 L (3.4-5.0) gm/dl Intake and Output 08/28/23 08/29/23 08/29/23 22:59 06:59 14:59 Intake Total 300 / 300 Output Total 250 / 550 300 / 550 Balance 50 / -250 -300 / -250 Intake: Oral 300 / 300 Output: Urine Amount (Catheter) 250 / 550 300 / 550 Wick/Indwelling 250 / 550 300 / 550 Other: Weight 50.2 kg Weight Measurement Method Built in [facility] PG Care Time/CCT Total # of Minutes Spent Total Time Spent with Patient: Total time spent is greater than 50% in coordination of care (as documented) at patient's floor/unit and/or counseling patient: Coding Level of Care Code 62408 INT INP/OBS CARE 3/75MIN Diagnoses CHF (congestive heart failure) I50.9 Heart failure chronicity: acute Heart failure type: unspecified Primary idiopathic dilated cardiomyopathy I42.0 Elevated troponin R77.8 Chronic atrial fibrillation I48.20 Atrial fibrillation type: unspecified chronic Current use of halfway anticoagulation Z79.01 Biventricular ICD (implantable cardioverter-defibrillator) in place Z95.810 (1) CHF (congestive heart failure) Heart failure chronicity: acute Heart failure type: unspecified Qualified Code(s): I50.9 - Heart failure, unspecified (4) Unspecified atrial fibrillation Atrial fibrillation type: unspecified chronic Qualified Code(s): I48.20 - Chronic atrial fibrillation, unspecified
--- NOTE | 2023-08-28 11:00 | XRay Report ---
XR chest 2V PA/lateral CLINICAL HISTORY: eval aspiration pneumonia TECHNIQUE: 2 views of the chest were obtained. Comparison: Comparison is made to chest radiograph 08/28/2023 FINDINGS: Pacemaker defibrillator is seen. Cardiomegaly is noted. The aortic arch is calcified. There is promin ence and cephalization of the vasculature with Moses B lines seen. Left retrocardiac opacity is seen . Small left pleural effusion. IMPRESSION: 1. Left retrocardiac opacity likely represents layering effusion, superimposed aspiration/pneumonia cannot be excluded. 2. Cardiomegaly and moderate pulmonary edema. 3. Small left pleural effusion. ACT 112: Negative or not required by law. Electronically signed by: Manny Nichole M.D. 08/28/2023 10:59 AM
[2023-08-28 11:25] LABS: Adenovirus PCR Not Detected (NotDetected); Bordetella parapertussis PCR Not Detected (NotDetected); Bordetella pertussis PCR Not Detected (NotDetected); Chlamydia pneumoniae PCR Not Detected (NotDetected); Coronavirus 229E PCR Not Detected (NotDetected); Coronavirus CoV-2 (COVID19)PCR Not Detected (NotDetected); Coronavirus HKU1 PCR Not Detected (NotDetected); Coronavirus NL63 PCR Not Detected (NotDetected); Coronavirus OC43PCR Not Detected (NotDetected); Human Metapneumovirus PCR Not Detected (NotDetected); Influenza A PCR Not Detected (NotDetected); Influenza B PCR Not Detected (NotDetected); Mycoplasma pneumoniae PCR Not Detected (NotDetected); Parainfluenza Virus 1 PCR Not Detected (NotDetected); Parainfluenza Virus 2 PCR Not Detected (NotDetected); Parainfluenza Virus 3 PCR Not Detected (NotDetected); Parainfluenza Virus 4 PCR Not Detected (NotDetected); Respiratory Syncytial VirusPCR Not Detected (NotDetected); Rhinovirus/Enterovirus PCR Not Detected (NotDetected)
[2023-08-28 14:01] LABS: BUN Creatinine Ratio 14.1 (10-20); Calcium 9.6 mg/dl (8.6-10.3); Creatinine Clr Calc Pharmacy 9.7 ml/min; Est GFR (African American) 17.5 ml/min; Est GFR (Non-African American) 15.1 ml/min; Potassium 3.5 mmol/L (3.5-5.1)
[2023-08-28 14:06] LABS: Troponin I High Sensitivity 49.2 pg/ml (0-14)
--- NOTE | 2023-08-28 14:23 | XCELERA ---
[id number] \\[id number]
[2023-08-28 15:34] LABS: Appearance Urine Clear (Clear); Bacteria Urine Automated Negative (Negative); Bilirubin Urine Negative (Negative); Blood Urine 3+ (Negative); Color Urine Yellow; Epithelial Cell Urine Auto 20-30 /lpf (0-5); Glucose Urine UA Negative (Negative); Ketones Urine Negative (Negative); Leukocyte Esterase Urine Trace (Negative); Nitrite Urine Negative (Negative); Protein Urine 1+ (Negative); RBC Urine Automated >30 /hpf (0-4); Specific Gravity Urine 1.009 (1.000-1.030); Urobilinogen Urine Negative (Negative)
--- NOTE | 2023-08-28 16:27 | Communication Note ---
Date of Service: August 28, 2023 CDS Query Troponin elevation -- suspected demand ischemia from volume overload. Trend troponin/monitor on telemetry. NO chest pain reported Renal insufficiency -- CKD 4 -- suspect worsened renal function w/ worsened heart failure.Recently had her spironolactone stopped August 01 due to REJI/hyperkalemia which resolved on repeat outpatient labs. Lasix as outlined. Cardiology consulted.Renal dose meds/avoid nephrotoxins as able. If needing nephrology assistance, follows with Dr Domingo. Notable patient DECLINED HD in the past, continued to voice she WOULD NOT want this.
[2023-08-28] MEDS: CEROVITE ADV FORMULA TAB PO SCH (20:22)
[2023-08-28] MEDS: ACETAMINOPHEN 325 MG TAB PO PRN (20:33)
[2023-08-29 06:02] LABS: Base Excess VBG 2.9 mEq/L; HCO3 VBG 28 mmol/L; Oxygen Saturation VBG 96.8 %; PCO2 VBG 43 mmHg (38-50); PO2 VBG 74 mmHg; pH VBG 7.42 (7.36-7.41)
[2023-08-29 06:24] LABS: Basophils # (auto) 0.02 K/uL (0.00-0.20); Basophils % (auto) 0.3 %; Eosinophils # (auto) 0.01 K/uL (0.00-0.50); Eosinophils % (auto) 0.1 %; Hematocrit (blood only) 25.6 % (37.0-47.0); Hemoglobin 8.7 g/dl (12.0-16.0); Immature Granulocytes # (auto) 0.04 K/uL (0.01-0.20); Immature Granulocytes % (auto) 0.5 %; Lymphocytes # (auto) 0.53 K/uL (1.20-3.40); Mean Corpuscular Hemoglobin 30.4 pg (25.0-34.0); Mean Corpuscular Volume 89.5 fL (80.0-100.0); Mean Platelet Volume 10.6 fL (9.4-12.4); Monocytes # (auto) 0.54 K/uL (0.11-0.59); Monocytes % (auto) 7.2 %; Neutrophils # (auto) 6.39 K/uL (1.40-6.50); Neutrophils % (auto) 84.9 %; Platelet Count 229 K/uL (130-400); RDW Coefficient of Variation 15.8 % (11.5-14.5); RDW Standard Deviation 50.8 fL (36.4-46.3); Red Blood Count 2.86 M/uL (4.20-5.40); White Blood Count 7.53 K/ul (4.8-10.8)
[2023-08-29 06:25] LABS: Albumin Level 3.2 gm/dl (3.4-5.0); BUN Creatinine Ratio 14.9 (10-20); Calcium 9.5 mg/dl (8.6-10.3); Creatinine Clr Calc Pharmacy 9.6 ml/min; Est GFR (African American) 17.1 ml/min; Est GFR (Non-African American) 14.8 ml/min; Magnesium 2.1 mg/dl (1.7-2.4); Phosphorus 4.8 mg/dl (2.5-4.9); Potassium 3.4 mmol/L (3.5-5.1)
[2023-08-29 06:40] LABS: Thyroid Stimulating Hormone 2.179 uIu/ml (0.300-4.500)
--- NOTE | 2023-08-29 08:11 | Hospitalist Progress Note ---
Date of Service August 29, 2023 Assessment & Plan (1) CHF (congestive heart failure): Plan: Acute respiratory failure with hypoxia/HFrEF exacerbation/dilated cardiomyopathy/pleural effusions/biventricular ICD/PAF- The patient will be admitted to telemetry for serial cardiac enzymes, serial EKG's, cardiac rhythm monitoring and a 2-D echocardiogram with Dopplers. Biofire negative Initial troponin 29.3-> 30.2 --> trend/monitor on telemetry. Suspect demand ischemia in setting of EXACERBATION OF CHF -- ACUTE ON CHRONIC HEART FAILURE WITH REDUCED EF Patient with reported 10 pound weight gain and progressive shortness of breath over the past 10 days with increasing lower extremity edema. CXR w/ Cardiomegaly. --> Interval development of pulmonary edema with moderate left and small right pleural effusions with associated airspace opacities. Dry Wt appears ~95lb per CHF clinic notes (~43.1kg) - was 45kg off her spironolactone for a week at PCP visit, presented with weight up to 54.3kg (~20lb weight gain) Lasix 40 mg IV by the ED, repeated 40mg IV x 1 on admission Scheduled 40mg IV BID * (on 40mg/20mg alternating PO daily at home HOWEVER patient had her SPIRONOLACTONE DISCONTINUED/HELD along with her aspirin and PO Kcl on August 01 per daughter due to elevated kidney function and suspect contributing to recent weight gain and this was also held during a suspected viral illness) ECHO w/o significant change compared to prior. * Severely reduced EF (EF 20-25%), multiple wall motion abnormalities, RV appears normal with normal function. * Severe LAE by LAV index. Mild MIMI. At least moderate TR. Moderate eccentric MR. Mild AI and PI * Small to medium size posterior pericardial effusion. There is no diastolic compression of the right ventricle to suggest cardiac tamponade. Continue amiodarone, Eliquis 2.5 mg p.o. twice daily, carvedilol 12.5 mg BID, and Entresto 49-51 BID INCREASED lasix 60mg IV BID PM 4/2, weights down to 50.2kg Renal function/creatinine stable CXR w/ continued cardiomegaly and moderate pulmonary edema, re-demonstration of bilateral lower lung airspace opacity which likely represent atelectasis with or without superimposed aspiration/pneumonia --> WBC wnl, afebrile. RN to provide incentive spirometer Resuming spironolactone 12.5mg daily, consider increase to 25mg in AM pending BP/response to diuretics Monitor weights/I&Os Consult cardiology, appreciate recs/assistance CHF clinic provider to see 08/29 Supplemental O2 to maintain sats -- down to 2L this afternoon from 4L this morning (was up to 4L when up/activity, likely need 2step prior to dc) Monitor labs on repeat (2) Acute hypoxic respiratory failure: Plan: suspected 2nd to CHF exacerbation. No cough/sputum production or fevers reported WBC wnl/afebrile but will monitor given choking w/ pills this morning speech consulted 08/28 given choking w/ eating in AM Aspiration precautions and minced/moist diet in meantime, no further issues pulmonary toilet, diuretics as outlined supplemental O2 to maintain sats (3) Pleural effusion: Plan: as noted above, 2nd to chf exacerbation and diuretics as outlined (4) Primary idiopathic dilated cardiomyopathy: Plan: see above, cards consult appreciated. Appears has been taken OFF her aspirin in July -- consideration to resume however had progressive anemia and was held at last PCP visit however no gross/lalit bleeding reported continue statin, BB as above, entresto for CHF Resumed baby aspirin given had been placed on hold in July, monitor for bleeding (5) Hypertension: Plan: as above, remains on Entresto, Coreg lasix as outlined, increased to 60mg IV BID spironolactone 12.5mg ordered for today, monitor to increase to 25mg for AM (would decrease her lasix dosing) BP 125/62 at present and will monitor (6) Elevated troponin: Plan: suspected demand ischemia from volume overload/CHF exacerbation as above Trop 29.3--> 30.2--> 49.2 and added repeat which was elevated to 110 last evening and added to AM labs which was elevated to 122. Paced on telemetry in the 60s, no CP reported. BP stable Repeat troponin trending down 92.6 and suspect demand ischemia from above and will monitor Aspirin resumed given had been held since August 01, again no CP reported, cards consult pending (7) CKD (chronic kidney disease) stage 4, GFR 15-29 ml/min: Plan: Renal insufficiency -- CKD 4 Suspect worsened renal function w/ worsened heart failure in setting of recently having her home diueretics placed on hold. Followed by Dr Domingo in the past, would NOT want HD if it came to that. Making urine, prior not well documented prior to mcmahon placement however weights are down. Strict I&O Diuretics as outlined Renal dose meds/avoid nephrotoxins as able BMP in AM (8) Renal insufficiency: Plan: as above, acute on chronic w recent hyperkalemia and worsened REJI w/ discontinuation of her home spironolactone and weight gain as above Anxiety/depression/mild cognitive impairment- mood stable, alert to person/place/year/month at present time. family at bedside Continue buspirone, memantine Plan Dispo: DVT proph: Eliquis Conditional code - ok w/ meds/IVF/abx, no CPR, intubation, feeding tube or HD PT rec rehab, OT consult placed. CM to follow Updated in room, continued diuretics. CHF provider to see in AM, cards consult pending and will follow up recommendations Admission and Anticipated Discharge Date Admission Date: August 28, 2023 Supervising Physician Co-Signing Physician Notes The patient was not seen by me. The chart was reviewed. Case discussed with BERNABE Allred. Agree with assessment and plan Subjective Evaluated this afternoon, in room. Reports breathing a little better/less shortness of breath. Reports she got some good sleep overnight, likes to nap. Appetite fair, no further choking if she is careful and continuing to monitor. Good urine output, remains on lasix as ordered. Weights 54.3kg--> 50.2kg this morning. Will be seen by CHF clinic provider tomorrow, will resume low dose spironolactone today/possible increase to 25mg for tomorrow pending response. PT/OT evals to be undertaken to see if any need for rehab at [facility]. in room during encounter. Questions/concerns addressed. Physical Exam Physical Exam: 82yo female sitting up in chair, appears improved from yesterday, less respiratory distress and down to 2L NC Head atraumatic, normocephalic, mmm, trachea midline Resp: diminished in the bases with associated crackles, decreased/resolved wheezing, on 2L NC, no cough/tachypnea CV: paced on telemetry in the 60s, +systolic/diastolic murmurs, quiet heart sounds, slightly decreased b/l LE, 2+ bilateral pretibial GI: +BS, soft/NT : mcmahon draining yellow urine MSK moves all extremities, generalized weakness, no slurred speech/facial droop Psych: alert to person/place/year 2023, month august, cooperative with exam Results & Data Results & Data Vital Signs (Past 12 Hours) Vital Signs Temp Pulse Pulse Resp BP Pulse Ox O2 Del Method 08/29/23 08:00 Nasal Cannula 08/29/23 03:34 36.4 C L 60 20 154/71 H 96 Nasal Cannula 08/28/23 23:08 60 08/28/23 22:59 36.4 C L 59 L 16 149/77 H 98 Nasal Cannula 08/28/23 22:00 Room Air O2 Flow Rate 08/29/23 08:00 2 08/29/23 03:34 3 08/28/23 23:08 08/28/23 22:59 3 08/28/23 22:00 2 Laboratory Results 08/29/23 08/28/23 08/28/23 Range/Units 05:46 Unknown 20:04 WBC 7.53 (4.8-10.8) K/ul RBC 2.86 L (4.20-5.40) M/uL Hgb 8.7 L (12.0-16.0) g/dl Hct 25.6 L (37.0-47.0) % MCV 89.5 (80.0-100.0) fL MCH 30.4 (25.0-34.0) pg MCHC 34.0 (32.0-36.0) g/dL RDW Std Deviation 50.8 H (36.4-46.3) fL RDW Coeff of Jaz 15.8 H (11.5-14.5) % Plt Count 229 (130-400) K/uL MPV 10.6 (9.4-12.4) fL Immature Gran % (Auto) 0.5 % Neut % (Auto) 84.9 % Lymph % (Auto) 7.0 % Lamar % (Auto) 7.2 % Eos % (Auto) 0.1 % Baso % (Auto) 0.3 % Neut # (Auto) 6.39 (1.40-6.50) K/uL Lymph # (Auto) 0.53 L (1.20-3.40) K/uL Lamar # (Auto) 0.54 (0.11-0.59) K/uL Eos # (Auto) 0.01 (0.00-0.50) K/uL Baso # (Auto) 0.02 (0.00-0.20) K/uL Immature Gran # (Auto) 0.04 (0.01-0.20) K/uL VBG pH 7.42 H (7.36-7.41) VBG pCO2 43 (38-50) mmHg VBG pO2 74 mmHg VBG HCO3 28 mmol/L VBG O2 Saturation 96.8 % VBG Base Excess 2.9 mEq/L Sodium 133 L (136-145) mmol/L Potassium 3.4 L (3.5-5.1) mmol/L Chloride 96 L (98-107) mmol/L Carbon Dioxide 25 (21-32) mmol/L Anion Gap 12 H (3-11) BUN 42 H (6-23) mg/dl Creatinine 2.82 H (0.6-1.2) mg/dl Est Cr Clr Drug Dosing 9.6 ml/min Est GFR ( Amer) 17.1 ml/min Est GFR (Non-Af Amer) 14.8 ml/min BUN/Creatinine Ratio 14.9 (10-20) Glucose 96 (70-99(Fasting)) mg/dl Calcium 9.5 (8.6-10.3) mg/dl Phosphorus 4.8 (2.5-4.9) mg/dl Magnesium 2.1 (1.7-2.4) mg/dl Total Creatine Kinase 32 (26-192) U/L Troponin I High Sens 110.1 H* D (0-14) pg/ml B-Natriuretic Peptide (0-100) pg/ml Albumin 3.2 L (3.4-5.0) gm/dl TSH 2.179 (0.300-4.500) uIu/ml Urine Color Yellow Urine Appearance Clear (Clear) Urine pH 5.0 (4.5-7.5) Ur Specific [place] 1.009 (1.000-1.030) Urine Protein 1+ H (Negative) Urine Glucose (UA) Negative (Negative) Urine Ketones Negative (Negative) Urine Blood 3+ H (Negative) Urine Nitrite Negative (Negative) Urine Bilirubin Negative (Negative) Urine Urobilinogen Negative (Negative) Ur Leukocyte Esterase Trace H (Negative) Urine WBC (Auto) 5-10 H (0-5) /hpf Urine RBC (Auto) >30 H (0-4) /hpf U Hyaline Cast (Auto) 5-10 H (0-5) /lpf U Epithel Cells (Auto) 20-30 H (0-5) /lpf Urine Bacteria (Auto) Negative (Negative) Adenovirus (PCR) Not Detected (NotDetected) B. pertussis DNA (PCR) Not Detected (NotDetected) B.parapertussis DNA PCR Not Detected (NotDetected) Lyme Disease Screen (Negative) C. pneumoniae DNA (PCR) Not Detected (NotDetected) Coronavirus OC43 (PCR) Not Detected (NotDetected) Coronavirus HKU1 (PCR) Not Detected (NotDetected) Coronavirus 229E (PCR) Not Detected (NotDetected) SARS-CoV-2 (PCR) Not Detected (NotDetected) Coronavirus NL63 (PCR) Not Detected (NotDetected) Human Metapneumovir PCR Not Detected (NotDetected) Influenza Type A (PCR) Not Detected (NotDetected) Influenza Type B (PCR) Not Detected (NotDetected) M. pneumoniae (PCR) Not Detected (NotDetected) Parainfluenza 1 (PCR) Not Detected (NotDetected) Parainfluenza 2 (PCR) Not Detected (NotDetected) Parainfluenza 3 (PCR) Not Detected (NotDetected) Parainfluenza 4 (PCR) Not Detected (NotDetected) RSV (PCR) Not Detected (NotDetected) Entero/Rhino (PCR) Not Detected (NotDetected) 08/28/23 08/28/23 Range/Units 12:55 11:04 WBC (4.8-10.8) K/ul RBC (4.20-5.40) M/uL Hgb (12.0-16.0) g/dl Hct (37.0-47.0) % MCV (80.0-100.0) fL MCH (25.0-34.0) pg MCHC (32.0-36.0) g/dL RDW Std Deviation (36.4-46.3) fL RDW Coeff of Jaz (11.5-14.5) % Plt Count (130-400) K/uL MPV (9.4-12.4) fL Immature Gran % (Auto) % Neut % (Auto) % Lymph % (Auto) % Lamar % (Auto) % Eos % (Auto) % Baso % (Auto) % Neut # (Auto) (1.40-6.50) K/uL Lymph # (Auto) (1.20-3.40) K/uL Lamar # (Auto) (0.11-0.59) K/uL Eos # (Auto) (0.00-0.50) K/uL Baso # (Auto) (0.00-0.20) K/uL Immature Gran # (Auto) (0.01-0.20) K/uL VBG pH (7.36-7.41) VBG pCO2 (38-50) mmHg VBG pO2 mmHg VBG HCO3 mmol/L VBG O2 Saturation % VBG Base Excess mEq/L Sodium 131 L (136-145) mmol/L Potassium 3.5 (3.5-5.1) mmol/L Chloride 95 L (98-107) mmol/L Carbon Dioxide 24 (21-32) mmol/L Anion Gap 12 H (3-11) BUN 39 H (6-23) mg/dl Creatinine 2.77 H (0.6-1.2) mg/dl Est Cr Clr Drug Dosing 9.7 ml/min Est GFR ( Amer) 17.5 ml/min Est GFR (Non-Af Amer) 15.1 ml/min BUN/Creatinine Ratio 14.1 (10-20) Glucose 113 H (70-99(Fasting)) mg/dl Calcium 9.6 (8.6-10.3) mg/dl Phosphorus (2.5-4.9) mg/dl Magnesium (1.7-2.4) mg/dl Total Creatine Kinase (26-192) U/L Troponin I High Sens 49.2 H D (0-14) pg/ml B-Natriuretic Peptide > 4700 H (0-100) pg/ml Albumin (3.4-5.0) gm/dl TSH (0.300-4.500) uIu/ml Urine Color Urine Appearance (Clear) Urine pH (4.5-7.5) Ur Specific [place] (1.000-1.030) Urine Protein (Negative) Urine Glucose (UA) (Negative) Urine Ketones (Negative) Urine Blood (Negative) Urine Nitrite (Negative) Urine Bilirubin (Negative) Urine Urobilinogen (Negative) Ur Leukocyte Esterase (Negative) Urine WBC (Auto) (0-5) /hpf Urine RBC (Auto) (0-4) /hpf U Hyaline Cast (Auto) (0-5) /lpf U Epithel Cells (Auto) (0-5) /lpf Urine Bacteria (Auto) (Negative) Adenovirus (PCR) (NotDetected) B. pertussis DNA (PCR) (NotDetected) B.parapertussis DNA PCR (NotDetected) Lyme Disease Screen Negative (Negative) C. pneumoniae DNA (PCR) (NotDetected) Coronavirus OC43 (PCR) (NotDetected) Coronavirus HKU1 (PCR) (NotDetected) Coronavirus 229E (PCR) (NotDetected) SARS-CoV-2 (PCR) (NotDetected) Coronavirus NL63 (PCR) (NotDetected) Human Metapneumovir PCR (NotDetected) Influenza Type A (PCR) (NotDetected) Influenza Type B (PCR) (NotDetected) M. pneumoniae (PCR) (NotDetected) Parainfluenza 1 (PCR) (NotDetected) Parainfluenza 2 (PCR) (NotDetected) Parainfluenza 3 (PCR) (NotDetected) Parainfluenza 4 (PCR) (NotDetected) RSV (PCR) (NotDetected) Entero/Rhino (PCR) (NotDetected) Diagnostic Findings Chest X-Ray 08/29/23 07:00 XR chest 2V PA/lateral CLINICAL HISTORY: follow up aspiration, eval pneumonia TECHNIQUE: 2 views of the chest were obtained. Comparison: Comparison is made to chest radiograph 08/28/2023 FINDINGS: No lines and tubes are seen. Cardiomegaly is noted. The aortic arch is calcified. There is prominence and cephalization of the vasculature with Moses B lines seen. Bilateral lower lung predominant airspace opacities. Small bilateral pleural effusions are seen. IMPRESSION: 1. Cardiomegaly and moderate pulmonary edema. 2. Redemonstration of bilateral lower lung airspace opacity which likely represent atelectasis with or without superimposed aspiration/pneumonia. ACT 112: Negative or not required by law. Electronically signed by: Manny Nichole M.D. 08/29/2023 9:42 AM PG Care Time/CCT Total # of Minutes Spent Total Time Spent with Patient: Total time spent is greater than 50% in coordination of care (as documented) at patient's floor/unit and/or counseling patient: Coding Level of Care Code 48556 SUB INP/OBS CARE 50MIN Diagnoses CHF (congestive heart failure) I50.9 Heart failure chronicity: acute Heart failure type: unspecified Acute hypoxic respiratory failure J96.01 Pleural effusion J90 Primary idiopathic dilated cardiomyopathy I42.0 Primary hypertension I10 Hypertension type: primary hypertension Elevated troponin R77.8 CKD (chronic kidney disease) stage 4, GFR 15-29 ml/min N18.4 Renal insufficiency N28.9 (1) CHF (congestive heart failure) Heart failure chronicity: acute Heart failure type: unspecified Qualified Code(s): I50.9 - Heart failure, unspecified (5) Hypertension Hypertension type: primary hypertension Qualified Code(s): I10 - Essential (primary) hypertension
[2023-08-29] MEDS: POTASSIUM CHLORIDE CRTAB 20 MEQ TABCR PO STA (08:25)
[2023-08-29 09:19] LABS: Troponin I High Sensitivity 122.4 pg/ml (0-14)
--- NOTE | 2023-08-29 09:45 | XRay Report ---
XR chest 2V PA/lateral CLINICAL HISTORY: follow up aspiration, eval pneumonia TECHNIQUE: 2 views of the chest were obtained. Comparison: Comparison is made to chest radiograph 08/28/2023 FINDINGS: No lines and tubes are seen. Cardiomegaly is noted. The aortic arch is calcified. There is prominence and cephalization of the vasculature with Moses B lines seen. Bilateral lower lung predominant airs pace opacities. Small bilateral pleural effusions are seen. IMPRESSION: 1. Cardiomegaly and moderate pulmonary edema. 2. Redemonstration of bilateral lower lung airspace opacity which likely represent atelectasis with or without superimposed aspiration/pneumonia. ACT 112: Negative or not required by law. Electronically signed by: Manny Nichole M.D. 08/29/2023 9:42 AM
[2023-08-29 13:08] LABS: BUN Creatinine Ratio 16.5 (10-20); Calcium 9.5 mg/dl (8.6-10.3); Creatinine Clr Calc Pharmacy 9.3 ml/min; Est GFR (African American) 17.3 ml/min; Potassium 4.1 mmol/L (3.5-5.1); Troponin I High Sensitivity 92.6 pg/ml (0-14)
[2023-08-29] MEDS: SPIRONOLACTONE 12.5 MG TAB PO SCH (13:29)
[2023-08-29] MEDS: ASPIRIN 81 MG ECTAB PO SCH (13:29)
[2023-08-30 06:28] LABS: Basophils # (auto) 0.02 K/uL (0.00-0.20); Basophils % (auto) 0.3 %; Eosinophils # (auto) 0.08 K/uL (0.00-0.50); Eosinophils % (auto) 1.2 %; Hematocrit (blood only) 26.9 % (37.0-47.0); Hemoglobin 8.6 g/dl (12.0-16.0); Immature Granulocytes # (auto) 0.01 K/uL (0.01-0.20); Immature Granulocytes % (auto) 0.1 %; Lymphocytes % (auto) 10.1 %; Mean Corpuscular Hemoglobin 29.6 pg (25.0-34.0); Mean Corpuscular Volume 92.4 fL (80.0-100.0); Mean Platelet Volume 10.3 fL (9.4-12.4); Monocytes # (auto) 0.69 K/uL (0.11-0.59); Neutrophils # (auto) 5.43 K/uL (1.40-6.50); Neutrophils % (auto) 78.3 %; Platelet Count 205 K/uL (130-400); RDW Coefficient of Variation 16.1 % (11.5-14.5); RDW Standard Deviation 52.9 fL (36.4-46.3); Red Blood Count 2.91 M/uL (4.20-5.40); White Blood Count 6.93 K/ul (4.8-10.8)
[2023-08-30 07:05] LABS: BUN Creatinine Ratio 16.1 (10-20); Calcium 9.2 mg/dl (8.6-10.3); Creatinine Clr Calc Pharmacy 8.5 ml/min; Est GFR (African American) 15.6 ml/min; Est GFR (Non-African American) 13.4 ml/min; Magnesium 2.1 mg/dl (1.7-2.4); Phosphorus 4.1 mg/dl (2.5-4.9); Potassium 4.2 mmol/L (3.5-5.1)
--- NOTE | 2023-08-30 07:19 | Electrocardiogram Report ---
Test Reason : Blood Pressure : / mmHG Vent. Rate : 060 BPM Atrial Rate : 060 BPM P-R Int : 164 ms QRS Dur : 164 ms QT Int : 514 ms P-R-T Axes : 063 228 101 degrees QTc Int : 514 ms AV sequential or dual chamber electronic pacemaker Biventricular pacemaker detected Abnormal ECG When compared with ECG of 15-DEC-2022 07:41, No significant change Confirmed by Karlo Stearns ([id number]) on 08/30/2023 7:18:49 AM Referred By: REFERRED SELF Confirmed By:Karlo Stearns
--- NOTE | 2023-08-30 08:18 | Hospitalist Progress Note ---
Date of Service August 30, 2023 Assessment & Plan (1) CHF (congestive heart failure): Plan: Acute respiratory failure with hypoxia/HFrEF exacerbation/dilated cardiomyopathy/pleural effusions/biventricular ICD/PAF- The patient will be admitted to telemetry for serial cardiac enzymes, serial EKG's, cardiac rhythm monitoring and a 2-D echocardiogram with Dopplers. Biofire negative Initial troponin 29.3-> 30.2 --> trend/monitor on telemetry. Suspect demand ischemia in setting of EXACERBATION OF CHF -- ACUTE ON CHRONIC HEART FAILURE WITH REDUCED EF Patient with reported 10 pound weight gain and progressive shortness of breath over the past 10 days with increasing lower extremity edema. CXR w/ Cardiomegaly. --> Interval development of pulmonary edema with moderate left and small right pleural effusions with associated airspace opacities. Dry Wt appears ~95lb per CHF clinic notes (~43.1kg) - presented with weight up to 54.3kg ~20lb weight gain. (was 45kg off her spironolactone for a week at PCP visit) Lasix 40 mg IV x2 on admission, placed on 40mg IV BID, increased to 60mg IV BID PM 08/27 and added back spironolactone 12.5mg PO daily Lasix had been placed on hold initially this morning but increased edema (also low albumin), nephrology consulted --> Per nephrology, placing spironolactone, entresto on hold -- >Continue diuretics, lasix resumed 40mg IV BID, may have to accept elevation in Cr, making urine Continues on coreg 12.5mg BID, eliquis 2.5mg BID, amiodarone Monitor weights, I&Os CHF clinic provider to see today -- agrees to hold entresto, spironolactone, continue lasix for today and monitor renal function Continue PT/OT, CM following. [facility] when stable. Updated family at bedside Of note, repeat UA now w/ bacteria. Afebrile but reports wanting to get her mcmahon out--> monitor urine cx/abx if indicated or if febrile (2) Acute hypoxic respiratory failure: Plan: suspected 2nd to CHF exacerbation. No cough/sputum production or fevers reported WBC wnl/afebrile but will monitor given choking w/ pills this morning speech consulted 4/3 given choking w/ eating in AM Aspiration precautions and minced/moist diet in meantime, no further issues pulmonary toilet, diuretics as outlined -- encouraged incentive spirometer (none in room, RN to provide 08/29) monitor CXR, continued congestion supplemental O2 to maintain sats (3) Pleural effusion: Plan: as noted above, 2nd to chf exacerbation and diuretics as outlined (4) Primary idiopathic dilated cardiomyopathy: Plan: see above, cards consult appreciated. Appears has been taken OFF her aspirin in July -- consideration to resume however had progressive anemia and was held at last PCP visit however no gross/lalit bleeding reported continue statin, BB as above, entresto for CHF --> now placing entresto on hold Resumed baby aspirin given had been placed on hold in July, monitor for bleeding (5) Hypertension: Plan: as above, entresto placed on hold, continues on metoprolol spironolactone added back 08/28 however placed on hold given renal function and will monitor. nephrology on consult/following BP presently 125/68 (6) Elevated troponin: Plan: suspected demand ischemia from volume overload/CHF exacerbation as above Trop 29.3--> 30.2--> 49.2 and added repeat which was elevated to 110 last evening and added to AM labs which was elevated to 122. Paced on telemetry in the 60s, no CP reported. BP stable Repeat troponin trending down 92.6 and suspect demand ischemia from above and will monitor Aspirin resumed given had been held since August 01, again no CP reported, cards consult pending (7) CKD (chronic kidney disease) stage 4, GFR 15-29 ml/min: Plan: Renal insufficiency -- CKD 4 Suspect worsened renal function w/ worsened heart failure in setting of recently having her home diueretics placed on hold. Followed by Dr Domingo in the past, would NOT want HD if it came to that. Making urine, prior not well documented prior to mcmahon placement however weights are down. Strict I&O Diuretics as outlined Renal dose meds/avoid nephrotoxins as able Nephrology on consult as above, holding entrestro/spironolactone, bmp in AM (8) Renal insufficiency: Plan: as above, acute on chronic w recent hyperkalemia and worsened REJI w/ discontinuation of her home spironolactone and weight gain as above Anxiety/depression/mild cognitive impairment- mood stable, alert to person/place/year/month at present time. family at bedside Continue buspirone, memantine (9) Abnormal finding on urinalysis: Plan: as above, repeat UA since mcmahon now w/ bacteria. afebrile but will f/u cx, abx if indicated Plan Dispo: DVT proph: Britt Conditional code - ok w/ meds/IVF/abx, no CPR, intubation, feeding tube or HD PT/OT rec rehab, [facility] planned Updated family in room Continue diuretics, f/u urine cx Admission and Anticipated Discharge Date Admission Date: August 28, 2023 Supervising Physician Co-Signing Physician Notes The patient was not seen by me. The chart was reviewed. Case discussed with BERNABE Allred. Agree with assessment and plan Subjective Evaluated this afternoon, family at bedside. Doesn't remember seeing Renetta Sheridan, daughter there since 11am but discussed could have been in morning hours. She is wanting to have her mcmahon removed, discussed continuing while on diuretics. Continues to make urine but increased edema and lasix resumed this morning that had initially been placed on hold due to elevated kidney function but discussed may have to accept new baseline elevation. Continues to want to avoid HD. Breathing reported about the same as yesterday, remains on supplemental o2. plans for [facility] when able, hopefully next 48 hours, CM following. Patient is very weak compared to baseline. No cough/fever/chills or sputum production. Taking pills slowly/aspiration precautions and no further choking. Questions/concerns addressed at this time. Physical Exam Physical Exam: 82yo female sitting up in chair, appears about the same as yesterday, on supplemental O2, family at bedside Head atraumatic, normocephalic, mmm, trachea midline Resp: diminished in the bases with associated crackles, decreased/resolved wheezing, on 4L NC, no cough/tachypnea CV: paced on telemetry in the 60s, +systolic/diastolic murmurs, quiet heart sounds, slightly decreased b/l LE, 2-3+ bilateral pretibial GI: +BS, soft/NT : mcmahon draining yellow urine MSK moves all extremities, generalized weakness, no slurred speech/facial droop Psych: alert to person/place/year 2023, month august, cooperative with exam Results & Data Results & Data Vital Signs (Past 12 Hours) Vital Signs Temp Pulse Pulse Resp BP Pulse Ox Pulse Ox 08/30/23 07:39 36.4 C L 60 16 143/75 H 97 08/30/23 07:33 08/30/23 04:00 96 08/30/23 03:30 36.4 C L 61 19 152/69 H 94 08/29/23 23:05 36.5 C 60 17 151/71 H 96 08/29/23 22:41 60 O2 Del Method O2 Del Method O2 Flow Rate O2 Flow Rate 08/30/23 07:39 Nasal Cannula 2.0 08/30/23 07:33 Nasal Cannula 2 08/30/23 04:00 Nasal Cannula 2 08/30/23 03:30 Nasal Cannula 2 08/29/23 23:05 Nasal Cannula 2 08/29/23 22:41 Laboratory Results 08/30/23 08/30/23 Range/Units Unknown 05:56 WBC 6.93 (4.8-10.8) K/ul RBC 2.91 L (4.20-5.40) M/uL Hgb 8.6 L (12.0-16.0) g/dl Hct 26.9 L (37.0-47.0) % MCV 92.4 (80.0-100.0) fL MCH 29.6 (25.0-34.0) pg MCHC 32.0 (32.0-36.0) g/dL RDW Std Deviation 52.9 H (36.4-46.3) fL RDW Coeff of Jaz 16.1 H (11.5-14.5) % Plt Count 205 (130-400) K/uL MPV 10.3 (9.4-12.4) fL Immature Gran % (Auto) 0.1 % Neut % (Auto) 78.3 % Lymph % (Auto) 10.1 % [place] % (Auto) 10.0 % Eos % (Auto) 1.2 % Baso % (Auto) 0.3 % Neut # (Auto) 5.43 (1.40-6.50) K/uL Lymph # (Auto) 0.70 L (1.20-3.40) K/uL [place] # (Auto) 0.69 H (0.11-0.59) K/uL Eos # (Auto) 0.08 (0.00-0.50) K/uL Baso # (Auto) 0.02 (0.00-0.20) K/uL Immature Gran # (Auto) 0.01 (0.01-0.20) K/uL Sodium 132 L (136-145) mmol/L Potassium 4.2 (3.5-5.1) mmol/L Chloride 96 L (98-107) mmol/L Carbon Dioxide 29 (21-32) mmol/L Anion Gap 7 (3-11) BUN 49 H (6-23) mg/dl Creatinine 3.05 H (0.6-1.2) mg/dl Est Cr Clr Drug Dosing 8.5 ml/min Est GFR ( Amer) 15.6 ml/min Est GFR (Non-Af Amer) 13.4 ml/min BUN/Creatinine Ratio 16.1 (10-20) Glucose 95 (70-99(Fasting)) mg/dl Calcium 9.2 (8.6-10.3) mg/dl Phosphorus 4.1 (2.5-4.9) mg/dl Magnesium 2.1 (1.7-2.4) mg/dl Albumin 3.0 L (3.4-5.0) gm/dl Urine Color Yellow Urine Appearance Clear (Clear) Urine pH 5.0 (4.5-7.5) Ur Specific [place] 1.014 (1.000-1.030) Urine Protein 1+ H (Negative) Urine Glucose (UA) Negative (Negative) Urine Ketones Negative (Negative) Urine Blood 3+ H (Negative) Urine Nitrite Negative (Negative) Urine Bilirubin Negative (Negative) Urine Urobilinogen Negative (Negative) Ur Leukocyte Esterase 2+ H (Negative) Urine RBC 10-30 H (0-4) /hpf Urine WBC 5-10 H (0-5) /hpf Ur Epithelial Cells 0-5 (0-5) /lpf Urine Bacteria 1+ H (Negative) Diagnostic Findings Chest X-Ray 08/30/23 07:00 XR chest 2V PA/lateral HISTORY: 82 years-old Female f/u pulmonary vascular congestion acute shortness of breath COMPARISON: 08/29/2023 TECHNIQUE: AP view the chest FINDINGS: Cardiac silhouette is enlarged. Left subclavian pacer/AICD redemonstrated. Bony vascular congestion with stable interstitial coarsening. No pneumothorax. Layering pleural effusions with persistent bibasilar consolidation. Bones appear grossly intact. Right abdominal surgical clips. IMPRESSION: 1. Cardiomegaly with unchanged pulmonary edema. 2. Persistent layering pleural effusions with bibasilar consolidation. ACT 112: Negative or not required by law. The above report was generated using voice recognition software. It may contain grammatical, syntax or spelling errors. Electronically signed by: Sunil Tanner M.D. 08/30/2023 9:35 AM PG Care Time/CCT Total # of Minutes Spent Total Time Spent with Patient: Total time spent is greater than 50% in coordination of care (as documented) at patient's floor/unit and/or counseling patient: Coding Level of Care Code 66869 SUB INP/OBS CARE 350MIN Diagnoses CHF (congestive heart failure) I50.9 Heart failure chronicity: acute Heart failure type: unspecified Acute hypoxic respiratory failure J96.01 Pleural effusion J90 Primary idiopathic dilated cardiomyopathy I42.0 Primary hypertension I10 Hypertension type: primary hypertension Elevated troponin R77.8 CKD (chronic kidney disease) stage 4, GFR 15-29 ml/min N18.4 Renal insufficiency N28.9 Abnormal finding on urinalysis R82.90 (1) CHF (congestive heart failure) Heart failure chronicity: acute Heart failure type: unspecified Qualified Code(s): I50.9 - Heart failure, unspecified (5) Hypertension Hypertension type: primary hypertension Qualified Code(s): I10 - Essential (primary) hypertension
--- NOTE | 2023-08-30 09:36 | XRay Report ---
XR chest 2V PA/lateral HISTORY: 82 years-old Female f/u pulmonary vascular congestion acute shortness of breath COMPARISON: 08/29/2023 TECHNIQUE: AP view the chest FINDINGS: Cardiac silhouette is enlarged. Left subclavian pacer/AICD redemonstrated. Bony vascular congestion w ith stable interstitial coarsening. No pneumothorax. Layering pleural effusions with persistent bibas ilar consolidation. Bones appear grossly intact. Right abdominal surgical clips. IMPRESSION: 1. Cardiomegaly with unchanged pulmonary edema. 2. Persistent layering pleural effusions with bibasilar consolidation. ACT 112: Negative or not required by law. The above report was generated using voice recognition software. It may contain grammatical, syntax o r spelling errors. Electronically signed by: Sunil Tanner M.D. 08/30/2023 9:35 AM
[2023-08-30 10:45] LABS: Appearance Urine Clear (Clear); Bilirubin Urine Negative (Negative); Blood Urine 3+ (Negative); Color Urine Yellow; Glucose Urine UA Negative (Negative); Ketones Urine Negative (Negative); Leukocyte Esterase Urine 2+ (Negative); Nitrite Urine Negative (Negative); Protein Urine 1+ (Negative); Specific Gravity Urine 1.014 (1.000-1.030); Urobilinogen Urine Negative (Negative)
--- NOTE | 2023-08-30 11:33 | Nephrology Consultation ---
Date of Consultation August 30, 2023 Assessment & Plan (1) REJI (acute kidney injury): * REJI likely due to worsening CMP in the setting of ARB therapy * Patient is nonoliguric. Urine sediment is negative for ATN casts * Recommend hold Valsartan, Spironolactone and use Hydralazine for afterload reduction * Continue IV Furosemide therapy * Monitor I&O's, daily weight, PRP * Patient is familiar w/ IHD (son was on dialysis). She wants to avoid HD and desires conservative medical management. I believe that her frailty and severe CMP would make dialysis very difficult. She will likely have a better QOL with medical management (2) Chronic kidney disease, stage III (moderate): * Baseline Cr 1.3-1.6 w/ EGFR 30 cc/min. 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 Urinalysis was acellular. UPCR 1.0. Renal impairment was attributed to hypertensive nephrosclerosis and CMP (3) CHF (congestive heart failure): * As above for REJI * Await further Cardiology input History of Present Illness Reason for Consultation: REJI/CKD Attending Physician: Zay Ken MD History of Present Illness Mrs. Quinteros is an 82 year old white female who is seen at the request of [facility] Hospitalist Service for evaluation of REJI/CKD. Information for the HPI is obtained from direct patient interview and review of the EMR. HPI is summarized as follows: Mrs. Quinteros has CKD stage G3b/A3 (moderate impairment). Baseline Cr has been 1.3-1.6 w/ EGFR 30 cc/min. Patient was last seen by Dr. Domingo 10/13. Her kidney function was stable and it was felt that she could return on a PRN basis. 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 Urinalysis was acellular. UPCR 1.0. Renal impairment was attributed to hypertensive nephrosclerosis and CMP. Mrs. Quinteros's medical history is also significant for HTN, NAOMY, atrial fibrillation, L temporal CVA 01/16 and chronic anemia. Outpatient medical regimen has included Entresto, Furosemide and Spironolactone. Recently creatinine was noted to have risen to 2.0. Spironolactone was held. Patient presented to [facility] EMD 08/29/23 w/ concerns of dyspnea and 10 lb weight gain. CXR revealed moderate pulmonary edema. IV diuretic therapy has been initiated. Patient is nonoliguric. Creatinine has risen to 3.0. 09/18 echocardiogram no shows LVEF 20-25% with multiple WMA, moderate MR, moderate peircardial effusion and moderate L pleural effusion. Allergies Allergy/AdvReac Type Severity Reaction Status Date / Time cephalexin Allergy Severe ANAPHYLAXIS Verified 08/28/23 00:16 Penicillins Allergy Severe RASH AND Verified 08/28/23 00:16 SWELLING Cephalosporins Allergy Intermediate RASH AND Verified 08/28/23 00:16 SWELLING ciprofloxacin Allergy Unknown CAN'T Verified 08/28/23 00:16 REMEMBER scallops Allergy Unknown CAN'T Verified 08/28/23 00:16 REMEMBER tramadol Allergy Unknown CAN'T Verified 08/28/23 00:16 REMEMBER azithromycin AdvReac Intermediate UPSET Verified 08/28/23 00:16 STOMACH erythromycin base AdvReac Intermediate UPSET Verified 08/28/23 00:16 STOMACH amlodipine AdvReac Unknown Unknown Verified 08/28/23 00:16 Home Medications Medication Instructions Recorded Confirmed Type [id number]-bdoq-xyba 8 mg-folic 400 1 tab PO HS 11/04/18 08/28/23 History mcg-K 50 mcg-lutein 300 mcg tablet (Centrum Silver Women) methenamine-sodium salicylate 162 1 tab PO BID 11/08/20 08/28/23 History mg-162.5 mg tablet (AZO Urinary Tract Defense) peg 400-propylene glycol 0.4 %-0.3 1 drp OPB DAILY PRN Dry Eyes 06/02/22 08/28/23 History % eye drops (Systane (propylene glycol)) carvedilol 25 mg tablet 12.5 mg PO BID 07/20/22 08/28/23 History sacubitril 49 mg-valsartan 51 mg 1 tab PO BID #180 tabs 01/18/23 08/28/23 Rx tablet memantine 5 mg tablet 5 mg PO DAILY #90 tabs 04/09/23 08/28/23 Rx apixaban 2.5 mg tablet (Eliquis) 2.5 mg PO BID #180 tabs 06/04/23 08/28/23 Rx amiodarone 200 mg tablet 200 mg PO DAILY #90 tabs 06/19/23 08/28/23 Rx buspirone 5 mg tablet 5 mg PO DAILY anxiety #90 tabs 07/27/23 08/28/23 Rx ferrous sulfate 325 mg (65 mg 325 mg PO DAILY 08/09/23 08/28/23 History iron) tablet (FeroSul) atorvastatin 40 mg tablet 40 mg PO DAILY 08/28/23 08/28/23 History furosemide 40 mg tablet 40 mg PO DAILY 08/28/23 08/28/23 History Patient History Medical History Chronic anemia GI bleed Hx History of CVA (cerebrovascular accident) 12/2021 Left temporal infarct- mild memory issues CKD (chronic kidney disease) stage 4, GFR 15-29 ml/min LBBB (left bundle branch block) Nonischemic cardiomyopathy Ocular migraine Paroxysmal atrial fibrillation Depression History of shingles Biventricular ICD (implantable cardioverter-defibrillator) in place [facility], follows with Dr. Chávez Chronic diarrhea Chronic systolic congestive heart failure Dyslipidemia Gastroesophageal reflux disease Hypertension Lumbar radiculopathy Obstructive sleep apnea No device Osteopenia Surgical History Hx of cardiac catheterization 10+ years ago ago- no stents S/P cardiac pacemaker procedure ICD Hx of basal cell carcinoma excision Face H/O eye surgery R/t stabismus History of cholecystectomy Hx of cataract surgery R/L Family History Father Coronary heart disease ASCVD (arteriosclerotic cardiovascular disease) Brother Myocardial infarction ASCVD (arteriosclerotic cardiovascular disease) Son Lung cancer ASCVD (arteriosclerotic cardiovascular disease) Aunt Breast cancer Grandmother Cerebral hemorrhage Mother Parkinsons disease Other Cerebral arterial aneurysm Cerebromeningeal hemorrhage Denies family history of Ovarian cancer Prostate cancer Colorectal cancer Social History Smoking Status: Never smoker Second Hand Exposure: No; Do You Dip or Chew Tobacco: No; Hx Alcohol Use: No Hx Substance Use: No Preferred Language: Bulgarian Communication Ability: Effective Visual Impairment: Limited Hearing Ability: Normal Criminal Defense Attorney Required: No Beliefs That Will Affect Care: None marital status: Current Living Situation: Spouse current occupational status: retired How many Children do You have: 4 Feels Safe at Home: Yes Childhood Exposure to Second-Hand Smoke: Yes caffeine: Yes Dental Care, Regularly: Yes Physical Activity Frequency: Does not Exercise Seatbelt Use: always Sunscreen Use: No (does not sit in the sun) Assistive Devices: Cane and CPAP Review of Systems Constitutional: no fever Eyes: no problem reported Ear, Nose, Mouth, Throat: no problem reported Respiratory: + dyspnea; no cough Cardiovascular: no chest pain Gastrointestinal: no abdominal pain, no nausea, no vomiting and no diarrhea/loose stools Genitourinary: no dysuria, no urinary frequency and no hematuria Integumentary: no rash Physical Exam Constitutional: + frail appearing; not in distress Eyes: PERRL, conjunctivae normal, anicteric sclerae ENMT: external ear and nose normal, oropharynx normal Neck: trachea midline, no thyromegaly Respiratory: Auscultation: + diminished lung sounds (L base) Cardiovascular: Rate/Rhythm: regular rate and regular rhythm Gastrointestinal (Abdomen): normal bowel sounds, soft, nontender, no hepatosplenomegaly Skin: no rashes, warm and dry Neurologic: Speech / Cognition: normal speech and normal cognition Results & Data Vital Signs (Past 12 Hours) Vital Signs Temp Pulse Pulse Resp BP Pulse Ox Pulse Ox 08/30/23 10:19 08/30/23 09:00 61 08/30/23 07:39 36.4 C L 60 16 143/75 H 97 08/30/23 07:33 08/30/23 04:00 96 08/30/23 03:30 36.4 C L 61 19 152/69 H 94 O2 Del Method O2 Del Method O2 Flow Rate O2 Flow Rate O2 Flow Rate 08/30/23 10:19 2.0 08/30/23 09:00 08/30/23 07:39 Nasal Cannula 2.0 08/30/23 07:33 Nasal Cannula 2 08/30/23 04:00 Nasal Cannula 2 08/30/23 03:30 Nasal Cannula 2 Laboratory Results Laboratory Results WBC 6.93 K/ul (4.8-10.8) 08/30/23 05:56 RBC 2.91 M/uL (4.20-5.40) L 08/30/23 05:56 Hgb 8.6 g/dl (12.0-16.0) L 08/30/23 05:56 Hct 26.9 % (37.0-47.0) L 08/30/23 05:56 MCV 92.4 fL (80.0-100.0) 08/30/23 05:56 MCH 29.6 pg (25.0-34.0) 08/30/23 05:56 MCHC 32.0 g/dL (32.0-36.0) 08/30/23 05:56 RDW Std Deviation 52.9 fL (36.4-46.3) H 08/30/23 05:56 RDW Coeff of Jaz 16.1 % (11.5-14.5) H 08/30/23 05:56 Plt Count 205 K/uL (130-400) 08/30/23 05:56 MPV 10.3 fL (9.4-12.4) 08/30/23 05:56 Immature Gran % (Auto) 0.1 % 08/30/23 05:56 Neut % (Auto) 78.3 % 08/30/23 05:56 Lymph % (Auto) 10.1 % 08/30/23 05:56 [place] % (Auto) 10.0 % 08/30/23 05:56 Eos % (Auto) 1.2 % 08/30/23 05:56 Baso % (Auto) 0.3 % 08/30/23 05:56 Neut # (Auto) 5.43 K/uL (1.40-6.50) 08/30/23 05:56 Lymph # (Auto) 0.70 K/uL (1.20-3.40) L 08/30/23 05:56 [place] # (Auto) 0.69 K/uL (0.11-0.59) H 08/30/23 05:56 Eos # (Auto) 0.08 K/uL (0.00-0.50) 08/30/23 05:56 Baso # (Auto) 0.02 K/uL (0.00-0.20) 08/30/23 05:56 Immature Gran # (Auto) 0.01 K/uL (0.01-0.20) 08/30/23 05:56 Absolute Nucleated RBC 0.02 K/uL (0.00-0.12) 08/28/23 06:30 Nucleated RBC % (auto) 0.3 % 08/28/23 06:30 VBG pH 7.42 (7.36-7.41) H 08/29/23 05:46 VBG pCO2 43 mmHg (38-50) 08/29/23 05:46 VBG pO2 74 mmHg 08/29/23 05:46 VBG HCO3 28 mmol/L 08/29/23 05:46 VBG O2 Saturation 96.8 % 08/29/23 05:46 VBG Base Excess 2.9 mEq/L 08/29/23 05:46 Sodium 132 mmol/L (136-145) L 08/30/23 05:56 Potassium 4.2 mmol/L (3.5-5.1) 08/30/23 05:56 Chloride 96 mmol/L (98-107) L 08/30/23 05:56 Carbon Dioxide 29 mmol/L (21-32) 08/30/23 05:56 Anion Gap 7 (3-11) 08/30/23 05:56 BUN 49 mg/dl (6-23) H 08/30/23 05:56 Creatinine 3.05 mg/dl (0.6-1.2) H 08/30/23 05:56 Est Cr Clr Drug Dosing 8.5 ml/min 08/30/23 05:56 Est GFR ( Amer) 15.6 ml/min 08/30/23 05:56 Est GFR (Non-Af Amer) 13.4 ml/min 08/30/23 05:56 BUN/Creatinine Ratio 16.1 (10-20) 08/30/23 05:56 Glucose 95 mg/dl (70-99(Fasting)) 08/30/23 05:56 Calcium 9.2 mg/dl (8.6-10.3) 08/30/23 05:56 Phosphorus 4.1 mg/dl (2.5-4.9) 08/30/23 05:56 Magnesium 2.1 mg/dl (1.7-2.4) 08/30/23 05:56 Total Bilirubin 0.6 mg/dl (0.2-1.0) 08/27/23 23:45 AST 24 U/L (13-39) 08/27/23 23:45 ALT 26 U/L (7-52) 08/27/23 23:45 Alkaline Phosphatase 86 U/L (34-104) 08/27/23 23:45 Total Creatine Kinase 32 U/L (26-192) 08/29/23 05:46 Troponin I High Sens 92.6 pg/ml (0-14) H* D 08/29/23 12:16 B-Natriuretic Peptide > 4700 pg/ml (0-100) H 08/28/23 12:55 Total Protein 6.6 gm/dl (6.0-8.3) 08/27/23 23:45 Albumin 3.0 gm/dl (3.4-5.0) L 08/30/23 05:56 Globulin 3.0 gm/dl (2.5-4.0) 08/27/23 23:45 Albumin/Globulin Ratio 1.2 (0.9-2) 08/27/23 23:45 Lipase 42 U/L (11-82) 08/27/23 23:45 TSH 2.179 uIu/ml (0.300-4.500) 08/29/23 05:46 Urine Color Yellow 08/30/23 Unknown Urine Appearance Clear (Clear) 08/30/23 Unknown Urine pH 5.0 (4.5-7.5) 08/30/23 Unknown Ur Specific Justice 1.014 (1.000-1.030) 08/30/23 Unknown Urine Protein 1+ (Negative) H 08/30/23 Unknown Urine Glucose (UA) Negative (Negative) 08/30/23 Unknown Urine Ketones Negative (Negative) 08/30/23 Unknown Urine Blood 3+ (Negative) H 08/30/23 Unknown Urine Nitrite Negative (Negative) 08/30/23 Unknown Urine Bilirubin Negative (Negative) 08/30/23 Unknown Urine Urobilinogen Negative (Negative) 08/30/23 Unknown Ur Leukocyte Esterase 2+ (Negative) H 08/30/23 Unknown Urine WBC (Auto) 5-10 /hpf (0-5) H 08/28/23 Unknown Urine RBC (Auto) >30 /hpf (0-4) H 08/28/23 Unknown U Hyaline Cast (Auto) 5-10 /lpf (0-5) H 08/28/23 Unknown U Epithel Cells (Auto) 20-30 /lpf (0-5) H 08/28/23 Unknown Urine Bacteria (Auto) Negative (Negative) 08/28/23 Unknown Adenovirus (PCR) Not Detected (NotDetected) 08/28/23 Unknown B. pertussis DNA (PCR) Not Detected (NotDetected) 08/28/23 Unknown B.parapertussis DNA PCR Not Detected (NotDetected) 08/28/23 Unknown Lyme Disease Screen Negative (Negative) 08/28/23 11:04 C. pneumoniae DNA (PCR) Not Detected (NotDetected) 08/28/23 Unknown Coronavirus OC43 (PCR) Not Detected (NotDetected) 08/28/23 Unknown Coronavirus HKU1 (PCR) Not Detected (NotDetected) 08/28/23 Unknown Coronavirus 229E (PCR) Not Detected (NotDetected) 08/28/23 Unknown SARS-CoV-2 (PCR) Not Detected (NotDetected) 08/28/23 Unknown Coronavirus NL63 (PCR) Not Detected (NotDetected) 08/28/23 Unknown Human Metapneumovir PCR Not Detected (NotDetected) 08/28/23 Unknown Influenza Type A (PCR) Not Detected (NotDetected) 08/28/23 Unknown Influenza Type B (PCR) Not Detected (NotDetected) 08/28/23 Unknown M. pneumoniae (PCR) Not Detected (NotDetected) 08/28/23 Unknown Parainfluenza 1 (PCR) Not Detected (NotDetected) 08/28/23 Unknown Parainfluenza 2 (PCR) Not Detected (NotDetected) 08/28/23 Unknown Parainfluenza 3 (PCR) Not Detected (NotDetected) 08/28/23 Unknown Parainfluenza 4 (PCR) Not Detected (NotDetected) 08/28/23 Unknown RSV (PCR) Not Detected (NotDetected) 08/28/23 Unknown Entero/Rhino (PCR) Not Detected (NotDetected) 08/28/23 Unknown Impressions Chest X-Ray 08/30/23 07:00 XR chest 2V PA/lateral HISTORY: 82 years-old Female f/u pulmonary vascular congestion acute shortness of breath COMPARISON: 08/29/2023 TECHNIQUE: AP view the chest FINDINGS: Cardiac silhouette is enlarged. Left subclavian pacer/AICD redemonstrated. Bony vascular congestion with stable interstitial coarsening. No pneumothorax. Layering pleural effusions with persistent bibasilar consolidation. Bones appear grossly intact. Right abdominal surgical clips. IMPRESSION: 1. Cardiomegaly with unchanged pulmonary edema. 2. Persistent layering pleural effusions with bibasilar consolidation. ACT 112: Negative or not required by law. The above report was generated using voice recognition software. It may contain grammatical, syntax or spelling errors. Electronically signed by: Sunil Tanner M.D. 08/30/2023 9:35 AM PG Care Time/CCT Total # of Minutes Spent Total Time Spent with Patient: Total time spent is greater than 50% in coordination of care (as documented) at patient's floor/unit and/or counseling patient: Coding Level of Care Code 26758 IN/OBS CONSULT LVL 5,80M Diagnoses REJI (acute kidney injury) N17.9 Chronic kidney disease, stage III (moderate) N18.3 CHF (congestive heart failure) I50.9 Heart failure chronicity: acute Heart failure type: unspecified (3) CHF (congestive heart failure) Heart failure chronicity: acute Heart failure type: unspecified Qualified Code(s): I50.9 - Heart failure, unspecified
[2023-08-30 11:54] LABS: Epithelial Cell Urine 0-5 /lpf (0-5)
[2023-08-30 11:55] LABS: Bacteria Urine 1+ (Negative)
--- NOTE | 2023-08-30 12:51 | Cardiology Progress Note ---
Date of Service August 30, 2023 Assessment & Plan (1) CHF (congestive heart failure): (2) Primary idiopathic dilated cardiomyopathy: (3) Unspecified atrial fibrillation: (4) Current use of intermediate anticoagulation: (5) Biventricular ICD (implantable cardioverter-defibrillator) in place: Plan 1. HFrEF: Patient presented with volume overload. Etiology likely LV dysfunction and recent change in her outpatient diuretic regimen. She seems to be improving with diuretics. She continues to have lower extremity edema. May need to accept some degree of edema in order to maintain her renal function. Weights are above baseline per home monitoring. Bed weights here seem unreliable (+/- 10 lb) - recommend standing weights only moving forward. Attempted to resume Spironolactone yesterday however renal function further declined. DC Spironolactone. Can continue IV Lasix 40 mg IV BID today. Would hold on tomorrow's dose pending labs. Would also hold Entresto due to REJI. Daily STANDING weights only. Strict I&Os. Low sodium diet. She is known to the heart failure program. 2. Cardiomyopathy: She has severe left ventricular dysfunction from a nonischemic cardiomyopathy. I do not think there is much more we can do in this regard, she has not been able to tolerate higher doses of medications and she remains on half goal doses of carvedilol and Entresto. Spironolactone discontinued due to recurrent REJI and hyperkalemia. SGLT2i likely not beneficial with GFR < 20. Would hold Entresto with current REJI.She has a biventricular ICD. 3. Elevated troponin: She has mild but stable troponin elevation, I would not pursue evaluation of this. 4. Atrial fibrillation: She has not had much difficulty with atrial fibrillation lately and did not present in atrial fibrillation. She has remained on amiodarone which appears to be effective. I do not think atrial fibrillation is related to her CHF exacerbation. 5. Anticoagulation: She is on reduced dose Eliquis which I would continue if possible. Since she has not had recent atrial fibrillation it could be held briefly if needed. 6. Biventricular ICD: This was evaluated July 30, 2023 and was working well, follows with Dr. Stearns. Disposition: Will continue to follow during hospitalization. Recommend close ou tpatient follow up with the heart failure program. Admission and Anticipated Discharge Date Admission Date: August 28, 2023 Subjective Patient reports she's feeling well today. She is sitting in the bedside chair. Her breathing is improving. She continues to have lower extremity edema. Fluid balance is neutral. Weights are quite variable and likely unreliable. She denies chest pain, cough, palpitations. Physical Exam Physical Exam: Constitutional: Alert, cooperative and in no distress. HEENT: Unremarkable Neck: No jugular venous distention, carotid pulses are normal and equal bilaterally without bruits. Pulmonary: Clear to auscultation bilaterally. Cardiac: Regular rhythm with no murmur, gallop or rub. Abdomen: Soft, nontender with normal bowel sounds. Extremities: +2 bilateral pretibial edema. Distal pulses intact. Neurologic: No focal findings. She ambulates with a cane. Skin: The device site is well-healed without erythema, swelling or tenderness. No rash or petechiae, she does have small ecchymosis on her arms and hands. Results & Data Vital Signs (Past 12 Hours) Vital Signs Temp Pulse Pulse Resp BP Pulse Ox Pulse Ox 08/30/23 12:12 97.3 F L 60 17 125/68 99 08/30/23 10:19 08/30/23 09:00 61 08/30/23 07:39 97.5 F L 60 16 143/75 H 97 08/30/23 07:33 08/30/23 04:00 96 08/30/23 03:30 97.5 F L 61 19 152/69 H 94 O2 Del Method O2 Del Method O2 Flow Rate O2 Flow Rate O2 Flow Rate 08/30/23 12:12 Nasal Cannula 4.0 08/30/23 10:19 2.0 08/30/23 09:00 08/30/23 07:39 Nasal Cannula 2.0 08/30/23 07:33 Nasal Cannula 2 08/30/23 04:00 Nasal Cannula 2 08/30/23 03:30 Nasal Cannula 2 PG Care Time/CCT Total # of Minutes Spent Total Time Spent with Patient: Total time spent is greater than 50% in coordination of care (as documented) at patient's floor/unit and/or counseling patient: Coding Level of Care Code 17468 SUB INP/OBS CARE 3/50MIN Diagnoses CHF (congestive heart failure) I50.9 Heart failure chronicity: acute Heart failure type: unspecified Primary idiopathic dilated cardiomyopathy I42.0 Chronic atrial fibrillation I48.20 Atrial fibrillation type: unspecified chronic Current use of intermediate anticoagulation Z79.01 Biventricular ICD (implantable cardioverter-defibrillator) in place Z95.810 (1) CHF (congestive heart failure) Heart failure chronicity: acute Heart failure type: unspecified Qualified Code(s): I50.9 - Heart failure, unspecified (3) Unspecified atrial fibrillation Atrial fibrillation type: unspecified chronic Qualified Code(s): I48.20 - Chronic atrial fibrillation, unspecified
[2023-08-30] MEDS: FUROSEMIDE 40 MG/4 ML VIAL IV SCH (16:35)
[2023-08-31 05:39] LABS: Hematocrit (blood only) 26.3 % (37.0-47.0); Hemoglobin 8.7 g/dl (12.0-16.0); Mean Corpuscular Hemoglobin 30.1 pg (25.0-34.0); Mean Corpuscular Hgb Conc 33.1 g/dL (32.0-36.0); Mean Platelet Volume 10.5 fL (9.4-12.4); Platelet Count 208 K/uL (130-400); RDW Coefficient of Variation 15.9 % (11.5-14.5); Red Blood Count 2.89 M/uL (4.20-5.40); White Blood Count 7.94 K/ul (4.8-10.8)
[2023-08-31 06:06] LABS: BUN Creatinine Ratio 17.2 (10-20); Calcium 9.1 mg/dl (8.6-10.3); Creatinine Clr Calc Pharmacy 8.6 ml/min; Est GFR (African American) 15.7 ml/min; Est GFR (Non-African American) 13.6 ml/min; Magnesium 2.2 mg/dl (1.7-2.4)
--- NOTE | 2023-08-31 07:48 | Hospitalist Progress Note ---
Date of Service August 31, 2023 Assessment & Plan (1) CHF (congestive heart failure): Plan: Acute respiratory failure with hypoxia/HFrEF exacerbation/dilated cardiomyopathy/pleural effusions/biventricular ICD/PAF- The patient will be admitted to telemetry for serial cardiac enzymes, serial EKG's, cardiac rhythm monitoring and a 2-D echocardiogram with Dopplers. Biofire negative Initial troponin 29.3-> 30.2 --> trend/monitor on telemetry. Suspect demand ischemia in setting of EXACERBATION OF CHF -- ACUTE ON CHRONIC HEART FAILURE WITH REDUCED EF Patient with reported 10 pound weight gain and progressive shortness of breath over the past 10 days with increasing lower extremity edema. CXR w/ Cardiomegaly. --> Interval development of pulmonary edema with moderate left and small right pleural effusions with associated airspace opacities. Dry Wt appears ~95lb per CHF clinic notes (~43.1kg) - presented with weight up to 54.3kg ~20lb weight gain. (was 45kg off her spironolactone for a week at PCP visit) Lasix 40 mg IV x2 on admission, placed on 40mg IV BID, increased to 60mg IV BID PM 08/27 and added back spironolactone 12.5mg PO daily Lasix had been placed on hold initially this morning but increased edema (also low albumin), nephrology consulted --> Placing spironolactone, entresto on hold -- >To continue diuretics, aim for net negative balance Continues on coreg 12.5mg BID, eliquis 2.5mg BID, amiodarone Lasix was resumed 40mg IV BID 08/29, may have to accept new elevation in Cr. Is making urine, mcmahon in place 08/30 Cr ~3.02, essentially unchanged with lasix being resumed. Entresto/spironolactone remain on hold Nephrology added hydralazine to help with afterload reduction Making urine. Weights appear slightly up but breathing improved. Discussed w/ Renetta Sheridan from CHF clinic and as aiming for net negative ~1L, increasing lasix to 60mg IV BID and monitor weights/output, labs in AM Supplemental O2 to maintain sats PT/OT consulted and recs for [facility]. CM applying for auth if stable to dc over the weekend Monitor urine cx in f/u but has remained afebrile/no leukocytosis -- remains pending at present time (2) Acute hypoxic respiratory failure: Plan: suspected 2nd to CHF exacerbation. No cough/sputum production or fevers reported WBC wnl/afebrile but will monitor given choking w/ pills on admission --> speech saw, placed on minced/moist diet and has been tolerating Aspiration precautions F/u CXR w/o focal consolidation Diuretics as outlined, pulmonary toilet Supplemental O2 to maintain sats (3) Pleural effusion: Plan: as noted above, 2nd to chf exacerbation and diuretics as outlined (4) Primary idiopathic dilated cardiomyopathy: Plan: see above, cards consult appreciated. Appears has been taken OFF her aspirin in July -- consideration to resume however had progressive anemia and was held at last PCP visit however no gross/lalit bleeding reported continue statin, BB as above, entresto for CHF --> entresto on hold as well as her spirnolactone Resumed baby aspirin given had been placed on hold in July, monitor for bleeding No CP reported (5) Hypertension: Plan: as above, entresto placed on hold, continues on metoprolol Spironolactone placed back on hold given renal function, nephrology consulted Hydralazine added for afterload reduction, BP 148/73 this afternoon and will monitor (6) Elevated troponin: Plan: suspected demand ischemia from volume overload/CHF exacerbation as above Trop 29.3--> 30.2--> 49.2 and added repeat which was elevated to 110 last evening and added to AM labs which was elevated to 122. Paced on telemetry in the 60s, no CP reported. BP stable Repeat troponin trending down 92.6 and suspect demand ischemia from above and will monitor Aspirin resumed given had been held since August 01, again no CP reported, cards consult as above (7) CKD (chronic kidney disease) stage 4, GFR 15-29 ml/min: Plan: Renal insufficiency -- CKD 4 Suspect worsened renal function w/ worsened heart failure in setting of recently having her home diuretics placed on hold. Followed by Dr Domingo in the past, would NOT want HD if it came to that. Making urine, prior not well documented prior to mcmahon placement however weights are down. Strict I&O Diuretics as outlined Renal dose meds/avoid nephrotoxins as able -- spironolactone/entresto discontinued at present time Nephrology on consult as above Hydralazine added for afterload reduction as above, renal function remaining around baseline. F/u urine cx/monitor for any fevers/leukocytosis BMP in AM (8) Renal insufficiency: Plan: as above, acute on chronic w recent hyperkalemia and worsened REJI w/ discontinuation of her home spironolactone and weight gain as above and in setting of CHF/valvular heart disease (9) Abnormal finding on urinalysis: Plan: as above, repeat UA since mcmahon now w/ bacteria. afebrile but will f/u cx, abx if indicated Anxiety/depression/mild cognitive impairment- mood stable, alert to person/place/year/month at present time. family at bedside Continue buspirone, memantine Plan Dispo: DVT proph: Eliquis continued, renally dosed Conditional code - ok w/ meds/IVF/abx, no CPR, intubation, feeding tube or HD Lasix increased to 60mg IV BID, hydralazine added for afterload reduction. F/u urine cx. Labs in AM PT/OT rec rehab, [facility] planned. CM applying for auth Admission and Anticipated Discharge Date Admission Date: August 28, 2023 Supervising Physician Co-Signing Physician Notes The patient was not seen by me. The chart was reviewed. Case discussed with BERNABE Allred. Agree with assessment and plan Subjective Evaluated this morning, sitting up in the chair eating lunch, family at bedside. No choking issues, tolerating diet, eating mashed potatoes. Mcmahon in place, yellow urine draining. Urine cx still pending, no fever/leukocytosis and holding off abx at this time. Does have some lower abdominal fullness/tenderness but reports thinks irritation from cmmahon catheter. Remains in place for now w/ diuresis. Will see about giving a dose of albumin to assist w/ third spacing w/ nephrology. Net negative 440cc, planning to increase lasix for this evening and monitoring. Breathing reported improved, stable on 2L. Titrating as able. Planning for [facility] [place], possibly over the weekend if able to adjust meds for negative fluid balance. Has some right shoulder discomfort, no trauma. Will trial topical voltaren and monitor. Pulses palpable, paediatrician strength intact. Discussed HD, still wanting to avoid. Discussed likely no improvement in quality of life with such and can continue to entertain. did report family member did in past/wanting to avoid. Questions/concerns addressed at this time. Physical Exam Physical Exam: 82yo female sitting up in chair, appears improved compared to yesterday, family in room, eating lunch Head atraumatic, normocephalic, mmm, trachea midline Resp: diminished in the bases with associated crackles, decreased/resolved wheezing, on 2L NC, no cough/tachypnea CV: paced on telemetry in the 60s, +systolic/diastolic murmurs, quiet heart sounds, slightly decreased b/l LE, 1-2+ bilateral edema to knees (slightly improved) GI: +BS, slight distension, suprapubic fullness/tenderness : mcmahon draining yellow urine MSK moves all extremities, generalized weakness, no slurred speech/facial droop Psych: alert to person/place/year 2023, cooperative with exam Results & Data Results & Data Vital Signs (Past 12 Hours) Vital Signs Temp Pulse Pulse Pulse Resp BP Pulse Ox 08/31/23 07:42 08/31/23 04:00 08/31/23 03:15 36.4 C L 59 L 17 152/68 H 99 08/31/23 01:26 60 08/30/23 23:20 36.4 C L 60 17 153/72 H 98 08/30/23 22:00 08/30/23 20:51 58 L Pulse Ox O2 Del Method O2 Del Method O2 Flow Rate O2 Flow Rate 08/31/23 07:42 Nasal Cannula 2 08/31/23 04:00 96 Nasal Cannula 2 08/31/23 03:15 Nasal Cannula 2 08/31/23 01:26 08/30/23 23:20 Nasal Cannula 2 08/30/23 22:00 Nasal Cannula 2 08/30/23 20:51 Laboratory Results 08/31/23 08/30/23 Range/Units 04:44 Unknown WBC 7.94 (4.8-10.8) K/ul RBC 2.89 L (4.20-5.40) M/uL Hgb 8.7 L (12.0-16.0) g/dl Hct 26.3 L (37.0-47.0) % MCV 91.0 (80.0-100.0) fL MCH 30.1 (25.0-34.0) pg MCHC 33.1 (32.0-36.0) g/dL RDW Std Deviation 51.0 H (36.4-46.3) fL RDW Coeff of Jaz 15.9 H (11.5-14.5) % Plt Count 208 (130-400) K/uL MPV 10.5 (9.4-12.4) fL Sodium 130 L (136-145) mmol/L Potassium 4.0 (3.5-5.1) mmol/L Chloride 94 L (98-107) mmol/L Carbon Dioxide 29 (21-32) mmol/L Anion Gap 7 (3-11) BUN 52 H (6-23) mg/dl Creatinine 3.02 H (0.6-1.2) mg/dl Est Cr Clr Drug Dosing 8.6 ml/min Est GFR ( Amer) 15.7 ml/min Est GFR (Non-Af Amer) 13.6 ml/min BUN/Creatinine Ratio 17.2 (10-20) Glucose 92 (70-99(Fasting)) mg/dl Calcium 9.1 (8.6-10.3) mg/dl Magnesium 2.2 (1.7-2.4) mg/dl Urine Color Yellow Urine Appearance Clear (Clear) Urine pH 5.0 (4.5-7.5) Ur Specific [place] 1.014 (1.000-1.030) Urine Protein 1+ H (Negative) Urine Glucose (UA) Negative (Negative) Urine Ketones Negative (Negative) Urine Blood 3+ H (Negative) Urine Nitrite Negative (Negative) Urine Bilirubin Negative (Negative) Urine Urobilinogen Negative (Negative) Ur Leukocyte Esterase 2+ H (Negative) Urine RBC 10-30 H (0-4) /hpf Urine WBC 5-10 H (0-5) /hpf Ur Epithelial Cells 0-5 (0-5) /lpf Urine Bacteria 1+ H (Negative) Diagnostic Findings Chest X-Ray 08/30/23 07:00 XR chest 2V PA/lateral HISTORY: 82 years-old Female f/u pulmonary vascular congestion acute shortness of breath COMPARISON: 08/29/2023 TECHNIQUE: AP view the chest FINDINGS: Cardiac silhouette is enlarged. Left subclavian pacer/AICD redemonstrated. Bony vascular congestion with stable interstitial coarsening. No pneumothorax. Layering pleural effusions with persistent bibasilar consolidation. Bones appear grossly intact. Right abdominal surgical clips. IMPRESSION: 1. Cardiomegaly with unchanged pulmonary edema. 2. Persistent layering pleural effusions with bibasilar consolidation. ACT 112: Negative or not required by law. The above report was generated using voice recognition software. It may contain grammatical, syntax or spelling errors. Electronically signed by: Sunil Tanner M.D. 08/30/2023 9:35 AM PG Care Time/CCT Total # of Minutes Spent Total Time Spent with Patient: Total time spent is greater than 50% in coordination of care (as documented) at patient's floor/unit and/or counseling patient: Coding Level of Care Code 21597 SUB INP/OBS CARE 50MIN Diagnoses CHF (congestive heart failure) I50.9 Heart failure chronicity: acute Heart failure type: unspecified Acute hypoxic respiratory failure J96.01 Pleural effusion J90 Primary idiopathic dilated cardiomyopathy I42.0 Primary hypertension I10 Hypertension type: primary hypertension Elevated troponin R77.8 CKD (chronic kidney disease) stage 4, GFR 15-29 ml/min N18.4 Renal insufficiency N28.9 Abnormal finding on urinalysis R82.90 (1) CHF (congestive heart failure) Heart failure chronicity: acute Heart failure type: unspecified Qualified Code(s): I50.9 - Heart failure, unspecified (5) Hypertension Hypertension type: primary hypertension Qualified Code(s): I10 - Essential (primary) hypertension
--- NOTE | 2023-08-31 08:46 | Nephrology Progress Note ---
Date of Service August 31, 2023 Assessment & Plan (1) REJI (acute kidney injury): Plan: * REJI likely due to worsening CMP in the setting of ARB therapy * Patient is nonoliguric. Urine sediment is negative for ATN casts * Entresto and Spironolactone have been stopped due to REJI * Will start Hydralazine for afterload reduction * Continue IV Furosemide therapy. Target net 1 L diuresis/day * Monitor I&O's, daily weight, PRP * Patient is familiar w/ IHD (son was on dialysis). She wants to avoid HD and desires conservative medical management. I believe that her frailty and severe CMP would make dialysis very difficult. She will likely have a better QOL with medical management (2) Chronic kidney disease, stage III (moderate): Plan: * Baseline Cr 1.3-1.6 w/ EGFR 30 cc/min. 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 Urinalysis was acellular. UPCR 1.0. Renal impairment was attributed to hypertensive nephrosclerosis and CMP (3) CHF (congestive heart failure): Plan: * Entresto has been stopped due to REJI * Will add Hydralazine 25 mg TID for afterload reduction * Await further Cardiology input Admission and Anticipated Discharge Date Admission Date: August 28, 2023 Subjective Mrs. Quinteros was evaluated in her hospital room this morning. She reported breathing comfortably on O2 at 2 L/min NC. Review of Systems Constitutional: no fever Eyes: no problem reported Ear, Nose, Mouth, Throat: no problem reported Respiratory: + dyspnea; no cough Cardiovascular: no chest pain Gastrointestinal: no abdominal pain, no nausea, no vomiting and no diarrhea/loose stools Genitourinary: no dysuria, no urinary frequency and no hematuria Integumentary: no rash Physical Exam Constitutional: + frail appearing; not in distress Eyes: PERRL, conjunctivae normal, anicteric sclerae ENMT: external ear and nose normal, oropharynx normal Neck: trachea midline, no thyromegaly Respiratory: Auscultation: + diminished lung sounds (L base) Cardiovascular: Rate/Rhythm: regular rate and regular rhythm Extremities: + edema (1+ pedal edema) Gastrointestinal (Abdomen): normal bowel sounds, soft, nontender, no hepatosplenomegaly Skin: no rashes, warm and dry Neurologic: Speech / Cognition: normal speech and normal cognition Results & Data Vital Signs (Past 12 Hours) Vital Signs Temp Pulse Pulse Pulse Resp BP Pulse Ox 08/31/23 07:49 36.6 C 61 17 152/77 H 96 08/31/23 07:42 08/31/23 04:00 08/31/23 03:15 36.4 C L 59 L 17 152/68 H 99 08/31/23 01:26 60 08/30/23 23:20 36.4 C L 60 17 153/72 H 98 08/30/23 22:00 08/30/23 20:51 58 L Pulse Ox O2 Del Method O2 Del Method O2 Flow Rate O2 Flow Rate 08/31/23 07:49 Nasal Cannula 2.0 08/31/23 07:42 Nasal Cannula 2 08/31/23 04:00 96 Nasal Cannula 2 08/31/23 03:15 Nasal Cannula 2 08/31/23 01:26 08/30/23 23:20 Nasal Cannula 2 08/30/23 22:00 Nasal Cannula 2 08/30/23 20:51 Laboratory Results Laboratory Results - last 24 hr 08/30/23 08/31/23 Unknown 04:44 WBC 7.94 RBC 2.89 L Hgb 8.7 L Hct 26.3 L MCV 91.0 MCH 30.1 MCHC 33.1 RDW Std Deviation 51.0 H RDW Coeff of Jaz 15.9 H Plt Count 208 MPV 10.5 Sodium 130 L Potassium 4.0 Chloride 94 L Carbon Dioxide 29 Anion Gap 7 BUN 52 H Creatinine 3.02 H Est Cr Clr Drug Dosing 8.6 Est GFR ( Amer) 15.7 Est GFR (Non-Af Amer) 13.6 BUN/Creatinine Ratio 17.2 Glucose 92 Calcium 9.1 Magnesium 2.2 Urine Color Yellow Urine Appearance Clear Urine pH 5.0 Ur Specific [place] 1.014 Urine Protein 1+ H Urine Glucose (UA) Negative Urine Ketones Negative Urine Blood 3+ H Urine Nitrite Negative Urine Bilirubin Negative Urine Urobilinogen Negative Ur Leukocyte Esterase 2+ H Urine RBC 10-30 H Urine WBC 5-10 H Ur Epithelial Cells 0-5 Urine Bacteria 1+ H PG Care Time/CCT Total # of Minutes Spent Total Time Spent with Patient: Total time spent is greater than 50% in coordination of care (as documented) at patient's floor/unit and/or counseling patient: Coding Level of Care Code 61894 SUB INP/OBS CARE 50MIN Diagnoses REJI (acute kidney injury) N17.9 Chronic kidney disease, stage III (moderate) N18.3 CHF (congestive heart failure) I50.9 Heart failure chronicity: acute Heart failure type: unspecified (3) CHF (congestive heart failure) Heart failure chronicity: acute Heart failure type: unspecified Qualified Code(s): I50.9 - Heart failure, unspecified
[2023-08-31] MEDS: hydrALAZINE HCL 25 MG TAB PO SCH (13:36)
[2023-08-31] MEDS: DICLOFENAC SOD 1% GEL 100 GM TUBE EXT SCH (13:36)
--- NOTE | 2023-08-31 14:53 | Cardiology Progress Note ---
Date of Service August 31, 2023 Assessment & Plan (1) CHF (congestive heart failure): (2) Primary idiopathic dilated cardiomyopathy: (3) Unspecified atrial fibrillation: (4) Current use of jail anticoagulation: (5) Biventricular ICD (implantable cardioverter-defibrillator) in place: Plan 1. HFrEF: Patient presented with volume overload. Etiology likely LV dysfunction and recent change in her outpatient diuretic regimen. She seems to be improving with diuretics. She continues to have lower extremity edema and PÉREZ. May need to accept some degree of edema in order to maintain her renal function. Bed weights here seem unreliable (+/- 10 lb) - recommend standing farzaneh ghts only moving forward. Attempted to resume Spironolactone however renal function further declined. DC Spironolactone. Would recommend negative fluid balance. Increasing Lasix to 60 mg IV BID today. Nephrology on board. Would also hold Entresto due to REJI. Daily STANDING weights only. Strict I&Os. Low sodium diet. She is known to the heart failure program. 2. Cardiomyopathy: She has severe left ventricular dysfunction from a nonischemic cardiomyopathy. I do not think there is much more we can do in this regard, she has not been able to tolerate higher doses of medications and she remains on half goal doses of carvedilol and Entresto at home. Spironolactone discontinued due to recurrent REJI and hyperkalemia. SGLT2i likely not beneficial with GFR < 20. Would hold Entresto with current REJI.She has a biventricular ICD. 3. Elevated troponin: She has mild but stable troponin elevation, I would not pursue evaluation of this. 4. Atrial fibrillation: She has not had much difficulty with atrial fibrillation lately and did not present in atrial fibrillation. She has remained on amiodarone which appears to be effective. I do not think atrial fibrillation is related to her CHF exacerbation. 5. Anticoagulation: She is on reduced dose Eliquis which I would continue if possible. Since she has not had recent atrial fibrillation it could be held briefly if needed. 6. Biventricular ICD: This was evaluated July 30, 2023 and was working well, follows with Dr. Stearns. Disposition: Will continue to follow during hospitalization. Will be away from the hospital over the weekend. Please contact Dr. Bone with questions. Anticipating rehab on discharge- [facility], possibly Sunday. Recommend close outpatient follow up with the heart failure program. Admission and Anticipated Discharge Date Admission Date: August 28, 2023 Subjective Patient feeling well today. Multiple family members at the bedside. Her breathing is improving. She is comfortable at rest on 2L. She continues to have dyspnea with minimal exertion. Her leg edema is less compared to yesterday. Fluid balance essentially neutral but likely not accurate. She now has a mcmahon which should help. No standing weights this admission. She denies chest pain, palpitations, or cough. Physical Exam Physical Exam: Constitutional: Alert, cooperative and in no distress. 2L via NC. HEENT: Unremarkable Neck: +JVD, carotid pulses are normal and equal bilaterally without bruits. Pulmonary: Normal respiratory effort, faint bibasilar crackles. Cardiac: Regular rhythm with no murmur, gallop or rub. Abdomen: Soft, nontender with normal bowel sounds. Extremities: +2 bilateral pretibial edema. Distal pulses intact. Neurologic: No focal findings. She ambulates with a cane. Skin: The device site is well-healed without erythema, swelling or tenderness. No rash or petechiae, she does have small ecchymosis on her arms and hands. Results & Data Vital Signs (Past 12 Hours) Vital Signs Temp Pulse Pulse Pulse Resp BP Pulse Ox 08/31/23 12:00 60 08/31/23 11:14 97.2 F L 59 L 17 148/73 H 98 08/31/23 07:49 97.9 F 61 17 152/77 H 96 08/31/23 07:42 08/31/23 04:00 08/31/23 03:15 97.5 F L 59 L 17 152/68 H 99 Pulse Ox O2 Del Method O2 Del Method O2 Flow Rate O2 Flow Rate 08/31/23 12:00 08/31/23 11:14 Nasal Cannula 2.0 08/31/23 07:49 Nasal Cannula 2.0 08/31/23 07:42 Nasal Cannula 2 08/31/23 04:00 96 Nasal Cannula 2 08/31/23 03:15 Nasal Cannula 2 PG Care Time/CCT Total # of Minutes Spent Total Time Spent with Patient: Total time spent is greater than 50% in coordination of care (as documented) at patient's floor/unit and/or counseling patient: Coding Level of Care Code 38245 SUB INP/OBS CARE MIN Diagnoses CHF (congestive heart failure) I50.9 Heart failure chronicity: acute Heart failure type: unspecified Primary idiopathic dilated cardiomyopathy I42.0 Chronic atrial fibrillation I48.20 Atrial fibrillation type: unspecified chronic Current use of joint terminal attack controller anticoagulation Z79.01 Biventricular ICD (implantable cardioverter-defibrillator) in place Z95.810 (1) CHF (congestive heart failure) Heart failure chronicity: acute Heart failure type: unspecified Qualified Code(s): I50.9 - Heart failure, unspecified (3) Unspecified atrial fibrillation Atrial fibrillation type: unspecified chronic Qualified Code(s): I48.20 - Chronic atrial fibrillation, unspecified
[2023-08-31] MEDS: FUROSEMIDE 40 MG/4 ML VIAL IV SCH (17:45)
[2023-08-31] MEDS: ALBUT/IPRATROP 3MG/0.5MG NEB 3 ML VIAL NEB PRN (21:14)
[2023-09-01 06:31] LABS: Hemoglobin 8.7 g/dl (12.0-16.0); Mean Corpuscular Hemoglobin 29.8 pg (25.0-34.0); Mean Corpuscular Hgb Conc 32.2 g/dL (32.0-36.0); Mean Corpuscular Volume 92.5 fL (80.0-100.0); Mean Platelet Volume 10.7 fL (9.4-12.4); Platelet Count 198 K/uL (130-400); RDW Standard Deviation 52.2 fL (36.4-46.3); Red Blood Count 2.92 M/uL (4.20-5.40); White Blood Count 6.99 K/ul (4.8-10.8)
[2023-09-01 06:59] LABS: Albumin Level 2.9 gm/dl (3.4-5.0); BUN Creatinine Ratio 17.5 (10-20); Calcium 8.9 mg/dl (8.6-10.3); Creatinine Clr Calc Pharmacy 9.3 ml/min; Est GFR (African American) 17.3 ml/min; Est GFR (Non-African American) 14.9 ml/min; Magnesium 2.2 mg/dl (1.7-2.4); Potassium 3.7 mmol/L (3.5-5.1)
--- NOTE | 2023-09-01 08:17 | Hospitalist Progress Note ---
Date of Service September 01, 2023 Assessment & Plan (1) CHF (congestive heart failure): Plan: Acute respiratory failure with hypoxia/HFrEF exacerbation/dilated cardiomyopathy/pleural effusions/biventricular ICD/PAF- The patient will be admitted to telemetry for serial cardiac enzymes, serial EKG's, cardiac rhythm monitoring and a 2-D echocardiogram with Dopplers. Biofire negative Initial troponin 29.3-> 30.2 --> trend/monitor on telemetry. Suspect demand ischemia in setting of EXACERBATION OF CHF -- ACUTE ON CHRONIC HEART FAILURE WITH REDUCED EF Patient with reported 10 pound weight gain and progressive shortness of breath over the past 10 days with increasing lower extremity edema. CXR w/ Cardiomegaly. --> Interval development of pulmonary edema with moderate left and small right pleural effusions with associated airspace opacities. Dry Wt appears ~95lb per CHF clinic notes (~43.1kg) - presented with weight up to 54.3kg ~20lb weight gain. (was 45kg off her spironolactone for a week at PCP visit) Lasix 40 mg IV x2 on admission, placed on 40mg IV BID, increased to 60mg IV BID PM 08/27 and added back spironolactone 12.5mg PO daily Lasix had been placed on hold initially morning 08/29, but increased edema (also low albumin), nephrology consulted--> Placing spironolactone, entresto on hold. Continue lasix/aim for net negative balance Continues on coreg 12.5mg BID, eliquis 2.5mg BID, amiodarone Lasix was resumed 40mg IV BID 08/29, may have to accept new elevation in Cr. Is making urine, mcmahon in place 08/30 Cr ~3.02, essentially unchanged with lasix being resumed. Entresto/spironolactone remain on hold Nephrology added hydralazine to help with afterload reduction Making urine. Weights appear slightly up but breathing improved. Discussed w/ Renetta Sheridan from CHF clinic and as aiming for net negative ~1L, increasing lasix to 60mg IV BID and monitor weights/output, labs in AM Supplemental O2 to maintain sats Monitor urine cx in f/u but has remained afebrile/no leukocytosis -- remains pending at present time 08/31 Given duoneb x 1 overnight for reported SOB, remains on 2L NC, SpO2 97% this morning. Net negative -520cc with increase lasix to 60mg IV BID and remaining on current dose per nephrology. ?dose metolazone vs increasing lasix further however w/ lightheaded/dizziness and net negative will continue current dose Remains on hydralazine as added by nephrology for afterload reduction Cr improved/stable 2.80, making urine Iron studies w/ AM labs/consideration for epogen Urine cx preliminary NO GROWTH, <1000 colonies, final cx to follow. NO abx at this time Monitor weights (standing scale preferred -- wt 51.8kg despite net negative) Nutrition consulted for supplementations/boost, monitor albumin, touch base w/ nephro in am if any benefit (had been >3 prior) Labs in AM PT/OT consulted and recs for [facility]. CM applying for auth if stable to dc over the weekend on Sunday if bed available (2) Acute hypoxic respiratory failure: Plan: 2nd to volume overload/CHF exacerbation/progressive CKD WBC wnl/afberile, CXR w/o focal consolidation Diuretics as above, supplemental O2 to maintain sats Remains on 2L however reports improvement in breathing w/ diuretics/duonebs and continued. Pulmonary toilet. May need O2 at dc 2nd to CHF/valvular heart disease as above, monitor (3) Pleural effusion: Plan: as noted above, 2nd to chf exacerbation and diuretics as outlined F/u CXR in AM (4) Primary idiopathic dilated cardiomyopathy: Plan: see above, cards consult appreciated. Appears has been taken OFF her aspirin in July -- consideration to resume however had progressive anemia and was held at last PCP visit however no gross/lalit bleeding reported continue statin, BB as above Entresto/spinolactone HELD/DISCONTINUED for now ASA 81mg resumed, monitor for any bleeding. Remains w/o complaints of CP reported (5) Hypertension: Plan: entresto placed on hold, no further spironolactone Continues on metoprolol Hydralazine 25mg QID added by nephrology 4/5 for afterload reduction, BP 123/66 this afternoon and remaining improved/stable and will monitor (6) Elevated troponin: Plan: suspected demand ischemia from volume overload/CHF exacerbation as above Trop 29.3--> 30.2--> 49.2 and added repeat which was elevated to 110 last evening and added to AM labs which was elevated to 122. Paced on telemetry in the 60s, no CP reported. BP stable ASA resumed as above (held since August 01 w/ reported anemia) Repeat troponin down 92.6 and suspect demand ischemia from above and will monitor. NO CP reported. Cards consulted while inpatient (can touch base w/ Dr Bone this weekend if needed) (7) CKD (chronic kidney disease) stage 4, GFR 15-29 ml/min: Plan: Renal insufficiency -- CKD 4 Suspect worsened renal function w/ worsened heart failure in setting of recently having her home diuretics placed on hold. Followed by Dr Domingo in the past, would NOT want HD if it came to that. Making urine, prior not well documented prior to mcmahon placement however weights are down. Strict I&O Diuretics as outlined Renal dose meds/avoid nephrotoxins as able Spironolactone/entresto discontinued at present time Urine cx NO GROWTH, f/u final Nephrology on consult as above, hydralazine added for afterload reduction as above Iron studies/possible epogen in AM BMP in AM (8) Renal insufficiency: Plan: as above (9) Abnormal finding on urinalysis: Plan: Repeat UA following mcmahon placement for I&O NO GROWTH. had deferred on abx and holding off at present time. No leukocytosis or fever and monitor Anxiety/depression/mild cognitive impairment- mood stable, alert to person/place/year/month at present time. family at bedside during encounter Continue buspirone, memantine check b12 w/ am labs for completeness. tsh wnl Plan Dispo: DVT proph: Eliquis continued, renally dosed Conditional code - ok w/ meds/IVF/abx, no CPR, intubation, feeding tube or HD Continue lasix 60mg IV BID, hydralazine 25mg QID. Monitor labs/urine output/weights in AM. Dispo: planning for [facility] this upcoming week when stable for dc, CM notified to apply for auth 4/5 in anticipation for such Admission and Anticipated Discharge Date Admission Date: August 28, 2023 Supervising Physician Co-Signing Physician Notes The patient was not seen by me. The chart was reviewed. Case discussed with BERNABE Allred. Agree with assessment and plan Subjective Patient evaluated this afternoon, doing well. Sitting up in the chair. She does endorse getting short of breath with activity and sometimes thinks she isn't getting enough oxygen but has been assured she is. She did get breathing treatment and reported improvement following and can continue. She does have occasional lightheadedness/dizziness w/ standing. Discussed likely from her valvular heart disease and CHF/volume overload and not to get up by herself. She endorses she doesn't plan to. Her lasix is 60mg IV BID and hydralazine added day prior w/ stable BPs and Cr improved to 2.8 and per nephrology to continue current dose. Leg edema slightly improved but albumin low. florist designer to be consulted for supplements, patient preference vanilla over chocolate. Discussed continuing current diuresis, monitoring labs in AM/output and aiming for negative net balance and can consider dc to [facility] on Sunday if remaining stable Cr on diuretic regimen. Urine cx NO GROWTH, avoiding abx and has been afebrile. Hopeful able to remove her catheter tomorrow. Reports moved bowels day prior, does have some increased abdominal distension and will order bowel regimen. No chest pain, fevers or chills reported. Multiple family members present and updated at bedside. Physical Exam Physical Exam: 82yo female sitting up in chair, appears improved compared to yesterday, family in room, eating lunch Head atraumatic, normocephalic, mmm, trachea midline Resp: diminished in the bases with associated crackles, decreased/resolved wheezing, on 2L NC, no cough/tachypnea CV: paced on telemetry in the 60s, +systolic/diastolic murmurs, quiet heart sounds, slightly decreased b/l LE, 2-3++ bilateral edema to knees, calves nontender GI: +BS, slight distension (slightly worse today), suprapubic fullness/tenderness : mcmahon draining yellow urine MSK moves all extremities, generalized weakness, no slurred speech/facial droop Psych: alert to person/place/year 2023, cooperative with exam Results & Data Results & Data Vital Signs (Past 12 Hours) Vital Signs Temp Pulse Pulse Resp BP BP Pulse Ox 09/01/23 07:31 36.6 C 61 17 133/68 97 09/01/23 04:00 09/01/23 03:51 36.3 C L 72 16 122/61 97 09/01/23 01:21 60 04/05/24 23:08 36.3 C L 56 L 18 133/69 98 08/31/23 21:30 08/31/23 21:14 80 18 98 Pulse Ox O2 Del Method O2 Del Method O2 Flow Rate O2 Flow Rate 09/01/23 07:31 Nasal Cannula 2 09/01/23 04:00 95 Nasal Cannula 2 09/01/23 03:51 Nasal Cannula 2 09/01/23 01:21 08/31/23 23:08 Nasal Cannula 08/31/23 21:30 Nasal Cannula 2 08/31/23 21:14 Nasal Cannula 2 Laboratory Results 09/01/23 Range/Units 05:29 WBC 6.99 (4.8-10.8) K/ul RBC 2.92 L (4.20-5.40) M/uL Hgb 8.7 L (12.0-16.0) g/dl Hct 27.0 L (37.0-47.0) % MCV 92.5 (80.0-100.0) fL MCH 29.8 (25.0-34.0) pg MCHC 32.2 (32.0-36.0) g/dL RDW Std Deviation 52.2 H (36.4-46.3) fL RDW Coeff of Jaz 16.0 H (11.5-14.5) % Plt Count 198 (130-400) K/uL MPV 10.7 (9.4-12.4) fL Sodium 130 L (136-145) mmol/L Potassium 3.7 (3.5-5.1) mmol/L Chloride 95 L (98-107) mmol/L Carbon Dioxide 31 (21-32) mmol/L Anion Gap 4 (3-11) BUN 49 H (6-23) mg/dl Creatinine 2.80 H (0.6-1.2) mg/dl Est Cr Clr Drug Dosing 9.3 ml/min Est GFR ( Amer) 17.3 ml/min Est GFR (Non-Af Amer) 14.9 ml/min BUN/Creatinine Ratio 17.5 (10-20) Glucose 83 (70-99(Fasting)) mg/dl Calcium 8.9 (8.6-10.3) mg/dl Magnesium 2.2 (1.7-2.4) mg/dl Albumin 2.9 L (3.4-5.0) gm/dl PG Care Time/CCT Total # of Minutes Spent Total Time Spent with Patient: Total time spent is greater than 50% in coordination of care (as documented) at patient's floor/unit and/or counseling patient: Coding Level of Care Code 72447 SUB INP/OBS CARE 3/50MIN Diagnoses CHF (congestive heart failure) I50.9 Heart failure chronicity: acute Heart failure type: unspecified Acute hypoxic respiratory failure J96.01 Pleural effusion J90 Primary idiopathic dilated cardiomyopathy I42.0 Primary hypertension I10 Hypertension type: primary hypertension Elevated troponin R77.8 CKD (chronic kidney disease) stage 4, GFR 15-29 ml/min N18.4 Renal insufficiency N28.9 Abnormal finding on urinalysis R82.90 (1) CHF (congestive heart failure) Heart failure chronicity: acute Heart failure type: unspecified Qualified Co de(s): I50.9 - Heart failure, unspecified (5) Hypertension Hypertension type: primary hypertension Qualified Code(s): I10 - Essential (primary) hypertension
--- NOTE | 2023-09-01 12:03 | Nephrology Progress Note ---
Date of Service September 01, 2023 Assessment & Plan (1) CKD (chronic kidney disease) stage 4, GFR 15-29 ml/min: (2) Pleural effusion: (3) CHF (congestive heart failure): (4) Primary idiopathic dilated cardiomyopathy: (5) REJI (acute kidney injury): (6) Anemia of chronic disease: Plan 82 year old female with stage 3B CKD, b/l Cr has been widely variable but over last 1 years staying somehow close to 2.0 mg/dl w/ eGFR 30 cc/min secondary to hypertensive nephrosclerosis and CMP. Urinalysis unremarkable. 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 Recently creatinine was noted to have risen to 2.0. Spironolactone was held. Patient presented to [facility] 08/29/23 w/ concerns of dyspnea and 10 lb weight gain. CXR revealed moderate pulmonary edema and started on IV diuretic therapy. Creatinine has risen to 3.0. Echo shows LVEF 20-25% with moderate MR, moderate pericardial effusion. Clinically doing better. Weight down to 50 to 51 kg. Responding to diuretics, overall net negative. Kidney function slightly improved, creatinine down to 2.8. --Continue on current dose of IV Lasix as it was just increased today, monitor intake and output and aim for net negative. -- Check iron study with a.m. lab, if iron stores adequate, will consider starting on Epogen. -- Renal function and electrolyte check in the morning. -- Recommend repeat chest x-ray in a.m. for follow-up for bilateral pleural effusion. -- If kidney function stays stable, no hyperkalemia, spironolactone can be restarted at low-dose Admission and Anticipated Discharge Date Admission Date: August 28, 2023 Fatou Antoine was seen and evaluated this morning with her sister at bedside. She reports feeling better compared to how she felt on admission. Overall her weight improved and having decent urine output and responding to diuretics with net negative. Hemoglobin staying low around 8.6-8.7. Slight improvement in kidney function this morning to creatinine 2.8, electrolyte acceptable. Blood pressure fair. Review of Systems Review of Systems: Detailed review of system was done and pertinent positives and negatives are me ntioned above. Physical Exam Constitutional: WD/WN, vitals as above + ill appearing; no acute distress Eyes: + anicteric sclerae Neck: normal visual inspection Respiratory: Auscultation: + diminished lung sounds; no crackles and no wheezes Cardiovascular: Rate/Rhythm: regular rate and regular rhythm Heart Sounds: normal S1 and normal S2 Extremities: + edema (trace b/l LE edema) Skin: no rashes, warm and dry Neurologic: no focal motor deficits Psychiatric: Orientation: alert and oriented x 3 Results & Data Vital Signs (Past 12 Hours) Vital Signs Temp Pulse Pulse Resp BP BP Pulse Ox 09/01/23 08:00 09/01/23 07:31 36.6 C 61 17 133/68 97 09/01/23 04:00 09/01/23 03:51 36.3 C L 72 16 122/61 97 09/01/23 01:21 60 Pulse Ox O2 Del Method O2 Del Method O2 Flow Rate O2 Flow Rate 09/01/23 08:00 Nasal Cannula 09/01/23 07:31 Nasal Cannula 2 09/01/23 04:00 95 Nasal Cannula 2 09/01/23 03:51 Nasal Cannula 2 09/01/23 01:21 PG Care Time/CCT Total # of Minutes Spent Total Time Spent with Patient: Total time spent is greater than 50% in coordination of care (as documented) at patient's floor/unit and/or counseling patient: Coding Level of Care Code 69887 SUB INP/OBS CARE 3/50MIN Diagnoses CKD (chronic kidney disease) stage 4, GFR 15-29 ml/min N18.4 Pleural effusion J90 CHF (congestive heart failure) I50.9 Heart failure chronicity: acute Heart failure type: unspecified Primary idiopathic dilated cardiomyopathy I42.0 REJI (acute kidney injury) N17.9 Anemia of chronic disease D63.8 (3) CHF (congestive heart failure) Heart failure chronicity: acute Heart failure type: unspecified Qualified Code(s): I50.9 - Heart failure, unspecified
[2023-09-01] MEDS: ARTIFICIAL TEARS OP PRN (13:08)
[2023-09-01] MEDS: SENNA 8.6 MG TAB PO SCH (16:36)
[2023-09-01] MEDS: DOCUSATE SODIUM 100 MG CAP PO SCH (20:36)
[2023-09-02 06:33] LABS: Hematocrit (blood only) 26.8 % (37.0-47.0); Hemoglobin 8.7 g/dl (12.0-16.0); Mean Corpuscular Hgb Conc 32.5 g/dL (32.0-36.0); Mean Corpuscular Volume 92.4 fL (80.0-100.0); Mean Platelet Volume 10.7 fL (9.4-12.4); Platelet Count 200 K/uL (130-400); RDW Standard Deviation 53.2 fL (36.4-46.3); White Blood Count 7.95 K/ul (4.8-10.8)
[2023-09-02 06:52] LABS: Albumin Level 2.9 gm/dl (3.4-5.0); Calcium 9.1 mg/dl (8.6-10.3); Magnesium 2.2 mg/dl (1.7-2.4); Potassium 3.5 mmol/L (3.5-5.1)
[2023-09-02 06:58] LABS: BUN Creatinine Ratio 20.3 (10-20); Creatinine Clr Calc Pharmacy 9.8 ml/min; Est GFR (African American) 18.4 ml/min; Est GFR (Non-African American) 15.8 ml/min; Phosphorus 4.1 mg/dl (2.5-4.9)
[2023-09-02 07:17] LABS: Ferritin 45.4 ng/ml (8-388)
--- NOTE | 2023-09-02 08:00 | Hospitalist Progress Note ---
Date of Service September 02, 2023 Assessment & Plan (1) CHF (congestive heart failure): Plan: Acute respiratory failure with hypoxia/HFrEF exacerbation/dilated cardiomyopathy/pleural effusions/biventricular ICD/PAF-Biofire negative Initial troponin 29.3-> 30.2 --> Suspect demand ischemia, no CP reported ACUTE ON CHRONIC HEART FAILURE WITH REDUCED EF Wt 54.3kg on admit, dry wt per CHF clinic ~43.1kg -- had her spironolactone as well as ASA on hold since beginning of july due to hyperkalemia/elevated Cr and suspect contributed CXR w/ pulmonary edema/effusions, associated airspace opacities on admit ECHO w/ severely reduced EF, 20-25%, severe LV dysfunction CHF clinic/cards consulted as follows outpatient Lasix 40mg IV BID initially, increased to 60mg IV BID on 08/27 Added spironolactone 12.5mg which was then stopped due to worsened renal function Nephrology consulted --> added hydralazine 25mg QID for afterload reduction w/ good results and this has been continued Continued on Lasix 60mg IV BID aiming for net negative, was -830cc past 24 hours and LE edema improved. Wt 51.8kg--> 50.8kg today Decreased Lasix to 40mg IV BID per nephrology and started back spironolactone 12.5mg daily per nephro and monitoring renal function/output/weights Venofer 200mg IV x 5 doses ordered CXR for today ordered, supplemental O2 to maintain sats Remains on Coreg BID, Eliquis, amiodarone Entresto remains OFF Eventual dc to [facility] planned, hopefully next 24-48 hours pending repeat exam/labs/response to diuretic changes as above Labs in AM (2) Acute hypoxic respiratory failure: Plan: 2nd to volume overload/CHF exacerbation/progressive CKD WBC wnl/afebrile, CXR w/o focal consolidation Diuretics as above, duonebs available, pulm toilet CXR ordered for today for comparison and does appear improved, official report pending Supplemental O2 as needed, titrate as able May need O2 at dc pending response to diuretics at least short term but will monitor (3) Pleural effusion: Plan: as noted above, 2nd to chf exacerbation, diuretics as above, f/u CXR (4) Primary idiopathic dilated cardiomyopathy: Plan: see above, cards consult appreciated. Appears has been taken OFF her aspirin in July -- consideration to resume however had progressive anemia and was held at last PCP visit however no gross/lalit bleeding reported ASA resumed and hgb remaining stable w/ diuresis, no bleeding reported Entresto discontinued, lasix as above, spironolactone added back for now but will need to monitor Continue coreg, statin No CP reported (5) Hypertension: Plan: Entresto discontinued as above Continue on metoprolol Hydralazine as above new, afterload reduction Spironolactone 12.5mg PO added back for now BP 117/62, monitor (6) Elevated troponin: Plan: suspected demand ischemia from volume overload/CHF exacerbation as above. Initially 29.3--> 122--> 92.6. No CP reported. Cards consulted while inpatient ASA resumed as above last week and hgb stable, getting Venofer for iron studies per nephrology (7) CKD (chronic kidney disease) stage 4, GFR 15-29 ml/min: Plan: Renal insufficiency -- CKD 4 Suspect worsened renal function w/ worsened heart failure in setting of recently having her home diuretics placed on hold. Followed by Dr Domingo in the past, would NOT want HD if it came to that. mcmahon in place, diuretics as outlined, appreciate nephrology assistance hydralazine for afterload reduction Weights down today, urine clear yellow in color (prior urine cx NO GROWTH) Venofer as above x5 doses ordered (will place PO iron on hold) Renal dose meds/avoid nephrotoxins as able Monitor renal function/UOP (8) Renal insufficiency: Plan: as above (9) Abnormal finding on urinalysis: Plan: Urine cx NO GROWTH on final. Urine clear in mcmahon. No leukocytosis or fever MOnitor to remove mcmahon in next 24-48 hours pending continued diuresis Anxiety/depression/mild cognitive impairment- mood stable, alert to person/place/year/month at present time, intermittent forgetfullness at times Continue buspirone, memantine. B12 not deficient. TSH wnl Frequent orientation, support Plan Conditional code - ok w/ meds/IVF/abx, no CPR, intubation, feeding tube or HD Updated daughter via phone this AM 4/7 (will be visiting after latter day) Lasix decreased as above, spironolactone added, and providing Venofer IV. Monitoring weights/labs in AM but if net negative and breathing stable/renal function stable or improved would consider dc to [facility] in next 24-48 hours pending bed availability. Admission and Anticipated Discharge Date Admission Date: August 28, 2023 Supervising Physician Co-Signing Physician Notes The patient was not seen by me. The chart was reviewed. Case discussed with BERNABE Allred. Agree with assessment and plan Subjective Evaluated this morning, sitting up in chair, resting. Reports she is feeling better today, breathing improved but has occassional coughing fits. Nebs available as needed, urine output improved and renal function improved. Not yet seen by nephrology but discussed continuing her lasix and hydralazine and adding spironolactone for today but will have close monitoring. She reports having moved her bowels this morning, passing gas, does have some distension but monitoring. Will plan to call daughter w/ update -- patient reports she is in latter day this morning. Questions/concerns addressed at this time. Physical Exam Physical Exam: 82yo female sitting up in chair, appears improved compared to yesterday Head atraumatic, normocephalic, mmm, trachea midline Resp: diminished in the bases with associated crackles, decreased/resolved wheezing, on 2L NC, no cough/tachypnea CV: paced on telemetry in the 60s, +systolic/diastolic murmurs, quiet heart sounds, slightly decreased b/l LE, 1-2+ bilateral edema to knees, calves nontender GI: +BS, slight distension (slightly worse today), suprapubic fullness/tenderness : mcmahon draining CLEAR yellow urine MSK moves all extremities, generalized weakness, no slurred speech/facial droop Psych: alert to person/place/year 2023, cooperative with exam Results & Data Results & Data Vital Signs (Past 12 Hours) Vital Signs Temp Pulse Pulse Resp BP Pulse Ox O2 Del Method 09/02/23 07:19 36.4 C L 60 17 133/64 99 Nasal Cannula 09/02/23 03:05 36.5 C 60 16 136/56 L 97 Nasal Cannula 09/01/23 23:17 36.5 C 59 L 17 146/71 H 99 Nasal Cannula 09/01/23 22:01 60 09/01/23 20:00 Nasal Cannula O2 Flow Rate 04/07/24 07:19 2 09/02/23 03:05 2 09/01/23 23:17 2 09/01/23 22:01 09/01/23 20:00 1 Laboratory Results 09/02/23 Range/Units 05:48 WBC 7.95 (4.8-10.8) K/ul RBC 2.90 L (4.20-5.40) M/uL Hgb 8.7 L (12.0-16.0) g/dl Hct 26.8 L (37.0-47.0) % MCV 92.4 (80.0-100.0) fL MCH 30.0 (25.0-34.0) pg MCHC 32.5 (32.0-36.0) g/dL RDW Std Deviation 53.2 H (36.4-46.3) fL RDW Coeff of Jaz 16.0 H (11.5-14.5) % Plt Count 200 (130-400) K/uL MPV 10.7 (9.4-12.4) fL Sodium 131 L (136-145) mmol/L Potassium 3.5 (3.5-5.1) mmol/L Chloride 95 L (98-107) mmol/L Carbon Dioxide 31 (21-32) mmol/L Anion Gap 5 (3-11) BUN 54 H (6-23) mg/dl Creatinine 2.66 H (0.6-1.2) mg/dl Est Cr Clr Drug Dosing 9.8 ml/min Est GFR ( Amer) 18.4 ml/min Est GFR (Non-Af Amer) 15.8 ml/min BUN/Creatinine Ratio 20.3 H (10-20) Glucose 87 (70-99(Fasting)) mg/dl Calcium 9.1 (8.6-10.3) mg/dl Phosphorus 4.1 (2.5-4.9) mg/dl Magnesium 2.2 (1.7-2.4) mg/dl Iron 39 (35-150) mcg/dl TIBC 288 (250-450) mcg/dl Unsaturated IBC 249 (155-355) mcg/dl Transferrin % Sat 14 L (15-50) % Ferritin 45.4 (8-388) ng/ml Albumin 2.9 L (3.4-5.0) gm/dl Vitamin B12 > 1500 H (180-914) pg/ml PG Care Time/CCT Total # of Minutes Spent Total Time Spent with Patient: Total time spent is greater than 50% in coordination of care (as documented) at patient's floor/unit and/or counseling patient: Coding Level of Care Code 00603 SUB INP/OBS CARE 3/50MIN Diagnoses CHF (congestive heart failure) I50.9 Heart failure chronicity: acute Heart failure type: unspecified Acute hypoxic respiratory failure J96.01 Pleural effusion J90 Primary idiopathic dilated cardiomyopathy I42.0 Primary hypertension I10 Hypertension type: primary hypertension Elevated troponin R77.8 CKD (chronic kidney disease) stage 4, GFR 15-29 ml/min N18.4 Renal insufficiency N28.9 Abnormal finding on urinalysis R82.90 (1) CHF (congestive heart failure) Heart failure chronicity: acute Heart failure type: unspecified Qualified Code(s): I50.9 - Heart failure, unspecified (5) Hypertension Hypertension type: primary hypertension Qualified Code(s): I10 - Essential (primary) hypertension
--- NOTE | 2023-09-02 11:46 | Nephrology Progress Note ---
Date of Service September 02, 2023 Assessment & Plan (1) CKD (chronic kidney disease) stage 4, GFR 15-29 ml/min: (2) Pleural effusion: (3) CHF (congestive heart failure): (4) Primary idiopathic dilated cardiomyopathy: (5) REJI (acute kidney injury): (6) Anemia of chronic disease: Plan 82 year old female with stage 3B CKD, b/l Cr has been widely variable but over last 1 years staying somehow close to 2.0 mg/dl w/ eGFR 30 cc/min secondary to hypertensive nephrosclerosis and CMP. Urinalysis unremarkable. 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 Recently creatinine was noted to have risen to 2.0. Spironolactone was held. Patient presented to [facility] EMD 08/29/23 w/ concerns of dyspnea and 10 lb weight gain. CXR revealed moderate pulmonary edema and started on IV diuretic therapy. Creatinine has risen to 3.0. Echo shows LVEF 20-25% with moderate MR, moderate pericardial effusion. Clinically doing better. Weight down to 50 to 51 kg. Responding to diuretics, overall net negative >800 ml. Kidney function slightly improved, creatinine down to 2.7. Hb low , low iron store. -- Ok to restart on Spironolactone, decrease IV Lasix to 40 mg bid, monitor intake and output and aim for net negative. -- start Venofer 200 mg iv daily x 5 doses -- Renal function and electrolyte check in the morning. Admission and Anticipated Discharge Date Admission Date: August 28, 2023 Fatou Antoine was seen and evaluated this morning, she was sitting up in her bedside chair. She reports feeling better, denies shortness of breath. Weight improved and having decent urine output and responding to diuretics with net negative >800 ml. Hemoglobin staying low around 8.6-8.7. Slight improvement in kidney function this morning to creatinine 2.7, electrolyte acceptable. Blood pressure fair. Review of Systems Review of Systems: Detailed review of system was done and pertinent positives and negatives are mentioned above. Physical Exam Constitutional: WD/WN, vitals as above + ill appearing; no acute distress Eyes: + anicteric sclerae Neck: normal visual inspection Respiratory: Auscultation: + diminished lung sounds; no crackles and no wheezes Cardiovascular: Rate/Rhythm: regular rate and regular rhythm Heart Sounds: normal S1 and normal S2 Extremities: + edema (trace b/l LE edema) Skin: no rashes, warm and dry Neurologic: no focal motor deficits Psychiatric: Orientation: alert and oriented x 3 Results & Data Vital Signs (Past 12 Hours) Vital Signs Temp Pulse Resp BP Pulse Ox O2 Del Method O2 Flow Rate 09/02/23 11:22 36.3 C L 59 L 17 117/62 98 Nasal Cannula 2 09/02/23 08:02 Nasal Cannula 09/02/23 07:19 36.4 C L 60 17 133/64 99 Nasal Cannula 2 09/02/23 03:05 36.5 C 60 16 136/56 L 97 Nasal Cannula 2 PG Care Time/CCT Total # of Minutes Spent Total Time Spent with Patient: Total time spent is greater than 50% in coordination of care (as documented) at patient's floor/unit and/or counseling patient: Coding Level of Care Code 21962 SUB INP/OBS CARE 2/35MIN Diagnoses CKD (chronic kidney disease) stage 4, GFR 15-29 ml/min N18.4 Pleural effusion J90 CHF (congestive heart failure) I50.9 Heart failure chronicity: acute Heart failure type: unspecified Primary idiopathic dilated cardiomyopathy I42.0 REJI (acute kidney injury) N17.9 Anemia of chronic disease D63.8 (3) CHF (congestive heart failure) Heart failure chronicity: acute Heart failure type: unspecified Qualified Code(s): I50.9 - Heart failure, unspecified
[2023-09-02] MEDS: IRON SUCROSE 200 MG in 0.9 % SODIUM CHLORIDE 100 ML IV SCH (13:12)
[2023-09-02] MEDS: FUROSEMIDE 40 MG/4 ML VIAL IV SCH (17:33)
--- NOTE | 2023-09-02 17:45 | XRay Report ---
XR chest 1V portable CLINICAL HISTORY: f/u effusions TECHNIQUE: Single frontal radiograph of the chest was obtained. Comparison: Comparison is made to chest radiograph 08/30/2023 FINDINGS: Lines and tubes are stable. Cardiomegaly is noted. The aortic arch is calcified. Bilateral lower lung airspace opacities are seen. Small bilateral pleural effusions are seen. IMPRESSION: Small bilateral pleural effusions with underlying airspace opacities, similar to prior exam. ACT 112: Negative or not required by law. Electronically signed by: Manny Nichole M.D. 09/02/2023 5:43 PM
[2023-09-02] MEDS: SODIUM CHLORIDE 0.65% NA SOLN 45 ML (OCEAN) PRN (18:27)
[2023-09-03 06:43] LABS: Albumin Level 2.8 gm/dl (3.4-5.0); BUN Creatinine Ratio 19.9 (10-20); Creatinine Clr Calc Pharmacy 9.6 ml/min; Est GFR (African American) 17.9 ml/min; Est GFR (Non-African American) 15.5 ml/min; Phosphorus 4.1 mg/dl (2.5-4.9); Potassium 3.4 mmol/L (3.5-5.1)
--- NOTE | 2023-09-03 07:48 | Hospitalist Progress Note ---
Date of Service September 03, 2023 Assessment & Plan (1) CHF (congestive heart failure): Plan: Acute respiratory failure with hypoxia/HFrEF exacerbation/dilated cardiomyopathy/pleural effusions/biventricular ICD/PAF-[employer] negative Initial troponin 29.3-> 30.2 --> Suspect demand ischemia, no CP reported ACUTE ON CHRONIC HEART FAILURE WITH REDUCED EF Wt 54.3kg on admit, dry wt per CHF clinic ~43.1kg -- had her spironolactone as well as ASA on hold since beginning of july due to hyperkalemia/elevated Cr and suspect contributed CXR w/ pulmonary edema/effusions, associated airspace opacities on admit ECHO w/ severely reduced EF, 20-25%, severe LV dysfunction CHF clinic/cards consulted as follows outpatient Lasix 40mg IV BID initially, increased to 60mg IV BID on 08/27 Added spironolactone 12.5mg which was then stopped due to worsened renal function Nephrology consulted --> added hydralazine 25mg QID for afterload reduction Lasix 60mg IV BID, spironolactone 12.5mg daily, lasix decreased to 40mg IV BID on 09/01. K PO supplementation ordered for today for K 3.3 CXR w/ stable b/l effusions, similar to prior. Is net negative, weights unchanged but LE edema and lung exam appear improved and per nephrology to continue current course Patient said seen by CHF provider this morning, confirmed. Messaged to see if stable renal function in AM/net negative about consideration to switch to PO diuretics for tomorrow Remains OFF Entresto, continues on coreg BID/eliquis/amiodarone CM notified for potential dc to [facility] in next 24-48 hours pending respon se/ability to switch to PO diuretics to maintain negative balance Monitor labs in AM, I&O, weights, lung exam (2) Acute hypoxic respiratory failure: Plan: 2nd to volume overload/CHF exacerbation/progressive CKD WBC wnl/afebrile, CXR w/o focal consolidation Diuretics as above, duonebs available, pulm toilet CXR w/ stable f/u, continued diuretics as outlined above Titrate O2 as able (96% on 2L this morning) Likely need supplemental O2 at dc in meantime while working on net negative and can be arranged. Discussed w/ patient and family prior about possible need to continue O2 at dc in meantime (3) Pleural effusion: Plan: as noted above, 2nd to chf exacerbation, diuretics as above (4) Primary idiopathic dilated cardiomyopathy: Plan: see above, cards consult appreciated. Grisel has been taken OFF her aspirin in July -- consideration to resume however had progressive anemia and was held at last PCP visit however no gross/lalit bleeding reported ASA 81mg WAS resumed and hgb remaining stable w/ diuresis, no bleeding reported and Venofer ordered as above Entresto dc'd due to hyperkalemia/progressive CKD. Spironolactone added back low dose w/ lasix as above and continued close monitoring of labs Remains on coreg, statin, ASA as above. no CP reported (5) Hypertension: Plan: Entresto discontinued as above, remains on coreg, hydralazine for afterload reduction lasix, spironolactone as above for volume overload, nephrology/cards/chf consulted BP stable and will monitor (6) Elevated troponin: Plan: suspected demand ischemia from volume overload/CHF exacerbation as above. Initially 29.3--> 122--> 92.6. No CP reported. Cards consulted while inpatient ASA resumed as above last week and hgb stable, getting Venofer for iron studies per nephrology (7) CKD (chronic kidney disease) stage 4, GFR 15-29 ml/min: Plan: Renal insufficiency -- CKD 4 Suspect worsened renal function w/ worsened heart failure in setting of recently having her home diuretics placed on hold. Followed by Dr Domingo in the past, would NOT want HD if it came to that. mcmahon in place, diuretics as outlined, appreciate nephrology assistance hydralazine for afterload reduction Weights down 09/01, however appear unchanged today however urine output increased w/ diuretics as above. Monitor output Venofer x 5 doses IV Renal dose meds, avoid nephrotoxin as above Monitor BMP in AM (8) Renal insufficiency: Plan: as above (9) Abnormal finding on urinalysis: Plan: Urine CULTURE NEGATIVE Plan to remove mcmahon in next 24-48 hours pending continued diuresis and switch to PO diuretics Anxiety/depression/mild cognitive impairment- mood stable, alert to person/place/year/month at present time, intermittent forgetfulness at times Continue buspirone, memantine. B12 not deficient. TSH wnl Frequent orientation, support APPEARS IMPROVED 09/02 even without family at bedside this morning Plan Conditional code - ok w/ meds/IVF/abx, no CPR, intubation, feeding tube or HD Updated daughter via phone AM 09/01 , can update as needed but did discuss prior may need 24-48 hours [facility] planned at dc, CM notified possible dc next 24-48 hours pending discussion w/ CHF provider/nephro and potential switch to PO diuretics in AM pending repeat labs/exam Admission and Anticipated Discharge Date Admission Date: August 28, 2023 Subjective Evaluated this morning, sitting up in the chair, reports feeling a little better today. Weights unchanged but LE edema stable and net negative although slightly less however urine output appears improved and renal function stable. Per nephrology, continuing current diuretic regimen and monitoring labs/Venofer replacement. Patient reports breathing stable, no further lightheadedness/dizziness but is SOB w/ ambulation at times. Continued inpatient stay discussed, agreeable. Will plan for [facility] in next 48 hours pending ability to transition to oral diuretics/output/renal function and may need O2 at discharge. She notes she thinks she was seen by Renetta Sheridan this morning but not sure, will touch base. Discussed abdominal fullness, she reports having 2 bowel movements this morning and no significant pain. Abdomen is softer today, less distention. CM notified. Questions/concerns addressed w patient. Physical Exam Physical Exam: 82yo female sitting up in chair, reports feeling better, NAD Head atraumatic, normocephalic, mmm, trachea midline Resp: diminished in the bases with associated crackles, decreased/resolved wheezing, on 2L NC, no cough/tachypnea CV: paced on telemetry in the 60s, +systolic/diastolic murmurs, quiet heart sounds, slightly decreased b/l LE, 1-2+ bilateral edema to knees STABLE/slightly improved, calves nontender GI: +BS, LESS distension (moved bowels x 2), no significant tenderness : mcmahon draining yellow urine MSK moves all extremities, generalized weakness, no slurred speech/facial droop Psych: appears more alert/oriented today, pleasant and cooperative Results & Data Results & Data Vital Signs (Past 12 Hours) Vital Signs Temp Pulse Pulse Resp BP Pulse Ox O2 Del Method 09/03/23 07:22 60 09/03/23 07:13 36.4 C L 60 18 129/64 97 Nasal Cannula 09/03/23 03:07 36.3 C L 60 17 139/74 99 Nasal Cannula 09/02/23 23:21 36.6 C 60 17 130/65 97 Nasal Cannula 09/02/23 21:04 Nasal Cannula O2 Flow Rate 09/03/23 07:22 09/03/23 07:13 2 09/03/23 03:07 2 09/02/23 23:21 2 09/02/23 21:04 2 Laboratory Results 09/03/23 Range/Units 05:34 Sodium 130 L (136-145) mmol/L Potassium 3.4 L (3.5-5.1) mmol/L Chloride 93 L (98-107) mmol/L Carbon Dioxide 32 (21-32) mmol/L Anion Gap 5 (3-11) BUN 54 H (6-23) mg/dl Creatinine 2.71 H (0.6-1.2) mg/dl Est Cr Clr Drug Dosing 9.6 ml/min Est GFR ( Amer) 17.9 ml/min Est GFR (Non-Af Amer) 15.5 ml/min BUN/Creatinine Ratio 19.9 (10-20) Glucose 85 (70-99(Fasting)) mg/dl Calcium 9.0 (8.6-10.3) mg/dl Phosphorus 4.1 (2.5-4.9) mg/dl Albumin 2.8 L (3.4-5.0) gm/dl Diagnostic Findings Chest X-Ray 09/02/23 07:00 XR chest 1V portable CLINICAL HISTORY: f/u effusions TECHNIQUE: Single frontal radiograph of the chest was obtained. Comparison: Comparison is made to chest radiograph 08/30/2023 FINDINGS: Lines and tubes are stable. Cardiomegaly is noted. The aortic arch is calcified. Bilateral lower lung airspace opacities are seen. Small bilateral pleural effusions are seen. IMPRESSION: Small bilateral pleural effusions with underlying airspace opacities, similar to prior exam. ACT 112: Negative or not required by law. Electronically signed by: Manny Nichole M.D. 09/02/2023 5:43 PM PG Care Time/CCT Total # of Minutes Spent Total Time Spent with Patient: Total time spent is greater than 50% in coordination of care (as documented) at patient's floor/unit and/or counseling patient: Coding Level of Care Code 31543 SUB INP/OBS CARE MIN Diagnoses CHF (congestive heart failure) I50.9 Heart failure chronicity: acute Heart failure type: unspecified Acute hypoxic respiratory failure J96.01 Pleural effusion J90 Primary idiopathic dilated cardiomyopathy I42.0 Primary hypertension I10 Hypertension type: primary hypertension Elevated troponin R77.8 CKD (chronic kidney disease) stage 4, GFR 15-29 ml/min N18.4 Renal insufficiency N28.9 Abnormal finding on urinalysis R82.90 (1) CHF (congestive heart failure) Heart failure chronicity: acute Heart failure type: unspecified Qualified Code(s): I50.9 - Heart failure, unspecified (5) Hypertension Hypertension type: primary hypertension Qualified Code(s): I10 - Essential (primary) hypertension
[2023-09-03] MEDS: POTASSIUM CHLORIDE CRTAB 20 MEQ TABCR PO STA (08:21)
--- NOTE | 2023-09-03 09:50 | Nephrology Progress Note ---
Date of Service September 03, 2023 Assessment & Plan (1) CKD (chronic kidney disease) stage 4, GFR 15-29 ml/min: (2) Pleural effusion: (3) CHF (congestive heart failure): (4) Primary idiopathic dilated cardiomyopathy: (5) REJI (acute kidney injury): (6) Anemia of chronic disease: Plan 82 year old female with stage 3B CKD, b/l Cr has been widely variable but over last 1 years staying somehow close to 2.0 mg/dl w/ eGFR 30 cc/min secondary to hypertensive nephrosclerosis and CMP. Urinalysis unremarkable. 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 Recently creatinine was noted to have risen to 2.0. Spironolactone was held. Patient presented to [facility] EMD 08/29/23 w/ concerns of dyspnea and 10 lb weight gain. CXR revealed moderate pulmonary edema and started on IV diuretic therapy. Creatinine has risen to 3.0. Echo shows LVEF 20-25% with moderate MR, moderate pericardial effusion. Clinically doing better, weight stable, 50 to 51 kg. Responding to diuretics, slightly net negative although UO improved. Kidney function stable, creatinine 2.7. Hb stable. -- recommend to continue on current dose of Spironolactone and IV Lasix 40 mg IV bid, monitor intake and output and aim for net negative. -- continue Venofer 200 mg iv daily x 5 doses -- Renal function and electrolyte check in the morning. Admission and Anticipated Discharge Date Admission Date: August 28, 2023 Fatou Antoine was seen and evaluated this morning, she was sitting up in bed, seemed comfortable. She reports feeling well, denies shortness of breath. Weight stable, slightly net negative but UO improved compared to yesterday. Hemoglobin staying low around 8.6-8.7, on Venofer. Kidney function relatively stable , creatinine 2.7, electrolyte acceptable. Blood pressure fair. Review of Systems Review of Systems: Detailed review of system was done and pertinent positives and negatives are mentioned above. Physical Exam Constitutional: WD/WN, vitals as above + ill appearing and comfortable; no acute distress Eyes: + anicteric sclerae Neck: normal visual inspection Respiratory: Auscultation: + diminished lung sounds; no crackles and no wheezes Cardiovascular: Rate/Rhythm: regular rate and regular rhythm Heart Sounds: normal S1 and normal S2 Extremities: + edema (trace b/l LE edema) Skin: no rashes, warm and dry Neurologic: no focal motor deficits Psychiatric: Orientation: alert and oriented x 3 Results & Data Vital Signs (Past 12 Hours) Vital Signs Temp Pulse Pulse Resp BP Pulse Ox O2 Del Method 09/03/23 07:22 60 09/03/23 07:13 36.4 C L 60 18 129/64 97 Nasal Cannula 09/03/23 03:07 36.3 C L 60 17 139/74 99 Nasal Cannula 09/02/23 23:21 36.6 C 60 17 130/65 97 Nasal Cannula O2 Flow Rate 09/03/23 07:22 09/03/23 07:13 2 09/03/23 03:07 2 09/02/23 23:21 2 PG Care Time/CCT Total # of Minutes Spent Total Time Spent with Patient: Total time spent is greater than 50% in coordination of care (as documented) at patient's floor/unit and/or counseling patient: Coding Level of Care Code 64633 SUB INP/OBS CARE 2/35MIN Diagnoses CKD (chronic kidney disease) stage 4, GFR 15-29 ml/min N18.4 Pleural effusion J90 CHF (congestive heart failure) I50.9 Heart failure chronicity: acute Heart failure type: unspecified Primary idiopathic dilated cardiomyopathy I42.0 REJI (acute kidney injury) N17.9 Anemia of chronic disease D63.8 (3) CHF (congestive heart failure) Heart failure chronicity: acute Heart failure type: unspecified Qualified Code(s): I50.9 - Heart failure, unspecified
[2023-09-03 11:59] LABS: Magnesium 2.1 mg/dl (1.7-2.4)
--- NOTE | 2023-09-03 12:13 | Cardiology Progress Note ---
Date of Service September 03, 2023 Assessment & Plan (1) CHF (congestive heart failure): (2) Primary idiopathic dilated cardiomyopathy: (3) Unspecified atrial fibrillation: (4) Current use of care home anticoagulation: (5) Biventricular ICD (implantable cardioverter-defibrillator) in place: Plan 1. HFrEF: Patient presented with volume overload. Etiology likely LV dysfunction and recent change in her outpatient diuretic regimen. She seems to be improving with diuretics. Symptoms are improving. May need to accept some degree of edema in order to maintain her renal function. Would recommend negative fluid balance. Lasix to 40 mg IV BID today. Spironolactone 12.5 mg resumed. Nephrology on board. Entresto on hold due to REJI. Ancipitate transition to PO diuretics tomorrow- suggest 40 mg PO BID on discharge with close follow up labs. Daily STANDING weights only. Strict I&Os. Low sodium diet. She is known to the heart failure program. 2. Cardiomyopathy: She has severe left ventricular dysfunction from a nonischemic cardiomyopathy. I do not think there is much more we can do in this regard, she has not been able to tolerate higher doses of medications and she remains on half goal doses of carvedilol and Entresto at home. Spironolactone discontinued due to recurrent REJI and hyperkalemia. SGLT2i likely not beneficial with GFR < 20. Would hold Entresto with current REJI.She has a biventricular ICD. 3. Elevated troponin: She has mild but stable troponin elevation, I would not pursue evaluation of this. 4. Atrial fibrillation: She has not had much difficulty with atrial fibrillation lately and did not present in atrial fibrillation. She has remained on amiodarone which appears to be effective. I do not think atrial fibrillation is related to her CHF exacerbation. 5. Anticoagulation: She is on reduced dose Eliquis which I would continue if possible. Since she has not had recent atrial fibrillation it could be held briefly if needed. 6. Biventricular ICD: This was evaluated July 30, 2023 and was working well, follows with Dr. Stearns. Disposition: Will continue to follow during hospitalization. Anticipating rehab on discharge- [facility]. Recommend close outpatient follow up with the heart failure program. Admission and Anticipated Discharge Date Admission Date: August 28, 2023 Subjective Patient reports feeling improved today. Her breathing is better. Her edema is improving. She continues supplemental O2 2L. She remains net negative. Weight is 111 lb on the scale today. Physical Exam Physical Exam: Constitutional: Alert, cooperative and in no distress. 2L via NC. HEENT: Unremarkable Neck: - JVD, carotid pulses are normal and equal bilaterally without bruits. Pulmonary: Normal respiratory effort, faint bibasilar crackles. Cardiac: Regular rhythm with no murmur, gallop or rub. Abdomen: Soft, nontender with normal bowel sounds. Extremities: +1 bilateral pretibial edema. Distal pulses intact. Neurologic: No focal findings. She ambulates with a cane. Skin: The device site is well-healed without erythema, swelling or tenderness. No rash or petechiae, she does have small ecchymosis on her arms and hands. Results & Data Vital Signs (Past 12 Hours) Vital Signs Temp Pulse Pulse Resp BP Pulse Ox O2 Del Method 09/03/23 11:06 97.7 F 60 17 103/58 L 96 Nasal Cannula 09/03/23 07:22 60 09/03/23 07:13 97.5 F L 60 18 129/64 97 Nasal Cannula 09/03/23 03:07 97.3 F L 60 17 139/74 99 Nasal Cannula O2 Flow Rate 09/03/23 11:06 2 09/03/23 07:22 09/03/23 07:13 2 09/03/23 03:07 2 PG Care Time/CCT Total # of Minutes Spent Total Time Spent with Patient: Total time spent is greater than 50% in coordination of care (as documented) at patient's floor/unit and/or counseling patient: Coding Level of Care Code 13958 SUB INP/OBS CARE 3/50MIN Diagnoses CHF (congestive heart failure) I50.9 Heart failure chronicity: acute Heart failure type: unspecified Primary idiopathic dilated cardiomyopathy I42.0 Chronic atrial fibrillation I48.20 Atrial fibrillation type: unspecified chronic Current use of care home anticoagulation Z79.01 Biventricular ICD (implantable cardioverter-defibrillator) in place Z95.810 (1) CHF (congestive heart failure) Heart failure chronicity: acute Heart failure type: unspecified Qualified Code(s): I50.9 - Heart failure, unspecified (3) Unspecified atrial fibrillation Atrial fibrillation type: unspecified chronic Qualified Code(s): I48.20 - Chronic atrial fibrillation, unspecified
[2023-09-04 07:33] LABS: Albumin Level 2.8 gm/dl (3.4-5.0); BUN Creatinine Ratio 20.4 (10-20); Calcium 9.3 mg/dl (8.6-10.3); Creatinine Clr Calc Pharmacy 9.5 ml/min; Est GFR (African American) 17.3 ml/min; Est GFR (Non-African American) 14.9 ml/min; Magnesium 2.2 mg/dl (1.7-2.4); Phosphorus 4.1 mg/dl (2.5-4.9); Potassium 4.1 mmol/L (3.5-5.1)
[2023-09-04] MEDS: FUROSEMIDE 40 MG/4 ML VIAL IV STA (09:43)
--- NOTE | 2023-09-04 12:53 | Nephrology Progress Note ---
Date of Service September 04, 2023 Assessment & Plan (1) CKD (chronic kidney disease) stage 4, GFR 15-29 ml/min: (2) Pleural effusion: (3) CHF (congestive heart failure): (4) Primary idiopathic dilated cardiomyopathy: (5) REJI (acute kidney injury): (6) Anemia of chronic disease: Plan 82 year old female with stage 3B CKD, b/l Cr has been widely variable but over last 1 years staying somehow close to 2.0 mg/dl w/ eGFR 30 cc/min secondary to hypertensive nephrosclerosis and CMP. Urinalysis unremarkable. 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 Recently creatinine was noted to have risen to 2.0. Spironolactone was held. Patient presented to [facility] EMD 08/29/23 w/ concerns of dyspnea and 10 lb weight gain. CXR revealed moderate pulmonary edema and started on IV diuretic therapy. Creatinine has risen to 3.0. Echo shows LVEF 20-25% with moderate MR, moderate pericardial effusion. Clinically doing better, weight stable, 50 to 51 kg but LE edema worsened and UO dropped. Kidney function stable, creatinine 2.7. Hb stable. -- change Lasix to 80 mg po bid, monitor intake and output and aim for net negative. -- continue Venofer 200 mg iv daily x 5 doses -- Renal function and electrolyte check in the morning. --would hold discharge until volume status improves and see the response to po diuretics. Admission and Anticipated Discharge Date Admission Date: August 28, 2023 Fatou Antoine was seen and evaluated this morning, she was sitting up in bed, seemed comfortable. She reports feeling fair, denies shortness of breath. Weight stable, UO was low. Hemoglobin staying low around 8.6-8.7, on Venofer. Kidney function relatively stable , creatinine 2.7, electrolyte acceptable. Blood pressure fair. LE edema worsened. Review of Systems Review of Systems: Detailed review of system was done and pertinent positives and negatives are mentioned above. Physical Exam Constitutional: WD/WN, vitals as above + ill appearing and comfortable; no acute distress Eyes: + anicteric sclerae Neck: normal visual inspection Respiratory: Auscultation: + diminished lung sounds; no crackles and no wheezes Cardiovascular: Rate/Rhythm: regular rate and regular rhythm Heart Sounds: normal S1 and normal S2 Extremities: + edema (1 to 2+ b/l LE edema) Skin: no rashes, warm and dry Neurologic: no focal motor deficits Psychiatric: Orientation: alert and oriented x 3 Results & Data Vital Signs (Past 12 Hours) Vital Signs Temp Pulse Pulse Resp BP BP Pulse Ox 09/04/23 11:29 09/04/23 11:01 36.4 C L 60 16 105/62 96 09/04/23 07:36 36.3 C L 63 16 119/63 99 09/04/23 07:33 60 09/04/23 04:00 09/04/23 03:16 36.7 C 61 18 119/69 98 Pulse Ox O2 Del Method O2 Del Method O2 Flow Rate O2 Flow Rate 09/04/23 11:29 Nasal Cannula 2 09/04/23 11:01 Nasal Cannula 2 09/04/23 07:36 Nasal Cannula 2 09/04/23 07:33 09/04/23 04:00 98 Nasal Cannula 2 09/04/23 03:16 Nasal Cannula 2 PG Care Time/CCT Total # of Minutes Spent Total Time Spent with Patient: Total time spent is greater than 50% in coordination of care (as documented) at patient's floor/unit and/or counseling patient: Coding Level of Care Code 67635 SUB INP/OBS CARE 2/35MIN Diagnoses CKD (chronic kidney disease) stage 4, GFR 15-29 ml/min N18.4 Pleural effusion J90 CHF (congestive heart failure) I50.9 Heart failure chronicity: acute Heart failure type: unspecified Primary idiopathic dilated cardiomyopathy I42.0 REJI (acute kidney injury) N17.9 Anemia of chronic disease D63.8 (3) CHF (congestive heart failure) Heart failure chronicity: acute Heart failure type: unspecified Qualified Code(s): I50.9 - Heart failure, unspecified
[2023-09-04] MEDS: FUROSEMIDE 80 MG TAB PO SCH (17:26)
--- NOTE | 2023-09-04 17:56 | Hospitalist Progress Note ---
Date of Service September 04, 2023 Assessment & Plan (1) CHF (congestive heart failure): Plan: ACUTE ON CHRONIC HEART FAILURE WITH REDUCED EF Acute respiratory failure with hypoxia secondary to CHF Biofire negative Wt 54.3kg on admit, dry wt per CHF clinic ~43.1kg -- had her spironolactone on hold since beginning of july due to hyperkalemia/elevated Cr and suspect contributed CXR w/ pulmonary edema/effusions, associated airspace opacities on admit ECHO w/ severely reduced EF, 20-25%, severe LV dysfunction CHF clinic/cards consult appreciated Lasix 40mg IV BID initially, increased to 60mg IV BID on 08/27 Added spironolactone 12.5mg Nephrology consulted--> added hydralazine 25mg QID for afterload reduction weight is actually increased since yesterday and edema still fairly significant Remains OFF Entresto, continues on coreg BID Nephro changed lasix to 80mg po bid Follow BMP, Mag in AM low sodium diet, fluid restrict (2) Acute hypoxic respiratory failure: Plan: 2nd to volume overload/CHF exacerbation/progressive CKD WBC wnl/afebrile, CXR w/o focal consolidation Diuretics as above, duonebs available, pulm toilet CXR w/ stable f/u, continued diuretics as outlined above Titrate O2 as able-remains on 2LNC (3) Primary idiopathic dilated cardiomyopathy: Plan: cards consult appreciated. Appears has been taken OFF her aspirin in July -- consideration to resume however had progressive anemia and was held at last PCP visit however no gross/lalit bleeding reported ASA 81mg WAS resumed and hgb remaining stable w/ diuresis, no bleeding reported and Venofer ordered Entresto dc'd due to hyperkalemia/progressive CKD. Spironolactone added back Remains on coreg, statin (4) Hypertension: Plan: Entresto discontinued, remains on coreg, and added hydralazine for afterload reduction lasix, spironolactone as above for volume overload BP stable and will monitor (5) Elevated troponin: Plan: suspected demand ischemia from volume overload/CHF exacerbation as above. Initially 29.3--> 122--> 92.6. No CP reported. Cards consulted while inpatient ASA resumed as above last week and hgb stable (6) CKD (chronic kidney disease) stage 4, GFR 15-29 ml/min: Plan: REJI in setting of CKD 4 Suspect worsened renal function w/ worsened heart failure in setting of recently having her home diuretics placed on hold. Followed by Dr Domnigo in the past, would NOT want HD if it came to that. mcmahon in place, diuretics as outlined, appreciate nephrology assistance hydralazine for afterload reduction [employer] Ambulatory Analyst up slightly again today to 2.8, baseline 2.0 Renal dose meds, avoid nephrotoxin as above Monitor BMP in AM (7) Abnormal finding on urinalysis: Plan: Urine CULTURE NEGATIVE Plan to remove mcmahon in next 24-48 hours pending continued diuresis and switch to PO diuretics Anxiety/depression/mild cognitive impairment- mood stable, alert to person/place/year/month at present time, intermittent forgetfulness at times Continue buspirone, memantine. B12 not deficient. TSH wnl Frequent orientation, support APPEARS IMPROVED Plan Conditional code - ok w/ meds/IVF/abx, no CPR, intubation, feeding tube or HD [place] [facility] planned at [place]-insurance auth approved but not medically stable for discharge on 09/03, hopefully tomorrow Admission and Anticipated Discharge Date Admission Date: August 28, 2023 Anticipated date of discharge: 09/05/23 Subjective having neck pain since admission, can't run head to the right. started before admission actualy. Feels SOB. Can't tell if her leg swelling is better. Is eating. Tele with paced rhythm, rates 60s Discussed her care with Nephrology Physical Exam Constitutional: WD/WN, vitals as above Respiratory: normal respiratory effort Auscultation: + diminished lung sounds (at bases); no wheezes Cardiovascular: Rate/Rhythm: regular rate and regular rhythm Heart Sounds: no murmur Extremities: + edema (2+ pitting edema legs bilat) Gastrointestinal (Abdomen): normal bowel sounds, soft, nontender, no hepatosplenomegaly Results & Data Results & Data Vital Signs (Past 12 Hours) Vital Signs Temp Pulse Pulse Resp BP Pulse Ox O2 Del Method 09/04/23 17:07 60 09/04/23 15:15 36.5 C 59 L 17 109/54 L 98 Nasal Cannula 09/04/23 11:29 Nasal Cannula 09/04/23 11:01 36.4 C L 60 16 105/62 96 Nasal Cannula 09/04/23 07:36 36.3 C L 63 16 119/63 99 Nasal Cannula 09/04/23 07:33 60 O2 Flow Rate 09/04/23 17:07 09/04/23 15:15 2 09/04/23 11:29 2 09/04/23 11:01 2 09/04/23 07:36 2 09/04/23 07:33 Laboratory Results BMP, magnesium reviewed PG Care Time/CCT Total # of Minutes Spent Total Time Spent with Patient: Total time spent is greater than 50% in coordination of care (as documented) at patient's floor/unit and/or counseling patient: Coding Level of Care Code 97378 SUB INP/OBS CARE MIN Diagnoses CHF (congestive heart failure) I50.9 Heart failure chronicity: acute Heart failure type: unspecified Acute hypoxic respiratory failure J96.01 Primary idiopathic dilated cardiomyopathy I42.0 Primary hypertension I10 Hypertension type: primary hypertension Elevated troponin R77.8 CKD (chronic kidney disease) stage 4, GFR 15-29 ml/min N18.4 Abnormal finding on urinalysis R82.90 (1) CHF (congestive heart failure) Heart failure chronicity: acute Heart failure type: unspecified Qualified Code(s): I50.9 - Heart failure, unspecified (4) Hypertension Hypertension type: primary hypertension Qualified Code(s): I10 - Essential (primary) hypertension
[2023-09-05 06:48] LABS: Basophils # (auto) 0.03 K/uL (0.00-0.20); Basophils % (auto) 0.4 %; Eosinophils # (auto) 0.16 K/uL (0.00-0.50); Hematocrit (blood only) 26.7 % (37.0-47.0); Hemoglobin 8.8 g/dl (12.0-16.0); Immature Granulocytes # (auto) 0.05 K/uL (0.01-0.20); Immature Granulocytes % (auto) 0.6 %; Lymphocytes # (auto) 0.56 K/uL (1.20-3.40); Lymphocytes % (auto) 6.9 %; Mean Corpuscular Hemoglobin 30.1 pg (25.0-34.0); Mean Corpuscular Volume 91.4 fL (80.0-100.0); Mean Platelet Volume 10.5 fL (9.4-12.4); Monocytes # (auto) 0.64 K/uL (0.11-0.59); Monocytes % (auto) 7.9 %; Neutrophils # (auto) 6.71 K/uL (1.40-6.50); Neutrophils % (auto) 82.2 %; Platelet Count 181 K/uL (130-400); RDW Coefficient of Variation 16.3 % (11.5-14.5); RDW Standard Deviation 53.7 fL (36.4-46.3); Red Blood Count 2.92 M/uL (4.20-5.40); White Blood Count 8.15 K/ul (4.8-10.8)
[2023-09-05 07:03] LABS: Albumin Level 2.8 gm/dl (3.4-5.0); BUN Creatinine Ratio 20.7 (10-20); Calcium 9.5 mg/dl (8.6-10.3); Creatinine Clr Calc Pharmacy 9.1 ml/min; Est GFR (African American) 16.2 ml/min; Magnesium 2.2 mg/dl (1.7-2.4); Phosphorus 4.2 mg/dl (2.5-4.9); Potassium 4.2 mmol/L (3.5-5.1)
--- NOTE | 2023-09-05 11:19 | Nephrology Progress Note ---
Date of Service September 05, 2023 Assessment & Plan (1) CKD (chronic kidney disease) stage 4, GFR 15-29 ml/min: (2) Pleural effusion: (3) CHF (congestive heart failure): (4) Primary idiopathic dilated cardiomyopathy: (5) REJI (acute kidney injury): (6) Anemia of chronic disease: Plan 82 year old female with stage 3B CKD, b/l Cr has been widely variable but over last 1 years staying somehow close to 2.0 mg/dl w/ eGFR 30 cc/min secondary to hypertensive nephrosclerosis and CMP. Urinalysis unremarkable. 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 Recently creatinine was noted to have risen to 2.0. Spironolactone was held. Patient presented to [facility] EMD 08/29/23 w/ concerns of dyspnea and 10 lb weight gain. CXR revealed moderate pulmonary edema and started on IV diuretic therapy. Creatinine has risen to 3.0. Echo shows LVEF 20-25% with moderate MR, moderate pericardial effusion. Clinically doing better and LE edema staying stable with increased urine output and overall net negative although with recorded as going up to 54 kg, unclear how accurate that is. Kidney function has been slowly worsening, creatinine up to 3.0, electrolyte acceptable. -- Continue on Lasix 80 mg po bid, monitor intake and output and aim for net negative. -- continue Venofer 200 mg iv daily x 5 doses -- Renal function and electrolyte check in the morning. -- She does have significant risk for progressive worsening of kidney function with requirement of high-dose of diuretics to maintain volume status and keeping her slightly negative. -- Advised to keep legs elevated, will try compression stockings for lower extremity edema. Admission and Anticipated Discharge Date Admission Date: August 28, 2023 Fatou Antoine was seen and evaluated this morning. She reports feeling better, denies shortness of breath. Weight has been slowly going up again although urine output slightly improved to more than 1 L and net negative. Hemoglobin staying low around 8.6-8.7, on Venofer. Kidney function has been slowly worsening over last few days with higher dose of diuretics , creatinine up to 3.0 mg/dl this morning, electrolyte acceptable. Blood pressure fair. LE edema staying relatively stable without much improvement. Review of Systems Review of Systems: Detailed review of system was done and pertinent positives and negatives are mentioned above. Physical Exam Constitutional: WD/WN, vitals as above + ill appearing and comfortable; no acute distress Eyes: + anicteric sclerae Neck: normal visual inspection Respiratory: Auscultation: + diminished lung sounds; no crackles and no wheezes Cardiovascular: Rate/Rhythm: regular rate and regular rhythm Heart Sounds: normal S1 and normal S2 Extremities: + edema (1 to 2+ b/l LE edema) Skin: no rashes, warm and dry Neurologic: no focal motor deficits Psychiatric: Orientation: alert and oriented x 3 Results & Data Vital Signs (Past 12 Hours) Vital Signs Temp Pulse Pulse Pulse Resp BP BP 09/05/23 10:57 60 18 109/58 L 09/05/23 09:32 60 116/66 09/05/23 07:29 36.6 C 60 17 103/56 L 09/05/23 04:00 09/05/23 02:59 36.8 C 60 118/66 09/05/23 00:00 60 Pulse Ox O2 Del Method O2 Del Method O2 Flow Rate O2 Flow Rate 09/05/23 10:57 98 Nasal Cannula 09/05/23 09:32 09/05/23 07:29 96 Nasal Cannula 09/05/23 04:00 Nasal Cannula 1 09/05/23 02:59 95 Nasal Cannula 1 09/05/23 00:00 PG Care Time/CCT Total # of Minutes Spent Total Time Spent with Patient: Total time spent is greater than 50% in coordination of care (as documented) at patient's floor/unit and/or counseling patient: Coding Level of Care Code 51585 SUB INP/OBS CARE 2/35MIN Diagnoses CKD (chronic kidney disease) stage 4, GFR 15-29 ml/min N18.4 Pleural effusion J90 CHF (congestive heart failure) I50.9 Heart failure chronicity: acute Heart failure type: unspecified Primary idiopathic dilated cardiomyopathy I42.0 REJI (acute kidney injury) N17.9 Anemia of chronic disease D63.8 (3) CHF (congestive heart failure) Heart failure chronicity: acute Heart failure type: unspecified Qualified Code(s): I50.9 - Heart failure, unspecified
--- NOTE | 2023-09-05 19:07 | Hospitalist Progress Note ---
Date of Service September 05, 2023 Assessment & Plan (1) CHF (congestive heart failure): Plan: ACUTE ON CHRONIC HEART FAILURE WITH REDUCED EF Acute respiratory failure with hypoxia secondary to CHF, ECHO w/ severely reduced EF, 20-25%, severe LV dysfunction Wt 54.3kg on admit, dry wt per CHF clinic ~43.1kg -- had her spironolactone on hold since beginning of july due to hyperkalemia/elevated Cr and suspect contributed CXR w/ pulmonary edema/effusions, associated airspace opacities on admit CHF clinic/cards consult appreciated Lasix 40mg IV BID initially, increased to 60mg IV BID on 08/27 Added spironolactone 12.5mg Nephrology consulted--> added hydralazine 25mg QID for afterload reduction weight continues to increase but edema improving today with BAILEY hose and elevation Remains OFF Entresto, continues on coreg BID Nephro changed lasix to 80mg po bid on 09/03-continue the same for now, aim for net negative Recreational Resort Manager up further to 2.95 Follow BMP, Mag in AM low sodium diet, fluid restrict (2) Acute hypoxic respiratory failure: Plan: 2nd to volume overload/CHF exacerbation/progressive CKD WBC wnl/afebrile, CXR w/o focal consolidation, VRP BioFire neg Diuretics as above, duonebs available, pulm toilet CXR w/ stable f/u, continued diuretics as outlined above Titrate O2 as able-remains on 2LNC (3) CKD (chronic kidney disease) stage 4, GFR 15-29 ml/min: Plan: REJI in setting of CKD 4 Suspect worsened renal function w/ worsened heart failure in setting of recently having her home diuretics placed on hold. Followed by Dr Domingo in the past, would NOT want HD if it came to that. mcmahon in place, diuretics as outlined, appreciate nephrology assistance hydralazine for afterload reduction Recreational Resort Manager up further today to 2.95 baseline 2.0 Renal dose meds, avoid nephrotoxin as above Monitor BMP in AM (4) Primary idiopathic dilated cardiomyopathy: Plan: cards consult appreciated. Appears has been taken OFF her aspirin in July -- consideration to resume however had progressive anemia and was held at last PCP visit however no gross/lalit bleeding reported ASA 81mg WAS resumed and hgb remaining stable w/ diuresis, no bleeding reported and Venofer ordered Entresto dc'd due to hyperkalemia/progressive CKD. Spironolactone added back Remains on coreg, statin (5) Hypertension: Plan: Entresto discontinued, remains on coreg, and added hydralazine for afterload reduction lasix, spironolactone as above for volume overload BP stable and will monitor (6) Elevated troponin: Plan: suspected demand ischemia from volume overload/CHF exacerbation as above. Initially 29.3--> 122--> 92.6. No CP reported. Cards consulted while inpatient ASA resumed as above last week and hgb stable (7) Abnormal finding on urinalysis: Plan: Urine CULTURE NEGATIVE continue Mcmahon for now due to REJI Anxiety/depression/mild cognitive impairment- mood stable, alert to person/place/year/month at present time, intermittent forgetfulness at times Continue buspirone, memantine. B12 not deficient. TSH wnl Frequent orientation, support APPEARS IMPROVED Plan Conditional code - ok w/ meds/IVF/abx, no CPR, intubation, feeding tube or HD [place] [facility] [place]-insurance auth approved but not medically stable for discharge yet discussed care with at bedside Admission and Anticipated Discharge Date Admission Date: August 28, 2023 Subjective Had a rough night, couldn't sleep due to orthopnea, also c/o soreness in her bottom. No open wounds but buttocks are reddened as per RN Physical Exam Constitutional: WD/WN, vitals as above Respiratory: normal respiratory effort Auscultation: + diminished lung sounds (at bases); no wheezes Cardiovascular: Rate/Rhythm: regular rate and regular rhythm Heart Sounds: no murmur Extremities: + edema (1+ pitting edema legs bilat, improved) Gastrointestinal (Abdomen): normal bowel sounds, soft, nontender, no hepatosplenomegaly Results & Data Results & Data Vital Signs (Past 12 Hours) Vital Signs Temp Pulse Pulse Pulse Resp BP BP 09/05/23 15:16 36.3 C L 60 18 138/73 09/05/23 14:58 60 144/72 H 09/05/23 14:00 60 09/05/23 11:43 60 09/05/23 10:57 60 18 109/58 L 09/05/23 09:32 60 116/66 09/05/23 08:00 09/05/23 07:29 36.6 C 60 17 103/56 L Pulse Ox O2 Del Method O2 Flow Rate 09/05/23 15:16 98 Room Air 09/05/23 14:58 09/05/23 14:00 09/05/23 11:43 09/05/23 10:57 98 Nasal Cannula 09/05/23 09:32 09/05/23 08:00 Nasal Cannula 2 09/05/23 07:29 96 Nasal Cannula Laboratory Results CBC, BMP reviewed PG Care Time/CCT Total # of Minutes Spent Total Time Spent with Patient: Total time spent is greater than 50% in coordination of care (as documented) at patient's floor/unit and/or counseling patient: Coding Level of Care Code 51273 SUB INP/OBS CARE MIN Diagnoses CHF (congestive heart failure) I50.9 Heart failure chronicity: acute Heart failure type: unspecified Acute hypoxic respiratory failure J96.01 CKD (chronic kidney disease) stage 4, GFR 15-29 ml/min N18.4 Primary idiopathic dilated cardiomyopathy I42.0 Primary hypertension I10 Hypertension type: primary hypertension Elevated troponin R77.8 Abnormal finding on urinalysis R82.90 (1) CHF (congestive heart failure) Heart failure chronicity: acute Heart failure type: unspecified Qualified Code(s): I50.9 - Heart failure, unspecified (5) Hypertension Hypertension type: primary hypertension Qualified Code(s): I10 - Essential (primary) hypertension
[2023-09-06 09:10] LABS: Albumin Level 2.9 gm/dl (3.4-5.0); BUN Creatinine Ratio 21.5 (10-20); Calcium 9.6 mg/dl (8.6-10.3); Creatinine Clr Calc Pharmacy 9.1 ml/min; Est GFR (African American) 15.7 ml/min; Est GFR (Non-African American) 13.6 ml/min; Phosphorus 4.2 mg/dl (2.5-4.9); Potassium 4.2 mmol/L (3.5-5.1)
[2023-09-06] MEDS: FUROSEMIDE 40 MG TAB PO ONE (09:29)
--- NOTE | 2023-09-06 11:46 | Nephrology Progress Note ---
Date of Service September 06, 2023 Assessment & Plan (1) CKD (chronic kidney disease) stage 4, GFR 15-29 ml/min: (2) Pleural effusion: (3) CHF (congestive heart failure): (4) Primary idiopathic dilated cardiomyopathy: (5) REJI (acute kidney injury): (6) Anemia of chronic disease: Plan 82 year old female with stage 3B CKD, b/l Cr has been widely variable but over last 1 years staying somehow close to 2.0 mg/dl w/ eGFR 30 cc/min secondary to hypertensive nephrosclerosis and CMP. Urinalysis unremarkable. 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 Recently creatinine was noted to have risen to 2.0. Spironolactone was held. Patient presented to [facility] EMD 08/29/23 w/ concerns of dyspnea and 10 lb weight gain. CXR revealed moderate pulmonary edema and started on IV diuretic therapy. Creatinine has risen to 3.0. Echo shows LVEF 20-25% with moderate MR, moderate pericardial effusion. Overall doing poorly with LE edema, weight gain and decreased urine output. Kidney function has been slowly worsening, creatinine up to 3.0, electrolyte acceptable. On exam pulmonary congestion seems better but worsening bl Pl effusion specially left pleural effusion. -- Change to Bumex 2 mg IV bid, monitor intake and output and aim for net negative. If UO remains low and kidney function worsen, wonder whether Dobutamine would help with severe acrdiomyopathy. -- continue Venofer 200 mg iv daily x 5 doses -- Renal function and electrolyte check in the morning. -- She does have significant risk for progressive worsening of kidney function with requirement of high-dose of diuretics to maintain volume status and keeping her slightly negative. -- Advised to keep legs elevated, will try compression stockings for lower extremity edema. Admission and Anticipated Discharge Date Admission Date: August 28, 2023 Fatou Antoine was seen and evaluated this morning. She still has difficulty with taking deep breath and gets easily SOB. Weight has been slowly going up and urine output again low on oral diuretics. Kidney function has been slowly worsening over last few days creatinine up to 3.0 mg/dl this morning, electrolyte acceptable. Blood pressure fair. No improvement in LE edema. Review of Systems Review of Systems: Detailed review of system was done and pertinent positives and negatives are mentioned above. Physical Exam Constitutional: WD/WN, vitals as above + ill appearing and comfortable; no acute distress Eyes: + anicteric sclerae Neck: normal visual inspection Respiratory: Auscultation: + diminished lung sounds; no crackles and no wheezes Cardiovascular: Rate/Rhythm: regular rate and regular rhythm Heart Sounds: normal S1 and normal S2 Extremities: + edema (1 to 2+ b/l LE edema) Skin: no rashes, warm and dry Neurologic: no focal motor deficits Psychiatric: Orientation: alert and oriented x 3 Results & Data Vital Signs (Past 12 Hours) Vital Signs Temp Pulse Pulse Resp BP Pulse Ox O2 Del Method 09/06/23 11:23 36.5 C 60 20 138/60 92 Nasal Cannula 09/06/23 08:00 Nasal Cannula 09/06/23 07:21 36.6 C 66 18 135/57 L 94 Nasal Cannula 09/06/23 07:16 60 09/06/23 03:40 36.4 C L 60 18 123/62 90 Nasal Cannula O2 Flow Rate 09/06/23 11:23 1 09/06/23 08:00 1 09/06/23 07:21 1 09/06/23 07:16 09/06/23 03:40 1 PG Care Time/CCT Total # of Minutes Spent Total Time Spent with Patient: Total time spent is greater than 50% in coordination of care (as documented) at patient's floor/unit and/or counseling patient: Coding Level of Care Code 65798 SUB INP/OBS CARE 2/35MIN Diagnoses CKD (chronic kidney disease) stage 4, GFR 15-29 ml/min N18.4 Pleural effusion J90 CHF (congestive heart failure) I50.9 Heart failure chronicity: acute Heart failure type: unspecified Primary idiopathic dilated cardiomyopathy I42.0 REJI (acute kidney injury) N17.9 Anemia of chronic disease D63.8 (3) CHF (congestive heart failure) Heart failure chronicity: acute Heart failure type: unspecified Qualified Code(s): I50.9 - Heart failure, unspecified
--- NOTE | 2023-09-06 15:39 | XRay Report ---
XR chest 1V portable CLINICAL HISTORY: f/u CHF,pleural effusions TECHNIQUE: Single frontal radiograph of the chest was obtained. Comparison: Comparison is made to chest radiograph 09/02/2023 FINDINGS: Pacemaker defibrillator is seen. Cardiomegaly is noted. The aortic arch is calcified. Bilateral lower lung predominant airspace opacities are seen. Small bilateral pleural effusions are seen. IMPRESSION: Small bilateral pleural effusions are unchanged from prior exam. Bibasilar airspace opacities are aga in noted. ACT 112: Negative or not required by law. Electronically signed by: Manny Nichole M.D. 09/06/2023 3:37 PM
--- NOTE | 2023-09-06 16:06 | Hospitalist Progress Note ---
Date of Service September 06, 2023 Assessment & Plan (1) CHF (congestive heart failure): Plan: ACUTE ON CHRONIC HEART FAILURE WITH REDUCED EF Acute respiratory failure with hypoxia secondary to CHF, ECHO w/ severely reduced EF, 20-25%, severe LV dysfunction Wt 54.3kg on admit, dry wt per CHF clinic ~43.1kg -- her spironolactone was on hold since beginning of july due to hyperkalemia/elevated Cr and likely contributed CXR w/ pulmonary edema/effusions, associated airspace opacities on admit CHF clinic/cards consult appreciated Lasix 40mg IV BID initially, increased to 60mg IV BID on 08/27 Added spironolactone 12.5mg and toxicology supervisor rising, weight gain, and no improvement in respiratory status. Minimal weigh tloss and I/Os only minimally negative, toxicology supervisor rising to 3.0 Nephrology consulted Added hydralazine 25mg QID for afterload reduction Continue BAILEY hose and elevation of legs No improvement with lasix 80mg po bid--> change to Bumex 2mg IV bid and considering dobutamine gtt but awaiting Cardiology input Remains OFF Entresto, continues on coreg BID Aim for net negative Follow BMP, Mag in AM low sodium diet, fluid restrict COnsidering hospice but now pt wants to know if she is a candidate for dialysis and will d/w Nephro (2) Acute hypoxic respiratory failure: Plan: 2nd to volume overload/CHF exacerbation/progressive CKD WBC wnl/afebrile, CXR w/o focal consolidation, VRP BioFire neg Diuretics as above, duonebs available, pulm toilet CXR persists with effusions, cardiomegaly and pulm edema continued diuretics as outlined above Titrate O2 as able-remains on 2LNC (3) CKD (chronic kidney disease) stage 4, GFR 15-29 ml/min: Plan: REJI in setting of CKD 4 Suspect worsened renal function w/ worsened heart failure in setting of recently having her home diuretics placed on hold. Followed by Dr Domingo in the past, would NOT want HD if it came to that. mcmahon in place, diuretics as outlined, appreciate nephrology assistance hydralazine for afterload reduction Scale Manager up further today to 3.0, baseline 2.0 Renal dose meds, avoid nephrotoxin as above Monitor BMP in AM stop aldactone pt now considering HD but likely would not want to do it even if is a candidate (4) Primary idiopathic dilated cardiomyopathy: Plan: cards consult appreciated Entresto dc'd due to hyperkalemia/progressive CKD. Spironolactone added back but now stopped Remains on coreg, hydralazine, diuretics (5) Hypertension: Plan: Entresto discontinued, remains on coreg, and added hydralazine for afterload reduction diuretics for volume overload BP stable and will monitor (6) Elevated troponin: Plan: suspected demand ischemia from volume overload/CHF exacerbation as above. Initially 29.3--> 122--> 92.6. No CP reported. Cards consulted while inpatient ASA resumed as above last week and hgb stable (7) Abnormal finding on urinalysis: Plan: Urine CULTURE NEGATIVE continue Mcmahon for now due to REJI Anxiety/depression/mild cognitive impairment- mood stable, alert to person/place/year/month at present time, intermittent forgetfulness at times Continue buspirone, memantine. B12 not deficient. TSH wnl Frequent orientation, support APPEARS IMPROVED Plan Conditional code - ok w/ meds/IVF/abx, no CPR, intubation, feeding tube or HD Dispo-plan was for SNF but now contemplating hospice at home or NH but perhaps short term rehab stay prior to transition to hospice discussed care with and daughter at bedside Admission and Anticipated Discharge Date Admission Date: August 28, 2023 Subjective Pt still feels poorly. Not sleeping due to orthopnea and Mcmahon catheter very irritating. She and her family at bedside understand her prognosis is not great and we had a lengthy discussion about goals of care to include dialysis , rehab, or entering hospice at home or in a NH. Pt reports she is contemplating HD but needs more information on it but thinks she's leaning more towards hospice. Her is upset but encourages her to come home with hospice. She did move her bowels today and had to strain quite a bit and had some BRBPR as per RN I discussed her care with Nephrology and Cardiology as well as Salvage Cutter Tele with paced rhythm in 60s Physical Exam Constitutional: WD/WN, vitals as above Respiratory: normal respiratory effort Auscultation: + diminished lung sounds (at bases); no wheezes Cardiovascular: Rate/Rhythm: regular rate and regular rhythm Heart Sounds: no murmur Extremities: + edema (2+ pitting edema legs bilat) Gastrointestinal (Abdomen): normal bowel sounds, soft, nontender, no hepatospl enomegaly Results & Data Results & Data Vital Signs (Past 12 Hours) Vital Signs Temp Pulse Pulse Resp BP Pulse Ox O2 Del Method 09/06/23 11:23 36.5 C 60 20 138/60 92 Nasal Cannula 09/06/23 08:00 Nasal Cannula 09/06/23 07:21 36.6 C 66 18 135/57 L 94 Nasal Cannula 09/06/23 07:16 60 O2 Flow Rate 09/06/23 11:23 1 09/06/23 08:00 1 09/06/23 07:21 1 09/06/23 07:16 Laboratory Results BMP reviewed PG Care Time/CCT Total # of Minutes Spent Total Time Spent with Patient: Total time spent is greater than 50% in coordination of care (as documented) at patient's floor/unit and/or counseling patient: Coding Level of Care Code 27676 SUB INP/OBS CARE 3/50MIN Diagnoses CHF (congestive heart failure) I50.9 Heart failure chronicity: acute Heart failure type: unspecified Acute hypoxic respiratory failure J96.01 CKD (chronic kidney disease) stage 4, GFR 15-29 ml/min N18.4 Primary idiopathic dilated cardiomyopathy I42.0 Primary hypertension I10 Hypertension type: primary hypertension Elevated troponin R77.8 Abnormal finding on urinalysis R82.90 (1) CHF (congestive heart failure) Heart failure chronicity: acute Heart failure type: unspecified Qualified Code(s): I50.9 - Heart failure, unspecified (5) Hypertension Hypertension type: primary hypertension Qualified Code(s): I10 - Essential (primary) hypertension
[2023-09-06] MEDS: FUROSEMIDE 40 MG TAB PO SCH (17:57)
[2023-09-06] MEDS: BUMETANIDE 2 MG in SYRINGE 0 ML IV SCH (17:57)
--- NOTE | 2023-09-06 21:48 | Cardiology Progress Note ---
Date of Service September 06, 2023 Assessment & Plan (1) Acute on chronic HFrEF (heart failure with reduced ejection fraction): (2) Pericardial effusion: (3) Hypertension: (4) Paroxysmal atrial fibrillation: (5) Biventricular ICD (implantable cardioverter-defibrillator) in place: (6) CKD (chronic kidney disease) stage 4, GFR 15-29 ml/min: (7) Nonischemic cardiomyopathy: Plan ASSESSMENT/PLAN: 1. Acute on chronic heart failure with reduced EF: She appears significantly hy pervolemic. She had been on Lasix 80 mg twice daily for the past couple of days and then received 120 mg this evening as well as a dose of Bumex 2 mg IV this evening. Would try to achieve at least 1 L net negative fluid balance today. If urine output does not significantly improve, would redose Bumex in the morning with Diuril IV. If she fails to respond to more aggressive diuretic therapy, could consider dobutamine for inotropic support. Would not initiate dobutamine yet. Low-sodium diet. Strict I's and O's. Daily weights. Entresto held due to worsened renal function. No spironolactone or SGLT2 inhibitor due to renal insufficiency. Continue carvedilol. Now on hydralazine. Will initiate nitrate therapy. 2. Nonischemic cardiomyopathy: Severely reduced LV systolic function. B iventricular ICD in place and followed by electrophysiology. 3. Mitral and tricuspid regurgitation: Nonsevere per report. Can be followed in the outpatient setting. 4. Pericardial effusion: Chronic issue. 5. Paroxysmal atrial fibrillation: Continue beta-terence. Continue anticoagulation for stroke risk reduction if no contraindication. On amiodarone. Monitor TSH and transaminase levels periodically in the outpatient setting. 6. CKD: As per nephrology. 7. Hypertension: Blood pressure reasonably controlled. Continue carvedilol and hydralazine. 8. Disposition: Cardiology will continue to follow. Patient care communicated with Dr. Alex of the primary hospitalist service. Follow-up in heart failure program and with primary patient service technician pst, Dr. Stearns, on discharge. Highly complex medical issues. Admission and Anticipated Discharge Date Admission Date: August 28, 2023 Subjective Patient seen earlier this evening at the request of Dr. Alex. She had several for members seated at the bedside. She was out of bed in a chair. She and family agree that her shortness of breath has worsened recently while hospitalized. Her daughter states that when she was out of bed to use the restroom, she seemed extremely washed out and dyspneic on exertion. She denies chest pain, lightheadedness, syncope, near syncope, palpitations, or bleeding. Physical Exam Physical Exam: Gen.: No acute distress. Alert and oriented. HEENT: Anicteric sclera. Neck: JVD nearly to the mandible sitting upright. Normal carotid upstrokes bilaterally. Cardiac: No ventricular heave. Regular. Normal S1-S2. 2/6 systolic murmur. Pulmonary: Mild rales at the right base, otherwise clear. Reduced breath sounds in general bilaterally. Abdomen: Soft, nontender, nondistended, with normoactive bowel sounds. No bruits noted. Extremities: 2+ radial pulses bilaterally. 2+ posterior tibialis pulses bilaterally. 3+ bilateral lower extremity edema to the knees. 1-2+ bilateral lower extremity edema above the knees. Psychiatric: Affect appears appropriate. Results & Data Vital Signs (Past 12 Hours) Vital Signs Temp Pulse Resp BP Pulse Ox O2 Del Method O2 Flow Rate 09/06/23 19:00 36.2 C L 60 60 H 126/66 97 Nasal Cannula 09/06/23 16:30 Nasal Cannula 1 09/06/23 11:23 36.5 C 60 20 138/60 92 Nasal Cannula 1 Intake & Output 09/04/23 09/05/23 09/06/23 09/07/23 06:59 06:59 06:59 06:59 Intake Total 720 / 720 660 / 660 530 / 530 210 / 210 Output Total 700 / 700 1027 / 1027 675 / 675 200 / 200 Balance -367 / -367 -145 / -145 Weight 117 lb 8.102 oz 119 lb 0.794 oz 125 lb 0.034 oz 116 lb 9.992 oz Laboratory Results Laboratory Results - last 24 hr 09/06/23 08:19 Sodium 130 L Potassium 4.2 Chloride 94 L Carbon Dioxide 30 Anion Gap 6 BUN 65 H Creatinine 3.02 H Est Cr Clr Drug Dosing 9.1 Est GFR ( Amer) 15.7 Est GFR (Non-Af Amer) 13.6 BUN/Creatinine Ratio 21.5 H Glucose 134 H Calcium 9.6 Phosphorus 4.2 Albumin 2.9 L Diagnostic Findings Labs reviewed from 09/06/2023: Abnormal but stable renal function. Normal potassium, mild hyponatremia. Echo report from 08/28/2023 reviewed: Severely reduced LV systolic function. EF 20 to 25%. At least moderate TR. Moderate MR. Mild AI. Small to medium pericardial effusion. Telemetry personally reviewed: Ventricular paced. Nephrology note reviewed. Medications Administered Current Inpatient Medications Acetaminophen (Acetaminophen 325 Mg Tab) 650 mg PO Q4H PRN PRN Reason: Pain or Fever Stop: 09/27/23 02:25 Last Admin: 09/06/23 18:00 Dose: 650 mg Albuterol (Albut/Ipratrop 3mg/0.5mg Neb 3 Ml Vial) 3 ml NEB Q4R PRN; Protocol PRN Reason: shortness of breath or wheezing Stop: 09/27/23 18:59 Last Admin: 08/31/23 21:14 Dose: 3 ml Amiodarone HCl (Amiodarone 200 Mg Tab) 200 mg PO DAILY [facility] Stop: 09/27/23 08:59 Last Admin: 09/06/23 08:41 Dose: 200 mg Apixaban (Apixaban 2.5 Mg Tab) 2.5 mg PO BID [facility] Stop: 09/27/23 08:59 Last Admin: 09/06/23 08:40 Dose: 2.5 mg Artificial Tears (Artificial Tears) 1 drops OP DAILY PRN PRN Reason: Dry Eyes Stop: 09/27/23 02:43 Last Admin: 09/02/23 08:41 Dose: 1 drops Aspirin (Aspirin 81 Mg Ectab) 81 mg PO QAM [facility] Stop: 09/28/23 12:59 Last Admin: 09/06/23 08:40 Dose: 81 mg Atorvastatin Calcium (Atorvastatin 40 Mg Tab) 40 mg PO DAILY [facility] Stop: 09/27/23 08:59 Last Admin: 09/06/23 08:41 Dose: 40 mg Buspirone HCl (Buspirone 5 Mg Tab) 5 mg PO DAILY [facility] Stop: 09/27/23 08:59 Last Admin: 09/06/23 08:40 Dose: 5 mg Carvedilol (Carvedilol 12.5 Mg Tab) 12.5 mg PO BID [facility] Stop: 09/27/23 08:59 Last Admin: 09/06/23 08:41 Dose: 12.5 mg Diclofenac Sodium (Diclofenac Sod 1% Gel 100 Gm Tube) 2 gm EXT QID [facility]; Protocol Stop: 09/30/23 12:59 Last Admin: 09/06/23 17:57 Dose: Not Given Docusate Sodium (Docusate Sodium 100 Mg Cap) 100 mg PO BID [facility] Stop: 10/01/23 20:59 Last Admin: 09/06/23 08:42 Dose: 100 mg Hydralazine HCl (Hydralazine Hcl 25 Mg Tab) 25 mg PO TID [facility] Stop: 09/30/23 13:59 Last Admin: 09/06/23 13:39 Dose: 25 mg Bumetanide 2 mg/ Syringe 8 mls @ 4 mls/min IV BID@0900,1700 [facility] Stop: 10/06/23 16:59 Last Admin: 09/06/23 17:57 Dose: 4 mls/min Memantine (Memantine Hcl 5 Mg Tab) 5 mg PO DAILY [facility] Stop: 09/27/23 08:59 Last Admin: 09/06/23 08:41 Dose: 5 mg Multivitamins/Minerals (Cerovite Adv Formula Tab) 1 tab PO HS [facility] Stop: 09/27/23 20:59 Last Admin: 09/05/23 20:44 Dose: 1 tab Ondansetron HCl (Ondansetron Inj 2 Mg/Ml 2 Ml Vial) 4 mg IV Q6H PRN PRN Reason: Nausea Stop: 09/27/23 02:25 Sennosides (Senna 8.6 Mg Tab) 8.6 mg PO QAM [facility] Stop: 10/01/23 15:59 Last Admin: 09/06/23 08:41 Dose: 8.6 mg Sodium Chloride (Sodium Chloride 0.65% Na Soln 45 Ml ([employer])) 1 sprays NA NOW PRN PRN Reason: Patient Admitted Stop: 09/09/23 13:17 Last Admin: 09/02/23 18:27 Dose: 1 sprays PG Care Time/CCT Total # of Minutes Spent Total Time Spent with Patient: Total time spent is greater than 50% in coordination of care (as documented) at patient's floor/unit and/or counseling patient: Coding Level of Care Code 12894 SUB INP/OBS CARE 3/50MIN Diagnoses Acute on chronic HFrEF (heart failure with reduced ejection fraction) I50.23 Pericardial effusion I31.3 Primary hypertension I10 Hypertension type: primary hypertension Paroxysmal atrial fibrillation I48.0 Biventricular ICD (implantable cardioverter-defibrillator) in place Z95.810 CKD (chronic kidney disease) stage 4, GFR 15-29 ml/min N18.4 Nonischemic cardiomyopathy I42.8 (3) Hypertension Hypertension type: primary hypertension Qualified Code(s): I10 - Essential (primary) hypertension
[2023-09-07 07:07] LABS: Basophils # (auto) 0.03 K/uL (0.00-0.20); Basophils % (auto) 0.5 %; Eosinophils # (auto) 0.08 K/uL (0.00-0.50); Eosinophils % (auto) 1.3 %; Hematocrit (blood only) 24.1 % (37.0-47.0); Immature Granulocytes # (auto) 0.03 K/uL (0.01-0.20); Immature Granulocytes % (auto) 0.5 %; Lymphocytes # (auto) 0.57 K/uL (1.20-3.40); Lymphocytes % (auto) 9.2 %; Mean Corpuscular Hemoglobin 30.1 pg (25.0-34.0); Mean Corpuscular Hgb Conc 33.2 g/dL (32.0-36.0); Mean Corpuscular Volume 90.6 fL (80.0-100.0); Mean Platelet Volume 10.6 fL (9.4-12.4); Monocytes # (auto) 0.62 K/uL (0.11-0.59); Neutrophils # (auto) 4.85 K/uL (1.40-6.50); Neutrophils % (auto) 78.5 %; Platelet Count 182 K/uL (130-400); RDW Coefficient of Variation 16.5 % (11.5-14.5); RDW Standard Deviation 53.9 fL (36.4-46.3); Red Blood Count 2.66 M/uL (4.20-5.40); White Blood Count 6.18 K/ul (4.8-10.8)
[2023-09-07 07:20] LABS: Albumin Level 2.8 gm/dl (3.4-5.0); BUN Creatinine Ratio 22.1 (10-20); Calcium 9.6 mg/dl (8.6-10.3); Creatinine Clr Calc Pharmacy 8.6 ml/min; Est GFR (African American) 15.4 ml/min; Est GFR (Non-African American) 13.3 ml/min; Magnesium 2.3 mg/dl (1.7-2.4); Phosphorus 4.4 mg/dl (2.5-4.9); Potassium 4.4 mmol/L (3.5-5.1)
[2023-09-07] MEDS: ISOSORBIDE MONO EXTENDED REL 30 MG TABCR PO SCH (08:39)
--- NOTE | 2023-09-07 08:42 | Cardiology Progress Note ---
Date of Service September 07, 2023 Assessment & Plan (1) Acute on chronic HFrEF (heart failure with reduced ejection fraction): (2) Pericardial effusion: (3) Hypertension: (4) Paroxysmal atrial fibrillation: (5) Biventricular ICD (implantable cardioverter-defibrillator) in place: (6) CKD (chronic kidney disease) stage 4, GFR 15-29 ml/min: (7) Nonischemic cardiomyopathy: Plan ASSESSMENT/PLAN: 1. Acute on chronic heart failure with reduced EF: She appears significantly hy pervolemic. Improved urine output with Bumex in the evening on 09/06/2023. Spoke with nursing staff and asked that I be notified this afternoon if she is not nearing 1 L negative so far today. If this is the case, would recommend Diuril 250 mg IV with her next dose of Bumex. Could further titrate Bumex as well if necessary. If she fails to respond to more aggressive diuretic therapy, could consider dobutamine for inotropic support. Low-sodium diet. Strict I's and O's. Daily weights. Entresto held due to worsened renal function. No spironolactone or SGLT2 inhibitor due to renal insufficiency. Continue carvedilol. Now on hydralazine. Titrate therapy initiated. 2. Nonischemic cardiomyopathy: Severely reduced LV systolic function. Biventricular ICD in place and followed by electrophysiology. 3. Mitral and tricuspid regurgitation: Nonsevere per report. Can be followed in the outpatient setting. 4. Pericardial effusion: Chronic issue. 5. Paroxysmal atrial fibrillation: Continue beta-terence. Continue anticoagulation for stroke risk reduction if no contraindication. On amiodarone. Monitor TSH and transaminase levels periodically in the outpatient setting. 6. CKD: As per nephrology. 7. Hypertension: Blood pressure has been reasonably controlled with occasional hypertension. Blood pressure may decline if diuresis improves. 8. Disposition: Cardiology will continue to follow. Patient care communicated with Dr. Alex of the primary hospitalist service. Follow-up in heart failure program and with primary manager of recruiting, Dr. Stearns, on discharge. Palliative care consult is pending. Admission and Anticipated Discharge Date Admission Date: August 28, 2023 Subjective Patient was evaluated this morning. She was alone in her hospital room. She had increased urine output overnight with Bumex and Lasix in the evening. She thought her breathing may be a bit improved this morning. She denied chest pain, syncope, near syncope, palpitations, or bleeding. Physical Exam Physical Exam: Gen.: No acute distress. Alert and oriented. HEENT: Anicteric sclera. Neck: Elevated JVD. Cardiac: No ventricular heave. Regular. Normal S1-S2. 2/6 systolic murmur. Pulmonary: Reduced breath sounds bilaterally. Clear to auscultation bilaterally. Abdomen: Soft, nontender, nondistended, with normoactive bowel sounds. No bruits noted. Extremities: 2+ radial pulses bilaterally. 2+ posterior tibialis pulses bilaterally. 3+ bilateral lower extremity edema to the knees. 1+ bilateral lower extremity edema above the knees. Psychiatric: Affect appears appropriate. Results & Data Vital Signs (Past 12 Hours) Vital Signs Temp Pulse Pulse Pulse Resp BP Pulse Ox 09/07/23 07:51 60 09/07/23 07:51 09/07/23 07:16 36.4 C L 60 18 131/53 L 94 09/07/23 02:35 36.5 C 59 L 16 131/65 97 09/06/23 23:35 61 09/06/23 22:58 36.6 C 60 16 122/73 98 O2 Del Method O2 Flow Rate 09/07/23 07:51 09/07/23 07:51 Nasal Cannula 1 09/07/23 07:16 Nasal Cannula 1 09/07/23 02:35 Nasal Cannula 2 09/06/23 23:35 09/06/23 22:58 Nasal Cannula Intake & Output 09/05/23 09/06/23 09/07/23 09/08/23 06:59 06:59 06:59 06:59 Intake Total 660 / 660 530 / 530 310 / 310 Output Total 1027 / 1027 675 / 675 1050 / 1050 Balance -367 / -367 -145 / -145 -740 / -740 Weight 119 lb 0.794 oz 125 lb 0.034 oz 116 lb 6.465 oz Laboratory Results Laboratory Results - last 24 hr 09/06/23 09/07/23 08:19 06:36 WBC 6.18 RBC 2.66 L Hgb 8.0 L Hct 24.1 L MCV 90.6 MCH 30.1 MCHC 33.2 RDW Std Deviation 53.9 H RDW Coeff of Jaz 16.5 H Plt Count 182 MPV 10.6 Immature Gran % (Auto) 0.5 Neut % (Auto) 78.5 Lymph % (Auto) 9.2 [place] % (Auto) 10.0 Eos % (Auto) 1.3 Baso % (Auto) 0.5 Neut # (Auto) 4.85 Lymph # (Auto) 0.57 L [place] # (Auto) 0.62 H Eos # (Auto) 0.08 Baso # (Auto) 0.03 Immature Gran # (Auto) 0.03 Sodium 130 L 131 L Potassium 4.2 4.4 Chloride 94 L 95 L Carbon Dioxide 30 30 Anion Gap 6 6 BUN 65 H 68 H Creatinine 3.02 H 3.08 H Est Cr Clr Drug Dosing 9.1 8.6 Est GFR ( Amer) 15.7 15.4 Est GFR (Non-Af Amer) 13.6 13.3 BUN/Creatinine Ratio 21.5 H 22.1 H Glucose 134 H 86 Calcium 9.6 9.6 Phosphorus 4.2 4.4 Magnesium 2.3 Albumin 2.9 L 2.8 L Diagnostic Findings Labs reviewed from 09/07/2023 and demonstrated abnormal but stable renal function from yesterday, normal potassium, ongoing anemia. Telemetry personally reviewed: AV paced. Medications Administered Current Inpatient Medications Acetaminophen (Acetaminophen 325 Mg Tab) 650 mg PO Q4H PRN PRN Reason: Pain or Fever Stop: 09/27/23 02:25 Last Admin: 09/06/23 18:00 Dose: 650 mg Albuterol (Albut/Ipratrop 3mg/0.5mg Neb 3 Ml Vial) 3 ml NEB Q4R PRN; Protocol PRN Reason: shortness of breath or wheezing Stop: 09/27/23 18:59 Last Admin: 08/31/23 21:14 Dose: 3 ml Amiodarone HCl (Amiodarone 200 Mg Tab) 200 mg PO DAILY [facility] Stop: 09/27/23 08:59 Last Admin: 09/07/23 08:39 Dose: 200 mg Apixaban (Apixaban 2.5 Mg Tab) 2.5 mg PO BID [facility] Stop: 09/27/23 08:59 Last Admin: 09/07/23 08:39 Dose: 2.5 mg Artificial Tears (Artificial Tears) 1 drops OP DAILY PRN PRN Reason: Dry Eyes Stop: 09/27/23 02:43 Last Admin: 09/02/23 08:41 Dose: 1 drops Aspirin (Aspirin 81 Mg Ectab) 81 mg PO QAM [facility] Stop: 09/28/23 12:59 Last Admin: 09/07/23 08:39 Dose: 81 mg Atorvastatin Calcium (Atorvastatin 40 Mg Tab) 40 mg PO DAILY [facility] Stop: 09/27/23 08:59 Last Admin: 09/07/23 08:39 Dose: 40 mg Buspirone HCl (Buspirone 5 Mg Tab) 5 mg PO DAILY [facility] Stop: 09/27/23 08:59 Last Admin: 09/07/23 08:39 Dose: 5 mg Carvedilol (Carvedilol 12.5 Mg Tab) 12.5 mg PO BID [facility] Stop: 09/27/23 08:59 Last Admin: 09/07/23 08:39 Dose: 12.5 mg Diclofenac Sodium (Diclofenac Sod 1% Gel 100 Gm Tube) 2 gm EXT QID [facility]; Protocol Stop: 09/30/23 12:59 Last Admin: 09/07/23 08:40 Dose: 2 gm Docusate Sodium (Docusate Sodium 100 Mg Cap) 100 mg PO BID [facility] Stop: 10/01/23 20:59 Last Admin: 09/07/23 08:39 Dose: 100 mg Hydralazine HCl (Hydralazine Hcl 25 Mg Tab) 25 mg PO TID [facility] Stop: 09/30/23 13:59 Last Admin: 09/07/23 08:39 Dose: 25 mg Bumetanide 2 mg/ Syringe 8 mls @ 4 mls/min IV BID@0900,1700 [facility] Stop: 10/06/23 16:59 Last Admin: 09/07/23 08:39 Dose: 4 mls/min Isosorbide Mononitrate (Isosorbide [place] Extended Rel 30 Mg Tabcr) 30 mg PO QAM [facility] Stop: 10/07/23 08:59 Last Admin: 09/07/23 08:39 Dose: 30 mg Memantine (Memantine Hcl 5 Mg Tab) 5 mg PO DAILY [facility] Stop: 09/27/23 08:59 Last Admin: 09/07/23 08:39 Dose: 5 mg Multivitamins/Minerals (Cerovite Adv Formula Tab) 1 tab PO HS [facility] Stop: 09/27/23 20:59 Last Admin: 09/06/23 22:00 Dose: 1 tab Ondansetron HCl (Ondansetron Inj 2 Mg/Ml 2 Ml Vial) 4 mg IV Q6H PRN PRN Reason: Nausea Stop: 09/27/23 02:25 Sennosides (Senna 8.6 Mg Tab) 8.6 mg PO QAM [facility] Stop: 10/01/23 15:59 Last Admin: 09/07/23 08:39 Dose: 8.6 mg Sodium Chloride (Sodium Chloride 0.65% Na Soln 45 Ml ([place])) 1 sprays NA NOW PRN PRN Reason: Patient Admitted Stop: 09/09/23 13:17 Last Admin: 09/02/23 18:27 Dose: 1 sprays PG Care Time/CCT Total # of Minutes Spent Total Time Spent with Patient: Total time spent is greater than 50% in coordination of care (as documented) at patient's floor/unit and/or counseling patient: Coding Level of Care Code 79906 SUB INP/OBS CARE 3/50MIN Diagnoses Acute on chronic HFrEF (heart failure with reduced ejection fraction) I50.23 Pericardial effusion I31.3 Primary hypertension I10 Hypertension type: primary hypertension Paroxysmal atrial fibrillation I48.0 Biventricular ICD (implantable cardioverter-defibrillator) in place Z95.810 CKD (chronic kidney disease) stage 4, GFR 15-29 ml/min N18.4 Nonischemic cardiomyopathy I42.8 (3) Hypertension Hypertension type: primary hypertension Qualified Code(s): I10 - Essential (primary) hypertension
--- NOTE | 2023-09-07 10:46 | Nephrology Progress Note ---
Date of Service September 07, 2023 Assessment & Plan (1) REJI (acute kidney injury): (2) CKD (chronic kidney disease) stage 4, GFR 15-29 ml/min: (3) Primary idiopathic dilated cardiomyopathy: (4) Anemia of chronic disease: (5) CHF (congestive heart failure): (6) Pleural effusion: Plan 82 year old female with stage 3B CKD, b/l Cr has been widely variable but over last 1 years staying close to 2.0 mg/dl w/ eGFR 30 cc/min secondary to hypertensive nephrosclerosis and Cardiorenal syndrome. Urinalysis unremarkable. 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 Patient presented to ER on 08/29/23 w/ concerns of dyspnea and 10 lb weight gain. CXR revealed moderate pulmonary edema and started on IV diuretic therapy. Kidney function has been slowly worsening since admission, creatinine up to 3.0 mg/dl. Entresto and spironolactone has been on hold. Diuretics was changed to oral in preparation for discharge however volume status worsen and urine output dropped. Echo shows LVEF 20-25% with moderate MR. Kidney function has been slowly worsening, creatinine up to 3.1 mg/dl this morning with mild hyponatremia. Started on Bumex 2 mg IV twice a day on 09/06/2023. Urine output slightly improved overnight, more than 700 mL net negative. Lower extremity edema and respiratory status slightly improved. -- Continue on Bumex 2 mg IV bid, monitor intake and output and aim for net negative 0.5 to 1L/d. If UO remains low and kidney function worsen, may need to consider Dobutamine, overall volume status seems better today. -- continue Venofer 200 mg iv daily x 5 doses -- Renal function and electrolyte check in the morning. -- She does have significant risk for progressive worsening of kidney function with requirement of high-dose of diuretics to maintain volume status and keeping her in negative balance. Had discussion over telephone with her daughter Kiersten today. Explained that at her age and with overall frail health and severe cardiomyopathy, if kidney function worsen she would not be a good candidate for dialysis. She may not tolerate dialysis and attending the dialysis session as an outpatient 3 times a week and getting vascular access all can become significantly burdensome. Daughter feels if kidney function worsens, conservative approach and comfort directed care would be preferable. Discussed with Saranya and although initially she felt that she would consider dialysis if that is the last option but she is also leaning toward more of conservative approach. --Appreciated palliative care assistance. Admission and Anticipated Discharge Date Admission Date: August 28, 2023 Fatou Antoine was seen and evaluated this morning. She was sitting in bedside chair, overall looked comfortable. Reports feeling better and noticed slight improvement in SOB. Weight was down this morning and lower extremity edema improved. Slight improvement in urine output which and net negative more than 700 mL over last 24 hours. Kidney function has been slowly worsening over last few days creatinine up to 3.1 mg/dl this morning, electrolyte acceptable. Blood pressure fair. Review of Systems Review of Systems: Detailed review of system was done and pertinent positives and negatives are mentioned above. Physical Exam Constitutional: WD/WN, vitals as above + ill appearing and comfortable; no acute distress Eyes: + anicteric sclerae Respiratory: Auscultation: + diminished lung sounds; no crackles and no wheezes Cardiovascular: Rate/Rhythm: regular rate and regular rhythm Heart Sounds: normal S1 and normal S2 Extremities: + edema (Trace b/l LE edema, improved.) Skin: no rashes, warm and dry Neurologic: no focal motor deficits Psychiatric: Orientation: alert and oriented x 3 Results & Data Vital Signs (Past 12 Hours) Vital Signs Temp Pulse Pulse Pulse Resp BP Pulse Ox 09/07/23 07:51 60 09/07/23 07:51 09/07/23 07:16 36.4 C L 60 18 131/53 L 94 09/07/23 02:35 36.5 C 59 L 16 131/65 97 09/06/23 23:35 61 09/06/23 22:58 36.6 C 60 16 122/73 98 O2 Del Method O2 Flow Rate 09/07/23 07:51 09/07/23 07:51 Nasal Cannula 1 09/07/23 07:16 Nasal Cannula 1 09/07/23 02:35 Nasal Cannula 2 09/06/23 23:35 09/06/23 22:58 Nasal Cannula PG Care Time/CCT Total # of Minutes Spent Total Time Spent with Patient: Total time spent is greater than 50% in coordination of care (as documented) at patient's floor/unit and/or counseling patient: Coding Level of Care Code 18448 SUB INP/OBS CARE MIN Diagnoses REJI (acute kidney injury) N17.9 CKD (chronic kidney disease) stage 4, GFR 15-29 ml/min N18.4 Primary idiopathic dilated cardiomyopathy I42.0 Anemia of chronic disease D63.8 CHF (congestive heart failure) I50.9 Heart failure chronicity: acute Heart failure type: unspecified Pleural effusion J90 (5) CHF (congestive heart failure) Heart failure chronicity: acute Heart failure type: unspecified Qualified Code(s): I50.9 - Heart failure, unspecified
--- NOTE | 2023-09-07 11:41 | Palliative Care Consultation ---
Date of Consultation September 07, 2023 Assessment & Plan (1) Dyspnea and respiratory abnormalities: (2) Fatigue: Fatigue type: other Qualified Code(s): R53.83 - Other fatigue (3) Cardiorenal syndrome: Heart failure presence: with heart failure Hypertensive chronic kidney disease stage: stage 5 chronic kidney disease or end stage renal disease Qualified Code(s): I13.2 - Hypertensive heart and chronic kidney disease with heart failure and with stage 5 chronic kidney disease, or end stage renal disease (4) Acute on chronic HFrEF (heart failure with reduced ejection fraction): (5) Palliative care by specialist: Met with pt/family. Provided overview of Palliative Medicine, a subspecialty that provides specialized medical care for people living with a serious illness by offering a focus on quality of life. Palliative Medicine is often conflated with hospice: I advised patient/family that Palliative and hospice can be partners but we are not the same. It is important to understand the difference so that we may be informed, and not afraid. Palliative Medicine works to impr\\ve QOL through reduction of symptom burden/more control over their illness, for both the patient and family. Palliative medicine clinicians are board certified, specially-trained and another member of the patient's medical care team. We often provide an extra layer of support because our care is based on the needs of the patient, not the prognosis; as such, it's appropriate at any age/advancing stage of a serious illness and can be provided along with curative treatment. Palliative Medicine clinicians are also trained in advanced communication methodologies, to facilitate complex discussions about advanced illness planning, which are needed to help assure that the treatment choices match the patient's goals, aka delivering Goal Concordant care. Finally, we discussed that hospice is a visiting nurse service that focuses on care delivered at the very end of life for patients with terminal illness, with life expectancy less than 6 month. (6) Advanced care planning/counseling discussion: I met face to face with pt, her sister, her daughter and her at bedside for 45min She is not interested in HD She would like to go home and asks if she "has" to go to SNF for rehab/will it help We spoke about the transition she is facing with renal failure and adv heart failure. We discussed two major systems are failing. I agreed with her that rehab is not likely to yield any meaningful terminal gauger supervisor benefit. Daughter states they had several friends who are retired nurses as well as additional family members coming in this weekend. In addition they have offers of help and support from their muslim community. Daughter feels they should be able to organize a schedule of caregivers and support by the end of the weekend. We spoke about the options of going home with hospice, which would allow patient to have additional support and resources with home care nurses, home health aides, social work, project product manager support and therapy as she may feel willing to engage in at home. We talked about the Medicare hospice benefit.We discussed the goals of hospice as a patient service and the goals of care; we discussed EOL trajectories and transitions sirena the emotional impact of realizing mortality as a concrete reality from prior abstract considerations. Pt was reassured that no matter where they are along this trajectory, they are not alone - their medical team will remain by their side through their journey. Discussed the pros/cons of accepting help when especially weakened and distressed by pain-which would also help provide relief/decrease caregiver burden/strain.I provided education about the hospice benefit: an interdisciplinary program offered by nurses, nurses aides, social workers, chaplains and a medical record technician for patients with a terminal condition and a life expectancy of less than 6 months. This is covered by Medicare at 100%/no out of pocket expense to patient and all meds/supplies needed by patient for the reason they are on hospice are paid for/covered by hospice. The goal is assure quality of life of the patient in their home setting (home, [facility], inpatient hospice setting) by providing symptoms management, psychosocial and spiritual support. However, they cannot offer 24 hours care and if the family is unable to provide that care, they will have to consider personal care with out of pocket cost vs. mcc placement. We discussed the goals of hospice as a patient service and the goals of care; we discussed EOL trajectories and transitions sirena the emotional impact of realizing mortality as a concrete re ality from prior abstract considerations. Pt was reassured that no matter where they are along this trajectory, they are not alone - their medical team will remain by their side through their journey. Discussed the pros/cons of accepting help when especially weakened and distressed by pain-which would also help provide relief/decrease caregiver burden/strain. Patient and family are interested in returning home with hospice. They do need some time to organize a caregiver schedule and we discussed that this would be reasonable to do through the course of the weekend with an anticipated discharge on Sunday home with hospice. They were in agreement. Daughter states that she has messaged her to find out which hospice agency was used when his father was dying, as they had a very positive experience with that agency, and daughter would like to see that agency is available for service with her mom. The above information was conveyed to primary team and care management. They will coordinate a discharge home with hospice for Sunday once an agency is selected. Patient had some questions about the end of life transitions that can happen with advanced heart and kidney failure. We discussed the changes to expect as heart failure patients near the end of their lives, with attention to: patients may feel increasingly breathless both during activity and at rest, persistent coughing or wheezing/sometimes productive of white or pink mucus and can be worse at night or when lying down; sometimes more physical pain may be present that can often be relieved by non pharmacological remedies such as PT, massage, etc., additionally cognitive impairments may worsen and as such impair the patient's ability to be interactive with their loved ones - this can sometimes get better with improved volume status but it is unlikely to resolve. We spoke about how end-of-life care in patients with heart failure is an additive process, whereby therapies to treat symptoms not alleviated by guideline-based medical therapy are integrated into the care of these individuals. Once traditional medical therapies and nonpharmacologic therapies have been exhausted, low-dose opioids are generally felt to be first-line adjuvant therapy to treat dyspnea. Sometimes, providers may be uncomfortable with utilization of more potent opiates, which is why collaboration with hospice at the [facility] will be useful. Finally, we discussed that as a patient transitions to the end of life with HF, there is so much more to do as far as reducing symptom burden and improving QOL - which we as providers can best address via a thoughtful ACP as we have discussed (and outlined above) in place. We also spoke about pt and/or family were educated re EOL w/ESRD. We discussed the patient's with advanced renal failure did not pursue dialysis may live anywhere from 1 week to several weeks, depending on the amount of kidney function they have left as well as their overall medical condition. I reviewed with them some data that is known from inpatient end-stage renal failure: In hospitalized patients who stopped dialysis,confusion/agitation was reported to affect 70% of patients, followed by pain (55%), dyspnea (48%), nausea (36%), twitching/seizures (27%), anxiety/psychological distress (27%), pruritus (24%), and peripheral edema (21%). Advised thatmean survival following dialysis withdrawal is 8-10 days (although rarely can be many weeks); would note that advanced age, multiple comorbidities+frailty, I anticipate this will be shorter anticipated survival. Encouraged family to notify others who may want to visit or speak with pt, as periods of lucidity will decline as ESRD progresses along this EOL trajectory. I addressedthe likelihood of progressive encephalopathy. Reassuredp atient/familythat symptoms can be adequately treatedbut drugs with sedating side effects may be necessary to ensure comfort. Discusseddiet: provide pt witha liberal, pleasure-based dietto focus on comfort and QOL, acknowledging that this mayworsen symptoms from edema. (Sources: - https://www.mypcnow.org/fast-fact/wzklxmeoasgxjjn-cp-ceesopaz-receiving-dialysis / -Tiffany KATE. End-of-life care preferences and needs: perceptions of patients with chronic kidney disease. Clinical Journal of the [place] Society of Nephrology: CJASN. 2010;5:195-204. -Gurpreet KF, Gil B, Leo V and Elva SEVERINO. Employment among Patients Starting Dialysis in the [place]. Clinical Journal of the [place] [employer] Nephrology: CJASN. 2018. -Cameron STEVENSON, Be MJ, Popjunaid DM. Practical considerations in dialysis withdrawal. To have that option is a blessing. ROSEMARY. 2003; 289:8223-4403. -Tiffany KATE and Alena YEAGER. Impact of pain and symptom burden on the health- related quality of life of hemodialysis patients. Journal of Pain and Symptom Management. 2010;39:477-85.) We discussed the transitions people make at the end of life. Specifically, patient wanted assurances that she would not suffer. Advised that it is the role of hospice to make sure that the medications necessary to keep her comfortable provided at home and her family will also be taught how to administer medication on the as-needed basis to assure continued relief and freedom from distress. Patient and her family were happy with this plan of care and recommendation for home hospice. They do not desire further consideration for discharge planning to a senior living facility. All questions were answered to their apparent satisfaction. (7) Encounter for hospice care discussion: Plan * Patient and family would like a discharge home with hospice. She elects to transition to comfort care here in the hospital while moving towards her home hospice discharge plan. This will be accomplished Sunday after the weekend during which time family is coordinating a caregiver and support scheduled. Additional family members are expected to arrive throughout the weekend. * Primary team, care management and nursing have been updated. * I will sign off but remain available for continued assistance if needed with any ongoing pain or symptom management needs. I have written comfort care orders for patient with as needed medication management. Thank you for allowing us to participate in the ongoing care of this patient. Please don't hesitate to call or page with any additional concerns. Dr. Katty Donnelly DNP Director, Palliative Care History of Present Illness Reason for Consultation: On 09/06/23 @ 15:24 Marjorie Alex Wrote To Katty Donnelly poor renal function,heart failure,goals of care Attending Physician: Marjorie Alex MD History of Present Illness Elina is a 82yo female with acute respiratory failure with hypoxia/HFrEF exacerbation/dilated cardiomyopathy/pleural effusions/biventricular ICD/PAF. She had a 10 pound weight gain and progressive shortness of breath over the past 10 days with increasing lower extremity edema. She received initial dose of Lasix 40 mg IV in ED, then another 40 mg IV and now remains on Lasix 40 mg IV twice daily. Her troponin 29.3 on admission. She has REJI with CKD IV. Per nephrology note: "She does have significant risk for progressive worsening of kidney function with requirement of high-dose of diuretics to maintain volume status and keeping her in negative balance. Had discussion over telephone with her daughter Kiersten walden. Explained that at her age and with overall frail health and severe cardiomyopathy, if kidney function worsen she would not be a good candidate for dialysis. She may not tolerate dialysis and attending the dialysis session as an outpatient 3 times a week and getting vascular access all can become significantly burdensome. Daughter feels if kidney function worsens, conservative approach and comfort directed care would be preferable. Discussed with Saranya and although initially she felt that she would consider dialysis if that is the last option but she is also leaning toward more of conservative approach." Her Echo done 10/17/2022 with ejection fraction 20-25% and moderate pericardial effusion. She remains on amiodarone, Eliquis, carvedilol and Fior Antoine is seen bedside, with her daughter, and her sister present. Elina offers that she has decided she does not want to pursue HD. Her daughter states they were thinking of a dc to [facility] for "rehab" until they can coordinate caregivers, adding that they have retired nurses who are neighbors that offered to help as well as muslim family and other relatives coming in this weekend. Elina states she would just as soon prefer to be home and spend the days with family. She is tired and sleeps easily Appetite is ok but she feels full easily Allergies Allergy/AdvReac Type Severity Reaction Status Date / Time cephalexin Allergy Severe ANAPHYLAXIS Verified 08/28/23 00:16 Penicillins Allergy Severe RASH AND Verified 08/28/23 00:16 SWELLING Cephalosporins Allergy Intermediate RASH AND Verified 08/28/23 00:16 SWELLING ciprofloxacin Allergy Unknown CAN'T Verified 08/28/23 00:16 REMEMBER scallops Allergy Unknown CAN'T Verified 08/28/23 00:16 REMEMBER tramadol Allergy Unknown CAN'T Verified 08/28/23 00:16 REMEMBER azithromycin AdvReac Intermediate UPSET Verified 08/28/23 00:16 STOMACH erythromycin base AdvReac Intermediate UPSET Verified 08/28/23 00:16 STOMACH amlodipine AdvReac Unknown Unknown Verified 08/28/23 00:16 Home Medications Medication Instructions Recorded Confirmed Type [id number] 8 mg-folic 400 1 tab PO HS 11/04/18 08/28/23 History mcg-K 50 mcg-lutein 300 mcg tablet (Centrum Silver Women) methenamine-sodium salicylate 162 1 tab PO BID 11/08/20 08/28/23 History mg-162.5 mg tablet (AZO Urinary Tract Defense) peg 400-propylene glycol 0.4 %-0.3 1 drp OPB DAILY PRN Dry Eyes 06/02/22 08/28/23 History % eye drops (Systane (propylene glycol)) carvedilol 25 mg tablet 12.5 mg PO BID 07/20/22 08/28/23 History sacubitril 49 mg-valsartan 51 mg 1 tab PO BID #180 tabs 01/18/23 08/28/23 Rx tablet memantine 5 mg tablet 5 mg PO DAILY #90 tabs 04/09/23 08/28/23 Rx apixaban 2.5 mg tablet (Eliquis) 2.5 mg PO BID #180 tabs 06/04/23 08/28/23 Rx amiodarone 200 mg tablet 200 mg PO DAILY #90 tabs 06/19/23 08/28/23 Rx buspirone 5 mg tablet 5 mg PO DAILY anxiety #90 tabs 07/27/23 08/28/23 Rx ferrous sulfate 325 mg (65 mg 325 mg PO DAILY 08/09/23 08/28/23 History iron) tablet (FeroSul) atorvastatin 40 mg tablet 40 mg PO DAILY 08/28/23 08/28/23 History furosemide 40 mg tablet 40 mg PO DAILY 08/28/23 08/28/23 History Patient History Medical History (Updated 09/07/23 @ 17:06 by Katty Donnelly DNP) Encounter for hospice care discussion Advanced care planning/counseling discussion Palliative care by specialist Cardiorenal syndrome Fatigue Dyspnea and respiratory abnormalities Anemia of chronic disease Chronic anemia GI bleed Hx History of CVA (cerebrovascular accident) 12/2021 Left temporal infarct- mild memory issues CKD (chronic kidney disease) stage 4, GFR 15-29 ml/min LBBB (left bundle branch block) Nonischemic cardiomyopathy Ocular migraine Paroxysmal atrial fibrillation Depression History of shingles Biventricular ICD (implantable cardioverter-defibrillator) in place [employer]tronic, follows with Dr. Chávez Chronic diarrhea Chronic systolic congestive heart failure Dyslipidemia Gastroesophageal reflux disease Hypertension Lumbar radiculopathy Obstructive sleep apnea No device Osteopenia Surgical History Hx of cardiac catheterization 10+ years ago ago- no stents S/P cardiac pacemaker procedure ICD Hx of basal cell carcinoma excision Face H/O eye surgery R/t stabismus History of cholecystectomy Hx of cataract surgery R/L Family History Father Coronary heart disease ASCVD (arteriosclerotic cardiovascular disease) Brother Myocardial infarction ASCVD (arteriosclerotic cardiovascular disease) Son Lung cancer ASCVD (arteriosclerotic cardiovascular disease) Aunt Breast cancer Grandmother Cerebral hemorrhage Mother Parkinsons disease Other Cerebral arterial aneurysm Cerebromeningeal hemorrhage Denies family history of Ovarian cancer Prostate cancer Colorectal cancer Social History Smoking Status: Never smoker Second Hand Exposure: No; Do You Dip or Chew Tobacco: No; Hx Alcohol Use: No Hx Substance Use: No Preferred Language: Sri Lankan Communication Ability: Effective Visual Impairment: Limited Hearing Ability: Normal Paralegal Secretary Required: No Beliefs That Will Affect Care: Orthodox marital status: Current Living Situation: Spouse current occupational status: retired How many Children do You have: 4 Feels Safe at Home: Yes Childhood Exposure to Second-Hand Smoke: Yes caffeine: Yes Dental Care, Regularly: Yes Physical Activity Frequency: Does not Exercise Seatbelt Use: always Sunscreen Use: No (does not sit in the sun) Assistive Devices: Cane and CPAP Review of Systems Review of Systems: All systems reviewed & are unremarkable except as noted in Subjective Physical Exam Physical Exam: NAD, Bitemp wasting PERRLA Neck supple, +JVD noted Resp effort WAL at rest with mild conversational dyspnea S1S2, II/ CRISSY Abd soft, NTP +2 BLE edema Skin pale, warm AAOx3 Pleasant and cooperative Results & Data Vital Signs (Past 12 Hours) Vital Signs Temp Pulse Pulse Resp BP Pulse Ox O2 Del Method 09/07/23 11:33 36.8 C 74 18 154/77 H 96 Room Air 09/07/23 07:51 60 09/07/23 07:51 Nasal Cannula 09/07/23 07:16 36.4 C L 60 18 131/53 L 94 Nasal Cannula 09/07/23 02:35 36.5 C 59 L 16 131/65 97 Nasal Cannula O2 Flow Rate 09/07/23 11:33 09/07/23 07:51 09/07/23 07:51 1 09/07/23 07:16 1 09/07/23 02:35 2 Laboratory Results 09/07/23 09/06/23 09/05/23 Range/Units 06:36 08:19 05:38 WBC 6.18 8.15 (4.8-10.8) K/ul RBC 2.66 L 2.92 L (4.20-5.40) M/uL Hgb 8.0 L 8.8 L (12.0-16.0) g/dl Hct 24.1 L 26.7 L (37.0-47.0) % MCV 90.6 91.4 (80.0-100.0) fL MCH 30.1 30.1 (25.0-34.0) pg MCHC 33.2 33.0 (32.0-36.0) g/dL RDW Std Deviation 53.9 H 53.7 H (36.4-46.3) fL RDW Coeff of Jaz 16.5 H 16.3 H (11.5-14.5) % Plt Count 182 181 (130-400) K/uL MPV 10.6 10.5 (9.4-12.4) fL Immature Gran % (Auto) 0.5 0.6 % Neut % (Auto) 78.5 82.2 % Lymph % (Auto) 9.2 6.9 % [place] % (Auto) 10.0 7.9 % Eos % (Auto) 1.3 2.0 % Baso % (Auto) 0.5 0.4 % Neut # (Auto) 4.85 6.71 H (1.40-6.50) K/uL Lymph # (Auto) 0.57 L 0.56 L (1.20-3.40) K/uL [place] # (Auto) 0.62 H 0.64 H (0.11-0.59) K/uL Eos # (Auto) 0.08 0.16 (0.00-0.50) K/uL Baso # (Auto) 0.03 0.03 (0.00-0.20) K/uL Immature Gran # (Auto) 0.03 0.05 (0.01-0.20) K/uL Sodium 131 L 130 L 132 L (136-145) mmol/L Potassium 4.4 4.2 4.2 (3.5-5.1) mmol/L Chloride 95 L 94 L 94 L (98-107) mmol/L Carbon Dioxide 30 30 32 (21-32) mmol/L Anion Gap 6 6 6 (3-11) BUN 68 H 65 H 61 H (6-23) mg/dl Creatinine 3.08 H 3.02 H 2.95 H (0.6-1.2) mg/dl Est Cr Clr Drug Dosing 8.6 9.1 9.1 ml/min Est GFR ( Amer) 15.4 15.7 16.2 ml/min Est GFR (Non-Af Amer) 13.3 13.6 14.0 ml/min BUN/Creatinine Ratio 22.1 H 21.5 H 20.7 H (10-20) Glucose 86 134 H 82 (70-99(Fasting)) mg/dl Calcium 9.6 9.6 9.5 (8.6-10.3) mg/dl Phosphorus 4.4 4.2 4.2 (2.5-4.9) mg/dl Magnesium 2.3 2.2 (1.7-2.4) mg/dl Iron (35-150) mcg/dl TIBC (250-450) mcg/dl Unsaturated IBC (155-355) mcg/dl Transferrin % Sat (15-50) % Ferritin (8-388) ng/ml Albumin 2.8 L 2.9 L 2.8 L (3.4-5.0) gm/dl Vitamin B12 (180-914) pg/ml 09/04/23 09/03/23 09/02/23 Range/Units 06:06 05:34 05:48 WBC 7.95 (4.8-10.8) K/ul RBC 2.90 L (4.20-5.40) M/uL Hgb 8.7 L (12.0-16.0) g/dl Hct 26.8 L (37.0-47.0) % MCV 92.4 (80.0-100.0) fL MCH 30.0 (25.0-34.0) pg MCHC 32.5 (32.0-36.0) g/dL RDW Std Deviation 53.2 H (36.4-46.3) fL RDW Coeff of Jaz 16.0 H (11.5-14.5) % Plt Count 200 (130-400) K/uL MPV 10.7 (9.4-12.4) fL Immature Gran % (Auto) % Neut % (Auto) % Lymph % (Auto) % [place] % (Auto) % Eos % (Auto) % Baso % (Auto) % Neut # (Auto) (1.40-6.50) K/uL Lymph # (Auto) (1.20-3.40) K/uL [place] # (Auto) (0.11-0.59) K/uL Eos # (Auto) (0.00-0.50) K/uL Baso # (Auto) (0.00-0.20) K/uL Immature Gran # (Auto) (0.01-0.20) K/uL Sodium 132 L 130 L 131 L (136-145) mmol/L Potassium 4.1 D 3.4 L 3.5 (3.5-5.1) mmol/L Chloride 94 L 93 L 95 L (98-107) mmol/L Carbon Dioxide 33 H 32 31 (21-32) mmol/L Anion Gap 5 5 5 (3-11) BUN 57 H 54 H 54 H (6-23) mg/dl Creatinine 2.80 H 2.71 H 2.66 H (0.6-1.2) mg/dl Est Cr Clr Drug Dosing 9.5 9.6 9.8 ml/min Est GFR ( Amer) 17.3 17.9 18.4 ml/min Est GFR (Non-Af Amer) 14.9 15.5 15.8 ml/min BUN/Creatinine Ratio 20.4 H 19.9 20.3 H (10-20) Glucose 79 85 87 (70-99(Fasting)) mg/dl Calcium 9.3 9.0 9.1 (8.6-10.3) mg/dl Phosphorus 4.1 4.1 4.1 (2.5-4.9) mg/dl Magnesium 2.2 2.1 2.2 (1.7-2.4) mg/dl Iron 39 (35-150) mcg/dl TIBC 288 (250-450) mcg/dl Unsaturated IBC 249 (155-355) mcg/dl Transferrin % Sat 14 L (15-50) % Ferritin 45.4 (8-388) ng/ml Albumin 2.8 L 2.8 L 2.9 L (3.4-5.0) gm/dl Vitamin B12 > 1500 H (180-914) pg/ml 09/01/23 Range/Units 05:29 WBC 6.99 (4.8-10.8) K/ul RBC 2.92 L (4.20-5.40) M/uL Hgb 8.7 L (12.0-16.0) g/dl Hct 27.0 L (37.0-47.0) % MCV 92.5 (80.0-100.0) fL MCH 29.8 (25.0-34.0) pg MCHC 32.2 (32.0-36.0) g/dL RDW Std Deviation 52.2 H (36.4-46.3) fL RDW Coeff of Jaz 16.0 H (11.5-14.5) % Plt Count 198 (130-400) K/uL MPV 10.7 (9.4-12.4) fL Immature Gran % (Auto) % Neut % (Auto) % Lymph % (Auto) % [place] % (Auto) % Eos % (Auto) % Baso % (Auto) % Neut # (Auto) (1.40-6.50) K/uL Lymph # (Auto) (1.20-3.40) K/uL [place] # (Auto) (0.11-0.59) K/uL Eos # (Auto) (0.00-0.50) K/uL Baso # (Auto) (0.00-0.20) K/uL Immature Gran # (Auto) (0.01-0.20) K/uL Sodium 130 L (136-145) mmol/L Potassium 3.7 (3.5-5.1) mmol/L Chloride 95 L (98-107) mmol/L Carbon Dioxide 31 (21-32) mmol/L Anion Gap 4 (3-11) BUN 49 H (6-23) mg/dl Creatinine 2.80 H (0.6-1.2) mg/dl Est Cr Clr Drug Dosing 9.3 ml/min Est GFR ( Amer) 17.3 ml/min Est GFR (Non-Af Amer) 14.9 ml/min BUN/Creatinine Ratio 17.5 (10-20) Glucose 83 (70-99(Fasting)) mg/dl Calcium 8.9 (8.6-10.3) mg/dl Phosphorus (2.5-4.9) mg/dl Magnesium 2.2 (1.7-2.4) mg/dl Iron (35-150) mcg/dl TIBC (250-450) mcg/dl Unsaturated IBC (155-355) mcg/dl Transferrin % Sat (15-50) % Ferritin (8-388) ng/ml Albumin 2.9 L (3.4-5.0) gm/dl Vitamin B12 (180-914) pg/ml Diagnostic Findings Chest X-Ray 08/27/23 23:31 XR chest 1V portable CLINICAL HISTORY: Chest pain, nonspecific COMPARISON STUDY: Chest radiograph November 14, 2022. Chest CT March 13, 2023. FINDINGS: Left subclavian pacer/AICD is in place. Cardiomegaly is unchanged. Moderate left and small right pleural effusions with associated airspace opac ities have developed. There is interstitial thickening. IMPRESSION: Cardiomegaly. Interval development of pulmonary edema with moderate left and small right pleural effusions with associated airspace opacities. ACT 112: Negative or not required by law. Electronically signed by: Ry Cazares M.D. 08/28/2023 7:05 AM Chest X-Ray 08/28/23 08:58 XR chest 2V PA/lateral CLINICAL HISTORY: eval aspiration pneumonia TECHNIQUE: 2 views of the chest were obtained. Comparison: Comparison is made to chest radiograph 08/28/2023 FINDINGS: Pacemaker defibrillator is seen. Cardiomegaly is noted. The aortic arch is calcified. There is prominence and cephalization of the vasculature with Moses B lines seen. Left retrocardiac opacity is seen. Small left pleural effusion. IMPRESSION: 1. Left retrocardiac opacity likely represents layering effusion, superimposed aspiration/pneumonia cannot be excluded. 2. Cardiomegaly and moderate pulmonary edema. 3. Small left pleural effusion. ACT 112: Negative or not required by law. Electronically signed by: Manny Nichole M.D. 08/28/2023 10:59 AM Chest X-Ray 08/29/23 07:00 XR chest 2V PA/lateral CLINICAL HISTORY: follow up aspiration, eval pneumonia TECHNIQUE: 2 views of the chest were obtained. Comparison: Comparison is made to chest radiograph 08/28/2023 FINDINGS: No lines and tubes are seen. Cardiomegaly is noted. The aortic arch is calcified. There is prominence and cephalization of the vasculature with Moses B lines seen. Bilateral lower lung predominant airspace opacities. Small bilateral pleural effusions are seen. IMPRESSION: 1. Cardiomegaly and moderate pulmonary edema. 2. Redemonstration of bilateral lower lung airspace opacity which likely represent atelectasis with or without superimposed aspiration/pneumonia. ACT 112: Negative or not required by law. Electronically signed by: Manny Nichole M.D. 08/29/2023 9:42 AM Chest X-Ray 08/30/23 07:00 XR chest 2V PA/lateral HISTORY: 82 years-old Female f/u pulmonary vascular congestion acute shortness of breath COMPARISON: 08/29/2023 TECHNIQUE: AP view the chest FINDINGS: Cardiac silhouette is enlarged. Left subclavian pacer/AICD redemonstrated. Bony vascular congestion with stable interstitial coarsening. No pneumothorax. Layering pleural effusions with persistent bibasilar consolidation. Bones appear grossly intact. Right abdominal surgical clips. IMPRESSION: 1. Cardiomegaly with unchanged pulmonary edema. 2. Persistent layering pleural effusions with bibasilar consolidation. ACT 112: Negative or not required by law. The above report was generated using voice recognition software. It may contain grammatical, syntax or spelling errors. Electronically signed by: Sunil Tanner M.D. 08/30/2023 9:35 AM Chest X-Ray 09/02/23 07:00 XR chest 1V portable CLINICAL HISTORY: f/u effusions TECHNIQUE: Single frontal radiograph of the chest was obtained. Comparison: Comparison is made to chest radiograph 08/30/2023 FINDINGS: Lines and tubes are stable. Cardiomegaly is noted. The aortic arch is calcified. Bilateral lower lung airspace opacities are seen. Small bilateral pleural effusions are seen. IMPRESSION: Small bilateral pleural effusions with underlying airspace opacities, similar to prior exam. ACT 112: Negative or not required by law. Electronically signed by: Manny Nichole M.D. 09/02/2023 5:43 PM Chest X-Ray 09/06/23 10:11 XR chest 1V portable CLINICAL HISTORY: f/u CHF,pleural effusions TECHNIQUE: Single frontal radiograph of the chest was obtained. Comparison: Comparison is made to chest radiograph 09/02/2023 FINDINGS: Pacemaker defibrillator is seen. Cardiomegaly is noted. The aortic arch is calcified. Bilateral lower lung predominant airspace opacities are seen. Small bilateral pleural effusions are seen. IMPRESSION: Small bilateral pleural effusions are unchanged from prior exam. Bibasilar airspace opacities are again noted. ACT 112: Negative or not required by law. Electronically signed by: Manny Nichole M.D. 09/06/2023 3:37 PM PG Care Time/CCT Total # of Minutes Spent Total Time Spent with Patient: Total time spent is greater than 50% in coordination of care (as documented) at patient's floor/unit and/or counseling patient: I spent 100 minutes overall addressing this case: 15 min in medical data review/discussion with referring provider(s) and/or preparation for the visit 15 min in direct interaction with the patient/exam 45 min in Advance Care Planning/Goals of Care discussions as detailed above in note (must be >16min) 10 min in subsequent review and synthesis of assessment and plan 15 min communicating with other providers regarding the patient's case: Primary team, care management, nursing Advanced Care Planning 97495 Advanced Care Planning 30 Min [id number] Advanced Care Planning Additional 30 [place] [address] IN/OBS CONSULT LVL 5,80M Patient Type New History Comprehensive Exam Comprehensive Medical Decision Making High Complexity Diagnoses Dyspnea and respiratory abnormalities R06.00; R06.89 Other fatigue R53.83 Fatigue type: other Cardiorenal syndrome with renal failure, stage 5 chronic kidney disease or end stage renal disease, with heart failure I13.2 Heart failure presence: with heart failure Hypertensive chronic kidney disease stage: stage 5 chronic kidney disease or end stage renal disease Acute on chronic HFrEF (heart failure with reduced ejection fraction) I50.23 Palliative care by specialist Z51.5 Advanced care planning/counseling discussion Z71.89 Encounter for hospice care discussion Z71.89 Additional Codes Advanced Care Planning - 93294 Advanced Care Planning 30 Min: 27684 Advanced Care Planning 30 Min ([id number]) Advanced Care Planning - 14437 Advanced Care Planning Additional 30 Min: 87031 Advanced Care Planning Additional 30 Min ([id number])
[2023-09-07] MEDS ORDERED: HYDROmorphone INJ 0.5 MG/0.5 ML SYR IV PRN (12:43)
[2023-09-07] MEDS ORDERED: LORazepam 0.5 MG in SYRINGE 0.25 ML IV PRN (12:43)
--- NOTE | 2023-09-07 14:51 | Hospitalist Progress Note ---
Date of Service September 07, 2023 Assessment & Plan (1) Comfort measures only status: Plan: Due to severe heart failure and chronic kidney disease stage V Dilaudid as needed for pain or shortness of breath, Ativan as needed for anxiety or agitation Plan for discharge to home with hospice on Sunday (2) CHF (congestive heart failure): Plan: ACUTE ON CHRONIC HEART FAILURE WITH REDUCED EF Acute respiratory failure with hypoxia secondary to CHF, ECHO w/ severely reduced EF, 20-25%, severe LV dysfunction Wt up 11 kg-- her spironolactone was on hold since beginning of july due to hyperkalemia/elevated Cr and likely contributed CXR w/ pulmonary edema/effusions, associated airspace opacities on admit CHF clinic/cards consult appreciated Attempted to diurese with IV Lasix which was initially successful but then was no longer working. Addition of spironolactone caused rising creatinine to 3.0 Attempted higher doses of oral Lasix without success and she continued to gain weight, have orthopnea, and was significantly volume overloaded Giving IV Bumex which seems to help somewhat Patient has decided to pursue hospice at home as her heart failure is severe as is her renal failure and her prognosis is poor Will continue IV diuretics with Diuril and Bumex to try to get the patient more comfortable prior to transitioning to home Nephrology consulted-appreciate recommendations Added hydralazine 25mg QID for afterload reduction Continue BAILEY hose and elevation of legs Remains on Coreg, stopped Entresto due to renal failure low sodium diet, fluid restrict Will not check any further labs (3) Acute hypoxic respiratory failure: Plan: 2nd to volume overload/CHF exacerbation/progressive CKD WBC wnl/afebrile, CXR w/o focal consolidation, VRP BioFire neg Diuretics as above, duonebs available, pulm toilet CXR persists with effusions, cardiomegaly and pulm edema continued diuretics as outlined above Continue oxygen as needed for comfort (4) CKD (chronic kidney disease) stage 4, GFR 15-29 ml/min: Plan: REJI in setting of CKD 4 Suspect worsened renal function w/ worsened heart failure mcmahon in place, diuretics as outlined, appreciate nephrology assistance hydralazine for afterload reduction 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 Spironolactone added back but now stopped Remains on coreg, hydralazine, diuretics (6) Hypertension: Plan: Entresto discontinued, remains on coreg, and added hydralazine for afterload reduction diuretics for volume overload (7) Elevated troponin: Plan: suspected demand ischemia from volume overload/CHF exacerbation as above. Initially 29.3--> 122--> 92.6. No CP reported. Cards consulted while inpatient ASA resumed (8) Abnormal finding on urinalysis: Plan: Urine CULTURE NEGATIVE continue Mcmahon for now but if causing too much discomfort, will remove at patient's wishes Anxiety/depression/mild cognitive impairment- mood stable, alert to person/place/year/month at present time, intermittent forgetfulness at times Continue buspirone, memantine. B12 not deficient. TSH wnl Frequent orientation, support APPEARS IMPROVED Plan Dispo-plan now is for discharge to home with hospice on 09/09 Admission and Anticipated Discharge Date Admission Date: August 28, 2023 Subjective Patient reports feeling a little bit better as she urinated more after receiving IV Bumex yesterday evening. She is considering hospice and later in the day after meeting with palliative medicine, she has decided to go home with hospice on Sunday. I discussed her care with cardiology, nephrology, and palliative medicine Telemetry with paced rhythm with rates in the 60s Physical Exam Constitutional: WD/WN, vitals as above Respiratory: normal respiratory effort Auscultation: + diminished lung sounds (at bases); no wheezes Cardiovascular: Rate/Rhythm: regular rate and regular rhythm Heart Sounds: no murmur Extremities: + edema (2+ pitting edema legs bilat) Gastrointestinal (Abdomen): normal bowel sounds, soft, nontender, no hepatosplenomegaly Results & Data Results & Data Vital Signs (Past 12 Hours) Vital Signs Temp Pulse Pulse Resp BP Pulse Ox O2 Del Method 09/07/23 11:33 36.8 C 74 18 154/77 H 96 Room Air 09/07/23 07:51 60 09/07/23 07:51 Nasal Cannula 09/07/23 07:16 36.4 C L 60 18 131/53 L 94 Nasal Cannula O2 Flow Rate 09/07/23 11:33 09/07/23 07:51 09/07/23 07:51 1 09/07/23 07:16 1 Laboratory Results CBC, BMP reviewed PG Care Time/CCT Total # of Minutes Spent Total Time Spent with Patient: Total time spent is greater than 50% in coordination of care (as documented) at patient's floor/unit and/or counseling patient: Coding Level of Care Code 46970 SUB INP/OBS CARE 2/35MIN Diagnoses Comfort measures only status Z51.5 CHF (congestive heart failure) I50.9 Heart failure chronicity: acute Heart failure type: unspecified Acute hypoxic respiratory failure J96.01 CKD (chronic kidney disease) stage 4, GFR 15-29 ml/min N18.4 Primary idiopathic dilated cardiomyopathy I42.0 Primary hypertension I10 Hypertension type: primary hypertension Elevated troponin R77.8 Abnormal finding on urinalysis R82.90 (2) CHF (congestive heart failure) Heart failure chronicity: acute Heart failure type: unspecified Qualified Code(s): I50.9 - Heart failure, unspecified (6) Hypertension Hypertension type: primary hypertension Qualified Code(s): I10 - Essential (primary) hypertension
[2023-09-07] MEDS: CHLOROTHIAZIDE SODIUM 250 MG in DEXTROSE 5% 50 ML IV ONE (16:27)
--- NOTE | 2023-09-08 11:15 | Hospitalist Progress Note ---
Date of Service September 08, 2023 Assessment & Plan (1) Comfort measures only status: Plan: Due to severe heart failure and chronic kidney disease stage V Dilaudid as needed for pain or shortness of breath, Ativan as needed for anxiety or agitation-not requiring thus far Plan for discharge to home with hospice on Sunday (2) CHF (congestive heart failure): Plan: ACUTE ON CHRONIC HEART FAILURE WITH REDUCED EF Acute respiratory failure with hypoxia secondary to CHF, ECHO w/ severely reduced EF, 20-25%, severe LV dysfunction Wt up 11 kg-- her spironolactone was on hold since beginning of july due to hyperkalemia/elevated Cr and likely contributed CXR w/ pulmonary edema/effusions, associated airspace opacities on admit CHF clinic/cards consult appreciated Attempted to diurese with IV Lasix which was initially successful but then was no longer working. Addition of spironolactone caused rising creatinine to 3.0 Attempted higher doses of oral Lasix without success and she continued to gain weight, have orthopnea, and was significantly volume overloaded Giving IV Bumex which seems to help somewhat Patient has decided to pursue hospice at home as her heart failure is severe as is her renal failure and her prognosis is poor Will continue IV diuretics with Bumex to try to get the patient more comfortable prior to transitioning to home Nephrology consulted-appreciate recommendations Added hydralazine 25mg QID for afterload reduction Continue BAILEY hose and elevation of legs Remains on Coreg, stopped Entresto due to renal failure Will not check any further labs Can liberalize diet to regular (3) Acute hypoxic respiratory failure: Plan: 2nd to volume overload/CHF exacerbation/progressive CKD WBC wnl/afebrile, CXR w/o focal consolidation, VRP BioFire neg Diuretics as above, duonebs available, pulm toilet CXR persists with effusions, cardiomegaly and pulm edema continued diuretics as outlined above Continue oxygen as needed for comfort (4) CKD (chronic kidney disease) stage 4, GFR 15-29 ml/min: Plan: REJI in setting of CKD 4 Suspect worsened renal function w/ worsened heart failure mcmahon in place, diuretics as outlined, appreciate nephrology assistance hydralazine for afterload reduction 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 Spironolactone added back but now stopped Remains on coreg, hydralazine, diuretics (6) Hypertension: Plan: Entresto discontinued, remains on coreg, and added hydralazine for afterload reduction diuretics for volume overload (7) Elevated troponin: Plan: suspected demand ischemia from volume overload/CHF exacerbation as above. Initially 29.3--> 122--> 92.6. No CP reported. Cards consulted while inpatient ASA resumed (8) Abnormal finding on urinalysis: Plan: Urine CULTURE NEGATIVE continue Mcmahon for now but if causing too much discomfort, will remove at patient's wishes Anxiety/depression/mild cognitive impairment- mood stable, alert to person/place/year/month at present time, intermittent forgetfulness at times Continue buspirone, memantine. B12 not deficient. TSH wnl Frequent orientation, support APPEARS IMPROVED Plan Dispo-plan now is for discharge to home with hospice on 09/09 Admission and Anticipated Discharge Date Admission Date: August 28, 2023 Subjective Pt comfortable, slept well overnight. Feels slightly SOB but thinks maybe it's "an illusion." Feels the Mcmahon is more tolerable now and is ok with keeping it in place Physical Exam Constitutional: WD/WN, vitals as above Respiratory: normal respiratory effort Results & Data Results & Data Vital Signs (Past 12 Hours) Vital Signs Temp Pulse Resp BP Pulse Ox O2 Del Method O2 Flow Rate 09/08/23 09:32 60 20 129/60 90 Nasal Cannula 2 09/08/23 07:09 36.5 C 60 14 129/57 L 98 Nasal Cannula 1 PG Care Time/CCT Total # of Minutes Spent Total Time Spent with Patient: Total time spent is greater than 50% in coordination of care (as documented) at patient's floor/unit and/or counseling patient: Coding Level of Care Code 62302 SUB INP/OBS CARE 06/21MIN Diagnoses Comfort measures only status Z51.5 CHF (congestive heart failure) I50.9 Heart failure chronicity: acute Heart failure type: unspecified Acute hypoxic respiratory failure J96.01 CKD (chronic kidney disease) stage 4, GFR 15-29 ml/min N18.4 Primary idiopathic dilated cardiomyopathy I42.0 Primary hypertension I10 Hypertension type: primary hypertension Elevated troponin R77.8 Abnormal finding on urinalysis R82.90 (2) CHF (congestive heart failure) Heart failure chronicity: acute Heart failure type: unspecified Qualified Code(s): I50.9 - Heart failure, unspecified (6) Hypertension Hypertension type: primary hypertension Qualified Code(s): I10 - Essential (primary) hypertension
--- NOTE | 2023-09-09 14:44 | Hospitalist Progress Note ---
Date of Service September 09, 2023 Assessment & Plan (1) Comfort measures only status: Plan: Due to severe heart failure and chronic kidney disease stage V Dilaudid as needed for pain or shortness of breath-will discharge to home with this--> has not used any yet Ativan as needed for anxiety or agitation-not requiring thus far--change to po from IV Plan for discharge to home with hospice on Sunday after all equipment arranged at home and transport set up Discontinue home meds that do not have goal of comfort or quality of life or have little benefit with poor prognosis--> dc statin, ASA, hydralazine, vitamins, ferrous sulfate, memantine, methenamine (2) CHF (congestive heart failure): Plan: ACUTE ON CHRONIC HEART FAILURE WITH REDUCED EF Acute respiratory failure with hypoxia secondary to CHF, ECHO w/ severely reduced EF, 20-25%, severe LV dysfunction Wt up 11 kg-- her spironolactone was on hold since beginning of july due to hyperkalemia/elevated Cr and likely contributed CXR w/ pulmonary edema/effusions, associated airspace opacities on admit CHF clinic/cards consult appreciated Attempted to diurese with IV Lasix which was initially successful but then was no longer working. Addition of spironolactone caused rising creatinine to 3.0 Attempted higher doses of oral Lasix without success and she continued to gain weight, have orthopnea, and was significantly volume overloaded gave IV Bumex which has helped her to be more comfortable Patient has decided to pursue hospice at home as her heart failure is severe as is her renal failure and her prognosis is poor Continue Bumex for comfort/removal of fluid from around lungs and convert to 2mg po bid Nephrology consulted-appreciate recommendations Added hydralazine 25mg QID for afterload reduction but will dc as going home on hospice and for less pill burden Remains on Coreg, stopped Entresto due to renal failure Will not check any further labs Liberalized diet to regular (3) Acute hypoxic respiratory failure: Plan: 2nd to volume overload/CHF exacerbation/progressive CKD Continue oxygen as needed for comfort (4) CKD (chronic kidney disease) stage 4, GFR 15-29 ml/min: Plan: REJI in setting of CKD 4 Suspect worsened renal function w/ worsened heart failure mcmahon in place, diuretics as outlined, appreciate nephrology assistance 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 Spironolactone added back but now stopped Remains on coreg, diuretics, stopping hydralazine (6) Hypertension: Plan: Entresto discontinued, remains on coreg, and added hydralazine for afterload reduction but now stopping diuretics for volume overload (7) Elevated troponin: Plan: suspected demand ischemia from volume overload/CHF exacerbation as above. Initially 29.3--> 122--> 92.6. No CP reported. Cards consulted while inpatient ASA resumed but will now STOP STOP statin on comfort measures (8) Abnormal finding on urinalysis: Plan: Urine cx negative continue Mcmahon for now but if causing too much discomfort, will remove at patient's wishes (9) Mild cognitive impairment: Plan: Anxiety/depression/mild cognitive impairment- continue buspar can use lorazepam prn anxiety STOP memantine on comfort measures Plan Dispo-plan now is for discharge to home with hospice on 09/09 after equipment delivered to house and transport needs to be arranged as pt remains on O2 discussed care with multiple family members on 09/08 Admission and Anticipated Discharge Date Admission Date: August 28, 2023 Subjective No complaints, feels less SOB, is able to lie more flat. Has her , sister, and TITUS all visiting at bedside. Is moving bowels, eating. Is excited to get home. Physical Exam Constitutional: WD/WN, vitals as above Respiratory: normal respiratory effort Auscultation: + diminished lung russ nds (at bases); no wheezes Cardiovascular: Rate/Rhythm: regular rate and regular rhythm Heart Sounds: no murmur Extremities: + edema (1+ pitting edema legs bilat) Gastrointestinal (Abdomen): normal bowel sounds, soft, nontender, no hepatosplenomegaly Results & Data Results & Data Vital Signs (Past 12 Hours) Vital Signs Temp Pulse Resp BP Pulse Ox O2 Del Method O2 Flow Rate 09/09/23 07:20 Nasal Cannula 1 09/09/23 07:20 36.6 C 60 20 128/57 L 94 Nasal Cannula 1 PG Care Time/CCT Total # of Minutes Spent Total Time Spent with Patient: Total time spent is greater than 50% in coordination of care (as documented) at patient's floor/unit and/or counseling patient: Coding Level of Care Code 44623 SUB INP/OBS CARE Diagnoses Comfort measures only status Z51.5 CHF (congestive heart failure) I50.9 Heart failure chronicity: acute Heart failure type: unspecified Acute hypoxic respiratory failure J96.01 CKD (chronic kidney disease) stage 4, GFR 15-29 ml/min N18.4 Primary idiopathic dilated cardiomyopathy I42.0 Primary hypertension I10 Hypertension type: primary hypertension Elevated troponin R77.8 Abnormal finding on urinalysis R82.90 Mild cognitive impairment G31.84 (2) CHF (congestive heart failure) Heart failure chronicity: acute Heart failure type: unspecified Qualified Code(s): I50.9 - Heart failure, unspecified (6) Hypertension Hypertension type: primary hypertension Qualified Code(s): I10 - Essential (primary) hypertension
[2023-09-09] MEDS ORDERED: LORazepam 0.5 MG TAB PO PRN (14:46)
[2023-09-09] MEDS: BUMETANIDE 1 MG TAB PO SCH (17:37)
--- NOTE | 2023-09-10 11:43 | Discharge Summary ---
Date of Service September 10, 2023 Admission HPI Per Admitting Provider The patient is an 82-year-old female with a past medical history including primary idiopathic dilated cardiomyopathy, frequent PVCs, NSVT, pericardial effusion, SNHL bilaterally, progressive cognitive dysfunction, GERD, history of GI bleed, paroxysmal atrial fibrillation, CKD and history of CVA. She presents the emergency department with 10 days of progressively worsening shortness of breath and 10 pound weight gain and increasing lower extremity swelling. On she denies recent travels or sick exposures. Principal Diagnosis Acute on chronic systolic congestive heart failure, acute hypoxic respiratory failure Discharge Exam General-alert and oriented x3, no fevers, no chills HEENT-head atraumatic and normocephalic, pupils equal and reactive to light, extraocular muscles intact Neck-no lymphadenopathy or thyromegaly, trachea midline Chest-diminished breath sounds bilaterally. No wheezing. Cardiac-regular rate and rhythm, normal S1 and S2 Abdomen-normal bowel sounds, nontender, no hepatosplenomegaly Extremities-no cyanosis, clubbing, or edema Neuro-cranial nerves II through XII intact, motor and sensory function within normal limits, strength symmetrical with generalized weakness, no focal deficits Psych-normal affect, normal mood Discharge Data Allergies Allergy/AdvReac Type Severity Reaction Status Date / Time cephalexin Allergy Severe ANAPHYLAXIS Verified 08/28/23 00:16 Penicillins Allergy Severe RASH AND Verified 08/28/23 00:16 SWELLING Cephalosporins Allergy Intermediate RASH AND Verified 08/28/23 00:16 SWELLING ciprofloxacin Allergy Unknown CAN'T Verified 08/28/23 00:16 REMEMBER scallops Allergy Unknown CAN'T Verified 08/28/23 00:16 REMEMBER tramadol Allergy Unknown CAN'T Verified 08/28/23 00:16 REMEMBER azithromycin AdvReac Intermediate UPSET Verified 08/28/23 00:16 STOMACH erythromycin base AdvReac Intermediate UPSET Verified 08/28/23 00:16 STOMACH amlodipine AdvReac Unknown Unknown Verified 08/28/23 00:16 Consultations 08/28/23 00:49 ED Decision to Admit Stat 08/28/23 02:26 Consult Cardiology Routine 08/30/23 10:08 Consult Nephrology Routine 09/06/23 15:23 Consult Palliative Care Routine Hospital Course (1) Comfort measures only status: Due to severe heart failure and chronic kidney disease stage V Dilaudid as needed for pain or shortness of breath-will discharge to home with this--> has not used any yet Ativan as needed for anxiety or agitation-not requiring thus far--change to po from IV Plan for discharge to home with hospice on Sunday after all equipment arranged at home and transport set up Discontinue home meds that do not have goal of comfort or quality of life or have little benefit with poor prognosis--> dc statin, ASA, hydralazine, vitamins, ferrous sulfate, memantine, methenamine (2) CHF (congestive heart failure): ACUTE ON CHRONIC HEART FAILURE WITH REDUCED EF Acute respiratory failure with hypoxia secondary to CHF, ECHO w/ severely reduced EF, 20-25%, severe LV dysfunction Wt up 11 kg-- her spironolactone was on hold since beginning of july due to hyperkalemia/elevated Cr and likely contributed CXR w/ pulmonary edema/effusions, associated airspace opacities on admit CHF clinic/cards consult appreciated Attempted to diurese with IV Lasix which was initially successful but then was no longer working. Addition of spironolactone caused rising creatinine to 3.0 Attempted higher doses of oral Lasix without success and she continued to gain weight, have orthopnea, and was significantly volume overloaded gave IV Bumex which has helped her to be more comfortable Patient has decided to pursue hospice at home as her heart failure is severe as is her renal failure and her prognosis is poor Continue Bumex for comfort/removal of fluid from around lungs and convert to 2mg po bid Nephrology consulted-appreciate recommendations Added hydralazine 25mg QID for afterload reduction but will dc as going home on hospice and for less pill burden Remains on Coreg, stopped Entresto due to renal failure Will not check any further labs Liberalized diet to regular (3) Acute hypoxic respiratory failure: 2nd to volume overload/CHF exacerbation/progressive CKD Continue oxygen as needed for comfort (4) CKD (chronic kidney disease) stage 4, GFR 15-29 ml/min: REJI in setting of CKD 4 Suspect worsened renal function w/ worsened heart failure mcmahon in place, diuretics as outlined, appreciate nephrology assistance [employer] at 3.0, baseline 2.0 stopped aldactone she is not a candidate for dialysis and is now pursuing comfort measures No further labs being drawn (5) Primary idiopathic dilated cardiomyopathy: cards consult appreciated Entresto dc'd due to hyperkalemia/progressive CKD. Spironolactone added back but now stopped Remains on coreg, diuretics, stopping hydralazine (6) Hypertension: Entresto discontinued, remains on coreg, and added hydralazine for afterload reduction but now stopping diuretics for volume overload (7) Elevated troponin: suspected demand ischemia from volume overload/CHF exacerbation as above. Initially 29.3--> 122--> 92.6. No CP reported. Cards consulted while inpatient ASA resumed but will now STOP STOP statin on comfort measures (8) Abnormal finding on urinalysis: Urine cx negative continue Mcmahon for now but if causing too much discomfort, will remove at patient's wishes (9) Mild cognitive impairment: Anxiety/depression/mild cognitive impairment- continue buspar can use lorazepam prn anxiety STOP memantine on comfort measures Plan Home today, September 09, with hospice care. Total Time Total Time Spent Total Time Spent (In Minutes): 45 minutes Discharge Plan Discharge Items Patient Disposition: Hospice - Home Reason For Visit: HFrEF EXACERBATION Discharge Diagnosis: Acute on chronic HFrEF, Acute kidney injury on CKD stage 4 Acute respiratory failure with hypoxia Condition on Discharge: Fair Activity: As commented below Bathing: No limitations Exercise/Sports: As tolerated Non-emergency contact: Primary Care Provider Call non-emergency contact if: you have any medication questions and your symptoms worsen Diet: Regular Addtl Attending Provider Instructions: Hospice will be involved with home care Pending Studies at Discharge: No Stand-Alone Forms: My [facility] Medications and DC Order Prescriptions: New isosorbide mononitrate 30 mg Tablet Extended Release 24 Hr 30 mg PO QAM Qty: 30 0RF diclofenac sodium [Voltaren Arthritis Pain] 1 % Gel 2 g EXT QID Qty: 100 0RF Rx Instructions: apply to joints at site of pain lorazepam 0.5 mg tablet 0.5 mg PO Q6H PRN (Reason: anxiety or insomnia) Qty: 10 0RF docusate sodium 100 mg Capsule 100 mg PO BID Qty: 60 0RF bumetanide 1 mg Tablet 2 mg PO BID17 Qty: 60 0RF sennosides [Senokot] 8.6 mg Tablet 8.6 mg PO QAM Qty: 30 0RF hydromorphone [Dilaudid] 1 mg/mL liquid 2 mg PO Q6H PRN (Reason: pain or breathlessness) Qty: 473 0RF Continued Eliquis 2.5 mg tablet 2.5 mg PO BID Qty: 180 3RF Hold Instructions: Resume on 11/22/22. amiodarone 200 mg tablet 200 mg PO DAILY Qty: 90 3RF carvedilol 25 mg tablet 12.5 mg PO BID buspirone 5 mg tablet 5 mg PO DAILY Qty: 90 3RF Systane (propylene glycol) 0.4-0.3 % Drops 1 drp OPB DAILY PRN (Reason: Dry Eyes) Discontinued sacubitril-valsartan 49-51 mg tablet 1 tab PO BID Qty: 180 3RF memantine 5 mg tablet 5 mg PO DAILY Qty: 90 3RF Centrum Silver Women 8 mg iron-400 mcg-300 mcg tablet 1 tab PO HS AZO Urinary Tract Defense 162-162.5 mg tablet 1 tab PO BID ferrous sulfate [FeroSul] 325 mg (65 mg iron) tablet 325 mg PO DAILY furosemide 40 mg tablet 40 mg PO DAILY Rx Instructions: PER PT'S DAUGHTER "TOLD BY MD TO GIVE ADDITIONAL 20 MG TODAY ONLY" 08/27/23. atorvastatin 40 mg tablet 40 mg PO DAILY Rx Instructions: TAKE 1 TABLET BY MOUTH EVERY DAY Discharge Orders: Discharge Order- CHF (Routine); Ordered 09/10/23 Ordered By: Zay Ken Admission Data Admit Date/Time: 08/28/23 01:53 Attending Provider: Zay Ken Admit Provider: Johnathan Sena Primary Care Provider: Helen Steele Other Providers: Deepika Lucia [facility]; [place]; [facility]; Johnathan Sena; Cory Mcguire; Rosaura Domingo; Katty Donnelly Coding Level of Care Code 57409 INP/OBS DISCH >30 MIN Diagnoses Comfort measures only status Z51.5 CHF (congestive heart failure) I50.9 Heart failure chronicity: acute Heart failure type: unspecified Acute hypoxic respiratory failure J96.01 CKD (chronic kidney disease) stage 4, GFR 15-29 ml/min N18.4 Primary idiopathic dilated cardiomyopathy I42.0 Primary hypertension I10 Hypertension type: primary hypertension Elevated troponin R77.8 Abnormal finding on urinalysis R82.90 Mild cognitive impairment G31.84
== END 2023-09-10 15:01 | disposition hospice, home (50) | DRG 291 ==
LOC: ED 23:15 → EDINP 08-28 01:53 → SUATTDRO 08-28 01:53 → 2S 08-28 02:27 → 3W 09-07 18:05